=== PATIENT | female | born 1960 | race Caucasian/White ===

== ENCOUNTER → 2020-08-13 10:04 | Outpatient (REF) | payer OTHER, SELFPAY | LOC: HO.SL 10:04 | PROVIDERS: Visit Provider Internal Medicine Geriatric Medicine | DX: R40.0 Somnolence (principal); G47.33 Obstructive sleep apnea (adult) (pediatric) | CPT/HCPCS: 95806 ==

== ENCOUNTER → 2020-08-28 15:22 | Outpatient (BNVA) | payer OTHER, SELFPAY | PROVIDERS: PCP Internal Medicine Geriatric Medicine; Visit Provider Surgery Vascular Surgery | DX: I83.12 Varicose veins of left lower extremity with inflammation (principal) | CPT/HCPCS: 99212 ==

== ENCOUNTER 2020-09-16 13:18 | Outpatient (REF) | payer OTHER, SELFPAY ==
--- NOTE | ~2020-09-16 | MM_ITS ---
EXAMINATION: MM SCREENING DIGITAL BREAST TOMOSYNTHESIS, BILATERAL CLINICAL INFORMATION: Screening. Asymptomatic. The lifetime risk of breast cancer based on the Tyrer-Cuzick Model is 3%. COMPARISON: Mammography: 12/12/2018, 11/14/2017, 05/21/2016 TECHNIQUE: Digital breast tomosynthesis is performed in both the craniocaudal and mediolateral oblique views along with computer-aided detection (CAD). Synthesized 2D images are generated from the tomosynthesis. FINDINGS: There are scattered areas of fibroglandular density (ACR BI-RADS breast composition Category b). There are no significant masses, abnormal calcifications, or other abnormalities. There is some fine digital processing artifact overlying vasculature upper left axilla on left synthesized MLO view. The axilla and skin contours are unremarkable. MM/MM tomosynthesis screening BI IMPRESSION: No mammographic evidence of malignancy. ASSESSMENT: BI-RADS 2: Benign RECOMMENDATION: Routine annual mammography screening. This patient's information was entered into a reminder system with a target due date for their next mammogram.
== END 2020-09-16 13:19 | disposition home or self-care (01) ==
LOC: HO.MAMMO 13:18
PROVIDERS: PCP Internal Medicine Geriatric Medicine; Visit Provider Internal Medicine Geriatric Medicine
DX: Z12.31 Encounter for screening mammogram for malignant neoplasm of breast (principal)
CPT/HCPCS: 77063; 77067

== ENCOUNTER 2020-09-17 12:45 | Outpatient (REF) | payer OTHER, SELFPAY ==
--- NOTE | ~2020-09-17 | US_ITS ---
EXAMINATION: BILATERAL LOWER EXTREMITY VENOUS ULTRASOUND (Reflux Exam) CLINICAL INDICATION: This is a 59-year-old female with venous insufficiency. Varicose veins with inflammation. COMPARISON: None. TECHNIQUE: Color flow triplex imaging and compression Doppler was performed to evaluate both the deep and the superficial systems bilaterally. To evaluate the superficial system, the examination was performed in the upright position. Color-flow Doppler ultrasound and compression ultrasound were utilized. In addition, maneuvers were utilized to demonstrate reflux. FINDINGS: 1. DEEP VENOUS ULTRASOUND OF THE RIGHT LOWER EXTREMITY: Common Femoral Vein: Compressible, normal respiratory variation and augmented flow. Femoral vein: Compressible, normal color flow and augmentation. Popliteal Vein: Compressible, normal augmentation. Deep Reflux: There is no evidence of reflux in the deep system in either the common femoral vein or the popliteal vein. . There is no evidence of a Pollack's cyst. 2. SUPERFICIAL ULTRASOUND WITH DOPPLER OF RIGHT LOWER EXTREMITY GREAT SAPHENOUS VEIN: Saphenofemoral junction: 1.0 cm. There is no reflux at the junction. Mid thigh: 0.2 cm. There is a reflux time of 1084 ms. Above knee: 0.2 cm. There is no reflux at this level. Below knee: 0.3 cm. There is no reflux at this level. Mid calf: 0.3 cm. The reflux time is 3104 ms. Ankle: 0.3 cm. There is no reflux this level. GSV REFLUX: There is isolated reflux in the right thigh and right calf, respectively, as noted. There is no reflux in the junction. DUPLICATED GREAT SAPHENOUS VEIN: There is a duplicated medial great saphenous vein measuring 0.6 cm without reflux. SMALL SAPHENOUS VEIN: Not seen VEIN OF GIACOMINI: None Imaged. PERFORATORS: There is a 0.2 cm remediation project engineer at the mid calf without reflux. VARICOSITIES: There is a 0.4 cm varicose vein in the proximal calf with reflux time of 3276 ms. 3. DEEP VENOUS ULTRASOUND OF THE LEFT LOWER EXTREMITY: Common Femoral Vein: Compressible, normal respiratory variation and augmented flow. Femoral vein: Compressible, normal color flow and augmentation. Popliteal Vein: Compressible, normal augmentation. Deep Reflux: There is no evidence of reflux in the deep system in either the common femoral vein or the popliteal vein. There is no evidence of a Pollack's cyst. 4. SUPERFICIAL ULTRASOUND WITH DOPPLER OF LEFT LOWER EXTREMITY GREAT SAPHENOUS VEIN: Saphenofemoral junction: 1.0 cm. There is no reflux at this level. Mid thigh: Occluded. Above knee: Occluded. Below knee: Occluded. Mid calf: 0.1 cm. No reflux. Ankle: 0.3 cm. No reflux. GSV REFLUX: No evidence of reflux. This appears to be status post treatment. DUPLICATED GREAT SAPHENOUS VEIN: There is a 0.3 cm lateral duplicated great saphenous vein without reflux. SMALL SAPHENOUS VEIN: Not seen. VEIN OF GIACOMINI: None Imaged. PERFORATORS: There is a 0.2 cm and 0.1 cm, respectively, perforators in the mid thigh and proximal calf, respectively, without reflux. VARICOSITIES: There are 0.4 cm and 0.6 cm, respectively, varicose veins in the proximal calf and distal calf, respectively. There is no reflux. US/US venous duplex LE BI IMPRESSION: 1. There is a patent right great saphenous vein without evidence of reflux at the junction. 2. There is a patent medial duplicated great saphenous vein on the right without evidence of reflux. 3. The bilateral small saphenous veins are not seen. 4. There are varicose veins in the proximal right calf measuring 0.4 cm with greater than 3 seconds of reflux. 5. The left great saphenous vein appears to be occluded from previous treatment. 6. There are varicose veins and remediation project engineer's in the left leg without reflux as noted.
== END 2020-09-17 12:46 | disposition home or self-care (01) ==
LOC: HO.US 12:45
PROVIDERS: PCP Internal Medicine Geriatric Medicine; Visit Provider Surgery Vascular Surgery
DX: I83.893 Varicose veins of bilateral lower extremities with other complications (principal); I83.12 Varicose veins of left lower extremity with inflammation
CPT/HCPCS: 93970

== ENCOUNTER → 2020-12-18 09:19 | Outpatient (BNVA) | payer OTHER, SELFPAY | PROVIDERS: PCP Internal Medicine Geriatric Medicine; Visit Provider Surgery Vascular Surgery | DX: I83.11 Varicose veins of right lower extremity with inflammation (principal) | CPT/HCPCS: 99212 ==

== ENCOUNTER 2021-01-26 17:31 | Outpatient (REF) | payer OTHER, SELFPAY ==
--- NOTE | ~2021-01-26 | XR_ITS ---
EXAMINATION: XR SHOULDER, LEFT CLINICAL INFORMATION: Soft tissue disorder, pain. COMPARISON: Radiographs left shoulder 08/22/2018 TECHNIQUE: The left shoulder is imaged in 4 views. FINDINGS: There is no fracture, dislocation, or destructive process. The glenohumeral joint is normal. The acromioclavicular alignment is normal. There is a small spur from distal superior clavicle. No acromial spurring. There are no visible rotator cuff calcifications. Bulky calcification distal superior rotator cuff noted on prior exam 2018 is no longer visible. XR/XR shoulder LT min 2V IMPRESSION: 1. No visible rotator cuff calcifications. 2. Normal glenohumeral joint. 3. Mild spurring distal superior clavicle.
--- NOTE | ~2021-01-26 | XR_ITS ---
EXAMINATION: XR HAND, RIGHT XR HAND, LEFT CLINICAL INFORMATION: Pain COMPARISON: None TECHNIQUE: Each hand is imaged in 3 views. There are a total of 6 views. FINDINGS: Right: Bony mineralization within normal. The ulnar variance is neutral. There is no fracture, dislocation, destructive process. The carpus shows no joint narrowing or erosive change or chondrocalcinosis. The MCP and PIP joints are unremarkable. There is mild narrowing DIP joints. No erosive changes. Left: Bony mineralization within normal. The ulnar variance is neutral. There is no fracture, dislocation, destructive process. The carpus shows no joint narrowing or erosive change or chondrocalcinosis. The MCP and PIP joints are unremarkable. There is mild narrowing DIP joints. No erosive changes. XR/XR hand RT min 3V IMPRESSION: Mild narrowing bilateral DIP joints. No erosive changes.
--- NOTE | ~2021-01-26 | XR_ITS ---
EXAMINATION: XR HAND, RIGHT XR HAND, LEFT CLINICAL INFORMATION: Pain COMPARISON: None TECHNIQUE: Each hand is imaged in 3 views. There are a total of 6 views. FINDINGS: Right: Bony mineralization within normal. The ulnar variance is neutral. There is no fracture, dislocation, destructive process. The carpus shows no joint narrowing or erosive change or chondrocalcinosis. The MCP and PIP joints are unremarkable. There is mild narrowing DIP joints. No erosive changes. Left: Bony mineralization within normal. The ulnar variance is neutral. There is no fracture, dislocation, destructive process. The carpus shows no joint narrowing or erosive change or chondrocalcinosis. The MCP and PIP joints are unremarkable. There is mild narrowing DIP joints. No erosive changes. XR/XR hand LT min 3V IMPRESSION: Mild narrowing bilateral DIP joints. No erosive changes.
== END 2021-01-26 17:32 | disposition home or self-care (01) ==
LOC: HO.XRAY 17:31
PROVIDERS: PCP Internal Medicine Geriatric Medicine; Visit Provider Internal Medicine Geriatric Medicine
DX: M79.641 Pain in right hand (principal); M79.642 Pain in left hand; M79.89 Other specified soft tissue disorders
CPT/HCPCS: 73030; 73130

== ENCOUNTER 2021-05-11 13:32 | Outpatient (REF) | payer OTHER, SELFPAY ==
[2021-05-11 15:08] LABS: Hematocrit 38.1 % (37-47); Hemoglobin 12.2 g/dl (12.0-16.0); Mean Corpuscular Volume 93.6 fL (80-98); Platelet Count 258 X10*3/uL (160-400); Red Blood Count 4.07 X10*6/uL (4.20-5.50); Red Cell Distribution Width 13.2 % (11.0-16.0); White Blood Count 7.6 X10*3/uL (4.8-10.8)
[2021-05-11 16:00] LABS: Alanine Aminotransferase 18 U/L (0-31); Albumin Level 4.2 g/dL (3.5-5.0); Alkaline Phosphatase 88 U/L (39-117); Anion Gap 10 (12-20); Aspartate Amino Transferase 21 U/L (5-31); Bilirubin Total 0.3 mg/dL (0.0-1.0); Blood Urea Nitrogen 11 mg/dL (9-16); C Reactive Protein 0.74 mg/dL (< or = 0.50); Calcium 9.3 mg/dL (8.4-10.2); Carbon Dioxide 28 mmol/L (22-29); Chloride 110 mmol/L (96-108); Estimated Glomerular Filt Rate > 60; Glucose Random 99 mg/dL (60-115); Lipase 13 U/L (8-78); Potassium 4.2 mmol/L (3.3-5.1); Sodium 144 mmol/L (135-145); Total Protein 6.5 g/dL (6.5-8.0)
[2021-05-11 16:24] LABS: TSH reflex Free T4 1.63 uIU/mL (0.32-4.0)
[2021-05-16 07:46] LABS: Transglutaminase Ab IgG <1.0 U/mL; Transglutaminase IgA <1.0 U/mL
== END 2021-05-11 13:33 | disposition home or self-care (01) ==
LOC: HO.LAB 13:32
PROVIDERS: PCP Internal Medicine Geriatric Medicine; Referring Provider Internal Medicine Geriatric Medicine; Visit Provider Nurse Practitioner Family
DX: R10.30 Lower abdominal pain, unspecified (principal); K58.9 Irritable bowel syndrome, unspecified; R14.0 Abdominal distension (gaseous); K59.04 Chronic idiopathic constipation; K57.90 Diverticulosis of intestine, part unspecified, without perforation or abscess without bleeding; K58.1 Irritable bowel syndrome with constipation
CPT/HCPCS: 36415; 80053; 83516; 83690; 84443; 85027; 86140; 99202

== ENCOUNTER 2021-06-18 08:17 | Outpatient (REF) | payer OTHER, SELFPAY ==
--- NOTE | ~2021-06-18 | CT_ITS ---
EXAMINATION: CT ABDOMEN AND PELVIS WITH CONTRAST CLINICAL INFORMATION: Abdominal pain COMPARISON: Abdominal ultrasound December 2019 TECHNIQUE: Multidetector volumetric images were obtained from the superior aspect of the liver through the pubic symphysis following administration 85 mL of Omnipaque 350 intravenous contrast. Sagittal and coronal reformatted images were obtained on the technologist's workstation. Oral contrast: Yes This CT examination was performed using dose optimization techniques as appropriate, variously including the following: *Automated exposure control *Adjustment of mA and/or kV according to patient size (this includes techniques or standardized protocols for targeted exams where dose is matched to indication/reason for exam; i.e. extremities or head) *Use of iterative reconstruction technique DLP: 555 mGy-cm FINDINGS: LUNG BASES: The visualized lung bases are unremarkable. LIVER, GALLBLADDER, AND BILIARY TREE: The liver is normal in size, shape, and attenuation. No focal hepatic lesion or biliary ductal dilatation is present. The gallbladder is unremarkable with no evidence of radiopaque gallstones, gallbladder wall thickening, or obvious pericholecystic inflammatory changes. PANCREAS: Unremarkable. SPLEEN: Unremarkable. ADRENAL GLANDS: Unremarkable. KIDNEYS AND URETERS: The kidneys are normal in size, shape, and attenuation. No hydronephrosis, hydroureter, or calculi seen. No perinephric stranding. BLADDER: Unremarkable. GASTROINTESTINAL TRACT: There is diverticulosis of the colon. There is question of mild diverticulitis of the proximal sigmoid colon with wall thickening and some stranding of the surrounding fat. No evidence of obstruction, perforation or abscess is seen. There is evidence of constipation. The small and large bowel is otherwise unremarkable. The appendix is unremarkable. The stomach is unremarkable. ABDOMINAL WALL: There is a small umbilical hernia containing fat. LYMPH NODES: Normal. VASCULAR: Unremarkable. PELVIC VISCERA: Unremarkable. OSSEOUS STRUCTURES: Unremarkable. CT/CT abdomen pelvis w con IMPRESSION: Diverticulosis and question mild diverticulitis of the proximal sigmoid colon. Constipation.
[2021-06-18 09:53] LABS: Blood Urea Nitrogen 15 mg/dL (9-16); Estimated Glomerular Filt Rate > 60
[2021-06-18] MEDS: iohexoL 350 MG/ML 100 ML INFUS..BTL IV (11:56)
[2021-06-18] MEDS: Barium Sulfate Oral (Mocha) 450 ML ORAL.SUSP 900 ML PO (11:57)
== END 2021-06-18 08:18 | disposition home or self-care (01) ==
LOC: HO.CT 08:17
PROVIDERS: PCP Internal Medicine Geriatric Medicine; Visit Provider Nurse Practitioner Family
DX: Z01.812 Encounter for preprocedural laboratory examination (principal); R10.11 Right upper quadrant pain
CPT/HCPCS: 36415; 74177; 82565; 84520; Q9967

== ENCOUNTER → 2021-07-15 11:27 | Outpatient (BNVA) | payer OTHER, SELFPAY | PROVIDERS: Referring Provider Internal Medicine Geriatric Medicine; Visit Provider Nurse Practitioner Family | DX: K57.90 Diverticulosis of intestine, part unspecified, without perforation or abscess without bleeding (principal); K59.04 Chronic idiopathic constipation; K21.9 Gastro-esophageal reflux disease without esophagitis | CPT/HCPCS: 99212 ==

== ENCOUNTER 2021-10-12 15:52 | Outpatient (REF) | payer OTHER, SELFPAY ==
--- NOTE | ~2021-10-12 | MM_ITS ---
EXAMINATION: MM SCREENING DIGITAL BREAST TOMOSYNTHESIS, BILATERAL CLINICAL INFORMATION: Screening. Asymptomatic. The lifetime risk of breast cancer based on the Tyrer-Cuzick Model is 4%. COMPARISON: Mammography: 09/16/2020, 12/12/2018, 11/14/2017 TECHNIQUE: Digital breast tomosynthesis is performed in both the craniocaudal and mediolateral oblique views along with computer-aided detection (CAD). Synthesized 2D images are generated from the tomosynthesis. FINDINGS: There are scattered areas of fibroglandular density (ACR BI-RADS breast composition Category b). There are no significant masses, abnormal calcifications, or other abnormalities. Parenchymal pattern is similar to prior studies. There are no significant changes. MM/MM tomosynthesis screening BI IMPRESSION: No mammographic evidence of malignancy. ASSESSMENT: BI-RADS 1: Negative RECOMMENDATION: Routine annual mammography screening. This patient's information was entered into a reminder system with a target due date for their next mammogram.
== END 2021-10-12 15:53 | disposition home or self-care (01) ==
LOC: HO.MAMMO 15:52
PROVIDERS: PCP Internal Medicine Geriatric Medicine; Visit Provider Internal Medicine Geriatric Medicine
DX: Z12.31 Encounter for screening mammogram for malignant neoplasm of breast (principal)
CPT/HCPCS: 77063; 77067

== ENCOUNTER → 2021-11-10 13:00 | Outpatient (BNVA) | payer OTHER, SELFPAY | PROVIDERS: PCP Internal Medicine Geriatric Medicine; Referring Provider Internal Medicine Geriatric Medicine; Visit Provider Nurse Practitioner Family | DX: K21.9 Gastro-esophageal reflux disease without esophagitis (principal); K59.04 Chronic idiopathic constipation; K57.90 Diverticulosis of intestine, part unspecified, without perforation or abscess without bleeding; Z79.899 Other long term (current) drug therapy | CPT/HCPCS: 99212 ==

== ENCOUNTER 2022-03-18 09:52 | Outpatient (REF) | payer OTHER, SELFPAY ==
--- NOTE | ~2022-03-18 | MM_ITS ---
EXAMINATION: BONE DENSITOMETRY CLINICAL INDICATION: Menopause. COMPARISON: None (current study represents initial baseline exam). TECHNIQUE: Using a [employer] DXA System (software version: 13.1) manufactured by [employer], dual-energy x-ray absorptiometry was performed of the lumbar spine and left hip. The images are of good technical quality. Summary results are attached. FINDINGS: AP SPINE L1-L4: BMD 0.907 g/cm2, Z-score -1.5, T-score -2.3, osteopenia. LEFT FEMUR, NECK: BMD 0.942 g/cm2, Z-score 0.3, T-score -0.7, normal. LEFT FEMUR, TOTAL: BMD 0.984 g/cm2, Z-score 0.4, T-score -0.2, normal. IDENTIFIED RISK FACTORS: None listed. HISTORY OF FRACTURE: None listed. MEDICATIONS: Calcium supplements or multivitamin, vitamin D. MM/XR DEXA axial skeleton IMPRESSION: 1. DIAGNOSIS: Osteopenia based on the lowest T-score value of -2.3 in the lumbar spine applying World Health Organization criteria. 2. 10-YEAR FRACTURE RISK PREDICTION, FRAX: Major osteoporotic fracture (clinical spine, forearm, hip or shoulder) 3.7%. Hip fracture 0.2%. 3. Treatment Recommendations: NOF guidelines recommend consideration for treatment in postmenopausal women and men age 50 and older presenting with the following: -A hip or vertebral (clinical or morphometric) fracture. -T-score less than or equal to -2.5 at the femoral neck or spine after appropriate evaluation to exclude secondary causes. -Low bone mass at the hip or spine and a 10-year fracture probability by FRAX of greater than or equal to 3% for hip fracture or greater than or equal to 20% for major osteoporotic fracture based on the [place] adapted WHO algorithm. 4. Other Recommendations: All treatment decisions require clinical judgment and consideration of individual patient factors, including patient preferences, comorbidities, previous drug use, risk factors not captured in the FRAX model (e.g. frailty, falls, vitamin D deficiency, increased bone turnover, interval significant decline in bone density) and possible under or overestimation of fracture risk by FRAX. Additional medical evaluation for secondary cause of low bone mineral density may be appropriate. FUTURE SCAN RECOMMENDATION: People with diagnosed cases of osteoporosis or at high risk for fracture should have regular bone mineral density tests. For patients eligible for Medicare, routine testing is allowed once every 2 years. The testing frequency can be increased to one year for patients who have rapidly progressing disease, those who are receiving or discontinuing medical therapy to restore bone mass, or have additional risk factors.
== END 2022-03-18 09:53 | disposition home or self-care (01) ==
LOC: HO.MAMMO 09:52
PROVIDERS: PCP Internal Medicine Geriatric Medicine; Visit Provider Internal Medicine Geriatric Medicine
DX: Z13.820 Encounter for screening for osteoporosis (principal); E89.40 Asymptomatic postprocedural ovarian failure; M85.80 Other specified disorders of bone density and structure, unspecified site
CPT/HCPCS: 77080

== ENCOUNTER 2022-06-14 11:48 | Outpatient (REF) | payer OTHER, SELFPAY ==
--- NOTE | ~2022-06-14 | XR_ITS ---
EXAMINATION: XR LUMBOSACRAL SPINE CLINICAL INFORMATION: Lumbago with sciatica. COMPARISON: None TECHNIQUE: AP and lateral views of the lumbar spine and lateral view of the lumbosacral junction. FINDINGS: Vertebral body heights are normal. There is a mild lumbar dextroscoliosis, with rotatory component. The lumbar disc spaces are well-maintained. No acute fracture or spondylolisthesis is seen. The posterior elements are intact. There are multiple pelvic phleboliths. The paravertebral soft tissues are unremarkable. XR/XR lumbar spine 2-3V IMPRESSION: 1. No acute fracture or spondylolisthesis is seen. 2. The lumbar disc spaces are well-maintained. 3. There is a mild lumbar dextroscoliosis, with rotatory component.
== END 2022-06-14 11:49 | disposition home or self-care (01) ==
LOC: HO.XRAY 11:48
PROVIDERS: PCP Internal Medicine Geriatric Medicine; Visit Provider Internal Medicine Geriatric Medicine
DX: M54.42 Lumbago with sciatica, left side (principal)
CPT/HCPCS: 72100

== ENCOUNTER → 2022-10-06 11:14 | Outpatient (BNVA) | payer OTHER, SELFPAY | PROVIDERS: PCP Internal Medicine Geriatric Medicine; Visit Provider Anesthesiology | DX: M47.816 Spondylosis without myelopathy or radiculopathy, lumbar region (principal); M47.812 Spondylosis without myelopathy or radiculopathy, cervical region; G89.4 Chronic pain syndrome | CPT/HCPCS: 99202 ==

== ENCOUNTER 2022-10-15 15:04 | Outpatient (REF) | payer OTHER, SELFPAY ==
--- NOTE | ~2022-10-15 | MM_ITS ---
EXAMINATION: MM SCREENING DIGITAL BREAST TOMOSYNTHESIS, BILATERAL CLINICAL INFORMATION: Screening. Asymptomatic. The lifetime risk of breast cancer based on the Tyrer-Cuzick Model is 6%. COMPARISON: Mammography: 10/12/2021, 09/16/2020, 12/12/2018 TECHNIQUE: Digital breast tomosynthesis is performed in both the craniocaudal and mediolateral oblique views along with computer-aided detection (CAD). Synthesized 2D images are generated from the tomosynthesis. FINDINGS: There are scattered areas of fibroglandular density (ACR BI-RADS breast composition Category b). There are no significant masses, abnormal calcifications, or other abnormalities. Parenchymal pattern is similar to prior studies. There is no developing density or architectural abnormality. The axilla and skin contours are unremarkable. No significant changes. MM/MM tomosynthesis screening BI IMPRESSION: No mammographic evidence of malignancy. ASSESSMENT: BI-RADS 1: Negative RECOMMENDATION: Routine annual mammography screening. This patient's information was entered into a reminder system with a target due date for their next mammogram.
== END 2022-10-15 15:05 | disposition home or self-care (01) ==
LOC: HO.MAMMO 15:04
PROVIDERS: PCP Internal Medicine Geriatric Medicine; Visit Provider Internal Medicine Geriatric Medicine
DX: Z12.31 Encounter for screening mammogram for malignant neoplasm of breast (principal)
CPT/HCPCS: 77063; 77067

== ENCOUNTER → 2022-11-04 12:00 | Outpatient (BNVA) | payer OTHER, SELFPAY | PROVIDERS: PCP Internal Medicine Geriatric Medicine; Visit Provider Nurse Practitioner Family | DX: K59.04 Chronic idiopathic constipation (principal); K58.1 Irritable bowel syndrome with constipation; K57.90 Diverticulosis of intestine, part unspecified, without perforation or abscess without bleeding | CPT/HCPCS: 99212 ==

== ENCOUNTER → 2022-12-01 12:34 | Outpatient (BNVA) | payer OTHER, SELFPAY | PROVIDERS: PCP Internal Medicine Geriatric Medicine; Visit Provider Nurse Practitioner Family | DX: K58.1 Irritable bowel syndrome with constipation (principal); K59.04 Chronic idiopathic constipation; K21.9 Gastro-esophageal reflux disease without esophagitis; R22.1 Localized swelling, mass and lump, neck | CPT/HCPCS: 99212 ==

== ENCOUNTER 2022-12-21 09:59 | Outpatient (REF) | payer OTHER, SELFPAY | END 2022-12-21 10:00 | disposition home or self-care (01) | LOC: HO.LNP 09:59 | PROVIDERS: PCP Internal Medicine Geriatric Medicine; Referring Provider Nurse Practitioner Family; Visit Provider Surgery | DX: D17.22 Benign lipomatous neoplasm of skin and subcutaneous tissue of left arm (principal) | CPT/HCPCS: 11423; 88304; 99202 ==

== ENCOUNTER → 2022-12-28 13:42 | Outpatient (BNVA) | payer OTHER, SELFPAY | PROVIDERS: PCP Internal Medicine Geriatric Medicine; Visit Provider Surgery | DX: D17.9 Benign lipomatous neoplasm, unspecified (principal) | CPT/HCPCS: 99212 ==

== ENCOUNTER → 2022-12-30 13:05 | Outpatient (BNVA) | payer OTHER, SELFPAY | PROVIDERS: PCP Internal Medicine Geriatric Medicine; Visit Provider Surgery Vascular Surgery | DX: I83.12 Varicose veins of left lower extremity with inflammation (principal) | CPT/HCPCS: 99212 ==

== ENCOUNTER 2023-01-06 10:19 | Outpatient (REF) | payer OTHER, SELFPAY ==
--- NOTE | ~2023-01-06 | US_ITS ---
EXAMINATION: US LOWER EXTREMITY VENOUS (REFLUX EXAM), BILATERAL CLINICAL INDICATION: Chronic venous insufficiency history of prior saphenous vein ablations COMPARISON: Ultrasound from 09/17/2020 TECHNIQUE: Color flow triplex imaging and compression Doppler was performed to evaluate both the deep and the superficial systems bilaterally. To evaluate the superficial system, the examination was performed in the upright position. Color-flow Doppler ultrasound and compression ultrasound were utilized. In addition, maneuvers were utilized to demonstrate reflux. FINDINGS: 1. DEEP VENOUS ULTRASOUND OF THE RIGHT LOWER EXTREMITY: Common Femoral Vein: Compressible, normal respiratory variation and augmented flow. Femoral Vein: Compressible, normal color flow and augmentation. Popliteal Vein: Compressible, normal augmentation. Deep Reflux: There is no evidence of reflux in the deep system in either the common femoral vein or the popliteal vein. There is no evidence of a Pollack's cyst. 2. SUPERFICIAL ULTRASOUND WITH DOPPLER OF RIGHT LOWER EXTREMITY: GREAT SAPHENOUS VEIN: Saphenofemoral Junction: 0.8 cm; Reflux: 0 ms Proximal Thigh: 0.5 cm; Reflux: 0 ms Mid Thigh: 0.2 cm; Reflux: 0 ms Above Knee: 0.3 cm; Reflux: 0 ms At Knee: 0.2 cm; Reflux: 0 ms Below Knee: 0.3 cm; Reflux: 0 ms Mid Calf: 0.2 cm; Reflux: 2584 ms Ankle: 0.3 cm; Reflux: 2544 ms DUPLICATED MEDIAL GREAT SAPHENOUS VEIN: Diameter: 0.3 cm Reflux: None DUPLICATED LATERAL GREAT SAPHENOUS VEIN: Diameter: None imaged Reflux: NA SMALL SAPHENOUS VEIN: Proximal: 0.1 cm; Reflux: 0 ms Distal: 2 cm; Reflux: 0 ms VEIN OF GIACOMINI: Size: NA Reflux: NA PERFORATORS: Location: Mid calf Size: 0.3 cm Reflux: None VARICOSITIES: Location: Proximal calf off the great saphenous vein Size: 0.4 cm Reflux: 2612 3. DEEP VENOUS ULTRASOUND OF THE LEFT LOWER EXTREMITY: Common Femoral Vein: Compressible, normal respiratory variation and augmented flow. Femoral Vein: Compressible, normal color flow and augmentation. Popliteal Vein: Compressible, normal augmentation. Deep Reflux: There is no evidence of reflux in the deep system in either the common femoral vein or the popliteal vein. There is no evidence of a Pollack's cyst. 4. SUPERFICIAL ULTRASOUND WITH DOPPLER OF LEFT LOWER EXTREMITY: GREAT SAPHENOUS VEIN: Saphenofemoral Junction: 0.8 cm; Reflux: 0 ms Proximal Thigh: Not visualized Mid Thigh: Not visualized Above Knee: 0.3 cm; Reflux: 3024 ms At Knee: 0.1 cm; Reflux: 0 ms Below Knee: 0.2 cm; Reflux: 0 ms Mid Calf: 0.1 cm; Reflux: 0 ms Ankle: 0.2 cm; Reflux: 780 ms DUPLICATED MEDIAL GREAT SAPHENOUS VEIN: Diameter: None imaged Reflux: NA DUPLICATED LATERAL GREAT SAPHENOUS VEIN: Diameter: 0.3 cm Reflux: None SMALL SAPHENOUS VEIN: Not visualized VEIN OF GIACOMINI: Size: NA Reflux: NA PERFORATORS: Location: Mid thigh and proximal calf extending into the great saphenous vein remnant Size: 0.2 Reflux: None VARICOSITIES: Location: None Imaged Size: NA Reflux: NA US/US venous duplex LE BI IMPRESSION: Right: Segmental reflux in the right great saphenous vein within the calf as described above. Dilated varicose vein arising from the great saphenous vein in the calf with reflux as described above. No significant change compared to the prior exam Left: Occlusion of the left great saphenous vein within the thigh with reconstituted flow in the great saphenous vein in the distal thigh and calf as described above. Segmental areas of reflux seen in the residual great saphenous vein as described above
== END 2023-01-06 10:20 | disposition home or self-care (01) ==
LOC: HO.US 10:19
PROVIDERS: Visit Provider Surgery Vascular Surgery
DX: I83.12 Varicose veins of left lower extremity with inflammation (principal)
CPT/HCPCS: 93970

== ENCOUNTER → 2023-01-19 09:16 | Outpatient (BNVA) | payer OTHER, SELFPAY | PROVIDERS: Visit Provider Nurse Practitioner Family | DX: Z12.11 Encounter for screening for malignant neoplasm of colon (principal); K21.9 Gastro-esophageal reflux disease without esophagitis; K58.1 Irritable bowel syndrome with constipation; K59.04 Chronic idiopathic constipation | CPT/HCPCS: 99212 ==

== ENCOUNTER 2023-02-22 11:10 | Day surgery (SDC) | payer OTHER, SELFPAY ==
--- NOTE | 2023-02-21 12:04 | HO.ANESPROP2 ---
Documented by User: Kira Mott NP 02/21/23 12:04 HPI - Anesthesia Eval Consult details Narrative: 62yo F for Upper Endoscopy and Colonoscopy PMFSH Active Problems Active Problems: All Active Problems (Updated 12/21/22 @ 10:13 by BOSTON Harding) Lipoma (Acute) Chronic pain syndrome (Acute) Spondylosis of cervical region without myelopathy or radiculopathy (Acute) Spondylosis of lumbar region without myelopathy or radiculopathy (Acute) Varicose veins of right lower extremity with inflammation (Acute) Varicose veins of left lower extremity with inflammation (Acute) Past Medical History Medical History Cataract (~11/2021) Family History Family History Father Diabetes HTN (hypertension) Sister FH: kidney cancer HTN (hypertension) Mother HTN (hypertension) Sister HTN (hypertension) Sister HTN (hypertension) Sister HTN (hypertension) Sister HTN (hypertension) Brother HTN (hypertension) Surgical History Surgical History H/O prior ablation treatment H/O: hysterectomy History of bladder surgery History of esophagogastroduodenoscopy (EGD) Hx of colonoscopy Social History Social History Alcohol intake: never Patient Tobacco Use Status: Never used Tobacco Use of substances other than those prescribed or required for medical reasons: No Are you DNR?: No Advance Directives: No Advance Directives Information Provided: Yes Recently lost weight without trying: No Nutrition Risks: No Nutritional Risk Meds Allergies Allergy/AdvReac Type Severity Reaction Status Date / Time acetaminophen [Percocet] Allergy Unknown itching Verified 01/19/23 09:25 oxycodone [Percocet] Allergy Unknown itching Verified 01/19/23 09:25 tramadol Allergy Unknown itching Verified 01/19/23 09:25 Home Medications Medication Instructions Recorded Confirmed Last Taken Type amlodipine 5 mg-benazepril 10 mg 1 cap PO DAILY 08/28/20 Unknown History capsule bupropion HCl 150 mg 24 hr tablet, 150 mg PO QAM 08/28/20 Unknown History extended release gabapentin 100 mg capsule 100 mg PO DAILY 08/28/20 Unknown History incontinence pad, liner, disp #10 ea 08/28/20 Unknown History (Affirm Pads) nabumetone 750 mg tablet 750 mg PO BID 08/28/20 Unknown History valacyclovir 500 mg tablet 500 mg PO BID 08/28/20 Unknown History (Valtrex) oxybutynin chloride 15 mg 15 mg PO DAILY 11/10/21 Unknown History tablet,extended release 24 hr dicyclomine 10 mg capsule 10 mg PO Q6H PRN 10/06/22 Unknown History psyllium husk (aspartame) 3.4 g PO 12/30/22 Unknown History gram/5.8 gram oral powder (Metamucil Sugar-Free (aspartame)) Exam Exam Date and Time: February 21, 2023 1204 Assessment and Plan Assessment Anesthesia Assessment: Chart Reviewed Documented by User: Estela Goss MD 02/22/23 13:38 [facility] Past Medical History Medical History Cataract (~11/2021) Family History Family History Father Diabetes HTN (hypertension) Sister FH: kidney cancer HTN (hypertension) Mother HTN (hypertension) Sister HTN (hypertension) Sister HTN (hypertension) Sister HTN (hypertension) Sister HTN (hypertension) Brother HTN (hypertension) Family history of problems with anesthesia: No Surgical History Surgical History H/O prior ablation treatment H/O: hysterectomy History of bladder surgery History of esophagogastroduodenoscopy (EGD) Hx of colonoscopy History of Problems with Anesthesia: No Social History Social History Alcohol intake: never Patient Tobacco Use Status: Never used Tobacco Use of substances other than those prescribed or required for medical reasons: No Are you DNR?: No Advance Directives: No Advance Directives Information Provided: Yes Recently lost weight without trying: No Nutrition Risks: No Nutritional Risk Meds Allergies Allergy/AdvReac Type Severity Reaction Status Date / Time acetaminophen [Percocet] Allergy Unknown itching Verified 01/19/23 09:25 oxycodone [Percocet] Allergy Unknown itching Verified 01/19/23 09:25 tramadol Allergy Unknown itching Verified 01/19/23 09:25 Home Medications Medication Instructions Recorded Confirmed Last Taken Type amlodipine 5 mg-benazepril 10 mg 1 cap PO DAILY 08/28/20 Unknown History capsule bupropion HCl 150 mg 24 hr tablet, 150 mg PO QAM 08/28/20 Unknown History extended release gabapentin 100 mg capsule 100 mg PO DAILY 08/28/20 Unknown History incontinence pad, liner, disp #10 ea 08/28/20 Unknown History (Affirm Pads) nabumetone 750 mg tablet 750 mg PO BID 08/28/20 Unknown History valacyclovir 500 mg tablet 500 mg PO BID 08/28/20 Unknown History (Valtrex) oxybutynin chloride 15 mg 15 mg PO DAILY 11/10/21 Unknown History tablet,extended release 24 hr dicyclomine 10 mg capsule 10 mg PO Q6H PRN 10/06/22 Unknown History psyllium husk (aspartame) 3.4 g PO 12/30/22 Unknown History gram/5.8 gram oral powder (Metamucil Sugar-Free (aspartame)) Exam Airway Mallampati Class: II TM Dist: >3cm Neck ROM: Full Loose/Missing/Broken Teeth: No Heart: rr Lungs: cta Assessment and Plan Assessment Anesthesia Assessment: Anesthesia Plan Discussed Final Anesthetic Review Family History of Problems with Anesthesia: No History of Problems with Anesthesia: No NPO: Yes ASA Class: II Final Preanesthetic Review: No Changes in Pt Med Stat, Meds/Allgs Chart Reviewed, Consent Obtained/Reviewed and Anes Risks/Benef Reviewed Patient Risk: Low Procedure Risk: Low Anesthetic Plan Anesthetic Plan: MAC: Disposition: Standard PACU
--- NOTE | 2023-02-22 11:19 | MHC.SHP ---
Pre-Procedural Eval Section A Date of Service: 02/22/23 The patient is an INPATIENT: No The History & Physical has been completed within 30 days and I have reviewed it.: No Section B Chief Complaint: screening,constipation,IBS, GERD Relevant Family History (Specify if Yes): No Relevant Social History: None Present Medications: see Short Stay Collaborative assessment Medical History: Significant History (Chronic pain syndrome) History of Previous Operations: Relevant previous surgery/procedure and date(s) (H/O prior ablation treatment H/O: hysterectomy History of bladder surgery History of esophagogastroduodenoscopy (EGD) Hx of colonoscopy) Allergies: Allergies Allergy/AdvReac Type Severity Reaction Status Date / Time acetaminophen [Percocet] Allergy Unknown itching Verified 01/19/23 09:25 oxycodone [Percocet] Allergy Unknown itching Verified 01/19/23 09:25 tramadol Allergy Unknown itching Verified 01/19/23 09:25 Review of Systems Sugical H&P ROS: Negative: Constitution, Cardiovascular, Respiratory and Gastrointestinal Exam Surgical H&P Exam: Normal: Heart, Normal: Lungs, Normal: Extremities and Normal: Abdomen Plan Diagnosis/Plan: Unchanged I have reviewed the history and physical and performed a pertinent physical examination on my patient. No changes have occurred unless specified. Time Spent With Patient Time: Total time managing care of this patient today ____ minutes.
[2023-02-22 11:52] VITALS: BMI 37.4
[2023-02-22 11:58] VITALS: BP 134/88; PULSE 69; RESP 16; TEMP 36.2; O2SAT 98
[2023-02-22] MEDS: Lactated Ringers 1,000 ML 100 ML IVCONT (12:17)
--- NOTE | 2023-02-22 12:50 | P.OP_ITS ---
Operative Note Operative Note Date of Service: 02/22/23 Narrative: FLEXIBLE TRANSORAL UPPER GASTROINTESTINAL ENDOSCOPY WITH BIOPSIES AND COLONOSCOPY TILL CECUM WITH SNARE POLYPECTOMY Pre-op diagnosis: screening, constipation, IBS and GERD Post-op diagnosis: GERD, gastritis, colon polyp, diverticulosis, hemorrhoids? Endoscopist:? Niharika Munoz MD Anesthesia:?MAC UPPER ENDOSCOPY Consent: Indications for the procedure and potential complications of bleeding, perforation, reaction to medications and missed diagnosis were discussed with the patient and informed consent was obtained. Instrument: Olympus GIF H 190 mid size upper endoscope Monitoring: Vital signs and clinical assessment, continuous EKG monitoring, Pulse oximetry, Carbon Dioxide monitoring and blood pressure monitoring were done throughout the procedure. Procedure: The patient was placed in the left lateral decubitis position and pre-procedure medications were administered and a bite block was placed. The endoscope was inserted into the mouth and advanced under direct vision to the third part of duodenum. A careful inspection was made as the upper endoscope was withdrawn including a retroflexed examination of the proximal stomach; Findings and interventions are described below. Findings: Larynx: Normal Esophagus: GE junction at 36 cms. Minimal focal esophagitis at GE junction. No Guerrero's. Stomach: Mild gastric erythema. Biopsies were obtained. Grade 2 flap valve on retroflexed examination of the cardia. Duodenum: Normal bulb and descending duodenum. Biopsies obtained from 3rd part of duodenum to check for celiac sprue Intervention: Biopsies as noted above COLONOSCOPY PROCEDURE NOTE Consent: Indications for the procedure and potential complications of bleeding, perforation, reaction to medications and missed diagnosis were discussed with the patient and informed consent was obtained. Instrument: Olympus PCF H 190 L variable stiffness pediatric colonoscope Monitoring: Vital signs and clinical assessment, intermittent blood pressure monitoring, continuous EKG monitoring, Pulse oximetry and Carbon Dioxide monitoring were done throughout the procedure. Colon withdrawl time was 22 minutes. Procedure: The patient was placed in the left lateral decubitis position and pre-procedure medications were administered. After a digital rectal examination of the ano-rectum, the video colonoscope was inserted into the rectum and advanced through the colon to the cecum. The colonoscope was slowly withdrawn in a retrograde panoramic fashion and the colon mucosa was carefully examined including a retroflexed view of the rectum. Findings and interventions are described below. Procedure Difficulty: : Without difficulty Findings: Terminal Ileum: Not evaluated Cecum: Normal Ascending Colon: Normal Transverse Colon: Normal Descending Colon: Moderate diverticulosis Sigmoid Colon: Severe diverticulosis with luminal narrowing Rectum: A 10-12 mm sessile polyp - removed with a hot snare. Ano-rectum: Moderate internal hemorrhoids Colon preparation: Good after some irrigation Impression and Post Procedure Diagnosis: Endoscopy Findings: ESOPHAGUS: Minimal focal esophagitis at GE junction. No Guerrero's. STOMACH: Mild gastritis DUODENUM: Normal - biopsied to check for celiac sprue Colonoscopy Findings: One medium sized polyp removed Moderate to severe diverticulosis seen in the left colon Moderate hemorrhoids on retroflexed exam. Plan: Await pathology results Patient has an appointment on 03/02/23 in the [facility] with Osiris Ware FNP- [place] . Repeat Colonoscopy interval based on path results - in 3 years if polyp is adenomatous and 10 years if polyps are hyperplastic. Above findings were reviewed with the patient and GERD, colon polyps and diverticulosis handouts were given in the discharge area
[2023-02-22 14:06] VITALS: BP 130/81; PULSE 72; RESP 16; TEMP 36.2; O2SAT 96
[2023-02-22 14:21] VITALS: BP 149/80; PULSE 66; RESP 16; TEMP 36.3; O2SAT 99
== END 2023-02-22 15:22 | disposition home or self-care (01) ==
PROVIDERS: PCP Internal Medicine Geriatric Medicine; Visit Provider Internal Medicine Gastroenterology
PROC: (CPT 45385; principal; 2023-02-22 12:40)
DX: Z12.11 Encounter for screening for malignant neoplasm of colon (principal); D12.8 Benign neoplasm of rectum; K57.30 Diverticulosis of large intestine without perforation or abscess without bleeding; K64.8 Other hemorrhoids; K29.70 Gastritis, unspecified, without bleeding; K21.9 Gastro-esophageal reflux disease without esophagitis; K59.04 Chronic idiopathic constipation; K58.1 Irritable bowel syndrome with constipation; G89.4 Chronic pain syndrome; Z79.899 Other long term (current) drug therapy
CPT/HCPCS: 45385; 43239; 88305; 88342

== ENCOUNTER → 2023-02-22 11:10 | Outpatient (BNV) | payer OTHER, SELFPAY | PROVIDERS: PCP Internal Medicine Geriatric Medicine; Visit Provider Internal Medicine Gastroenterology | DX: Z12.11 Encounter for screening for malignant neoplasm of colon (principal); K63.5 Polyp of colon; K21.9 Gastro-esophageal reflux disease without esophagitis | CPT/HCPCS: 43239; 45385 ==

== ENCOUNTER 2023-04-05 11:55 | Outpatient (REF) | payer OTHER, SELFPAY ==
[2023-04-05 13:46] LABS: MANUAL DIFF FLAG NO
[2023-04-05 13:47] LABS: Basophils Percent Auto 0.7 % (0-2); Eosinophils Absolute Auto 0.2 X10*3/uL (0.0-0.4); Hematocrit 39.3 % (37.0-47.0); Hemoglobin 12.5 g/dl (12.0-16.0); Imm Gran Abs Auto 0.02 X10*3/uL (0.00-0.03); Imm Gran Pct Auto 0.3 % (0.0-0.4); Lymphocytes Absolute Auto 2.2 X10*3/uL (1.2-4.9); Lymphocytes Percent Auto 35.9 % (20-40); Mean Corpuscular HGB Conc 31.8 g/dl (31.0-35.0); Mean Corpuscular Volume 94.2 fL (80.0-98.0); Mean Platelet Volume 10.7 fL (9.4-12.3); Monocytes Absolute Auto 0.4 X10*3/uL (0.1-1.2); Neutrophils Absolute Auto 3.3 x10*3/uL (2.0-8.3); Neutrophils Percent Auto 54.1 % (45-73); Platelet Count 275 X10*3/uL (160-400); Red Blood Count 4.17 X10*6/uL (4.20-5.50); Red Cell Distribution Width 13.2 % (11.0-16.0)
== END 2023-04-05 11:56 | disposition home or self-care (01) ==
LOC: HO.HHCL 11:55
PROVIDERS: Visit Provider Nurse Practitioner Primary Care
DX: R10.32 Left lower quadrant pain (principal); K57.90 Diverticulosis of intestine, part unspecified, without perforation or abscess without bleeding
CPT/HCPCS: 36415; 85025

== ENCOUNTER 2023-06-07 13:46 | Outpatient (REF) | payer OTHER, SELFPAY ==
--- NOTE | ~2023-06-07 | XR_ITS ---
EXAMINATION: XR KNEE, RIGHT XR KNEE, LEFT CLINICAL INFORMATION: Pain COMPARISON: None available. TECHNIQUE: 3 views of the right knee 3 views the left knee FINDINGS: RIGHT: No acute visible fracture or dislocation. Multicompartment arthritic changes. Enthesopathy at the quadriceps tendon insertion site. Sclerotic focus tibial metadiaphysis statistically representing a bone island. A fabella is noted in the posterior compartment. Joint spaces and alignment are otherwise maintained. No large knee joint effusion. Soft tissues are unremarkable. LEFT: No acute visible fracture or dislocation. Multicompartment arthritic changes. Enthesopathy at the quadriceps tendon insertion site. Sclerotic focus tibial metadiaphysis statistically representing a bone island. A fabella is noted in the posterior compartment. Joint spaces and alignment are otherwise maintained. No large knee joint effusion. Soft tissues are unremarkable. XR/XR knee RT 3V IMPRESSION: 1. No acute visible fracture or dislocation. 2. Bilateral multicompartment arthritic changes. 3. Bilateral enthesopathy at the quadriceps tendon insertion site.
--- NOTE | ~2023-06-07 | XR_ITS ---
EXAMINATION: XR ANKLE, RIGHT XR ANKLE, LEFT CLINICAL INFORMATION: Pain COMPARISON: None available. TECHNIQUE: 3 views of each ankle FINDINGS: No acute visible fracture or dislocation. 2 mm ossific focus along the medial aspect of the medial malleolus which may reflect sequela of remote trauma. Ankle mortise views are symmetric. Bilateral plantar calcaneal heel spur. Bilateral Achilles tendon enthesopathy. Joint space alignment are otherwise maintained. Soft tissues are unremarkable. XR/XR ankle LT min 3V IMPRESSION: 1. No acute visible fracture or dislocation. 2. 2 mm ossific focus along the medial aspect of the medial malleolus which may reflect sequela of remote trauma. 3. Bilateral plantar calcaneal heel spur. 4. Bilateral Achilles tendon enthesopathy.
--- NOTE | ~2023-06-07 | XR_ITS ---
EXAMINATION: XR KNEE, RIGHT XR KNEE, LEFT CLINICAL INFORMATION: Pain COMPARISON: None available. TECHNIQUE: 3 views of the right knee 3 views the left knee FINDINGS: RIGHT: No acute visible fracture or dislocation. Multicompartment arthritic changes. Enthesopathy at the quadriceps tendon insertion site. Sclerotic focus tibial metadiaphysis statistically representing a bone island. A fabella is noted in the posterior compartment. Joint spaces and alignment are otherwise maintained. No large knee joint effusion. Soft tissues are unremarkable. LEFT: No acute visible fracture or dislocation. Multicompartment arthritic changes. Enthesopathy at the quadriceps tendon insertion site. Sclerotic focus tibial metadiaphysis statistically representing a bone island. A fabella is noted in the posterior compartment. Joint spaces and alignment are otherwise maintained. No large knee joint effusion. Soft tissues are unremarkable. XR/XR knee LT 3V IMPRESSION: 1. No acute visible fracture or dislocation. 2. Bilateral multicompartment arthritic changes. 3. Bilateral enthesopathy at the quadriceps tendon insertion site.
--- NOTE | ~2023-06-07 | XR_ITS ---
EXAMINATION: XR ANKLE, RIGHT XR ANKLE, LEFT CLINICAL INFORMATION: Pain COMPARISON: None available. TECHNIQUE: 3 views of each ankle FINDINGS: No acute visible fracture or dislocation. 2 mm ossific focus along the medial aspect of the medial malleolus which may reflect sequela of remote trauma. Ankle mortise views are symmetric. Bilateral plantar calcaneal heel spur. Bilateral Achilles tendon enthesopathy. Joint space alignment are otherwise maintained. Soft tissues are unremarkable. XR/XR ankle RT min 3V IMPRESSION: 1. No acute visible fracture or dislocation. 2. 2 mm ossific focus along the medial aspect of the medial malleolus which may reflect sequela of remote trauma. 3. Bilateral plantar calcaneal heel spur. 4. Bilateral Achilles tendon enthesopathy.
== END 2023-06-07 13:47 | disposition home or self-care (01) ==
LOC: HO.HHCX 13:46
PROVIDERS: Visit Provider Family Medicine
DX: G89.29 Other chronic pain (principal); M25.561 Pain in right knee; M25.562 Pain in left knee; M25.471 Effusion, right ankle; M25.472 Effusion, left ankle
CPT/HCPCS: 73562; 73610

== ENCOUNTER 2023-06-21 14:43 | Outpatient (REF) | payer OTHER, SELFPAY ==
[2023-06-21 16:17] LABS: Anion Gap 10 (12-20); Blood Urea Nitrogen 11 mg/dL (9-16); Calcium 8.8 mg/dL (8.4-10.2); Carbon Dioxide 27 mmol/L (22-29); Chloride 108 mmol/L (96-108); Estimated Glomerular Filt Rate > 60; Glucose Random 93 mg/dL (60-115); Potassium 3.8 mmol/L (3.3-5.1); Sodium 141 mmol/L (135-145)
== END 2023-06-21 14:44 | disposition home or self-care (01) ==
LOC: HO.HHCL 14:43
PROVIDERS: Visit Provider Internal Medicine Geriatric Medicine
DX: I10 Essential (primary) hypertension (principal)
CPT/HCPCS: 36415; 80048

== ENCOUNTER 2023-10-24 11:58 | Outpatient (REF) | payer OTHER, SELFPAY ==
[2023-10-24 13:08] LABS: MANUAL DIFF FLAG NO
[2023-10-24 13:39] LABS: Basophils Absolute Auto 0.1 X10*3/uL (0.0-0.2); Basophils Percent Auto 0.7 % (0-2); Eosinophils Absolute Auto 0.3 X10*3/uL (0.0-0.4); Hematocrit 39.5 % (37.0-47.0); Hemoglobin 12.7 g/dl (12.0-16.0); Imm Gran Abs Auto 0.03 X10*3/uL (0.00-0.03); Imm Gran Pct Auto 0.4 % (0.0-0.4); Lymphocytes Absolute Auto 2.2 X10*3/uL (1.2-4.9); Lymphocytes Percent Auto 32.5 % (20-40); Mean Corpuscular HGB Conc 32.2 g/dl (31.0-35.0); Mean Corpuscular Volume 93.4 fL (80.0-98.0); Mean Platelet Volume 10.3 fL (9.4-12.3); Monocytes Absolute Auto 0.4 X10*3/uL (0.1-1.2); Monocytes Percent Auto 6.2 % (2-11); Neutrophils Absolute Auto 3.8 x10*3/uL (2.0-8.3); Neutrophils Percent Auto 56.2 % (45-73); Platelet Count 257 X10*3/uL (160-400); Red Blood Count 4.23 X10*6/uL (4.20-5.50); Red Cell Distribution Width 13.2 % (11.0-16.0); White Blood Count 6.8 X10*3/uL (4.8-10.8)
[2023-10-24 13:52] LABS: Alanine Aminotransferase 13 U/L (0-31); Albumin Level 3.9 g/dL (3.5-5.0); Alkaline Phosphatase 87 U/L (39-117); Anion Gap 12 (12-20); Aspartate Amino Transferase 18 U/L (5-31); Bilirubin Total 0.4 mg/dL (0.0-1.0); Blood Urea Nitrogen 13 mg/dL (9-16); Calcium 9.1 mg/dL (8.4-10.2); Carbon Dioxide 26 mmol/L (22-29); Chloride 108 mmol/L (96-108); Cholesterol 206 mg/dL (<200); Estimated Glomerular Filt Rate > 60; Glucose Random 93 mg/dL (60-115); HDL Cholesterol 55 mg/dL (>40); LDL Cholesterol Calculated 134 mg/dL (<100); Potassium 4.1 mmol/L (3.3-5.1); Sodium 142 mmol/L (135-145); Total Protein 6.5 g/dL (6.5-8.0); Triglycerides 85 mg/dL (<150)
== END 2023-10-24 11:59 | disposition home or self-care (01) ==
LOC: HO.HHCL 11:58
PROVIDERS: Visit Provider Internal Medicine Geriatric Medicine
DX: I10 Essential (primary) hypertension (principal)
CPT/HCPCS: 36415; 80053; 80061; 85025

== ENCOUNTER 2023-11-02 14:39 | Outpatient (REF) | payer OTHER, SELFPAY ==
--- NOTE | ~2023-11-02 | XR_ITS ---
EXAMINATION: XR KNEE, RIGHT CLINICAL INFORMATION: Pain COMPARISON: Previous x-ray May 2023 TECHNIQUE: Four views of the right knee. FINDINGS: Bone alignment is normal. No fracture or dislocation. Mild degenerative changes of the femoral tibial and patellofemoral joints with joint space narrowing and small osteophytes. Small osteophytes quadriceps tendon insertion to the patella. Stable sclerotic density in the proximal tibia probably representing a bone island. Small joint effusion. XR/XR knee RT 4V IMPRESSION: Mild degenerative changes and small joint effusion.
== END 2023-11-02 14:40 | disposition home or self-care (01) ==
LOC: HO.HHCX 14:39
PROVIDERS: Visit Provider Internal Medicine Geriatric Medicine
DX: M25.561 Pain in right knee (principal); S46.812A Strain of other muscles, fascia and tendons at shoulder and upper arm level, left arm, initial encounter; X58.XXXA Exposure to other specified factors, initial encounter; Y93.9 Activity, unspecified; Y92.9 Unspecified place or not applicable; Y99.9 Unspecified external cause status
CPT/HCPCS: 73564

== ENCOUNTER 2023-12-06 17:40 | Outpatient (REF) | payer OTHER, SELFPAY ==
[2023-12-07 15:04] LABS: BV Int Neg Control Negative (Negative); BV Int Pos Control Positive (Positive)
== END 2023-12-06 17:41 | disposition home or self-care (01) ==
LOC: HO.CHCLNP 17:40
PROVIDERS: Visit Provider Advanced Practice Midwife
DX: N89.8 Other specified noninflammatory disorders of vagina (principal)
CPT/HCPCS: 87480; 87510; 87660

== ENCOUNTER 2024-01-06 14:22 | Outpatient (REF) | payer OTHER, SELFPAY | END 2024-01-06 14:23 | disposition home or self-care (01) | LOC: HO.MAMMO 14:22 | PROVIDERS: PCP Internal Medicine Geriatric Medicine; Visit Provider Internal Medicine Geriatric Medicine | DX: Z12.31 Encounter for screening mammogram for malignant neoplasm of breast (principal) | CPT/HCPCS: 77063; 77067 ==

== ENCOUNTER → 2024-01-06 14:30 | Outpatient (BNV) | payer OTHER, SELFPAY | PROVIDERS: PCP Internal Medicine Geriatric Medicine; Visit Provider Radiology Diagnostic Radiology | DX: Z12.31 Encounter for screening mammogram for malignant neoplasm of breast (principal) | CPT/HCPCS: 77063; 77067 ==

== ENCOUNTER 2024-02-15 14:20 | Outpatient (REF) | payer OTHER, SELFPAY ==
[2024-02-15 15:52] LABS: MANUAL DIFF FLAG NO
[2024-02-15 16:08] LABS: Basophils Percent Auto 0.5 % (0-2); Eosinophils Absolute Auto 0.3 X10*3/uL (0.0-0.4); Eosinophils Percent Auto 4.2 % (0-4); Hematocrit 38.3 % (37.0-47.0); Hemoglobin 12.1 g/dl (12.0-16.0); Imm Gran Abs Auto 0.02 X10*3/uL (0.00-0.03); Imm Gran Pct Auto 0.3 % (0.0-0.4); Lymphocytes Absolute Auto 2.3 X10*3/uL (1.2-4.9); Lymphocytes Percent Auto 36.4 % (20-40); Mean Corpuscular HGB Conc 31.6 g/dl (31.0-35.0); Mean Corpuscular Hemoglobin 30.3 pg (27.0-33.0); Mean Platelet Volume 10.5 fL (9.4-12.3); Monocytes Absolute Auto 0.4 X10*3/uL (0.1-1.2); Monocytes Percent Auto 5.6 % (2-11); Neutrophils Absolute Auto 3.3 x10*3/uL (2.0-8.3); Platelet Count 265 X10*3/uL (160-400); Red Blood Count 3.99 X10*6/uL (4.20-5.50); Red Cell Distribution Width 13.2 % (11.0-16.0); White Blood Count 6.2 X10*3/uL (4.8-10.8)
[2024-02-15 16:34] LABS: Alanine Aminotransferase 15 U/L (0-31); Alkaline Phosphatase 78 U/L (39-117); Anion Gap 12 (12-20); Aspartate Amino Transferase 18 U/L (5-31); Bilirubin Total 0.4 mg/dL (0.0-1.0); Blood Urea Nitrogen 15 mg/dL (9-16); Calcium 9.1 mg/dL (8.4-10.2); Carbon Dioxide 25 mmol/L (22-29); Chloride 109 mmol/L (96-108); Estimated Glomerular Filt Rate > 60; Glucose Random 91 mg/dL (60-115); Potassium 3.9 mmol/L (3.3-5.1); Sodium 142 mmol/L (135-145); Total Protein 6.5 g/dL (6.5-8.0)
== END 2024-02-15 14:21 | disposition home or self-care (01) ==
LOC: HO.HHCL 14:20
PROVIDERS: Visit Provider Internal Medicine Geriatric Medicine
DX: R10.30 Lower abdominal pain, unspecified (principal); Z87.19 Personal history of other diseases of the digestive system
CPT/HCPCS: 36415; 80053; 85025

== ENCOUNTER 2024-09-18 11:45 | Outpatient (AMB) | payer OTHER, SELFPAY ==
--- NOTE | 2024-09-18 11:48 | MHC.OFFVIS ---
Vital Signs 09/18/24 12:03 Height 5 ft 1 in Weight 191 lb 12.835 oz BMI 36.2 BP 138/86 Blood Pressure Location Rt brachial Position Sitting Pulse 70 Pulse Source Pulse Oximeter Pulse Oximetry (%) 99 Oxygen Delivery Method Room Air Intake Visit Reasons: pt missed appointment 06/12 Intake Note: ESTABLISHED PATIENT for CIC + Abd pain mgmt. Re-est (>1 YR FUV) Chief Complaint; LUQ pain, hx of repeated episodes of diverticulitis. Pt received tx of abx (cipro) x1 mos ago which helped. Pt then had another flare last week which she took her sisters old Rx of cipro which helped again. Pt also reports having complications including constipation, N+V with consumption, reflux (had been well controlled with pantoprazole, ran out). Methods Study Analyst Required: Yes Methods Study Analyst Services: Methods Study Analyst Offered & Declined Information Interpreted: clinical only Accompanied by: Sister Allergies acetaminophen [Percocet] Allergy (Unknown, Verified 09/18/24 11:49) itching oxycodone [Percocet] Allergy (Unknown, Verified 09/18/24 11:49) itching tramadol Allergy (Unknown, Verified 09/18/24 11:49) itching HPI HPI pt missed appointment 06/12: Details: LAST VISIT 01/19/2023 GERD (gastroesophageal reflux disease) Continue current dose of pantoprazole. Discussed with patient avoiding dietary triggers in late night snacking. Staying upright for minimum 3 hours after meals discussed patient. Patient will be sent for upper endoscopy to rule out is esophagitis, gastritis, gastric or peptic ulcers, H pylori IBS (irritable bowel syndrome) Occasional postprandial abdominal bloating and cramping. Discussed with patient will FODMAP diet. Constipation Continue Senokot and Colace Screen for colon cancer Last colorectal screening over 5 years ago at [facility]. Patient was told that she needs to repeat colorectal screening every 5 years is due to polyps. Patient denies any cardiac or respiratory symptoms. No history of sleep apnea. Patient will be going for testing in the next couple months. What to expect before during and after procedure discussed with patient. Clear liquid diet day before the procedure and discussed with her as well as bowel prep. I will see her after the procedure, sooner on as needed basis. Patient is agreeable to this understanding of instructions. She is opportunity to ask questions all questions answered. ? Thank you for allowing me to participate in her care Plan Medications New bisacodyl (Dulcolax (bisacodyl)) take 2 tabs at noon the day before your colonoscopy 10 mg (2 x 5 mg) PO ONCE 1 day PRN 2 tabs 0RF constipation Z12.11 - Encounter for screening for malignant neoplasm of colon polyethylene glycol 3350 (Miralax) As directed by gastro[facility]ology [facility] at [facility] 238 grams PO ONCE 238 grams 0RF Z12.11 - Encounter for screening for malignant neoplasm of colon Discontinued linaclotide (Linzess) Discontinued Reason: Patient no longer taking 145 mcg PO DAILY 90 caps 3RF K59.04 - Chronic idiopathic constipation UPPER ENDOSCOPY AND COLONOSCOPY: 02/22/2023 Findings: Larynx: Normal Esophagus: GE junction at 36 cms. Minimal focal esophagitis at GE junction. No Guerrero's. Stomach: Mild gastric erythema. Biopsies were obtained. Grade 2 flap valve on retroflexed examination of the cardia. Duodenum: Normal bulb and descending duodenum. Biopsies obtained from 3rd part of duodenum to check for celiac sprue Intervention: Biopsies as noted above COLONOSCOPY PROCEDURE NOTE Consent: Indications for the procedure and potential complications of bleeding, perforation, reaction to medications and missed diagnosis were discussed with the patient and informed consent was obtained. Instrument: Olympus PCF H 190 L variable stiffness pediatric colonoscope Monitoring: Vital signs and clinical assessment, intermittent blood pressure monitoring, continuous EKG monitoring, Pulse oximetry and Carbon Dioxide monitoring were done throughout the procedure. Colon withdrawl time was 22 minutes. Procedure: The patient was placed in the left lateral decubitis position and pre-procedure medications were administered. After a digital rectal examination of the ano-rectum, the video colonoscope was inserted into the rectum and advanced through the colon to the cecum. The colonoscope was slowly withdrawn in a retrograde panoramic fashion and the colon mucosa was carefully examined including a retroflexed view of the rectum. Findings and interventions are described below. Procedure Difficulty: : Without difficulty Findings: Terminal Ileum: Not evaluated Cecum: Normal Ascending Colon: Normal Transverse Colon: Normal Descending Colon: Moderate diverticulosis Sigmoid Colon: Severe diverticulosis with luminal narrowing Rectum: A 10-12 mm sessile polyp - removed with a hot snare. Ano-rectum: Moderate internal hemorrhoids Colon preparation: Good after some irrigation Impression and Post Procedure Diagnosis: Endoscopy Findings: ESOPHAGUS: Minimal focal esophagitis at GE junction. No Guerrero's. STOMACH: Mild gastritis DUODENUM: Normal - biopsied to check for celiac sprue Colonoscopy Findings: One medium sized polyp removed Moderate to severe diverticulosis seen in the left colon Moderate hemorrhoids on retroflexed exam. Plan: Await pathology results Patient has an appointment on 03/02/23 in the GI [facility] with Osiris Ware FNP-BC . Repeat Colonoscopy interval based on path results - in 3 years if polyp is adenomatous and 10 years if polyps are hyperplastic. Above findings were reviewed with the patient and GERD, colon polyps and diverticulosis handouts were given in the discharge area PATHOLOGY REPORT Addendum Diagnosis A. Small bowel, biopsy: Small bowel mucosa within normal limits; preserved villous architecture and no increased intraepithelial lymphocytes seen. B. Stomach, antrum, biopsy: Gastric antral mucosa within normal limits; negative for Helicobacter pylori, intestinal metaplasia and dysplasia. C. Rectum, polypectomy: Tubular adenoma; negative for high-grade dysplasia. TODAY'S VISIT Patient is here today for requested visit. Patient reports that she was unable to follow up as her mom was very sick and she had to take care of her. Patient reports that her mom few months ago and she is starting to take care of her own needs. Patient reports epigastric pains pain postprandially. Reports that pantoprazole was helping, however she still had acid reflux. Patient reports postprandial abdominal bloating as well as lots of pain in the left upper quadrant. Patient reports that she is unable to move her bowels. Tried Linzess in the past, however it was causing too much diarrhea. Patient had tried senna in the past and state that that was helpful. No longer has any available. Patient reports that she is not drinking enough water. Most likely not enough fiber intake. Patient denies any nausea or vomiting. Patient denies melena, hematochezia, unintentional weight loss or ribbon like stools. Reports occasional dyspepsia without dysphagia or odynophagia. Patient had colonoscopy in 2022 and 3 year follow-up recommended. Patient had 1 tubular adenoma without high-grade dysplasia or carcinoma. Patient reports that she was placed on Cipro by PCP for suspected diverticulitis. Never had CT scan done even those ordered by her PCP. [facility] Medical History (Updated 09/18/24 @ 20:37 by Osiris Ware, [facility]) Postprandial abdominal bloating Cataract (~11/2021) Surgical History History of esophagogastroduodenoscopy (EGD) Hx of colonoscopy H/O: hysterectomy History of bladder surgery H/O prior ablation treatment Family History Father Diabetes HTN (hypertension) Sister FH: kidney cancer HTN (hypertension) Mother HTN (hypertension) Sister HTN (hypertension) Sister HTN (hypertension) Sister HTN (hypertension) Sister HTN (hypertension) Brother HTN (hypertension) Social History Alcohol intake: never Patient Tobacco Use Status: Never used Tobacco Review of Systems Const Denies weight gain and Denies weight loss ENT Reports no additional complaints, Denies dysphagia and Denies odynophagia Card Reports no additional complaints Resp Reports no additional complaints GI Reports abdominal pain, Denies belching, Denies melena, Reports bloating, Denies change in bowel habits, Reports constipation, Reports GI cramping, Denies dysphagia, Denies excessive flatus, Denies dyspepsia, Reports heartburn, Denies diarrhea, Denies loose stools, Denies nausea, Denies odynophagia and Denies vomiting Reports no additional complaints Musc Reports no additional complaints Neuro Reports no additional complaints Psych Reports no additional complaints Endo Reports no additional complaints Physical Exam Vital Signs: Last Vital Signs Pulse 70 09/18/24 12:03 BP 138/86 09/18/24 12:03 Pulse Ox 99 09/18/24 12:03 Oxygen Delivery Method Room Air 09/18/24 12:03 BMI result Body Mass Index 36.2 Const General: healthy appearing, no acute distress and well developed Nutritional Appearance: well nourished Orientation/consciousness: patient oriented x3 Resp Effort & Inspection: normal respiratory effort, able to speak in complete sentences, no tracheal deviation and symmetric chest movement Auscultation: clear to auscultation bilaterally Cardio Rate: regular rate Heart sounds: S1 normal heart sound present and S2 normal heart sound present GI Inspection: Yes normal to inspection, No distended and Yes scaphoid Palpation (GI): Soft to palpation, not firm, nontender and No hepatosplenomegaly present Auscultation: normal bowel sounds General: Yes no CVA tenderness Back/Spine/Pelvis Back: no CVA tenderness Skin General skin exam: elasticity normal, turgor normal and dry skin Neuro General: patient oriented x3 Psych Appearance: grossly normal Mental Status: mental status grossly normal Assessment & Plan Assessment & Plan (1) GERD (gastroesophageal reflux disease): Code(s): K21.9 - Gastro-esophageal reflux disease without esophagitis Qualifiers: Esophagitis presence: esophagitis presence not specified Qualified Code(s): K21.9 - Gastro-esophageal reflux disease without esophagitis (2) IBS (irritable bowel syndrome): Code(s): K58.9 - Irritable bowel syndrome, unspecified Qualifiers: Irritable bowel syndrome type: without diarrhea Qualified Code(s): K58.9 - Irritable bowel syndrome, unspecified (3) Constipation: Code(s): K59.00 - Constipation, unspecified Qualifiers: Constipation type: slow transit constipation Qualified Code(s): K59.01 - Slow transit constipation (4) Postprandial abdominal bloating: Code(s): R14.0 - Abdominal distension (gaseous) Category: Medical (5) LLQ abdominal pain: Code(s): R10.32 - Left lower quadrant pain (6) Postprandial epigastric pain: Code(s): R10.13 - Epigastric pain Plan Patient will start taking Nexium in the morning half an hour before breakfast. Avoid dietary triggers and late night snacking. Staying upright for minimum 3 hours after meals discussed with patient. Patient will go for CT scan. Patient reports left upper and left lower quadrant pain. Patient was told by PCP that she has diverticulitis and was given Cipro. Patient was sent for CT scan and never got 1. Unsure what happened. Patient will continue to take Senokot and docusate sodium. Will increase fluid intake and activity to promote better bowel motility. Patient will follow-up in 2-3 months, sooner on as needed basis. Patient is agreeable to this plan and verbalizes understanding of instructions. She was given the opportunity to ask questions and all questions answered. Thank you for allowing me to participate in her care Orders: Orders Creatinine Today R10.11 - Right upper quadrant pain Blood Urea Nitrogen Today R10.11 - Right upper quadrant pain CT abdomen pelvis w IV con Today R10.9 - Unspecified abdominal pain Medications: New esomeprazole magnesium (Nexium) 40 mg PO DAILY 30 caps 5RF K21.9 - Gastro-esophageal reflux disease without esophagitis Changed From docusate sodium 100 mg PO DAILY 30 caps 3RF K59.00 - Constipation, unspecified To docusate sodium 200 mg (2 x 100 mg) PO DAILY 60 caps 3RF K59.00 - Constipation, unspecified Coding Level of Care Code Est Pt Level 4 (99045) Complex EM visit Add On G2211 Diagnoses Gastroesophageal reflux disease, unspecified whether esophagitis present K21.9 Esophagitis presence: esophagitis presence not specified Irritable bowel syndrome without diarrhea K58.9 Irritable bowel syndrome type: without diarrhea Slow transit constipation K59.01 Constipation type: slow transit constipation Postprandial abdominal bloating R14.0 LLQ abdominal pain R10.32 Postprandial epigastric pain R10.13 Time Spent (min) 40 Comment 25 minutes spent with patient and additional 15 minutes spent reviewing her records
[2024-09-18 12:03] VITALS: BP 138/86; PULSE 70; O2SAT 99; BMI 36.2
== END 2024-09-18 12:25 | disposition home or self-care (01) ==
PROVIDERS: PCP Internal Medicine Geriatric Medicine; Visit Provider Nurse Practitioner Family
DX: K21.9 Gastro-esophageal reflux disease without esophagitis (principal); K58.9 Irritable bowel syndrome, unspecified; K59.01 Slow transit constipation; R14.0 Abdominal distension (gaseous); R10.32 Left lower quadrant pain; R10.13 Epigastric pain
CPT/HCPCS: 99214; G2211

== ENCOUNTER → 2024-09-18 11:45 | Outpatient (BNVA) | payer OTHER, SELFPAY | PROVIDERS: PCP Internal Medicine Geriatric Medicine; Visit Provider Nurse Practitioner Family | DX: K21.9 Gastro-esophageal reflux disease without esophagitis (principal); K58.9 Irritable bowel syndrome, unspecified; K59.01 Slow transit constipation; R14.0 Abdominal distension (gaseous); R10.32 Left lower quadrant pain; R10.13 Epigastric pain | CPT/HCPCS: 99212 ==

== ENCOUNTER 2024-09-19 08:56 | Outpatient (AMB) | payer OTHER, SELFPAY ==
--- NOTE | 2024-09-19 09:14 | MHC.PC.OV ---
Vital Signs 09/19/24 09:16 Height 5 ft 1 in Weight 189 lb BMI 35.7 BP 152/90 H Blood Pressure Location Lt brachial Position Sitting Intake Visit Reasons: establish care Rod Buster Helper Required: Yes Rod Buster Helper Language: Protector Plate Attacher Name: Mary Jo Vargas MD Information Interpreted: non-clinical & clinical Accompanied by: Self / Same As Patient Allergies acetaminophen [Percocet] Allergy (Unknown, Verified 09/19/24 09:38) itching oxycodone [Percocet] Allergy (Unknown, Verified 09/19/24 09:38) itching tramadol Allergy (Unknown, Verified 09/19/24 09:38) itching amlodipine Adverse Reaction (Intermediate, Verified 09/19/24 09:45) leg edema Medication List - Last Reconciled 09/19/24 by Mary Jo Vargas MD atorvastatin mg PO DAILY benazepril mg PO DAILY bupropion HCl XL 150 mg PO QAM dicyclomine 10 mg PO Q6H PRN docusate sodium 200 mg (2 x 100 mg) PO DAILY esomeprazole magnesium (Nexium) 40 mg PO DAILY hydrochlorothiazide mg PO DAILY incontinence pad, liner, disp (Affirm Pads) As directed ondansetron HCl mg PO DAILY PRN oxybutynin chloride ER 15 mg PO DAILY psyllium husk (aspartame) 3.4 gram/5.8 gram (Metamucil Sugar-Free (aspartame)) grams PO sennosides-docusate sodium 8.6-50 mg (Stimulant Laxative Plus) PO valacyclovir (Valtrex) 500 mg PO BID Tobacco use date assessed: 09/19/24 Fall risk assessment: No Falls in past year Last assessed Fall Risk: 09/19/24 Dental Screening Dental Screen Date: 09/19/24 Did you have a dental visit in the last 12 months?: Yes Did you have a dental problem in the last 6 months where you did not have access to dental care?: No Was dental information given to patient?: Patient has dentist HPI HPI Comments History of Present Illness Details The patient is a 63-year-old female presenting with concerns primarily related to hypertension management and associated symptoms. The patient has a history of essential hypertension, currently managed with benazepril 20 mg and previously with amlodipine, which led to edema. The blood pressure was reported as elevated during the visit, and the patient expressed experiencing dizziness thought to be related to medication. Hydrochlorothiazide was noted to cause frequent dizziness, raising the possibility of an electrolyte imbalance, specifically hypokalemia. The patient inquired about modifying her medication regimen to mitigate side effects. She is also on atorvastatin 20 mg for hyperlipidemia and bupropion 150 mg for major depressive disorder, prescribed by a psychiatrist with whom follow-up has not occurred recently. Her PHQ-9 score reflects mild depressive symptoms. Additionally, the patient manages dyspepsia with dicyclomine and gastroesophageal reflux disease with esomeprazole, while constipation is treated with docusate as needed. She reported allergic reactions, specifically pruritus when using Percocet and Tramadol. Family history is significant for parents who had hypertension and her father with diabetes. The patient does not use tobacco or alcohol, and she had past surgical interventions including vein ablation and bladder surgery. She reported leg pain and sensitivity, potentially linked to venous issues. Regular wellness and preventative measures include assessing potential pneumonia vaccination at her age. [facility] Medical History (Updated 09/19/24 @ 16:18 by Mary Jo Vargas MD) Postprandial abdominal bloating Cataract (~11/2021) Surgical History History of esophagogastroduodenoscopy (EGD) Hx of colonoscopy H/O: hysterectomy History of bladder surgery H/O prior ablation treatment Family History (Updated 09/19/24 @ 09:46 by Mary Jo Vargas MD) Father Diabetes HTN (hypertension) Sister FH: kidney cancer HTN (hypertension) Mother HTN (hypertension) Sister HTN (hypertension) Sister HTN (hypertension) Sister HTN (hypertension) Sister HTN (hypertension) Brother HTN (hypertension) Social History Housing: Apartment Alcohol intake: never Patient Tobacco Use Status: Never used Tobacco e-Cigarette/Vaping Use: Never Used Second Hand Smoke Exposure: No service: No Current occupational status: unemployed Cognitive needs: No Hearing needs: No Vision needs: No Questionnaire PHQ-9 Over the last 2 weeks, how often have you been bothered by any of the following problems? 1. Little interest or pleasure in doing things: nearly every day 2. Feeling down, depressed, or hopeless: nearly every day 3. Trouble falling or staying asleep, or sleeping too much: nearly every day 4. Feeling tired or having little energy: nearly every day 5. Poor appetite or overeating: several days 6. Feeling bad about yourself - or that you are a failure or have let yourself or your family down: several days 7. Trouble concentrating on things, such as reading the newspaper or watching television: not at all 8. Moving or speaking so slowly that other people could have noticed. Or the opposite - being so fidgety or restless that you have been moving around a lot more than usual: several days 9. Thoughts that you would be better off or of hurting yourself in some way: not at all Total score: 15 Depression Screening Interpretation: Positive (no suicidal thoughts) Depression Screening Follow-up: Existing condition, In treatment and Follow-up Visit Requested Depression Screening Done: Yes [id number] - PHQ-9 Billing: Yes Source: Developed by Drs. Ruddy Gamboa, Tamara Sawyer, Johnson Jamison and colleagues, with an educational christiane from [employer]. Thrive Questionnaire Date Thrive assessed: 09/19/24 I am a: Patient What is your living situation today?: I have a steady place to live Within the past 12 months, did the food you bought not last and you didn't have the money to get more?: Often true Within the past 12 months, did you worry whether your food would run out before you got money to buy more?: Sometimes True Do you have trouble paying for medicines?: No Do you have trouble getting transportation to medical appointments?: No Do you have trouble paying your heating and electricity bill?: No Do you have trouble taking care of your child, family member or friend?: No Do you have trouble with day-to-day activities such as bathing, preparing meals, shopping, managing finances, etc.?: No Are you currently unemployed and looking for a job?: No Are you interested in more education?: Yes Please select the resources that you would like help with: None Currently or been in a relationship where the following occur: No concerns reported THRIVE Score: 2 AUDIT C Alcohol Use Questionnaire (AUDIT-C) 1. How often do you have a drink containing alcohol?: Never Total Score: 0 Score Reviewed/Action Taken: No CASIE-7 AMB Questionnaire CASIE-7 Date CASIE - 7 assessed: 09/19/24 Feeling nervous, anxious, or on edge: 3 = Nearly every day Not being able to stop or control worryin = Nearly every day Worrying too much about different things: 3 = Nearly every day Trouble relaxin = Nearly every day Being so restless that it is hard to sit still: 1 = Several days Becoming easily annoyed or irritable: 3 = Nearly every day Feeling afraid as if something awful might happen: 1 = Several days Total CASIE-7 score (0-4 normal; 5-9 mild; 10-14 moderate; 15-21 severe): 17 Source: Developed by Drs. Ruddy Gamboa, Tamara Sawyer, Johnson Jamison and colleagues, with an educational christiane from [employer]. CASIE-7 Assessment Billing CASIE-7 Assessment Tool: CASIE-7 Assessment 90948 Review of Systems Const All systems reviewed & are unremarkable except as noted in HPI and below Card Denies chest pain at rest, Denies chest pain with activity, Denies edema, Denies irregular heart rhythm, Denies claudication, Denies dyspnea, Denies dyspnea on exertion, Denies orthopnea, Denies paroxysmal nocturnal dyspnea and Denies slow heart rate Resp Denies cough, Denies dyspnea and Denies dyspnea on exertion GI Denies abdominal pain, Denies change in bowel habits, Denies excessive flatus, Denies nausea and Denies vomiting Physical exam (Primary Care) Vital Signs: Last Vital Signs BP 152/90 H 09/19/24 09:16 BMI result Body Mass Index 35.7 Tobacco/Smoking Status: Tobacco use Status Tobacco use date assessed 09/19/24 09/19/24 09:25 Patient Tobacco Use Status Never used Tobacco 09/19/24 09:25 e-Cigarette/Vaping Use Never Used 09/19/24 09:25 PHQ-9: PHQ-9 Score PHQ-9: Total score 15 09/19/24 12:38 Depression Screening Interpretation: Positive (no suicidal thoughts) Depression Screening Follow-up: Existing condition, In treatment and Follow-up Visit Requested Thrive Assessment: Date of Thrive Assessment Date Thrive assessed 09/19/24 09/19/24 09:25 Currently or been in a relationship where the following occur: No concerns reported Resp Effort & Inspection: normal respiratory effort Auscultation: clear to auscultation bilaterally Cardio Jugular venous distension: no JVD Rate: regular rate Rhythm: regular rhythm Heart sounds: S1 normal heart sound present and S2 normal heart sound present GI Inspection: Yes normal to inspection Palpation (GI): Soft to palpation and nontender Auscultation: normal bowel sounds Extrem General: Yes full ROM Office Procedures Flu Questionnaire Does the patient have a severe egg allergy?: No Immunizations Fluarix Triv (PF) 45 mcg (15 mcg x 3)/0.5 mL IM syringe Performing Provider: Mary Jo Vargas MD Performing Location: [facility] [place] Adult Primary [facility] Documented (not given) by: BOSTON Hackett on 09/19/24 10:00 Reason Not Given: Patient Refused pneumoc 20-asad conj-dip cr(PF) 0.5 mL IM syringe Performing Provider: Mary Jo Vargas MD Performing [facility] Administered by: BOSTON Hackett on 09/19/24 10:00 Dose Route Admin Location Dispensed Lot Number Expiration Date NDC Abap Developer 0.5 mL IM Right Deltoid 0.5 mL [id number] 11/06/25 [employer] VIS Given Date VIS Provided VIS Publication Date 09/19/24 Single Vaccine 21 Eligibility Eligibility Date Funding Source Not [facility] Eligible 09/19/24 Private Coding Level of Care Code Est Pt Level 4 (67835) Complex EM visit Add On G2211 Diagnoses Essential hypertension I10 Chronic GERD K21.9 Dyslipidemia E78.5 Dyspepsia R10.13 Mild recurrent major depression F33.0 Additional Codes CASIE-7 Assessment Billing - CASIE-7 Assessment Tool: CASIE-7 Assessment 66694 ([id number]) PHQ-9 - 23312 - PHQ-9 Billing: Yes ([id number]) Time Spent (min) 22 Assessment & Plan Assessment & Plan (1) Essential hypertension: Code(s): I10 - Essential (primary) hypertension Category: Medical (2) Chronic GERD: Code(s): K21.9 - Gastro-esophageal reflux disease without esophagitis Category: Medical (3) Dyslipidemia: Code(s): E78.5 - Hyperlipidemia, unspecified Category: Medical (4) Dyspepsia: Code(s): R10.13 - Epigastric pain Category: Medical (5) Mild recurrent major depression: Code(s): F33.0 - Major depressive disorder, recurrent, mild Category: Medical Plan - Re-evaluate current hypertension medication regimen; consider discontinuing hydrochlorothiazide and adjusting benazepril dose. - Perform laboratory tests to assess potassium levels. - Conduct electrocardiogram to rule out cardiac abnormalities. - Continue atorvastatin for hyperlipidemia management. - Maintain esomeprazole prescription for GERD. - Advise consideration of baby aspirin for cardiovascular protection. - Address pruritus complaints; monitor response to discontinuing allergenic medications. - Administer pneumonia vaccination as part of preventative care. - Schedule follow-up visit for medication evaluation and lab review. Patient was informed and verbally consented to the use of an ambient scribe for clinic note documentation during this visit. I discussed with the patient the potential side effects and need for adjustment of her hypertension regimen due to dizziness and potential hypokalemia. I explained the rationale for discontinuing hydrochlorothiazide and adjusting benazepril. We agreed to check potassium levels to verify electrolyte balance. The patient was informed about an electrocardiogram to identify any heart issues due to dizziness and potential chest pain. We reviewed the benefits of baby aspirin for heart health and discussed updating vaccinations, particularly for pneumonia, which is recommended for her age. The importance of regular follow-up with her psychiatrist for depression management was emphasized, alongside the evaluation of pruritus potentially linked to her allergy medications. The patient consented to these plans. Orders: Orders Complete Blood Count Auto Diff Today R14.0 - Abdominal distension (gaseous) Pneumococcal 20 Immunization Today Z23 - Encounter for immunization Influenza 2802-1495 Immunization Today Z23 - Encounter for immunization Lipid Panel Today E78.5 - Hyperlipidemia, unspecified Vitamin D 25-OH Total Today E55.9 - Vitamin D deficiency, unspecified Comprehensive [place]. Panel Fast Today R14.0 - Abdominal distension (gaseous) Medications: New benazepril 40 mg PO DAILY 90 tabs 1RF 90 days hydrocortisone 1% (Anti-Itch (hydrocortisone)) 1 appl topical BID PRN 28.4 grams 0RF skin irritation 2 weeks Changed From atorvastatin PO DAILY To atorvastatin 20 mg PO DAILY 90 tabs 1RF 90 days From bupropion HCl XL 150 mg PO QAM To bupropion HCl XL 150 mg PO QAM 90 tabs 1RF 90 days From dicyclomine 10 mg PO Q6H PRN To dicyclomine 10 mg PO TID PRN 90 caps 6RF abdominal pain 30 days Patient Instructions: - Continue current medications for hyperlipidemia and depression. - Schedule an appointment for lab tests to check potassium levels. - Visit the lab for an electrocardiogram to check heart function. - Consider adding a baby aspirin to daily routine for heart health. - Arrange follow-up to discuss lab results and any medication adjustments. - Monitor for any further allergic reactions or symptoms, and notify us if these occur. - Schedule pneumonia vaccination if desired. - Seek psychiatric follow-up for depression management when possible. - Follow healthy lifestyle choices, including no smoking or alcohol use.
[2024-09-19 09:16] VITALS: BP 152/90; BMI 35.7
--- OUTSIDE RECORDS SUMMARY | 2024-09-19 09:49 | XMS_ITS | Encounter Summary ---
Author Organization [facility] Address [address] [place] [address] [address] [place] [address] Care Team Providers Care Assignment Desk Editor Name Role Phone Name, Elijah FRAGA Primary Care Provider [phone] Reason for Visit * Reason Comments Med Refill Encounter Details Date Type Department Care Team (Late st Contact Info) Description 09/23/2022 Refill [facility] [address] [place], [place] [phone] Name, MD Elijah [address] [place] [address] [phone] Depressive disorder Social History Tobacco Use Types Packs/Day Years Used Date Smoking Tobacco: Never Smokeless Tobacco: Never Comments Unknown Sex and Gender Information Value Date Recorded Sex Assigned at Female 06/07/2022 10:31 AM EDT Legal Sex Female 10:31 AM EDT Gender Identity Female 06/07/2022 10:31 AM EDT Sexual Orientation Straight 06/07/2022 10 :31 AM EDT COVID-19 Exposure Response Date Recorded In the last 10 days, have yo u been in contact with someone who was confirmed or suspected to have Coronavirus/COVID-19? No / Unsure 09/24/2022 11:07 AM EST documented as of this encounter Plan of Treatment Not on file documented as of this encounter Visit Diagnoses Diagnosis Depressive disorder Depressive disorder, not elsewhere classified documented in this encounter Care Teams Assignment Desk Editor Relationship Specialty Start Date End Date Name, MD Elijah [address] [place] [address] [phone] PCP - General Family Medicine 08/08/18 documented as of this encounter
--- OUTSIDE RECORDS SUMMARY | 2024-09-19 09:49 | XMS_ITS | Encounter Summary ---
Author Organization [employer] Address [address] [facility] [address] [place] [address] Care Team Providers Care Construction Equipment Overhauler Name Role Phone Name, Elijah FRAGA Primary Care Provider [phone] Reason for Visit * Reason Onset Date Comments Appointment Request 03/31/2023 Encounter Details Date Type Department Care Team ([facility] st Contact Info) Description 03/31/2023 Telephone [facility] [address] [place], [place] [phone] Name, MD Elijah [address] [place] [address] Appointment Request Social History Tobacco Use Types Packs/Day Years Used Date Smoking Tobacco: Never Passive Smoke Exposure: Never Smokeless Tobacco: Never Alcohol Use Standard Drinks/Week Comments Never 0 (1 standard drink = 0.6 oz pur e alcohol) Depression Answer Date Recorded Patient Health Questionnaire-9 Score 0 12/22/2022 Depression Answer Date Recorded Patient Health Questionnaire-2 Score 0 12/22/2022 Comments Unknown Sex and Gender Information Value Date Recorded Sex Assigned at Female 06/07/2022 10:31 AM EDT Legal Sex Female 10:31 AM EDT Gender Identity Female 06/07/2022 10:31 AM EDT Sexual Orientation Straight 06/07/2022 10 :31 AM EDT documented as of this encounter Miscellaneous Notes * Telephone Encounter - Almas Barrera - 03/31/2023 4:35 PM EDT Tc from pt requesting to r/s appt for a Follow up on 04/01/2023 @ 9:30 am in regards to continuation of First appointment, second half . Please contact pt at [phone] Kazakh Speaker documented in this encounter Plan of Treatment Not on file documented as of this encounter Visit Diagnoses Not on filedocumented in this encounter Additional Health Concerns Assessment Noted Time PHQ-9 Depression Total Score: 0 12/23/19 23 2:25 PM EDT documented as of this encounter Care Teams Construction Equipment Overhauler Relationship Specialty Start Date End Date Name, MD Elijah [address] [place] [id number] PCP - General Family Medicine 08/08/18 documented as of this encounter
--- OUTSIDE RECORDS SUMMARY | 2024-09-19 09:49 | XMS_ITS | Clinical Summary ---
Author Organization [facility] Address [address] [place] [address] Care Team Providers Care Botany Laboratory Assistant Name Role Phone Provider, Not In System Primary Care Provider Un available Allergies Active Allergy Reactions Criticality Noted Date Comments Oxycodone-Acetaminophen Hives,Nausea And Vomiting Medium 11/23/2017 Tramadol Hives,Nausea And Vomiting Medium 11/23/2017 Medications Medication Sig Dispensed Refills Start Date End Date Status amLODIPine-benazepri l (LOTREL 5-10) 5-10 MG per capsule TK 1 C PO QD 5 11/07/2017 Active buPROPion (WELLBUTRIN XL) 150 MG 24 hr tablet Take 150 mg by mouth daily. 0 11/17/2017 Active fluconazole (DIFLUCAN) 150 MG tablet Take 150 mg by mouth. 0 09/20/2017 Active naproxen (NAPROSYN) 500 MG tablet 500 mg. 0 11/17/2017 Active SENEXON-S 8.6-50 MG 0 11/17/2017 Activ e valACYclovir (VALTREX) 500 MG tablet 500 mg. 0 11/17/2017 Active estradiol (ESTRACE VAGINAL) 0.1 MG/GM vaginal cream Place 1 g vaginally every Tuesday, Tuesday, and Tuesday. 16 g 11 11/23/2017 Active oxybutynin (DITROPAN-XL) 5 MG 24 hr tablet Take 1 tablet (5 mg total) by mouth daily. 90 tablet 3 11/23/2017 Active Family History Medical History Relation Name Comments Cancer Other RUNS IN FAMILY Colon cancer Other RUNS IN FAMILY Diabetes Other RUNS IN FAMILY Relation Name Status Comments Other RUNS IN FAMILY Alive Social History Tobacco Use Types Packs/Day Years Used Date Smoking Tobacco: Never Smokeless Tobacco: Never Alcohol Use Standard Drinks/Week Comments No 0 (1 standard drink = 0.6 oz pur e alcohol) Sex and Gender Information Value Date Recorded Sex Assigned at Not on file Gender Identity Not on file Sexual Orientation Not on file Last Filed Vital Signs Vital Sign Reading Time Taken Comments Blood Pressure 140/90 11/23/2017 10:42 AM EDT Pulse - - Temperature - - Respiratory Rate - - Oxygen Saturation - - Inhaled Oxygen Concentration - - Weight 83.6 kg (184 lb 6.4 oz) 11/23/2017 10:42 AM EDT Height 154.9 cm (5' 1 ) 11/23/2017 10:42 AM EDT Body Mass Index 34.84 11/23/2017 10:42 AM EDT Plan of Treatment Health Maintenance Due Date Last Done Comments Hepatitis C Screening 1960 COVID-19 Vaccine (#1) 05/29/1959 Depression Screening 1970 Preventative Health Evaluation 1976 DTap / Tdap / Td (1 - Tdap) 1977 Cervical Cancer Screening (P ap Smear) 11/28/1979 Colon Cancer Screening (Colonoscopy) 11/28/2003 Breast Cancer Screening (Mammogram) 2008 Shingrix-Zoster Vaccine (1 of 2) 2008 Fall Risk Assessment 11/28/2023 Osteoporosis Screening (DEXA Scan) 11/28/2023 Pneumococcal Vaccine (1 of 1 - PCV) 11/28/2023 Influenza Vaccine (#1) 2024 RSV Adult > 60+ Yrs or Pregn ant (1 - 1-dose 75+ series) 2033 Hepatitis B Vaccines Aged Out No long er eligible based on patient's age to complete this topic Pneumococcal Vaccine Aged Out No long er eligible based on patient's age to complete this topic RSV Ped < 20 months Aged Out No longe r eligible based on patient's age to complete this topic Care Teams Botany Laboratory Assistant Relationship Specialty Start Date End Date Provider, Not In System PCP - General 11/23/17
--- OUTSIDE RECORDS SUMMARY | 2024-09-19 09:49 | XMS_ITS | Encounter Summary ---
Author Organization [employer] Address [address] [place] [address] Care Team Providers Care Lens Generator Name Role Phone Name, Elijah FRAGA Primary Care Provider [phone] Reason for Visit * Reason Comments Pre-visit Planning SDOH Screening negat jose and Tobacco screening negative Encounter Details Date Type Department Care Team ([facility] Contact Info) Description 09/07/[address] [facility] [address] [place], [place] [id number] Name, MD Elijah [address] [place] [address] Pre-visit Planning (SDOH Screening negative and Tobacco screening negative) Social History Tobacco Use Types Packs/Day Years Used Date Smoking Tobacco: Never Passive Smoke Exposure: Never Smokeless Tobacco: Never Alcohol Use Standard Drinks/Week Comments Never 0 (1 standard drink = 0.6 oz pur e alcohol) Depression Answer Date Recorded Patient Health Questionnaire-9 Score 0 12/22/2022 Housing Stability Answer Date Recorded What is your housing situation today? I have aristides lopez 03/05/[address] you li ve. Do you have problems with any of the following? None of the above 03/05/2024 Food Insecurity Answer Date Recorded Within the past 12 months, y ou worried that your food would run out before you got money to buy more: Never True 03/05/2024 Within the past 12 months,th e food you bought just didn't last and you didn't have enough money to get more: Never True Transportation Answer Date Recorded In the past 12 months, has l ack of transportation kept you from medical appts, meetings, work or from getting things needed for daily living? No 03/05/2024 Utilities Answer Date Recorded In the past 12 months, has t he electric, gas, oil or water company threatened to shut off services in your home? No 03/05/2024 Depression Answer Date Recorded Patient Health Questionnaire-2 Score 0 12/22/2022 Internet Access Answer Date Recorded Internet Access Q1 Yes 09/07/2024 Internet Access Q2 Not on file 09/07/2024 Comments No Sex and Gender Information Value Date Recorded Sex Assigned at Female 06/07/2022 10:31 AM EDT Legal Sex Female 10:31 AM EDT Gender Identity Female 06/07/2022 10:31 AM EDT Sexual Orientation Straight 06/07/2022 10 :31 AM EDT documented as of this encounter Progress Notes * Kelli Alfaro - 09/07/2024 9:21 AM EST DOMINGO Mendoza placed successful outbound call to patient for pre-visit planning. Patient name and confirmed. Patient confirms appt date and time, and has transportation arrangements. Biggest concern for appointment at this time is be having a lot of chest pain more than 6 months ago and its morearound on the left breast but had a mammogram and everything comes back normal. Patient advised to bring to appointment a photo id and insurance card. Appropriate screenings completed in anticipationof appointment. documented in this encounter Plan of Treatment Not on file documented as of this encounter Visit Diagnoses Not on filedocumented in this encounter Additional Health Concerns Assessment Noted Time PHQ-9 Depression Total Score: 0 12/23/19 23 2:25 PM EDT documented as of this encounter Care Teams Lens Generator Relationship Specialty Start Date End Date Name, MD Elijah [address] [place] [address] PCP - General Family Medicine 08/08/18 documented as of this encounter
--- OUTSIDE RECORDS SUMMARY | 2024-09-19 09:49 | XMS_ITS | Encounter Summary ---
Author Organization [employer] Address [address] [place] [address] Care Team Providers Care Metal Mold Dresser Name Role Phone Name, Elijah FRAGA Primary Care Provider Reason for Visit * Reason Comments Med Refill Encounter Details Date Type Department Care Team (Late st Contact Info) Description 10/16/2023 Refill [facility] [address] [place] [address] Coty Santiago FNP Strain of left infraspinatus muscle, initial encounter Social History Tobacco Use Types Packs/Day Years Used Date Smoking Tobacco: Never Passive Smoke Exposure: Never Smokeless Tobacco: Never Alcohol Use Standard Drinks/Week Comments Never 0 (1 standard drink = 0.6 oz pur e alcohol) Depression Answer Date Recorded Patient Health Questionnaire-9 Score 0 12/22/2022 Housing Stability Answer Date Recorded What is your housing situation today? I have aristides lopez 05/23/[address] you li ve. Do you have problems with any of the following? I am not sure 05/23/2023 Food Insecurity Answer Date Recorded Within the past 12 months, y ou worried that your food would run out before you got money to buy more: Never True 05/23/2023 Within the past 12 months,th e food you bought just didn't last and you didn't have enough money to get more: Never True Transportation Answer Date Recorded In the past 12 months, has l ack of transportation kept you from medical appts, meetings, work or from getting things needed for daily living? No 05/23/2023 Utilities Answer Date Recorded In the past 12 months, has t he electric, gas, oil or water company threatened to shut off services in your home? No 05/23/2023 Depression Answer Date Recorded Patient Health Questionnaire-2 Score 0 12/22/2022 Comments Unknown Sex and Gender Information Value Date Recorded Sex Assigned at Female 06/07/2022 10:31 AM EDT Legal Sex Female 10:31 AM EDT Gender Identity Female 06/07/2022 10:31 AM EDT Sexual Orientation Straight 06/07/2022 10 :31 AM EDT documented as of this encounter Plan of Treatment Not on file documented as of this encounter Visit Diagnoses Diagnosis Strain of left infraspinatus muscle, initial encounter documented in this encounter Additional Health Concerns Assessment Noted Time PHQ-9 Depression Total Score: 0 12/23/19 23 2:25 PM EDT documented as of this encounter Care Teams Metal Mold Dresser Relationship Specialty Start Date End Date Name, MD Eiljah [address] [place] [address] PCP - General Family Medicine 08/08/18 documented as of this encounter
--- OUTSIDE RECORDS SUMMARY | 2024-09-19 09:49 | XMS_ITS | Clinical Summary ---
Author Organization [employer] Address [address] [place] [address] Care Team Providers Care Sales Product Specialist Name Role Phone Name, Elijah FRAGA Primary Care Provider [phone] Allergies Active Allergy Reactions Criticality Noted Date Comments Acetaminophen Itching 11/08/2016 Other reaction(s): low BP, Itching Ketorolac Tromethamine 09/24/2022 Other reaction(s): Tramadol hydrochloride 50mg capsule, vomitting Oxycodone Itching 11/08/2016 Other reaction(s): low BP, Itching Oxycodone-Acetaminophe n Hives,Nausea And Vomiting Medium 11/23/2017 Nausea, itch, dizziness Other reaction(s): lowers BP, vomiting Tramadol Itching,Hives,Naus ea And Vomiting High 11/08/2016 Nausea, itch, dizziness Other reaction(s): itching all over vomiting dizziness, Itching, dizziness Medications docusate sodium (Colace) 100 MG capsule Take 100 mg by mouth at bedtime. 2 Active estradiol (Estrace) 0.1 MG/GM vaginal cream USE 1 GRAM VAGINALLY 3 TIMES EVERY WEEK DIRECTED 2 Active gabapentin (Neurontin) 100 MG capsule TAKE 1 CAPSULE BY MOUTH THREE TIMES DAILY. MAY TAKE 2 CAPSULES AT BEDTIME 2 Active ketorolac (Acular) 0.5 % ophthalmic solution 2 Active oxybutynin XL (Ditropan-XL) 15 MG 24 hr tablet Take 15 mg by mouth in the morning. 2 Active pantoprazole (ProtoNix) 20 MG EC tablet Take 20 mg by mouth in the morning. 2 Active Elastic Bandages & Supports (Medical Compression Stockings) miscIndications:Pa in of left lower extremity,Venous insufficiency Use daily, 20-30 mmHg, waist high 2 each 1 3 Active triamcinolone (Kenalog) 0.1 % cream Apply topically at bedtime. Use as directed by physician. 80 g 3 Active Blood Pressure kit Use once a day 1 kit 3 Active lidocaine (Xylocaine) 5 % ointmentIndication s:Pain of left lower extremity Apply topically in the morning. 30 g 1 3 Active polyethylene glycol, PEG, 3350 (Glycolax) 17 GM/SCOOP powderIndications: Chronic constipation Use as directed on package insert, 17G 1-2 times daily as needed 510 g 2 3 Active buPROPion XL (Wellbutrin XL) 150 MG 24 hr tabletIndications: Depressive disorder Take 1 tablet (150 mg) by mouth in the morning. Do not crush, chew, or split. 90 tablet 3 3 Active valACYclovir (Valtrex) 500 MG tablet Take 1 tablet (500 mg) by mouth 2 times daily. 6 tablet 1 3 Active Diclofenac Sodium 1 % gelIndications:Mariola n of left lower extremity Apply 2 g topically if needed in the morning and at bedtime (pain). 100 g 3 3 Active hydrocortisone (Anusol-HC) 2.5 % rectal creamIndications:H emorrhoids, unspecified hemorrhoid type APPLY THIN LAYER TOPICALLY TO THE AFFECTED AREA 2 TO 4 TIMES EVERY DAY 28 g 2 4 Active atorvastatin (Lipitor) 20 MG tablet Take 1 tablet (20 mg) by mouth in the morning. 30 tablet 11 4 10/25/19 25 Active clotrimazole-betam ethasone (Lotrisone) creamIndications:R sharda APPLY TOPICALLY TO THE AFFECTED AREA TWICE DAILY 45 g 4 Active Stimulant Laxative 8.6-50 MG tablet TAKE 2 TABLETS BY MOUTH EVERY DAY. 180 tablet 1 4 Active Neomycin-Bacitraci n-Polymyxin (Triple Antibiotic) ointment Apply 1 Application. topically 3 times daily. Apply to affected area 3x/day 14 each 4 Active naproxen (Naprosyn) 500 MG tabletIndications: Acute pain of right knee TAKE 1 TABLET(500 MG) BY MOUTH TWICE DAILY 60 tablet 1 4 Active dicyclomine (Bentyl) 10 MG capsule Take 1 capsule (10 mg) by mouth 3 times daily. 90 capsule 11 4 02/15/20 25 Active senna-docusate sodium (Senokot-S) 8.6-50 MG tablet Take 1 tablet by mouth Once per day. 30 tablet 11 4 03/05/20 25 Active methocarbamol (Robaxin) 500 MG tablet Take 1 tablet (500 mg) by mouth every 8 (eight) hours for 20 days. 60 tablet 4 Active benazepril (Lotensin) 20 MG tablet TAKE 1 TABLET(20 MG) BY MOUTH IN THE MORNING 90 tablet 4 Active hydroCHLOROthiazid e 12.5 MG tablet TAKE 1 TABLET BY MOUTH IN THE MORNING 90 tablet 1 4 Active Active Problems Problem Noted Date Diagnosed Date High cholesterol 10/25/2023 VIVI (obstructive sleep apnea) 10/24/2023 Essential hypertension 10/24/2023 Lipoma 06/07/2023 06/07/2023 Spondylosis of cervical riky on without myelopathy or radiculopathy 06/07/2023 06/07/2023 Spondylosis of lumbar region without myelopathy or radiculopathy 06/07/2023 06/07/2023 Varicose veins of lower extremities with inflamm ation 06/07/2023 06/07/2023 Atypical chest pain 09/24/2022 Calcific tendinitis 09/24/2022 Gastroesophageal reflux disease 09/24/2022 Genital herpes simplex 07/21/2022 Depressive disorder 07/21/2022 Tubular adenoma of colon 07/21/2022 Overview (07/21/2022): one, 4mm on screening colonoscopy; f/u 5-10 years from 12/2013 Endometriosis 07/21/2022 Overview (07/21/2022): s/p hysterectomy in [place] in 2000 Irritable bowel syndrome 07/21/2022 Hemorrhoids 07/21/2022 Urinary incontinence 12/26/2017 Rectal prolapse 12/26/2017 Diverticulitis 09/20/2017 Assessment & Plan (09/24/2022 2:16 PM EST): Most likely early stages. She will try liquid and Brat diet as above for the next 48 hours. Use antibiotics only if symptoms do not improve in 2 days and go ED if symptoms do not improve after 24 hours on antibiotics. 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 Recommended liquid diet for 24 horus and advance to BRAT diet the following 24 hours if tolerated. If symptoms do not improve within 48 hours, she will start antibiotics. Can take Bentyl PRN, no more than 2 tablets per day. Vulvovaginitis 09/24/2022 06/21/2023 Acute cystitis 04/26/2018 06/21/2023 Encounters Date Type Department Care Team Description 09/07/2024 Patient Outreach [facility] [address] [place] [id number] Elijah Mendoza MD Pre-visit Planning (SDOH Screening negative and Tobacco screening negative) 07/19/2024 Telephone [facility] [address] [place] [address] Jose Winston MA Appointment Request 07/17/2024 Telephone [facility] [address] [place] [address] Elijah Mendoza MD Appointment Request 07/04/2024 Telephone [facility] [address] [place] [address] Lyndsey Burnett MA Chart Prep 06/28/2024 Patient Outreach [facility] [address] [place] [address] Name, MD Elijah Pre-visit Planning ([facility] unable to reach LVM) 06/27/2024 Refill [facility] [address] [place] [address] Ames, Maribel, LEAD BURNER HELPER from Last 3 Months Immunizations Name Administration Dates Next Due INFLUENZA INJECTABLE QUADRIV ALANT CCIIV4 MDCK Multi-dose vial 04/08/2021 Influenza injectable quadriv alent IIV4 with preservative 07/06/2019,04/26/2018,05/29/2016 Influenza injectable quadriv alent preservative free 05/21/2022,05/20/2020 Influenza, IIV3, injectable 05/24/2016,1 ,08/06/2014,2012,05/25/2012,10/19/2011,08/26/2009 Influenza, seasonal, injecta ble, preservative free 04/21/2017 Novel [id number], preservative-free 08/26/2009 Tdap 08/23/2013 Social History Tobacco Use Types Packs/Day Years Used Date Smoking Tobacco: Never Passive Smoke Exposure: Never Smokeless Tobacco: Never Tobacco Cessation:Counseling Given: Not Answered Alcohol Use Standard Drinks/Week Comments Never 0 [...] Orientation Straight 06/07/2022 10 :31 AM EDT Last Filed Vital Signs Vital Sign Reading Time Taken Comments Blood Pressure 145/91 03/05/2024 11:25 AM EDT Pulse 60 03/05/2024 11:25 AM EDT Temperature 36.7 ??C (98.1 ??F) 03/05/2024 11:25 AM E DT Respiratory Rate 26 03/05/2024 11:25 AM EDT Oxygen Saturation 98% 03/05/2024 11:25 AM EDT Inhaled Oxygen Concentration - - Weight 89.4 kg (197 lb) 03/05/2024 11:25 AM EDT Height 154.9 cm (5' 1 ) 03/05/2024 11:25 AM EDT Body Mass Index 37.22 03/05/2024 11:25 AM EDT Plan of Treatment Health Maintenance Due Date Last Done Comments CT Colonography 1958 FIT DNA/Cologuard 1958 FIT 1958 FOBT 1960 Sigmoidoscopy 1958 Alcohol/Substance Use Screening 1970 Hepatitis C Screening 1976 Pap Smear 11/28/1979 HPV/Cotest 1988 Pneumococcal Vaccine: 50+ Years (1 of 1 - PCV) 2008 Zoster Vaccines (1 of 2) 2008 DTaP/Tdap/Td Vaccines (2 - Td or Tdap) 08/23/2023 08/23/2013 Depression Screening 12/23/2023 12/22/2022, 12/23/19 23 COVID-19 Vaccine (3 - season) 2024 08/05/2021, 07/15/2021 Influenza Vaccine (#1) 2024 2, 04/08/2021, 05/20/2020, Additional history exists Tobacco Screening 03/05/2025 03/05/2024 SDOH Screening 09/07/2025 09/07/2024 Mammogram 01/05/2026 01/06/2024, 10/06, 10/15/2022, Additional history exists Colonoscopy 02/22/2026 02/22/2023, 02/05, 05/15/2019 Colorectal Cancer Screening 02/22/2026 Lipid Panel 10/23/2028 10/24/2023, 09/2022, 03/31/2022 RSV Patients and Patients Aged 60 years or older (1 - 1-dose 75+ series) 2033 Cervical Cancer Screening Discontinued HIB Vaccines Aged Out No longer eligi ble based on patient's age to complete this topic HPV Vaccines Aged Out No longer eligi ble based on patient's age to complete this topic Hepatitis A Vaccines Aged Out No long er eligible based on patient's age to complete this topic Hepatitis B Vaccines Aged Out No long er eligible based on patient's age to complete this topic IPV Vaccines Aged Out No longer eligi ble based on patient's age to complete this topic Meningococcal Vaccine Aged Out No joanna ariella eligible based on patient's age to complete this topic RSV under 20 months Aged Out No longe r eligible based on patient's age to complete this topic Rotavirus Vaccines Aged Out No longer eligible based on patient's age to complete this topic Procedures Procedure Name Priority Date/Time Associated Diagnosis Comments BI MAMMOGRAM SCREENING TOMOSYNTHESIS BILATERAL Routine 01/06/2024 2:43 PM EDT LIPID PANEL, STANDARD Routine 10/24/2023 12:00 PM EDT Essential hypertension HM COLONOSCOPY Routine 02/22/2023 from Last 3 Months or Most Recently Relevant to Health Maintenance Results * BI Mammogram Screening Tomosynthesis Bilateral (01/06/2024 2:43 PM EDT) Anatomical Region Laterality Modality Breast Bilateral Mammography 01/06/2024 2:43 PM EDT Narrative 01/24/2024 1:57 PM EDT ? [facility] ? [address] [place] [address] ? Mammography Report ? Signed ? Patient: Ari,Diana ?MR#: [id number] ? : 1960 ?Acct:[id number] ? Age/Sex: 63 / F ?ADM Date: 01/06/24 ? Loc: HO.MAMMO ? Attending : Elijah Mendoza MD ? Ordering Physician: Name,Elijah FRAGA ?Results: 1Negative ? Date of Service: 01/06/24 ?Follow Up: 1 Year From Orig ?? inal Mammogram ? Procedure(s): MM tomosynthesis screening BI ?? Accession Number(s): [id number] ? cc: Name,Elijah FRAGA ? EXAMINATION: ?? MM SCREENING DIGITAL BREAST TOMOSYNTHESIS, BILATERAL ? CLINICAL INFORMATION: ? Screening. Asymptomatic. ? COMPARISON: ?? Mammography: This study is compared with prior exams dating back to ?? 2019. ? TECHNIQUE: ?? Digital breast tomosynthesis is performed in both the craniocaudal and ?? mediolateral oblique views along with computer-aided detection (CAD). ?? Synthesized 2D images are generated from the tomosynthesis. ? FINDINGS: ?? The breasts are almost entirely fatty (ACR BI-RADS breast composition ?? Category a). ? There are no significant masses, abnormal calcifications, or other ?? abnormalities. ? MM/MM tomosynthesis screening BI ?? IMPRESSION: ?? No mammographic evidence of malignancy. ? ASSESSMENT: ? BI-RADS BI-RADS 1 - Negative ? RECOMMENDATION: ?? Routine annual mammography screening. ? 1 year F/U ? This examination should not preclude the clinical evaluation of a ?? suspicious palpable abnormality. ? This patient's information was entered into a reminder system with a ?? target due date for their next mammogram. ? Dictated By: ?Andreea Golden MD ? Signed By: ?<Electronically signed by Andreea Golden MD in OV> ? 01/24/24 1353 ? DD/ 1443 ? TD/TT: ? Gauge Checker: ? Procedure Note Ada, Image - 01/24/2024 [facility] [address] [place] [address] Mammography Report Signed Patient: Shabana Chapman#: [id number] : 9Acct:[id number] Age/Sex: 63 / FADM Date: 01/06/24 Loc: HO.MAMMO Attending Dr: Elijah Mendoza MD Ordering Physician: Elijah Mendozaesults: 1Negative Date of Service: 01/06/24Follow Up: 1 Year From Orig inal Mammogram Procedure(s): MM tomosynthesis screening BI Accession Number(s): [id number] cc: Elijah Mendoza MD EXAMINATION: MM SCREENING DIGITAL BREAST TOMOSYNTHESIS, BILATERAL CLINICAL INFORMATION: Screening. Asymptomatic. COMPARISON: Mammography: This study is compared with prior exams dating back to 2019. TECHNIQUE: Digital breast tomosynthesis is performed in both the craniocaudal and mediolateral oblique views along with computer-aided detection (CAD). Synthesized 2D images are generated from the tomosynthesis. FINDINGS: The breasts are almost entirely fatty (ACR BI-RADS breast composition Category a). There are no significant masses, abnormal calcifications, or other abnormalities. MM/MM tomosynthesis screening BI IMPRESSION: No mammographic evidence of malignancy. ASSESSMENT: BI-RADS BI-RADS 1 - Negative RECOMMENDATION: Routine annual mammography screening. 1 year F/U This examination should not preclude the clinical evaluation of a suspicious palpable abnormality. This patient's information was entered into a reminder system with a target due date for their next mammogram. Dictated By: Andreea Golden MD Signed By: <Electronically signed by Andreea Golden MD in OV> 01/24/24 1353 DD/ 1443 TD/TT: Gauge Checker: Elijah Mendoza MD IMG BI PROCEDURES Final Result * (ABNORMAL) Lipid Panel, Standard (10/24/2023 12:00 PM EDT) Triglycerides 85 <150 mg/dL [facility] Comment:Desirable Triglyceri de: less than 150 mg/dLBorderline High Triglyceride 150-199 mg/dLHigh Triglyceride: 200-499 mg/dLVery High Triglyceride: greater than or equal to 5OO mg/dL Cholesterol 206(H) <200 mg/dL [facility] Comment:Desirable Cholestero l: less than 200 mg/dLBorderline High Cholesterol: 200-239 mg/dLHigh Cholesterol: greater than 239 mg/dL LDL Cholesterol Calculated 134(H) <100 mg/dL [facility] Comment:Desirable LDL: less than 100 mg/dLNear Optimal/Above Optimal LDL: 110- 129 mg/dLBorderline High LDL: 130-159 mg/dLHigh LDL: 160-189 mg/dLVery High LDL: greater than or equal to 190 mg/dL HDL Cholesterol 55 >40 mg/dL [facility] Comment:Desirable HDL: great er than 40 mg/dL Note: This HDL assay may give artificially low results in patients with liver disease. Blood Venous blood specimen / Unknown 10/24/2023 12:00 PM EDT 10/24/2023 1:06 PM EDT us Elijah Mendoza MD LAB BLOOD ORDERABLES Final Resul t [facility] [address] [place] [address] [phone] * (ABNORMAL) Colonoscopy (02/22/2023) Colonoscopy Abnormal( A) Normal Comment:Tubular adenoma Elijah Mendoza MD HEALTH MAINTENANCE Final Result from Last 3 Months or Most Recently Relevant to Health Maintenance Insurance [facility] Care Teams Sales Product Specialist Relationship Specialty Start Date End Date Name, MD Elijah [address] [place] [id number] PCP - General Family Medicine 08/08/18
--- OUTSIDE RECORDS SUMMARY | 2024-09-19 09:49 | XMS_ITS | Encounter Summary ---
Author Organization [facility] Address [address] [facility] [facility] [address] [place] [address] Care Team Providers Care Punch Out Crew Member Name Role Phone Name, Elijah FRAGA Primary Care Provider [phone] Encounter Details Date Type Department Care Team ([facility] st Contact Info) Description 12/24/2022 Abstract [facility] [address] [place], [place] [phone] Name, MD Elijah [address] [place] [address] Social History Tobacco Use Types Packs/Day Years [...] suspected to have Coronavirus/COVID-19? No / Unsure 12/22/2022 2:10 PM EDT documented as of this encounter Plan of Treatment Not on file documented as of this encounter Procedures Procedure Name Priority Date/Time Associated Diagnosis Comments HM COLONOSCOPY Routine 05/15/2019 1:57 PM EDT documented in this encounter Results * Hm Colonoscopy (05/15/2019 1:57 PM EDT) Colonoscopy Normal Normal Narrative Mary Butterfield - 05/15/2019 1:57 PM EDT Recommended 5 year follow up us Historical Provider HEALTH MAINTENANCE Final Result documented in this encounter Visit Diagnoses Not on filedocumented in this encounter Additional Health Concerns Assessment Noted Time PHQ-9 Depression Total Score: 0 12/23/19 23 2:25 PM EDT documented as of this encounter Care Teams Punch Out Crew Member Relationship Specialty Start Date End Date Name, MD Elijah [address] [place] [address] PCP - General Family Medicine 08/08/18 documented as of this encounter
--- OUTSIDE RECORDS SUMMARY | 2024-09-19 09:49 | XMS_ITS | Encounter Summary ---
Author Organization [employer] [facility] Address [address] [place] [address] Care Team Providers Care Foreman Shipping Department Name Role Phone Name, Elijah FRAGA Primary Care Provider [phone] Reason for Visit * Reason Onset Date Comments Nurse Triage 12/05/2023 Encounter Details Date Type Department Care Team ([facility] st Contact Info) Description 12/05/2023 Telephone [facility] MEDICINE [address] [place], [place] [phone] Name, MD Elijah [address] [place] [address] Nurse Triage Social History Tobacco Use Types Packs/Day Years [...] t he electric, gas, oil or water [employer] threatened to shut off services in your [...] encounter Miscellaneous Notes * Telephone Encounter - Monika Mota RN - 12/05/2023 3:44 PM EDT Triage call Pt reports a vaginal lump which started month ago as a small pimple. Pt reports it is the size of a dime, red, and painful. Pt is offered WIC today at [facility] but, declines to go today due tofamily member doing poorly. Pt requests provider for NEWSP[employer]ENDOR to see Pt. Apt with JUJU Romero 12/06/23 @ 330pm at [facility] facility. Pt reports has been to [facility] before. Pt agrees with disposition. Advised to apply moist warm compresses to area. Pt reports has had hx of herpes but, isn't sure if this areais the same thing. Insurance is verified as active prior to booking. Protocol Used: Skin Lump or Localized Swelling (Adult) Protocol-Based Disposition: See in Office or Video Visit Today Video visit not offered Positive Triage Question: * Swelling is painful to touch and no fever * All higher-acuity triage questions were negative Care Advice Discussed: * Reasons To Call Back - Fever occurs - Spreading redness occurs - Swelling becomes painful - Swelling persists over 1 week - You become worse * Telephone Encounter - Justin Khan - 12/05/2023 3:23 PM EDT Symptom: Skin Lump on vaginal area Outcome: Schedule an urgent appointment (within 4 hours) or talk to a nurse or provider soon Reason: Growing rapidly The caller accepted this outcome documented in this encounter Plan of Treatment Not on file documented as of this encounter Visit Diagnoses Not on filedocumented in this encounter Additional Health Concerns Assessment Noted Time PHQ-9 Depression Total Score: 0 12/23/19 23 2:25 PM EDT documented as of this encounter Care Teams Foreman Shipping Department Relationship Specialty Start Date End Date Name, MD Elijah [address] [place] [address] PCP - General Family Medicine 08/08/18 documented as of this encounter
--- OUTSIDE RECORDS SUMMARY | 2024-09-19 09:49 | XMS_ITS | Encounter Summary ---
Author Organization [employer] Address [address] [place] [address] Care Team Providers Care Sales Program Manager Name Role Phone Name, Elijah FRAGA Primary Care Provider [phone] Reason for Visit * Reason Onset Date Comments Reschedule 01/19/2024 Encounter Details Date Type Department Care Team ([facility] st Contact Info) Description 01/19/2024 Telephone [facility] MEDICINE [address] [place], [place] [phone] Name, MD Elijah [address] [place] [address] Reschedule Social History Tobacco Use Types Packs/Day Years [...] Patient Health Questionnaire-2 Score 0 12/22/2022 Comments No Sex and Gender Information Value Date Recorded Sex Assigned at Female 06/07/2022 10:31 AM EDT Legal Sex Female 10:31 AM EDT Gender Identity Female 06/07/2022 10:31 AM EDT Sexual Orientation Straight 06/07/2022 10 :31 AM EDT documented as of this encounter Miscellaneous Notes * Telephone Encounter - Dipti Castro - 01/19/2024 2:27 PM EDT Tc from pt requesting r/s Procedure appt. documented in this encounter Plan of Treatment Not on file documented as of this encounter Visit Diagnoses Not on filedocumented in this encounter Additional Health Concerns Assessment Noted Time PHQ-9 Depression Total Score: 0 12/23/19 23 2:25 PM EDT documented as of this encounter Care Teams Sales Program Manager Relationship Specialty Start Date End Date Name, MD Elijah [address] [place] [address] PCP - General Family Medicine 08/08/18 documented as of this encounter
--- OUTSIDE RECORDS SUMMARY | 2024-09-19 09:49 | XMS_ITS | Clinical Summary ---
Author Organization [address] [facility] Address [address] [place] [address] Phone Care Team Providers Care Fig Caprifier Name Role Phone Name, Elijah FRAGA Primary Care Provider [phone] Encounters Date Type Department Care Team Description 07/20/2024 Lab Requisition [facility] - Main Lab [address] [place] [address] Shawnee Friedman MD Functional dyspepsia from Last 3 Months Surgical History Surgery Date Site/Laterality Comments HYSTERECTOMY PROCEDURE: HISTORICAL HYSTERECTOMY; COMMENT: and BSO COLONOSCOPY 01/13/09 PROCEDURE: IA COLONOSCOPY STOMA DX INCLUDING COLLJ SPEC SPX; COMMENT: Up to cecum, good preparation, rectal polyp removed:Tubular adenoma. Repeat 01/2014 ESOPHAGOGASTRODUODENOSCOPY 05/20/09 PROCEDURE: IA EGD TRANSORAL BIOPSY SINGLE/MULTIPLE; COMMENT: Normal esophagus, Nl stomach-biopsy:mild reactive gastropathy, Nl duodenum-biopsy: chronic non specific duodenitis Medical History Medical History Date Comments Fibromyalgia DX:Fibromyalgia Family History Medical History Relation Name Comments Other: denies Other 1 Lung cancer Sister 1 Other: ca kidney Sister 2 Breast cancer Neg Hx Colon cancer Neg Hx Ovarian cancer Neg Hx Relation Name Status Comments Father Alive CRI, GI bleed, HTN Mother Alive asthma, Glaucom a and thyroid problem Other 1 Other 2 Sister 1 Sister 2 Sister 3 Alive HTN Social History Tobacco Use Types Packs/Day Years Used Date Smoking Tobacco: Never Smokeless Tobacco: Never Alcohol Use Standard Drinks/Week Comments No 0 (1 standard drink = 0.6 oz pur e alcohol) Comments Unknown Sex and Gender Information Value Date Recorded Sex Assigned at Not on file Legal Sex Female 10:46 PM EST Gender Identity Not on file Sexual Orientation Not on file Obstetrics History Plan of Treatment Health Maintenance Due Date Last Done Comments Breast Cancer Screening 1960 Hepatitis A Vaccines (1 of 2 - Risk 2-dose series) 1977 Pneumococcal Vaccine: 50+ Years (1 of 2 - PCV) 1977 Pneumococcal Vaccine: Pediatrics (0 to 5 Years) and At-Risk Patients (6 to 64 Years) (1 of 2 - PCV) 1977 Cervical Cancer Screening: Pap Smear 11/28/1979 Zoster Vaccines (1 of 2) 2008 Hepatitis B Vaccines (1 of 3 - Risk 3-dose series) 2018 RSV Immunization Patients 60+ Years Old (1 - Risk 60-74 years 1-dose series) 2018 Colorectal Cancer Screening: Colonoscopy 07/11/2022 Medicare Annual Wellness Visit 07/11/2022 Osteoporosis Screening (Bone Density Screening) 07/11/2022 Social Influencers of Health Screening 07/11/2022 DTaP,Tdap,and Td Vaccines (2 - Td or Tdap) 08/23/2023 08/23/2013 Falls Risk Assessment 11/28/2023 Depression Screening 12/23/2023 12/22/2022 COVID-19 Vaccine ( season) 2024 08/05/2021, 07/15/2021 Influenza Vaccine (#1) 2024 , 04/08/2021, 05/20/2020, Additional history exists Hypertension/CHF/CAD Annual BMP Blood Test 07/23/2025 07/23/2024 Cholesterol Screening (Lipid Panel) 07/23/2029 07/23/2024, 10/24/2023 Hepatitis C Screening Completed 07/23/2024 HIB Vaccines Aged Out No longer eligi ble based on patient's age to complete this topic HPV Vaccines Aged Out No longer eligi ble based on patient's age to complete this topic IPV Vaccines Aged Out No longer eligi ble based on patient's age to complete this topic MMR Vaccines Aged Out No longer eligi ble based on patient's age to complete this topic Meningococcal ACWY Vaccine Aged Out N o longer eligible based on patient's age to complete this topic Meningococcal B Vacine Aged Out No lo nger eligible based on patient's age to complete this topic RSV Immunization Patients Under 20 months Aged Out No longer eligible based on patient's age to complete this topic Varicella Vaccines Aged Out No longer eligible based on patient's age to complete this topic Procedures Procedure Name Priority Date/Time Associated Diagnosis Comments CHLAMYDIA TRACHOMATIS AND NEISSERIA GONORRHOEAE PCR Routine 07/23/2024 12:06 PM EST Steatosis of liver CBC WITH AUTO DIFFERENTIAL Routine 07/23/2024 11:59 AM EST Steatosis of liver PEREZ FIBROSURE Routine 07/23/2024 11:59 AM EST Steatosis of liver LIPID PANEL WITH REFLEX TO DIRECT LDL Routine 07/23/2024 11:59 AM EST Steatosis of liver HEMOGLOBIN A1C Routine 07/23/2024 11:59 AM EST Steatosis of liver AMYLASE Routine 07/23/2024 11:59 AM EST Steatosis of liver LIPASE Routine 07/23/2024 11:59 AM EST Steatosis of liver COMPREHENSIVE METABOLIC PANEL Routine 07/23/2024 11:59 AM EST Steatosis of liver CBC AND DIFFERENTIAL Routine 07/23/2024 11:59 AM EST Steatosis of liver TREPONEMA PALLIDUM ANTIBODY WITH REFLEX TO RPR AND PARTICLE AGGLUTINATION Routine 07/23/2024 11:59 AM EST Steatosis of liver HERPES SIMPLEX VIRUS 1 AND 2, IGG Routine 07/23/2024 11:59 AM EST Steatosis of liver HIV 1, 2 ANTIBODY, P24 ANTIGEN WITH REFLEX TO DIFFERENTIATION Routine 07/23/2024 11:59 AM EST Steatosis of liver HEPATITIS B SURFACE ANTIBODY QUANTITATIVE Routine 07/23/2024 11:59 AM EST Steatosis of liver HEPATITIS B SURFACE ANTIGEN WITH CONFIRMATION Routine 07/23/2024 11:59 AM EST Steatosis of liver HEPATITIS C ANTIBODY Routine 07/23/2024 11:59 AM EST Steatosis of liver HELICOBACTER PYLORI BREATH TEST Routine 07/20/2024 12:00 AM EST Functional dyspepsia from Last 3 Months Results * Chlamydia trachomatis and Neisseria gonorrhoeae molecular study (07/23/2024 12:06 PM EST) Pathologist [facility] Neisseria gonorrhoeae PCR Negative Negative LAB MOLECULAR DIAGNOSTICS METHOD 07/23/2024 3:07 PM EST [facility] Chlamydia trachomatis PCR Negative Negative LAB MOLECULAR DIAGNOSTICS METHOD 07/23/2024 3:07 PM EST [facility] Swab Urine specimen from urethra / Unknown Non-blood Collection / Unknown 07/23/2024 12:06 PM EST 07/23/2024 12:32 PM EST us Shawnee Friedman MD LAB MICROBIOLOGY - GENERA L ORDERABLES Final Result Performing Organization Address City/[facility]/ZIP Co de Phone Number [facility] [address] [place] [address], [place] [phone] * Hepatitis C antibody (07/23/2024 11:59 AM EST) [facility] Hepatitis C Antibody Negative Negative LAB CHEMISTRY METHOD 07/23/2024 7:04 PM EST [facility] Blood Venous blood specimen / Unknown Venipuncture / Unknown 07/23/2024 11:59 AM EST 07/23/2024 12:33 PM EST us Shawnee Friedman MD LAB BLOOD ORDERABLES January l Result [facility] [address] [place] [address], [place] [phone] * HIV 1,2 antibody, p24 antigen with reflex to differentiation (07/23/2024 11:59 AM EST) HIV Combo AB/AG Negative Negative LAB CHEMISTRY METHOD 07/23/2024 7:04 PM EST [facility] Blood Venous blood specimen / Unknown Venipuncture / Unknown 07/23/2024 11:59 AM EST 07/23/2024 12:33 PM EST [facility] - 07/23/2024 7:04 PM EST This assay is a 4th generation assay allowing for earlier detection of HIV infection by detecting the presence of the HIV-1 p24 antigen as well as the traditional antibodies to HIV type 1 (including group O) and type 2. ??Use of a 4th generation assay is the current CDC recommendation for HIV screening. Shawnee Friedman MD LAB BLOOD ORDERABLES January l Result Performing Organization Address [facility] de Phone Number [facility] [address] [place] [address], [place] [phone] * Hepatitis B surface antigen with reflex to confirmation (07/23/2024 11:59 AM EST) Pathologist [facility] Hepatitis B Surface Ag Negative Negative LAB CHEMISTRY METHOD 07/23/2024 6:35 PM EST [facility] Blood Venous blood specimen / Unknown Venipuncture / Unknown 07/23/2024 11:59 AM EST 07/23/2024 12:33 PM EST [facility] - 07/23/2024 6:35 PM EST Over the counter supplements containing high doses of biotin may interfere with this assay. ??If interference is suspected, patients shoud be retested after refraining from biotin supplements for 72 hours. us Shawnee Friedman MD LAB BLOOD ORDERABLES January l Result Performing Organization Address [facility] Co de Phone Number [facility] [address] [place] [address], [place] [phone] * Treponema pallidum antibody with reflex to RPR and particle agglutination (07/23/2024 11:59 AM EST) T. Pallidum Antibodies Negative Negative LAB CHEMISTRY METHOD 07/23/2024 6:38 PM [facility] Blood Venous blood specimen / Unknown Venipuncture / Unknown 07/23/2024 11:59 AM EST 07/23/2024 12:33 PM EST us Shawnee Friedman MD LAB BLOOD ORDERABLES January l Result [facility] [address] [place] [address], [place] [phone] * (ABNORMAL) Lipid panel with reflex to direct LDL (07/23/2024 11:59 AM EST) Cholesterol 194 0 - 200 mg/dL LAB CHEMISTRY METHOD 07/23/2024 6:19 PM [facility] Triglycerides 58 0 - 150 mg/dL LAB CHEMISTRY METHOD 07/23/2024 6:19 PM [facility] HDL 67 >=40 mg/dL LAB CHEMISTRY METHOD 07/23/2024 6:19 PM [facility] LDL Calculated 115(H) 0 - 100 mg/dL LAB CHEMISTRY METHOD 07/23/2024 6:19 PM [facility] VLDL Cholesterol Carlo 11.6 mg/dL LAB CHEMISTRY METHOD 07/23/2024 6:19 PM [facility] Non HDL Chol. (LDL+VLDL) 127 <145 mg/dL LAB CHEMISTRY METHOD 07/23/2024 6:19 PM [facility] Chol/HDL Ratio 2.9 0.0 - 4.4 LAB CHEMISTRY METHOD 07/23/2024 6:19 PM [facility] Blood Venous blood specimen / Unknown Venipuncture / Unknown 07/23/2024 11:59 AM EST 07/23/2024 12:33 PM EST Shawnee Friedman MD LAB BLOOD ORDERABLES January l Result [facility] [address] [place] [address], [place] [phone] * PEREZ fibrotest liver diease (07/23/2024 11:59 AM EST) PEREZ FibroSure See Below 07/30/2024 9:20 AM EST [facility] Comment: PEREZ FibroSure(R) Plus SEE REPORT UNDER SEPARATE COVER. REPORT WILL BE SENT TO THE ORDERING LABORATORY VIA PRINTER OR FAX. ADDITIONAL COPIES OF THE ORIGINAL REPORT MAY ALSO BE OBTAINED BY CALLING [facility]IENT [facility] at [phone] Blood Venous blood specimen / Unknown Venipuncture / Unknown 07/23/2024 11:59 AM EST 07/23/2024 12:33 PM EST Shawnee Friedman MD LAB BLOOD ORDERABLES Edit ed Result - Final [facility] [address] [place] [address] * (ABNORMAL) Herpes simplex virus 1 and 2, IgG (07/23/2024 11:59 AM EST) HSV 1 IgG 37.00(H) <=0.90 index asad LAB CHEMISTRY METHOD 07/23/2024 1:50 PM EST [facility] HSV-1 IgG Interpretation Positive (A) Negative LAB CHEMISTRY METHOD 07/23/2024 1:50 PM EST [facility] HSV 2 IgG 11.50(H) <=0.90 index asad LAB CHEMISTRY METHOD 07/23/2024 1:50 PM EST [facility] HSV-2 IgG Interpretation Positive (A) Negative LAB CHEMISTRY METHOD 07/23/2024 1:50 PM EST [facility] Blood Venous blood specimen / Unknown Venipuncture / Unknown 07/23/2024 11:59 AM EST 07/23/2024 12:33 PM EST us Shawnee Friedman MD LAB BLOOD ORDERABLES January roger Result [facility] [address] [place] [address], * (ABNORMAL) CBC auto differential (07/23/2024 11:59 AM EST) WBC 5.7 4.8 - 10.8 K/mcL LAB HEMETOLOGY METHOD 07/23/2024 1:05 PM [facility] RBC 4.20 3.80 - 4.80 M/mcL LAB HEMETOLOGY METHOD 07/23/2024 1:05 PM [facility] Hemoglobin 12.6 11.5 - 16.0 g/dL LAB HEMETOLOGY METHOD 07/23/2024 1:05 PM [facility] Hematocrit 40.0 35.0 - 47.0 % LAB HEMETOLOGY METHOD 07/23/2024 1:05 PM [facility] MCV 96.2 79.0 - 98.0 FL LAB HEMETOLOGY METHOD 07/23/2024 1:05 PM [facility] MCH 30.3 27.0 - 32.0 pcg LAB HEMETOLOGY METHOD 07/23/2024 1:05 PM [facility] MCHC 31.5(L) 32.0 - 37.0 g/dL LAB HEMETOLOGY METHOD 07/23/2024 1:05 PM [facility] RDW 13.4 11.0 - 15.0 % LAB HEMETOLOGY METHOD 07/23/2024 1:05 PM [facility] Platelets 265 130 - 400 K/mcL LAB HEMETOLOGY METHOD 07/23/2024 1:05 PM [facility] MPV 10.5 7.0 - 11.0 FL LAB HEMETOLOGY METHOD 07/23/2024 1:05 PM [facility] NRBC 0.0 <1.0 % LAB HEMETOLOGY METHOD 07/23/2024 1:05 PM [facility] NRBC Absolute 0.00 <0.10 K/mcL LAB HEMETOLOGY METHOD 07/23/2024 1:05 PM [facility] Neutrophils Relative 53.4 % LAB HEMETOLOGY METHOD 07/23/2024 1:05 PM [facility] Lymphocytes Relative 35.7 % LAB HEMETOLOGY METHOD 07/23/2024 1:05 PM [facility] Monocytes Relative 6.3 % LAB HEMETOLOGY METHOD 07/23/2024 1:05 PM [facility] Eosinophils Relative 3.9 % LAB HEMETOLOGY METHOD 07/23/2024 1:05 PM [facility] Basophils Relative 0.5 % LAB HEMETOLOGY METHOD 07/23/2024 1:05 PM [facility] Immature Granulocytes Relative 0.2 % LAB HEMETOLOGY METHOD 07/23/2024 1:05 PM [facility] Neutrophils Absolute 3.04 1.50 - 7.00 K/mcL LAB HEMETOLOGY METHOD 07/23/2024 1:05 PM [facility] Lymphocytes Absolute 2.03 1.00 - 5.00 K/mcL LAB HEMETOLOGY METHOD 07/23/2024 1:05 PM [facility] Monocytes Absolute 0.36 0.20 - 1.00 K/mcL LAB HEMETOLOGY METHOD 07/23/2024 1:05 PM [facility] Eosinophils Absolute 0.22 0.00 - 0.50 K/mcL LAB HEMETOLOGY METHOD 07/23/2024 1:05 PM [facility] Basophils Absolute 0.03 0.00 - 0.20 K/[facility] LAB HEMETOLOGY METHOD 07/23/2024 1:05 PM EST [facility] Immature Granulocytes Absolute 0.01 0.00 - 0.03 K/[facility] HEMETOLOGY METHOD 07/23/2024 1:05 PM EST [facility] Blood Venous blood specimen / Unknown Venipuncture / Unknown 07/23/2024 11:59 AM EST 07/23/2024 12:33 PM EST Shawnee Friedman MD LAB BLOOD ORDERABLES January l Result Performing Organization Address City/[facility]/ZIP Co de Phone Number [facility] [address] [place] [address], * Hepatitis B surface antibody quantitative (07/23/2024 11:59 AM EST) Pathologist [facility] Hepatitis B Surface Ab Negative Negative LAB CHEMISTRY METHOD 07/23/2024 6:25 PM EST [facility] Hepatitis B Surface Ab Quantitative 4.5 mIU/mL LAB CHEMISTRY METHOD 07/23/2024 6:25 PM EST [facility] Blood Venous blood specimen / Unknown Venipuncture / Unknown 07/23/2024 11:59 AM EST 07/23/2024 12:33 PM EST Narrative [facility] - 07/23/2024 6:25 PM EST >=10 mIU/mL is considered to be consistent with immunity. Shawnee Friedman MD LAB BLOOD ORDERABLES January l Result [facility] [address] [place] [address], [place] [phone] * Lipase (07/23/2024 11:59 AM EST) Lipase 26 13 - 75 unit/L LAB CHEMISTRY METHOD 07/23/2024 6:17 PM EST [facility] Blood Venous blood specimen / Unknown Venipuncture / Unknown 07/23/2024 11:59 AM EST 07/23/2024 12:33 PM EST Shawnee Friedman MD LAB BLOOD ORDERABLES January l Result Performing Organization Address City/[facility]/ZIP Co de Phone Number [facility] [address] [place] [address], [place] [phone] * Hemoglobin A1c (07/23/2024 11:59 AM EST) Hemoglobin A1C 5.4 <6.5 % LAB CHEMISTRY METHOD 07/23/2024 2:45 PM EST [facility] Mean Bld Glu Estim. 108 mg/dL LAB CHEMISTRY METHOD 07/23/2024 2:45 PM EST [facility] Blood Venous blood specimen / Unknown Venipuncture / Unknown 07/23/2024 11:59 AM EST 07/23/2024 12:33 PM EST Shawnee Friedman MD LAB BLOOD ORDERABLES January l Result Performing Organization Address [facility]/ZIP Co de Phone Number [facility] [address] [place] [address], [place] [phone] * Amylase (07/23/2024 11:59 AM EST) Pathologist [facility] Amylase 42 25 - 115 unit/L LAB CHEMISTRY METHOD 07/23/2024 6:17 PM EST [facility] Blood Venous blood specimen / Unknown Venipuncture / Unknown 07/23/2024 11:59 AM EST 07/23/2024 12:33 PM EST Shawnee Friedman MD LAB BLOOD ORDERABLES January l Result [facility] [address] [place] [address], * Comprehensive metabolic panel (07/23/2024 11:59 AM EST) Sodium 142 133 - 145 mmol/L LAB CHEMISTRY METHOD 07/23/2024 6:19 PM EST [facility] Potassium 4.2 3.5 - 5.5 mmol/L LAB CHEMISTRY METHOD 07/23/2024 6:19 PM [facility] Chloride 110 96 - 110 mmol/L LAB CHEMISTRY METHOD 07/23/2024 6:19 PM [facility] CO2 26 21 - 32 mmol/L LAB CHEMISTRY METHOD 07/23/2024 6:19 PM [facility] Anion Gap 6 3 - 11 LAB CHEMISTRY METHOD 07/23/2024 6:19 PM [facility] Glucose 85 70 - 100 mg/dL LAB CHEMISTRY METHOD 07/23/2024 6:19 PM [facility] BUN 21 5 - 25 mg/dL LAB CHEMISTRY METHOD 07/23/2024 6:19 PM [facility] Creatinine 0.77 0.50 - 1.10 mg/dL LAB CHEMISTRY METHOD 07/23/2024 6:19 PM [facility] eGFR 86 >=60 mL/min/1. 73m2 LAB CHEMISTRY METHOD 07/23/2024 6:19 PM [facility] Comment:Calculation based on the??Chronic Kidney Disease Epidemiology Collaboration (CKD-EPI) equation refit??without adjustment for race. BUN/Creatinine Ratio 27.3 LAB CHEMISTRY METHOD 07/23/2024 6:19 PM [facility] Calcium 9.8 8.5 - 10.5 mg/dL LAB CHEMISTRY METHOD 07/23/2024 6:19 PM [facility] AST (SGOT) 17 10 - 42 unit/L LAB CHEMISTRY METHOD 07/23/2024 6:19 PM [facility] ALT (SGPT) 18 10 - 60 unit/L LAB CHEMISTRY METHOD 07/23/2024 6:19 PM EST [facility] Alkaline Phosphatase 80 42 - 121 unit/L LAB CHEMISTRY METHOD 07/23/2024 6:19 PM [facility] Total Protein 6.6 6.0 - 8.0 g/dL LAB CHEMISTRY METHOD 07/23/2024 6:19 PM [facility] Albumin 3.8 3.2 - 5.0 g/dL LAB CHEMISTRY METHOD 07/23/2024 6:19 PM [facility] Total Bilirubin 0.4 0.0 - 1.4 mg/dL LAB CHEMISTRY METHOD 07/23/2024 6:19 PM [facility] Blood Venous blood specimen / Unknown Venipuncture / Unknown 07/23/2024 11:59 AM EST 07/23/2024 12:33 PM EST Shawnee Friedman MD LAB BLOOD ORDERABLES January l Result [facility] [address] [place] [address], [place] [phone] * Helicobacter pylori breath test (07/20/2024 12:00 AM EST) H Pylori Breath Test Negative Negative LAB CHEMISTRY METHOD 07/21/2024 7:24 AM EST [facility] Breath Oral cavity structure / Unknown 07/20/2024 07/20/2024 6:14 PM EST us Shawnee Friedman MD LAB BODY FLUIDS AND STOOL S ORDERABLES Final Result [facility] [address] [place] [address], [place] [phone] from Last 3 Months Additional Health Concerns Infection Onset Date Last Indicated Herpes simplex 07/23/2024 07/23/2024 Insurance [facility] Member Subscriber Plan / Payer (Ef fective 2024-Present) Name:AriDiana Relation to Subscriber:Self Name:AriDiana Payer ID:[id number] Group ID:[id number] Type:Not on file Address: [address] [place] [address] [employer] MED[employer] Member Subscriber Plan / Payer ( fective 2024-Present) Name:Diana Chapman Relation to Subscriber:Self Name:AriDiana Payer ID:[id number] Group ID:[id number] Type:Not on file Address: [address] [place] [address] Care Teams Fig Caprifier Relationship Specialty Start Date End Date Name, MD Elijah 4 [facility] [place] PCP - General 08/23/08
--- OUTSIDE RECORDS SUMMARY | 2024-09-19 09:49 | XMS_ITS | Encounter Summary ---
Author Organization [facility] Address [address] [place] [address] Care Team Providers Care Solar Sales Advisor Name Role Phone Name, Elijah FRAGA Primary Care Provider [phone] Encounter Details Date Type Department Care Team (Late st Contact Info) Description 07/20/2024 Lab Requisition [facility] - Main Lab [address] [facility] [place] [address] Shawnee Friedman MD [address] [place] [address] Functional dyspepsia Social History Tobacco Use Types Packs/Day Years Used Date Smoking Tobacco: Never Smokeless Tobacco: Never Alcohol Use Standard Drinks/Week Comments No 0 (1 standard drink = 0.6 oz pur e alcohol) Comments Unknown Sex and Gender Information Value Date Recorded Sex Assigned at Not on file Legal Sex Female 10:46 PM EST Gender Identity Not on file Sexual Orientation Not on file documented as of this encounter Plan of Treatment Not on file documented as of this encounter Procedures Procedure Name Priority Date/Time Associated Diagnosis Comments HELICOBACTER PYLORI BREATH TEST Routine 07/20/2024 12:00 AM EST Functional dyspepsia documented in this encounter Results * Helicobacter pylori breath test (07/20/2024 12:00 AM EST) H Pylori Breath Test Negative Negative LAB CHEMISTRY METHOD 07/21/2024 7:24 AM EST [facility] LAB Breath Oral cavity structure / Unknown 07/20/2024 07/20/2024 6:14 PM EST us Shawnee Friedman MD LAB BODY FLUIDS AND STOOL S ORDERABLES Final Result [facility] [address] [place] [address], documented in this encounter Visit Diagnoses Diagnosis Functional dyspepsia Dyspepsia and other specified disorders of function of stomach documented in this encounter Additional Health Concerns Infection Onset Date Last Indicated Resolved Time Herpes simplex 07/23/2024 07/23/2024 documented as of this encounter Care Teams Solar Sales Advisor Relationship Specialty Start Date End Date Name, MD Elijah [address] [place], [place] PCP - General 08/23/08 documented as of this encounter
--- OUTSIDE RECORDS SUMMARY | 2024-09-19 09:49 | XMS_ITS | Encounter Summary ---
Author Organization [facility] Address [address] [place] [address] [address]t [place] [address] Care Team Providers Care Circuit Board Repair Technician Name Role Phone Name, Elijah FRAGA Primary Care Provider [phone] Reason for Visit * Reason Comments Med Refill Encounter Details Date Type Department Care Team (Late st Contact Info) Description 07/23/2022 Refill [facility] [address] [place] [address] Name, MD Elijah [address] [place] [address] Social History Tobacco Use Types Packs/Day Years Used Date Smoking Tobacco: Unknown Comments Unknown Sex and Gender Information Value Date Recorded Sex Assigned at Female 06/07/2022 10:31 AM EDT Legal Sex Female 10:31 AM EDT Gender Identity Female 06/07/2022 10:31 AM EDT Sexual Orientation Straight 06/07/2022 10 :31 AM EDT documented as of this encounter Plan of Treatment Not on file documented as of this encounter Visit Diagnoses Not on filedocumented in this encounter Care Teams Circuit Board Repair Technician Relationship Specialty Start Date End Date Name, MD Elijah [address] [place] [address] PCP - General Family Medicine 08/08/18 documented as of this encounter
== END 2024-09-19 10:03 | disposition home or self-care (01) ==
PROVIDERS: PCP Internal Medicine Geriatric Medicine; Visit Provider Internal Medicine
DX: I10 Essential (primary) hypertension (principal); F33.0 Major depressive disorder, recurrent, mild; K21.9 Gastro-esophageal reflux disease without esophagitis; E78.5 Hyperlipidemia, unspecified; R10.13 Epigastric pain; Z23 Encounter for immunization

== ENCOUNTER → 2024-09-19 08:56 | Outpatient (BNVA) | payer OTHER, SELFPAY | PROVIDERS: PCP Internal Medicine Geriatric Medicine; Visit Provider Internal Medicine | DX: Z23 Encounter for immunization (principal); I10 Essential (primary) hypertension; K21.9 Gastro-esophageal reflux disease without esophagitis; E78.5 Hyperlipidemia, unspecified; R10.13 Epigastric pain; F33.0 Major depressive disorder, recurrent, mild | CPT/HCPCS: 90471; 90677; 96127; 99212 ==

== ENCOUNTER 2024-11-05 13:54 | Outpatient (REF) | payer OTHER, SELFPAY ==
[2024-11-05 14:06] LABS: MANUAL DIFF FLAG NO
[2024-11-05 14:27] LABS: Basophils Percent Auto 0.7 % (0-2); Eosinophils Absolute Auto 0.2 X10*3/uL (0.0-0.4); Eosinophils Percent Auto 3.7 % (0-4); Hematocrit 38.5 % (37.0-47.0); Hemoglobin 12.1 g/dl (12.0-16.0); Imm Gran Abs Auto 0.02 X10*3/uL (0.00-0.03); Imm Gran Pct Auto 0.3 % (0.0-0.4); Lymphocytes Absolute Auto 2.1 X10*3/uL (1.2-4.9); Lymphocytes Percent Auto 34.8 % (20-40); Mean Corpuscular HGB Conc 31.4 g/dl (31.0-35.0); Mean Corpuscular Hemoglobin 29.8 pg (27.0-33.0); Mean Corpuscular Volume 94.8 fL (80.0-98.0); Mean Platelet Volume 10.2 fL (9.4-12.3); Monocytes Absolute Auto 0.3 X10*3/uL (0.1-1.2); Monocytes Percent Auto 5.7 % (2-11); Neutrophils Absolute Auto 3.3 x10*3/uL (2.0-8.3); Neutrophils Percent Auto 54.8 % (45-73); Platelet Count 238 X10*3/uL (160-400); Red Blood Count 4.06 X10*6/uL (4.20-5.50); Red Cell Distribution Width 13.2 % (11.0-16.0); White Blood Count 5.9 X10*3/uL (4.8-10.8)
[2024-11-05 14:52] LABS: Alanine Aminotransferase 15 U/L (0-31); Albumin Level 3.9 g/dL (3.5-5.0); Alkaline Phosphatase 68 U/L (39-117); Anion Gap 10 (12-20); Aspartate Amino Transferase 22 U/L (5-31); Bilirubin Total 0.4 mg/dL (0.0-1.0); Blood Urea Nitrogen 17 mg/dL (9-16); Calcium 9.1 mg/dL (8.4-10.2); Carbon Dioxide 29 mmol/L (22-29); Chloride 109 mmol/L (96-108); Cholesterol 200 mg/dL (<200); Estimated Glomerular Filt Rate > 60; Glucose Fasting 98 mg/dL (60-99); HDL Cholesterol 56 mg/dL (>40); LDL Cholesterol Calculated 131 mg/dL (<100); Potassium 4.4 mmol/L (3.3-5.1); Sodium 144 mmol/L (135-145); Total Protein 6.5 g/dL (6.5-8.0); Triglycerides 65 mg/dL (<150)
[2024-11-05 15:16] LABS: Vitamin D 25-OH Total 24.6 ng/mL (>30)
--- OUTSIDE RECORDS SUMMARY | 2024-11-05 15:43 | XMS_ITS | Encounter Summary ---
Author Organization [facility] Address [address]t [place] [address] Care Team Providers Care Swatch Paster Name Role Phone Name, Elijah FRAGA Primary Care Provider [phone] Reason for Visit * Reason Onset Date Comments Nurse Triage 12/05/2023 Encounter Details Date Type Department Care Team ([facility] st Contact Info) Description 12/05/2023 Telephone [facility] MED[facility]INE [address] [place], [place] [phone] Name, MD Elijah [address] [place] [address] Nurse Triage Social History Tobacco Use Types [...] t he electric, gas, oil or water [employer] threatened to shut off services in your [...] painful. Pt is offered WIC today at [facility] but, declines to go today due tofamily member doing poorly. Pt requests provider for BULLDOZER/LOADER/COMPACTOR/SCRAPER to see Pt. Apt with JUJU Romero 12/06/23 @ 330pm at [facility] facility. Pt reports has been to [facility] before. Pt agrees with disposition. Advised [...] documented as of this encounter Care Teams Swatch Paster Relationship Specialty Start Date End Date Name, MD Elijah [address] [place] [address] PCP - General Family Medicine 08/08/18 09/24/24 documented as of this encounter
--- OUTSIDE RECORDS SUMMARY | 2024-11-05 15:43 | XMS_ITS | Encounter Summary ---
Author Organization [facility] Address [address] [place] [address] 7t [place] [address] Care Team Providers Care Professional Development Manager Name Role Phone Name, Elijah FRAGA Primary Care Provider [phone] Reason for Visit * Reason Comments Med Refill Encounter Details Date Type Department Care Team (Late st Contact Info) Description 09/23/2022 Refill [facility] [address] [place], [place] [phone] Name, MD Elijah [address] [place] [address] [phone] Depressive disorder Social History Tobacco Use Types [...] classified documented in this encounter Care Teams Professional Development Manager Relationship Specialty Start Date End Date Name, MD Elijah [address] [place] [address] [phone] PCP - General Family Medicine 08/08/18 09/24/24 documented as of this encounter
--- OUTSIDE RECORDS SUMMARY | 2024-11-05 15:43 | XMS_ITS | Data Portability ---
Author Organization [facility] [place] [facility] Address [address] [place] [address] Care Team Providers Care Records Supervisor Name Role Phone NAME, DORYS Primary Care Provider HIM RYANNE OTHER Assessment Encounter Date Assessment Date Assessment LastModified by Organization Details LastModified Time 07/30/2024 07/30/2024 Impression: 63yo/f with hx of HTN, DM, anxiety, referred to [facility] for dizziness and elevated BP. Patient is 63yo/f and follows with PMD, she had been started on antihypertensive several months ago and after taking felt like she was having dizzy episodes. States having recurrent episodes of room spinning that then completely resolve, occasionally having some lightheaded symptoms. She had a change in her BP meds, had been taking sporadically. Taking them more consistently recently, and over the past several days having episodes of more lightheadedness. Referred to [facility] for evaluation. For medic in home patient is awake, alert, in no distress. Well appearing, comfortably. She continues to endorse some lightheadedness at this time. No associated headache, vision changes. No associated neurologic symptoms of numbness/weakness/ paresthesias. No associated chest pain, palpitations. No syncope or near syncope. No vertigo or ataxia symptoms at this time, is neuro intact and ambulating without difficulty. She otherwise denies full medical ROS at this time, eating and drinking normally, breathing comfortably, ambulating comfortably. Medic exam shows mild elevation in BP to 148/92, otherwise vitals re-assuring. Her physical exam is otherwise normal at this time. Plan: Patient underwent EKG and labs given her age and chronicity of symptoms. Those tests today are unremarkable. She was observed for a period of time at home and remains awake, alert, well appearing. Unclear etiology of her symptoms at this time, and unclear if this represents a medication side effect. Given her re-assuring in home evaluation I have a lower suspicion at this time for an occult emergency medical condition such as ACS, PE, aortic dissection, AAA, hypertensive emergency, CVA. Patient feels safe continuing to observe symptoms at home and following up with PMD for recheck, I will also flag CRC nurses to help close the loop on BP meds. Instructed to reach out immediately with any acute worsening or change in symptoms which she understands. Primary care, consider BP medication followup Disposition: We discussed the diagnostic uncertainty of home visits and the risk associated with this. In this case, the patient and I felt this to be an acceptable and reasonable amount of risk given the benefit of avoiding an ED visit. We discussed the need to seek care urgently/emergentl y in the setting of any new or worsening serious symptoms [email or web address] Not available 07/30/2024 14:01:43 Plan of Treatment Reminders Order Date Submit Date Provider Last Modified By Organization Details Last Modified Time Details Appointments None recorded. Lab BMP, serum or plasma 2023 [email or web address] [facility], [address] [place] [address], [phone], 14:03:08 Referral None recorded. Procedures None recorded. Surgeries None recorded. Imaging electroca rdiogram 2023 [email or web address] [facility], [address] [place] [address], [phone], 4 09:47:43 Medication Orders None recorded. Patient TargetsNo targets recorded. Patient InstructionsNo instructions recorded. Reason for Referral None Reported. Results Created Date Observation Date Name Description Value Unit Range Abnormal Flag Note LastModifiedBy Organization Detail LastModifiedTime 07/30/20 24 07/30/2024 elect [email or web address] am No observ ation record ed. [email or web address] [address], [phone], 07/30/2024 14:29:25 Result Notes None recorded. Procedures Surgical History None recorded. Imaging Results Imaging Date Name Status LastModified by Organization Details LastModified Time 07/30/2024 electrocardiogram completed [email or web address] [address], [phone], 07/30/2024 14:29:25 Procedure Notes None recorded. Medical Equipment None Reported. Allergies Allergen ID Allergen Name Allergen Category Reaction Reaction Severity Criticality Documentation Date Start Date Code Code System Note Provider Name and Address Organization Details Recorded Time 26001 tramadol medicatio n Not available Not available Not available 07/30/2024 71804 RxNorm Not Available [facility] - production 4 11:14:18 81222 acetamino phen / oxycodone medicatio n Not available Not available Not available 07/30/2024 17069 3 RxNorm Not Available [facility] - production 4 11:14:18 Medications Name Sig Start Date Stop Date Status Note LastModified by Organization Details LastModified Time methocarbamo l 500 mg tablet active Not Available Not Available Not Available oxybutynin chloride ER 15 mg tablet,exten ded release 24 hr TAKE 1 TABLET BY MOUTH DAILY active Not Available Not Available Not Available atorvastatin 20 mg tablet active Not Available Not Available Not Available ondansetron HCl 4 mg tablet TAKE 1 TO 2 TABLETS BY MOUTH DAILY NEEDED FOR NAUSEA OR VOMITING active Not Available Not Available Not Available valacyclovir 500 mg tablet active Not Available Not Available Not Available pantoprazole 20 mg tablet,delay ed release TAKE 1 TABLET BY MOUTH DAILY active Not Available Not Available Not Available hydrocortiso ne 2.5 % topical cream with perineal applicator APPLY THIN LAYER TOPICALLY TO THE AFFECTED AREA 2 TO 4 TIMES EVERY DAY active Not Available Not Available No t Available methocarbamo l 750 mg tablet active Not Available Not Available Not Available Triple Antibiotic 3.5 mg-400 unit-5,000 unit/gram topical ointment APPLY 1 APPLICATION TOPICALLY TO AFFECTED AREA 3 TIMES A DAY. active Not Available Not Available No t Available clotrimazole -betamethaso ne 1 %-0.05 % topical cream APPLY TOPICALLY TO THE AFFECTED AREA TWICE DAILY active Not Available Not Available No t Available docusate sodium 100 mg capsule TAKE ONE CAPSULE BY MOUTH DAILY. active Not Available Not Available No t Available benazepril 20 mg tablet active Not Available Not Available Not Available polyethylene glycol 3350 17 gram/dose oral powder MIX AND TAKE 17 GRAMS BY MOUTH ONCE TO TWICE DAILY DIRECTED NEEDED active Not Available Not Available No t Available estradiol 0.01% (0.1 mg/gram) vaginal cream APPLY 1G TO AFFECTED AREA TO URETHRA EVERY NIGHT AT BEDTIME ON Tuesday active Not Available Not Available No t Available dicyclomine 10 mg capsule active Not Available Not Available Not Available naproxen 500 mg tablet active Not Available Not Available No t Available bupropion HCl XL 150 mg 24 hr tablet, extended release active Not Available Not Available Not Available lactulose 10 gram/15 mL oral solution TAKE 15 ML BY MOUTH ONCE PER DAY FOR 10 DAYS active Not Available Not Available No t Available hydrochlorot hiazide 12.5 mg tablet TAKE 1 TABLET BY MOUTH IN THE MORNING active Not Available Not Available Not Available diclofenac 1 % topical gel APPLY 2 GRAMS TOPICALLY TO THE AFFECTED AREA IN THE MORNING AND AT BEDTIME NEEDED FOR PAIN active Not Available Not Available No t Available Stimulant Laxative Plus 8.6 mg-50 mg tablet TAKE 2 TABLETS BY MOUTH EVERY DAY active Not Available Not Available No t Available BinaxNOW COVID-19 Ag Self Test kit TEST DIRECTED TODAY active Not Available Not Available No t Available Vitals Date Recorded Body height Oxygen saturation Oxygen saturation in Arterial blood by Pulse oximetry Body temperature Body weight Respiratory rate Heart rate Systolic blood pressure Diastolic blood pressure Provider Name and Address Organization Details Last Updated DateTime 4 154.94 cm 100 % 100 % 98.5 [degF] 69370.4 8 g 16 /min 70 /min 148 mm[Hg] 92 mm[Hg] Not Available [facility] - production 4 13:23:53 Social History None recorded. Functional Status None recorded. Mental Status None recorded. Family History Nothing Reported. Medical History No medical history recorded. Gynecological HistoryNo gynecological history recorded. Obstetrics History GPAL:G 0 P 0 0 0 0 Past Encounters Encounter ID Performer Location Encounter Start Date Encounter Closed Date Diagnosis/Indication Diagnosis SNOMED-CT Code Diagnosis ICD10 Code Diagnosis Note [id number] Donnie Alvarez MD Main - [facility] [address] [place] [address] 07/30/2024 13:23:50 07/30/2024 23:46:13 Dizziness [id number] R42 Health Concerns Section Related Observation LastModified by Organization Detai ls LastModified Time None Recorded Concern Status LastModified by Organization Details LastModified Time None Recorded Advance Directives Directive None Recorded Payers Encounter Date Sequence Insurance Name Policy Number Policy Saeed Covered Member ID Saeed Member ID Guarantor Name 07/30/2024 1 [facility] - DOS ON OR AFTER 2022 - DUAL ELIGIBLE - [employer] AND ONE [employer] (MEDICARE REPLACEMENT/ADV ANTAGE - HMO) Diana Chapman [id number] Diana Chapman Notes Date Note Type Note Provider Name and Address Organization Details Recorded Time 07/30/2024 text/html CRC Nurse Triage Notes (Charles Astorga - RN): Denies: Worst Headache of life New onset of vision loss Sudden onset -unilateral weakness/gait disturbance Fall with head strike and altered LOC New onset of Slurred speech or difficulty finding words Sudden Mental status changes Head pain with fever chills and neck pain Seizure activity Chief Complaints: Hypertension, DizzinessPMH: HypertensionCommen ts: Bevel Mill Operator verified the patient's name//address and phone number. Pt reports blood pressure has been elevated for the last few days. Pt reports dizziness started last week, pt states stopped her BP medication because she thought it could be making her dizzy. Pt states restarted BP med on Tuesday for elevated blood pressure and states she is still dizzy. Pt reports BP today 144/97. Pt reports dizziness is room spinning, denies hx of vertigo. Education provided on the response time and the patient was advised to monitor reported s/s and seek emergency treatment if needed -HJustina Astorga RN Pumper Hand Organization Information for Ravindra Zhang Legal Name: [employer] Address: [address] [place] [address], Coordinate Measuring Machine Programmer: Michael Soto MD CLIA No.: [id number] [employer] POC Test Results from Ravindra Zhang EKG (13:38:02) EKG test performed. Attachments uploaded as part of this test result can be found under Documents section. iSTAT Chem8+ (13:48:18) Na: 140 mEq/L K: 3.6 mEq/L Cl: 102 mEq/L iCa: 1.21 mmol/L TCO2: 20 mmol/L Glu: 82 mg/dL BUN: 13 mg/dL Crea: 0.9 mg/dL Hct: 41 % Hb: 13.9 g/dL A Attachments uploaded as part of this test result can be found under Documents section. .................. .................. .................. .................. .................. .................. .................. ............... Pumper Hand Note From Ravindra Zhang: [facility] makes pt contact with a 63 yo F CC of dizziness, Consent obtained and uploaded. [facility] obtains vitals, PT explains 5 months ago she was on amlodipine for high blood pressure but was experiencing edema in the ankles so they switched her to benazepril and hydrochlorothiazid e, now pt is experiencing dizziness with some days explaining the room is spinning. PT does have family things going on which is worsening her anxiety which could be a contributing factor. PT also does not eat until later in the day which also could be contributing. PT has no headaches or blurred vision related to the medication side effects. PT does have blurry vision from a preexisting issue resulting from a eye surgery which is being taken care of and monitored by her eye doctor. [facility] contacts [facility], [facility] requests an istat for labs and ekg to rule out anything cardiac. I state is obtained via left ac 21 g butterfly needle and bandaged appropriately, i stat results uploaded and confirmed with [facility]> EKG obtained and showed NSR non diagnostic. [facility] advises pt that he will flag her PCP to adjust or change her bp medication since she is not tolerating the side effects very well. [facility] explains that if she develops chest pain, sob, headache, or feels as if she is going to faint that she should call 911 or be seen in person. PT understands. [facility] clears. .................. .................. .................. .................. .................. .................. .................. ............... [facility] Consulted: Donnie Alvarez .................. .................. .................. .................. .................. .................. .................. ............... Disposition: Fulfilled Donnie Alvarez MD [address] [facility],[address] [facility], [place], [address], [employer] 07/30/2024 14:37:29 OBGyn Episode No OBEpisode recorded.
--- OUTSIDE RECORDS SUMMARY | 2024-11-05 15:43 | XMS_ITS | Encounter Summary ---
Author Organization [facility] Address [address] [place] [address] Care Team Providers Care Micrographics Services Supervisor Name Role Phone Name, Elijah FRAGA Primary Care Provider [phone] Encounter Details Date Type Department Care Team (Late st Contact Info) Description 07/20/2024 Lab Requisition [facility] - Main Lab [address] [facility] [place] [address] Shawnee Friedman MD [address] [place] [address] Functional dyspepsia Social History Tobacco Use Types [...] LAB CHEMISTRY METHOD 07/21/2024 7:24 AM EST [facility] Breath Oral cavity structure / Unknown 07/20/2024 07/20/2024 6:14 PM EST us Shawnee Friedman MD LAB BODY FLUIDS AND STOOL S ORDERABLES Final Result [facility] [address] [place] [address], documented in this encounter Visit Diagnoses Diagnosis Functional dyspepsia Dyspepsia and other specified disorders of function of stomach documented in this encounter Additional Health Concerns Infection Onset Date Last Indicated Resolved Time Herpes simplex 07/23/2024 07/23/2024 documented as of this encounter Care Teams Micrographics Services Supervisor Relationship Specialty Start Date End Date Name, MD Elijah [address] [place], [place] PCP - General 08/23/08 documented as of this encounter
--- OUTSIDE RECORDS SUMMARY | 2024-11-05 15:43 | XMS_ITS | Encounter Summary ---
Author Organization [employer] Address [address] [facility] 7t [place] [address] Care Team Providers Care Energy Control Officer Name Role Phone Name, Elijah FRAGA Primary Care Provider [phone] Reason for Visit * Reason Onset Date Comments Appointment Request 03/31/2023 Encounter Details Date Type Department Care Team ([facility] st Contact Info) Description 03/31/2023 Telephone [facility] [address] [place], [place] [phone] Name, MD Elijah [address] [place] [address] Appointment Request Social History Tobacco Use Types [...] second half . Please contact pt at [phone] Bahamian Speaker documented in this encounter Plan of Treatment Not on file documented as of this encounter Visit Diagnoses Not on filedocumented in this encounter Additional Health Concerns Assessment Noted Time PHQ-9 Depression Total Score: 0 12/23/19 23 2:25 PM EDT documented as of this encounter Care Teams Energy Control Officer Relationship Specialty Start Date End Date Name, MD Elijah [address] [place] [address] PCP - General Family Medicine 08/08/18 09/24/24 documented as of this encounter
--- OUTSIDE RECORDS SUMMARY | 2024-11-05 15:43 | XMS_ITS | Clinical Summary ---
Author Organization [facility] Address [address] [place] [address] Care Team Providers Care Frame Wirer Name Role Phone Provider, Not In System [...] age to complete this topic Care Teams Frame Wirer Relationship Specialty Start Date End Date Provider, Not In System PCP - General 11/23/17
--- OUTSIDE RECORDS SUMMARY | 2024-11-05 15:43 | XMS_ITS | Encounter Summary ---
Author Organization [facility] Address [address] [place] [address] 7t [place] [address] Care Team Providers Care Laborer Starch Factory Name Role Phone Name, Elijah FRAGA Primary Care Provider [phone] Reason for Visit * Reason Comments Med Refill Encounter Details Date Type Department Care Team (Late st Contact Info) Description 07/23/2022 Refill [facility] MED[facility]INE [address] [place] [address] Name, MD Elijah [address] [place] [address] Social History Tobacco Use Types Packs/Day Years [...] on filedocumented in this encounter Care Teams Laborer Starch Factory Relationship Specialty Start Date End Date Name, MD Elijah [address] [place] [id number] PCP - General Family Medicine 08/08/18 09/24/24 documented as of this encounter
--- OUTSIDE RECORDS SUMMARY | 2024-11-05 15:43 | XMS_ITS | Encounter Summary ---
Author Organization [employer] Address [address] [facility] [address] [place] [address] Care Team Providers Care Track Announcer Name Role Phone Name, Elijah FRAGA Primary Care Provider [phone] Reason for Visit * Reason Comments Med Refill Encounter Details Date Type Department Care Team (Late st Contact Info) Description 10/16/2023 Refill [facility] [address] [place] [address] Coty Santiago FNP Strain of left infraspinatus [...] documented as of this encounter Care Teams Track Announcer Relationship Specialty Start Date End Date Name, MD Elijah [address] [place] [address] PCP - General Family Medicine 08/08/18 09/24/24 documented as of this encounter
--- OUTSIDE RECORDS SUMMARY | 2024-11-05 15:43 | XMS_ITS | Encounter Summary ---
Author Organization [employer] [facility] Address [address] [facility] 7t [place] [address] Care Team Providers Care Charity Fundraiser Name Role Phone Name, Elijah FRAGA Primary Care Provider [phone] Encounter Details Date Type Department Care Team ([facility] st Contact Info) Description 12/24/2022 Abstract [facility] MEDICINE [address] [place], [place] [phone] Name, MD Elijah [address] [place] [address] Social History Tobacco Use Types Packs/Day Years [...] documented as of this encounter Care Teams Charity Fundraiser Relationship Specialty Start Date End Date Name, MD Elijah [address] [place] [address] PCP - General Family Medicine 08/08/18 09/24/24 documented as of this encounter
--- OUTSIDE RECORDS SUMMARY | 2024-11-05 15:43 | XMS_ITS | Clinical Summary ---
Author Organization [employer] Address [address] [facility] 7t [place] [address] Care Team Providers Care Circle Saw Operator Name Role Phone Unavailable Primary Care Provider Unavailabl e Allergies Active Allergy Reactions Criticality Noted Date [...] in the morning. 30 tablet 11 4 Active clotrimazole-betam ethasone (Lotrisone) creamIndications:R sharda APPLY [...] Endometriosis 07/21/2022 Overview (07/21/2022): s/p hysterectomy in [place] in 2000 Irritable bowel syndrome 07/21/2022 Hemorrhoids [...] Encounters Date Type Department Care Team Description 09/20/[address] [facility] MEDICINE [address] [place] [phone] Elijah Mendoza MD Call Back Request 09/07/[address] [facility]INE [address] [place] [phone] NameElijah MD Pre-visit Planning (SDOH Screening negative and Tobacco screening negative) from Last 3 Months Immunizations Name Administration Dates Next Due INFLUENZA INJECTABLE QUADRIV ALANT CCIIV4 MDCK Multi-dose vial 04/08/2021 Influenza injectable quadriv alent IIV4 with preservative 07/06/2019,04/26/2018,05/29/2016 Influenza injectable quadriv alent preservative free 05/21/2022,05/20/2020 Influenza, IIV3, injectable 05/24/2016,1 ,08/06/2014,2012,05/25/2012,10/19/2011,08/26/2009 Influenza, seasonal, injecta ble, preservative free 04/21/2017 Novel [id number], preservative-free 08/26/2009 Tdap 08/23/2013 Social History Tobacco [...] 2024 , 04/08/2021, 05/20/2020, Additional history exists Tobacco Screening 03/05/2025 03/05/2024 SDOH Screening 09/07/2025 09/07/2024 Mammogram 01/05/2026 01/06/2024, 10/06, 10/15/2022, Additional history exists Colonoscopy 02/22/2026 02/22/2023, 02/05, 05/15/2019 Colorectal Cancer Screening 02/22/2026 Lipid Panel 10/23/2028 10/24/2023, 02/0 09/2022, 03/31/2022 RSV Patients and Patients Aged [...] EDT Narrative 01/24/2024 1:57 PM EDT ? [facility] ? [address] ?[place] [address] ? Mammography Report ? Signed ? Patient: Ari,Diana ?MR#: [id number] ? : 1960 ?Acct:[id number] ? Age/Sex: 63 / F ?ADM Date: 05/31/24 ? Loc: HO.MAMMO ? Attending Dr: Elijah Mendoza MD ? Ordering Physician: Kelly,Elijah FRAGA ?Results: 1Negative ? Date of Service: 01/06/24 ?Follow Up: 1 Year From Orig ?? inal Mammogram ? Procedure(s): MM tomosynthesis screening BI ?? Accession Number(s): [id number] ? cc: Kelly,Elijah FRAGA ? EXAMINATION: ?? MM SCREENING DIGITAL BREAST TOMOSYNTHESIS, BILATERAL ? CLINICAL INFORMATION: ? Screening. Asymptomatic. ? COMPARISON: ?? Mammography: This study is compared with prior exams dating back to ?? 2018. ? TECHNIQUE: ?? Digital breast tomosynthesis is [...] 1353 ? DD/ 1443 ? TD/TT: ? Oenologist: ? Procedure Note Donotuseinterpreter, Image - 01/24/2024 [facility] [address] [place], [place] [address] Mammography Report Signed Patient: Shabana Chapman#: [id number] : 9Acct:[id number] Age/Sex: 63 / FADM Date: 01/06/24 Loc: HO.MAMMO Attending Dr: Elijah Mendoza MD Ordering Physician: Elijah Mendoza [facility] 1Negative Date of Service: 01/06/24Follow Up: 1 Year From Orig inal Mammogram Procedure(s): MM tomosynthesis screening BI Accession Number(s): [id number] cc: Elijah Mendoza MD EXAMINATION: MM SCREENING [...] in OV> 01/24/24 1353 DD/ 1443 TD/TT: Oenologist: Elijah Mendoza MD IM BI PROCEDURES Final Result * (ABNORMAL) Lipid Panel, Standard (10/24/2023 12:00 PM EDT) Triglycerides 85 <150 mg/dL [facility] Comment:Desirable Triglyceri de: less than 150 mg/dLBorderline High Triglyceride 150-199 mg/dLHigh Triglyceride: 200-499 mg/dLVery High Triglyceride: greater than or equal to 5OO mg/dL Cholesterol 206(H) <200 mg/dL [facility] Comment:Desirable Cholestero l: less than 200 mg/dLBorderline High Cholesterol: 200-239 mg/dLHigh Cholesterol: greater than 239 mg/dL LDL Cholesterol Calculated 134(H) <100 mg/dL [facility] Comment:Desirable LDL: less than 100 mg/dLNear Optimal/Above Optimal LDL: 110- 129 mg/dLBorderline High LDL: 130-159 mg/dLHigh LDL: 160-189 mg/dLVery High LDL: greater than or equal to 190 mg/dL HDL Cholesterol 55 >40 mg/dL [facility] Comment:Desirable HDL: great er than 40 mg/dL Note: This HDL assay may give artificially low results in patients with liver disease. Blood Venous blood specimen / Unknown 10/24/2023 12:00 PM EDT 10/24/2023 1:06 PM EDT us Elijah Mendoza MD LAB BLOOD ORDERABLES Final Resul t [facility] [address] [place] [address] [phone] * (ABNORMAL) Hm Colonoscopy (02/22/2023) Colonoscopy Abnormal( A) Normal Comment:Tubular adenoma us Elijah Mendoza MD HEALTH MAINTENANCE Final Result from Last 3 Months or Most Recently Relevant to Health Maintenance Insurance - [employer]
--- OUTSIDE RECORDS SUMMARY | 2024-11-05 15:43 | XMS_ITS | Clinical Summary ---
Author Organization [address] Address [address] [place] [address] Phone Care Team Providers Care Developing Machine Operator Name Role Phone Name, Elijah FRAGA Primary Care Provider [phone] Surgical History Surgery Date Site/Laterality Comments HYSTERECTOMY PROCEDURE: HISTORICAL HYSTERECTOMY; COMMENT: and BSO COLONOSCOPY 01/13/09 PROCEDURE: NV COLONOSCOPY STOMA DX INCLUDING COLLJ SPEC SPX; COMMENT: Up to cecum, good preparation, rectal polyp removed:Tubular adenoma. Repeat 01/2014 ESOPHAGOGASTRODUODENOSCOPY 05/20/09 PROCEDURE: NV EGD TRANSORAL BIOPSY SINGLE/MULTIPLE; COMMENT: Normal esophagus, [...] of 2 - Risk 2-dose series) 1977 Cervical Cancer Screening: Pap Smear 11/28/1979 [...] 11/28/2023 Depression Screening 12/23/2023 12/22/2022 COVID-19 Vaccine (3 - season) 2024 08/05/2021, 07/15/2021 Influenza Vaccine (#1) 2024 , 04/08/2021, 05/20/2020, Additional history exists Hypertension/CHF/CAD Annual BMP Blood Test 09/27/2025 09/27/2024, 07/23/2024 Cholesterol Screening (Lipid Panel) 09/27/2029 09/27/2024, 07/23/2024, 10/24/2023 Hepatitis C Screening Completed 07/23/2024 Pneumococcal Vaccine: 50+ Years Completed 09/19/2024 Pneumococcal Vaccine: Pediatrics (0 to 5 Years) and At-Risk Patients (6 to 64 Years) Completed 09/19/2024 HIB Vaccines Aged Out No longer eligi [...] Procedure Name Priority Date/Time Associated Diagnosis Comments CBC WITH AUTO DIFFERENTIAL Routine 09/27/2024 10:28 AM EST Gastric tympany CBC AND DIFFERENTIAL Routine 09/27/2024 10:28 AM EST Gastric tympany LIPID PANEL WITH REFLEX TO DIRECT LDL Routine 09/27/2024 10:28 AM EST Gastric tympany VITAMIN D 25 HYDROXY Routine 09/27/2024 10:28 AM EST Gastric tympany COMPREHENSIVE METABOLIC PANEL Routine 09/27/2024 10:28 AM EST Gastric tympany HEPATITIS C ANTIBODY Routine 07/23/2024 11:59 AM EST Steatosis of liver from Last 3 Months or Most Recently Relevant to Health Maintenance Results * (ABNORMAL) Lipid panel with reflex to direct LDL (09/27/2024 10:28 AM EST) Cholesterol 188 0 - 200 mg/dL LAB CHEMISTRY METHOD 09/27/2024 12:24 PM [facility] Triglycerides 43 0 - 150 mg/dL LAB CHEMISTRY METHOD 09/27/2024 12:24 PM [facility] HDL 61 >=40 mg/dL LAB CHEMISTRY METHOD 09/27/2024 12:24 PM [facility] LDL Calculated 118(H) 0 - 100 mg/dL LAB CHEMISTRY METHOD 09/27/2024 12:24 PM [facility] VLDL Cholesterol Carlo 8.6 mg/dL LAB CHEMISTRY METHOD 09/27/2024 12:24 PM [facility] Non HDL Chol. (LDL+VLDL) 127 <145 mg/dL LAB CHEMISTRY METHOD 09/27/2024 12:24 PM [facility] Chol/HDL Ratio 3.1 0.0 - 4.4 LAB CHEMISTRY METHOD 09/27/2024 12:24 PM [facility] Blood Venous blood specimen / Unknown Venipuncture / Unknown 09/27/2024 10:28 AM EST 09/27/2024 11:24 AM EST us Mary Jo Vargas MD LAB BLOOD ORDERABLES Final Resul t [facility] [address] [place] [address], [place] [phone] * (ABNORMAL) CBC auto differential (09/27/2024 10:28 AM EST) WBC 5.6 4.8 - 10.8 K/mcL LAB HEMETOLOGY METHOD 09/27/2024 2:14 PM [facility] RBC 4.00 3.80 - 4.80 M/mcL LAB HEMETOLOGY METHOD 09/27/2024 2:14 PM [facility] Hemoglobin 12.0 11.5 - 16.0 g/dL LAB HEMETOLOGY METHOD 09/27/2024 2:14 PM [facility] Hematocrit 39.9 35.0 - 47.0 % LAB HEMETOLOGY METHOD 09/27/2024 2:14 PM [facility] MCV 99.8(H) 79.0 - 98.0 FL LAB HEMETOLOGY METHOD 09/27/2024 2:14 PM [facility] MCH 30.0 27.0 - 32.0 pcg LAB HEMETOLOGY METHOD 09/27/2024 2:14 PM [facility] MCHC 30.1(L) 32.0 - 37.0 g/dL LAB HEMETOLOGY METHOD 09/27/2024 2:14 PM [facility] RDW 13.0 11.0 - 15.0 % LAB HEMETOLOGY METHOD 09/27/2024 2:14 PM [facility] Platelets 227 130 - 400 K/mcL LAB HEMETOLOGY METHOD 09/27/2024 2:14 PM [facility] MPV 10.8 7.0 - 11.0 FL LAB HEMETOLOGY METHOD 09/27/2024 2:14 PM [facility] NRBC 0.0 <1.0 % LAB HEMETOLOGY METHOD 09/27/2024 2:14 PM [facility] NRBC Absolute 0.00 <0.10 K/mcL LAB HEMETOLOGY METHOD 09/27/2024 2:14 PM [facility] Neutrophils Relative 51.2 % LAB HEMETOLOGY METHOD 09/27/2024 2:14 PM [facility] Comment:This is an appended report. These results have been appended to a previously preliminary verified report. Lymphocytes Relative 37.4 % LAB HEMETOLOGY METHOD 09/27/2024 2:14 PM [facility] Comment:This is an appended report. These results have been appended to a previously preliminary verified report. Monocytes Relative 5.7 % LAB HEMETOLOGY METHOD 09/27/2024 2:14 PM [facility] Comment:This is an appended report. These results have been appended to a previously preliminary verified report. Eosinophils Relative 4.6 % LAB HEMETOLOGY METHOD 09/27/2024 2:14 PM [facility] Comment:This is an appended report. These results have been appended to a previously preliminary verified report. Basophils Relative 0.7 % LAB HEMETOLOGY METHOD 09/27/2024 2:14 PM [facility] Comment:This is an appended report. These results have been appended to a previously preliminary verified report. Immature Granulocytes Relative 0.4 % LAB HEMETOLOGY METHOD 09/27/2024 2:14 PM [facility] Comment:This is an appended report. These results have been appended to a previously preliminary verified report. Neutrophils Absolute 2.88 1.50 - 7.00 K/mcL LAB HEMETOLOGY METHOD 09/27/2024 2:14 PM [facility] Comment:This is an appended report. These results have been appended to a previously preliminary verified report. Lymphocytes Absolute 2.10 1.00 - 5.00 K/mcL LAB HEMETOLOGY METHOD 09/27/2024 2:[address] [facility] Comment:This is an appended report. These results have been appended to a previously preliminary verified report. Monocytes Absolute 0.32 0.20 - 1.00 K/mcL LAB HEMETOLOGY METHOD 09/27/2024 2:[address] [facility] Comment:This is an appended report. These results have been appended to a previously preliminary verified report. Eosinophils Absolute 0.26 0.00 - 0.50 K/mcL LAB HEMETOLOGY METHOD 09/27/2024 2:[address] [facility] Comment:This is an appended report. These results have been appended to a previously preliminary verified report. Basophils Absolute 0.04 0.00 - 0.20 K/[facility] HEMETOLOGY METHOD 09/27/2024 2:[address] [facility] Comment:This is an appended report. These results have been appended to a previously preliminary verified report. Immature Granulocytes Absolute 0.02 0.00 - 0.03 [facility] HEMETOLOGY METHOD 09/27/2024 2:[address] [facility] Comment:This is an appended report. These results have been appended to a previously preliminary verified report. Blood Venous blood specimen / Unknown Venipuncture / Unknown 09/27/2024 10:28 AM EST 09/27/2024 11:25 AM EST us Mary Jo Vargas MD LAB BLOOD ORDERABLES Final Resul t [facility]) [facility] [address] [place] [address], * (ABNORMAL) Vitamin D 25 hydroxy (09/27/2024 10:28 AM EST) Vit D, 25-Hydroxy 8.2(L) 30.0 - 80.0 ng/mL LAB CHEMISTRY METHOD 09/27/2024 12:24 PM [facility] Blood Venous blood specimen / Unknown Venipuncture / Unknown 09/27/2024 10:28 AM EST 09/27/2024 11:24 AM EST us Mary Jo Vargas MD LAB BLOOD ORDERABLES Final Resul t [facility] [address] [place] [address], [place] [phone] * (ABNORMAL) Comprehensive metabolic panel (09/27/2024 10:28 AM EST) Sodium 141 133 - 145 mmol/L LAB CHEMISTRY METHOD 09/27/2024 12:24 PM [facility] Potassium 4.2 3.5 - 5.5 mmol/L LAB CHEMISTRY METHOD 09/27/2024 12:24 PM [facility] Chloride 108 96 - 110 mmol/L LAB CHEMISTRY METHOD 09/27/2024 12:24 PM [facility] CO2 31 21 - 32 mmol/L LAB CHEMISTRY METHOD 09/27/2024 12:24 PM [facility] Anion Gap 2(L) 3 - 11 LAB CHEMISTRY METHOD 09/27/2024 12:24 PM [facility] Glucose 95 70 - 100 mg/dL LAB CHEMISTRY METHOD 09/27/2024 12:24 PM [facility] BUN 16 5 - 25 mg/dL LAB CHEMISTRY METHOD 09/27/2024 12:24 PM [facility] Creatinine 0.72 0.50 - 1.10 mg/dL LAB CHEMISTRY METHOD 09/27/2024 12:24 PM [facility] eGFR 93 >=60 mL/min/1. 73m2 LAB CHEMISTRY METHOD 09/27/2024 12:24 PM [facility] Comment:Calculation based on the??Chronic Kidney Disease Epidemiology Collaboration (CKD-EPI) equation refit??without adjustment for race. BUN/Creatinine Ratio 22.2 LAB CHEMISTRY METHOD 09/27/2024 12:24 PM [facility] Calcium 9.1 8.5 - 10.5 mg/dL LAB CHEMISTRY METHOD 09/27/2024 12:24 PM [facility] AST (SGOT) 17 10 - 42 unit/L LAB CHEMISTRY METHOD 09/27/2024 12:24 PM [facility] ALT (SGPT) 19 10 - 60 unit/L LAB CHEMISTRY METHOD 09/27/2024 12:24 PM [facility] Alkaline Phosphatase 74 42 - 121 unit/L LAB CHEMISTRY METHOD 09/27/2024 12:24 PM [facility] Total Protein 6.4 6.0 - 8.0 g/dL LAB CHEMISTRY METHOD 09/27/2024 12:24 PM [facility] Albumin 3.6 3.2 - 5.0 g/dL LAB CHEMISTRY METHOD 09/27/2024 12:24 PM [facility] Total Bilirubin 0.2 0.0 - 1.4 mg/dL LAB CHEMISTRY METHOD 09/27/2024 12:24 PM [facility] Blood Venous blood specimen / Unknown Venipuncture / Unknown 09/27/2024 10:28 AM EST 09/27/2024 11:24 AM EST us Mary Jo Vargas MD LAB BLOOD ORDERABLES Final Resul t [facility] [address] [place] [address], * Hepatitis C antibody (07/23/2024 11:59 AM EST) Hepatitis C Antibody Negative Negative LAB CHEMISTRY METHOD 07/23/2024 7:04 PM EST [facility] Blood Venous blood specimen / Unknown Venipuncture / Unknown 07/23/2024 11:59 AM EST 07/23/2024 12:33 PM EST us Shawnee Friedman MD LAB BLOOD ORDERABLES January duran Result [facility] [address] [place] [address], from Last 3 Months or Most Recently Relevant to Health Maintenance Additional Health Concerns Infection Onset Date Last Indicated Herpes simplex 07/23/2024 07/23/2024 Insurance [employer] MEDICARE Member Subscriber Plan / Payer (Ef fective 2024-Present) Name:Diana Chapman Relation to Subscriber:Self Name:Diana Chapman Payer ID:[id number] Group ID:[id number] Type:Not on file Address: [place] [address] [place] [phone] Care Teams Developing Machine Operator Relationship Specialty Start Date End Date Name, MD Elijah [address] [place], [place] PCP - General 08/23/08
--- OUTSIDE RECORDS SUMMARY | 2024-11-05 15:43 | XMS_ITS | Encounter Summary ---
Author Organization [employer] Address [address] 7t [place] [address] Care Team Providers Care Grey Goods Tester Name Role Phone Name, Elijah FRAGA Primary Care Provider [phone] Reason for Visit * Reason Onset Date Comments Reschedule 01/19/2024 Encounter Details Date Type Department Care Team ([facility] st Contact Info) Description 01/19/2024 Telephone [facility] MEDICINE [address] [place], [place] [phone] Name, MD Elijah [address] [place] [address] Reschedule Social History Tobacco Use Types Packs/Day [...] documented as of this encounter Care Teams Grey Goods Tester Relationship Specialty Start Date End Date Name, MD Elijah [address] [place] [address] PCP - General Family Medicine 08/08/18 09/24/24 documented as of this encounter
== END 2024-11-05 13:55 | disposition home or self-care (01) ==
LOC: HO.LAB 13:54
PROVIDERS: PCP Internal Medicine; Visit Provider Nurse Practitioner Family
DX: R14.0 Abdominal distension (gaseous) (principal); E78.5 Hyperlipidemia, unspecified; E55.9 Vitamin D deficiency, unspecified
CPT/HCPCS: 36415; 80053; 80061; 82306; 85025

== ENCOUNTER 2024-12-13 08:28 | Outpatient (REF) | payer OTHER, SELFPAY ==
--- NOTE | ~2024-12-13 | CT_ITS ---
EXAMINATION: CT ABDOMEN AND PELVIS WITH CONTRAST CLINICAL INFORMATION: Abdominal pain. COMPARISON: June 18, 2021. TECHNIQUE: Multidetector volumetric images were obtained from the superior aspect of the liver through the pubic symphysis following administration 85 mL of Omnipaque 350 intravenous contrast. Sagittal and coronal reformatted images were obtained on the technologist's workstation. Oral contrast: No This CT examination was performed using dose optimization techniques as appropriate, variously including the following: *Automated exposure control *Adjustment of mA and/or kV according to patient size (this includes techniques or standardized protocols for targeted exams where dose is matched to indication/reason for exam; i.e. extremities or head) *Use of iterative reconstruction technique DLP: 614 mGy centimeter. FINDINGS: LUNG BASES: Pulmonary patchy groundglass, left lower lung lobe. LIVER, GALLBLADDER, AND BILIARY TREE: Liver measures 16 cm. 3 mm hypodensity, right hepatic lobe too small to be fully characterized. Portal veins, hepatic veins and intrahepatic portion of the IVC are patent. No intrahepatic biliary ductal dilatation. No pericholecystic fluid collection or gallbladder wall thickening. Gallbladder is contracted. No extrahepatic biliary ductal dilatation. PANCREAS: No focal lesion. No peripancreatic fluid collection. No main pancreatic ductal dilatation. SPLEEN: 9 cm. No focal lesion. ADRENAL GLANDS: No nodular lesion. KIDNEYS AND URETERS: No hydronephrosis. No gross nephrolithiasis. No gross renal mass. Subcentimeter cyst, left kidney. BLADDER: Fluid-filled. GASTROINTESTINAL TRACT: Numerous diverticula, left hemicolon. Abundant stool. No intestinal obstruction pattern. Appendix is normal. No pneumatosis intestinalis. No wall thickening. No ascites. No pneumoperitoneum. ABDOMINAL WALL: Small fat-containing umbilical hernia. LYMPH NODES: Not enlarged. VASCULAR: No aneurysm or dissection, abdominal aorta. PELVIC VISCERA: Absent uterus. OSSEOUS STRUCTURES: Mild multilevel thoracolumbar spondylosis. No acute fracture or gross listhesis. No lytic or blastic lesions. No acute fracture or dislocation in either hip. Bony pelvis is intact. 6 cm fat density within the muscular plane of the right lower hemithorax. Probably between the oblique muscles. Patient's large body habitus/obesity. CT/CT abdomen pelvis w IV con IMPRESSION: Concerning acute airspace disease/pneumonia, left lower lung lobe. Diverticular disease, left hemicolon. Small fat-containing umbilical hernia. Probable 6 cm lipoma, anterior lateral lower chest abdominal muscular plane. Mild hepatomegaly. Fleischner guidelines were followed. Electronically signed by: Bruno Rothman MD 12/13/2024 11:45 AM EDT
--- OUTSIDE RECORDS SUMMARY | 2024-12-13 08:42 | XMS_ITS | Clinical Summary ---
Author Organization [employer] Address [address] [facility] 7t [place] [address] Care Team Providers Care Machine Pie Maker Name Role Phone Unavailable Primary Care Provider [...] Endometriosis 07/21/2022 Overview (07/21/2022): s/p hysterectomy in [place] in 2000 Irritable bowel syndrome 07/21/2022 Hemorrhoids [...] Encounters Date Type Department Care Team Description 12/10/2024 Refill [facility] MEDICINE [address] [place], [place] [phone] Elijah Mendoza MD Rash 2024 Telephone [facility] MED[facility]INE [address] [place], [place] [phone] El Araujo MD Appointment Request 11/13/2024 Refill [facility] MED[facility] [address] [place], [place] [phone] BonnievilleMaribel FNP 09/20/2024 Telephone [facility] MED[facility]INE [address] [place], [place] [phone] Elijah Mendoza MD Call Back Request from Last 3 Months Immunizations Name Administration Dates Next Due INFLUENZA INJECTABLE QUADRIV ALANT CCIIV4 MDCK Multi-dose vial 04/08/2021 Influenza injectable quadriv alent IIV4 with preservative 07/06/2019,04/26/2018,05/29/2016 Influenza injectable quadriv alent preservative free 05/21/2022,05/20/2020 Influenza, IIV3, injectable 05/24/2016,1 ,08/06/2014,2012,05/25/2012,10/19/2011,08/26/2009 Influenza, seasonal, injecta ble, preservative free 04/21/2017 Novel [id number], preservative-free 08/26/2009 Tdap 08/23/2013 Social History Tobacco [...] 03/05/2024 11:25 AM EDT Plan of Treatment Upcoming Encounters Date Type Department Care Team ([facility] st Contact Info) Description 02/18/2025 10:45 AM EDT Office Visit [facility] [address] [place] [address] IsaacsYe Law MD [address] [place] [address] Health Maintenance Due Date Last Done Comments CT Colonography 1960 FIT DNA/Cologuard 1960 FIT 1960 FOBT 1960 Sigmoidoscopy 1960 Alcohol/Substance Use Screening 1970 Hepatitis C Screening 1976 Zoster Vaccines (1 of 2) 2008 DTaP/Tdap/Td [...] older (1 - 1-dose 75+ series) 2033 Pneumococcal Vaccine: 50+ Years Completed 09/19/2024 HIB Vaccines Aged Out No [...] EDT Narrative 01/24/2024 1:57 PM EDT ? [facility] ? [address] ?[place] [address] ? Mammography Report ? Signed ? Patient: Ari,Diana ?MR#: [id number] ? : 1960 ?Acct:[id number] ? Age/Sex: 63 / F ?ADM Date: 01/06/24 ? Loc: HO.MAMMO ? Attending Dr: Elijah Mendoza MD ? Ordering Physician: Elijah Mendoza MD ?Results: 1Negative ? Date of Service: 01/06/24 ?Follow Up: 1 Year From Orig ?? inal Mammogram ? Procedure(s): MM tomosynthesis screening BI ?? Accession Number(s): [id number] ? cc: Kelly,Elijah FRAGA ? EXAMINATION: ?? [...] 1353 ? DD/ 1443 ? TD/TT: ? Coke Oven Patcher: ? Procedure Note Donotuseinterpreter, Image - 01/24/2024 [facility] [address] [place] [address] Mammography Report Signed Patient: Shabana Chapman#: [id number] : 9Acct:[id number] Age/Sex: 63 / FADM Date: 01/06/24 Loc: HO.MAMMO Attending Dr: Elijah Mendoza MD Ordering Physician: Elijah Mendoza MDResults: 1Negative Date of Service: 01/06/24Follow Up: 1 Year From Orig inal Mammogram Procedure(s): MM tomosynthesis screening BI Accession Number(s): [id number] cc: Elijah Mendoza MD EXAMINATION: MM SCREENING [...] in OV> 01/24/24 1353 DD/ 1443 TD/TT: Coke Oven Patcher: us Elijah Mendoza MD IMG BI PROCEDURES Final Result * (ABNORMAL) Lipid Panel, Standard (10/24/2023 12:00 PM EDT) Triglycerides 85 <150 mg/dL [facility] Comment:Desirable Triglyceri de: less than 150 mg/dLBorderline High Triglyceride 150-199 mg/dLHigh Triglyceride: 200-499 mg/dLVery High Triglyceride: greater than or equal to 5OO mg/dL Cholesterol 206(H) <200 mg/dL [facility] Comment:Desirable Cholestero l: less than 200 mg/dLBorderline High Cholesterol: 200-239 mg/dLHigh Cholesterol: greater than 239 mg/dL LDL Cholesterol Calculated 134(H) <100 mg/dL [facility] Comment:Desirable LDL: less than 100 mg/dLNear Optimal/Above Optimal LDL: 110- 129 mg/dLBorderline High LDL: 130-159 mg/dLHigh LDL: 160-189 mg/dLVery High LDL: greater than or equal to 190 mg/dL HDL Cholesterol 55 >40 mg/dL [facility] Comment:Desirable HDL: great er than 40 mg/dL Note: This HDL assay may give artificially low results in patients with liver disease. Blood Venous blood specimen / Unknown 10/24/2023 12:00 PM EDT 10/24/2023 1:06 PM EDT us Elijah Mendoza MD LAB BLOOD ORDERABLES Final Resul t [facility] [address] [place] [address] [phone] * (ABNORMAL) Hm Colonoscopy (02/22/2023) Colonoscopy Abnormal( A) Normal Comment:Tubular adenoma us Elijah Mendoza MD HEALTH MAINTENANCE Final Result from Last 3 Months or Most Recently Relevant to Health Maintenance Insurance [facility] [employer] TERM [employer] (O D-SNP) [place] M[place] [id number]
--- OUTSIDE RECORDS SUMMARY | 2024-12-13 08:42 | XMS_ITS | Data Portability ---
Author Organization [employer] [facility], [place] - [facility] Address [address] [place] [address] Care Team Providers Care Inserting Machine Operator Name Role Phone NAME, DORYS Primary Care Provider HIM RYANNE OTHER Assessment Encounter Date Assessment Date Assessment LastModified by Organization Details LastModified Time 07/30/2024 07/30/2024 Impression: 63yo/f with hx of HTN, DM, anxiety, referred to [facility] for dizziness and elevated BP. Patient is [...] having episodes of more lightheadedness. Referred to [facility] for evaluation. For medic in home patient [...] of any new or worsening serious symptoms [email or web address] Not available 07/30/2024 14:01:43 Plan of Treatment Reminders Order Date Submit Date Provider Last Modified By Organization Details Last Modified Time Details Appointments None recorded. Lab BMP, serum or plasma [address], [phone] 5 21:01:44 BMP, serum or plasma 2023 024 [email or web address] [facility], [address] [place] [address], [phone] 4 14:03:08 Referral None recorded. Procedures None recorded. Surgeries None recorded. Imaging electroca rdiogram 2023 024 [email or web address] [facility], [address] [place] [address], [phone] 4 09:47:43 Medication Orders Valtrex 1 gram tablet 2024 025 [id number], [address], [place], [id number], 19:13:21 Patient TargetsNo targets recorded. Patient InstructionsNo instructions recorded. Reason for Referral None Reported. Results Created Date Observation Date Name Description Value Unit Range Abnormal Flag Note LastModifiedBy Organization Detail LastModifiedTime 07/30/20 24 07/30/2024 johnnie perez am No observ ation record ed. [email or web address] [address], [phone] 07/30/2024 14:29:25 Result Notes None recorded. Procedures Surgical History None recorded. Imaging Results Imaging Date Name Status LastModified by Organization Details LastModified Time 07/30/2024 electrocardiogram completed [email or web address] [address], [phone] 07/30/2024 14:29:25 Procedure Notes None recorded. Medical Equipment None Reported. Allergies Allergen ID Allergen Name Allergen Category Reaction Reaction Severity Criticality Documentation Date Start Date Code Code System Note Provider Name and Address Organization Details Recorded Time 05364 tramadol medicatio n Not available Not available Not available 07/30/2024 19946 RxNorm Not Available [facility] - production 4 11:14:18 26681 acetamino phen / oxycodone medicatio n Not available Not available Not available 07/30/2024 35249 3 RxNorm Not Available [facility] - production 4 11:14:18 Medications Name Sig Start Date Stop Date Status Note LastModified by Organization Details LastModified Time methocarbamo l 500 mg tablet active Not Available Not Available Not Available oxybutynin chloride ER 15 mg tablet,exten ded release 24 hr TAKE 1 TABLET BY MOUTH ONCE DAILY active Not Available Not Available No t Available atorvastatin 20 mg tablet TAKE 1 TABLET BY MOUTH DAILY active Not Available Not Available Not Available valacyclovir 1 gram tablet TAKE 1 TABLET BY MOUTH EVERY 8 HOURS FOR 7 DAYS active Not Available Not Available No t Available ondansetron HCl 4 mg tablet TAKE 1 TO 2 TABLETS BY MOUTH DAILY NEEDED FOR NAUSEA OR VOMITING active Not Available Not Available Not Available valacyclovir 500 mg tablet TAKE 1 TABLET BY MOUTH TWICE DAILY FOR 5 DAYS FOR HSV active Not Available Not Available No t Available pantoprazole 20 mg tablet,delay ed release [...] Not Available Not Available No t Available hydrocortiso ne 1 % topical cream APPLY TOPICALLY TWICE DAILY NEEDED FOR SKIN IRRITATION active Not Available Not Available N ot Available esomeprazole magnesium 40 mg capsule,pradeep yed release TAKE 1 CAPSULE BY MOUTH DAILY active Not Available Not Available Not Available neomycin-cesia ymyxin-dexam eth 3.5 mg/mL-10,000 unit/mL-0.1% eye drops SHAKE LIQUID AND INSTILL 1 DROP IN BOTH EYES FOUR TIMES DAILY FOR 2 WEEKS THEN STOP active Not Available Not Available No t Available clotrimazole -betamethaso ne 1 %-0.05 % topical cream APPLY TOPICALLY TO THE AFFECTED AREA TWICE DAILY active Not Available Not Available No t Available docusate sodium 100 mg capsule TAKE 2 CAPSULES BY MOUTH DAILY active Not Available Not Available Not Available benazepril 20 mg tablet active Not [...] Available Not Available No t Available benazepril 40 mg tablet TAKE 1 TABLET BY MOUTH DAILY active Not Available Not Available Not Available dicyclomine 10 mg capsule TAKE 1 CAPSULE BY MOUTH THREE TIMES DAILY NEEDED FOR ABDOMINAL PAIN active Not Available Not Available No t Available naproxen 500 mg tablet active Not Available Not Available No t Available bupropion HCl XL 150 mg 24 hr tablet, extended release TAKE 1 TABLET BY MOUTH EVERY MORNING active Not Available Not Available No t Available lactulose 10 gram/15 mL oral solution [...] mg tablet TAKE 2 TABLETS BY MOUTH DAILY. active Not Available Not Available No t Available [facility] COVID-19 Ag Self Test kit TEST DIRECTED TODAY active Not Available Not Available No t Available Zepbound 2.5 mg/0.5 mL subcutaneous pen injector ADMINISTER 2.5 MG UNDER THE SKIN EVERY WEEK FOR WEIGHT LOSS active Not Available Not Available Not Available Vitals Date Recorded Body height Oxygen saturation Oxygen saturation in Arterial blood by Pulse oximetry Body temperature Body weight Respiratory rate Heart rate Systolic blood pressure Diastolic blood pressure Provider Name and Address Organization Details Last Updated DateTime 4 154.94 cm 100 % 100 % 98.5 [degF] 17314.4 8 g 16 /min 70 /min 148 mm[Hg] 92 mm[Hg] Not Available [facility] production 4 13:23:53 Date Recorded Heart rate Oxygen saturation Oxygen saturation in Arterial blood by Pulse oximetry Respiratory rate Body temperature Systolic blood pressure Diastolic blood pressure Provider Name and Address Organization Details Last Updated DateTime 5 80 /min 97 % 97 % 18 /min 98.5 [degF] 130 mm[Hg] 80 mm[Hg] Not Available [facility] 5 18:47:01 Social History None recorded. Functional Status None recorded. Mental Status None recorded. Family History Nothing Reported. Medical History No medical history recorded. Gynecological HistoryNo gynecological history recorded. Obstetrics History GPAL:G 0 P 0 0 0 0 Past Encounters Encounter ID Performer Location Encounter Start Date Encounter Closed Date Diagnosis/Indication Diagnosis SNOMED-CT Code Diagnosis ICD10 Code Diagnosis Note [id number] Donnie Alvarez MD [facility] [address] [place] [phone] 07/30/2024 13:23:50 07/30/2024 23:46:13 Dizziness [id number] R42 [id number] JENNIFER SANDOVAL MD [facility] [address] [place] [phone] 11/24/2024 18:46:57 11/26/2024 14:11:01 Herpes zoster 3267797 B02.9 Evaluation in the field was performed by my mis specialist colleague, as noted above, I provided real-time direction and supervisio n for this visit. The evaluation revealed 63-year-ol d female with a history of hypertensi on, fibromyalg ia, and arthritis presents with redness and burning pain over the left calf, which began earlier today. The patient reports applying Vicks to the area in the morning due to a leg cramp, followed by the applicatio n of an ice pack when the Vicks did not help. She denies using any heat or hot compresses . She is uncertain whether the burning sensation began after applying the ice over Vicks or if it was unrelated. She denies fever, chills, nausea, vomiting. She has a known history of genital herpes and uses Valtrex episodical ly, but denies a history of shingles and is unsure if she ever received the shingles vaccine. VS: Stable, afebrileEx am : AAO, NAD, speaking in full sentences. Lungs: Clear to auscultati on bilaterall y .Skin: Painful, erythemato us area with irregular borders on the back of the left lower leg, no blister noted in the area.BMP : Na: 145 , K: 3.8 , iCa: 1.17 , Cl: 111 , TCO2: 21.1 , Glu: 103 , Lac: 0.81Cr: 0.61 , BUN: 28.1 , Hct: 36 %, Hb: 12.3 g/dL, CrCl 131 mL/min Allergies reviewed Impression :Suspected shingles of the left calf, though differenti al includes contact dermatitis , irritant/c hemical burn (from topical menthol and ice). Plan:-Pt started on Valacyclov ir 1 gram PO TID x 7 days- she took her first 1 gram from her own supply that she has for her HSV infection- Pt advised to use cool compresses to soothe irritation . Acetaminop hen to help with the pain . -Avoid further applicatio n of Vicks or ice to affected area.Keep the area clean and dry.-Pt advised to monitor for vesicle or blister developmen t-Pt advised to discussed Shingrix vaccine with PCP for future prevention once acute episode resolves-F /U with PCP early next week if pain worsens, rash spreads, vesicles develop, or systemic symptoms arise-Red flags discussed with the patient including fever, spreading redness, or signs of secondary infection Primary care, consider__ _ Dispositio n: We discussed the diagnostic uncertaint y of home visits and the risk associated with this. In this case, the patient and I felt this to be an acceptable and reasonable amount of risk given the benefit of avoiding an ED visit. We discussed the need to seek care urgently/e mergently in the setting of any new or worsening serious symptoms, particular ly fever, spreading redness, or signs of secondary infection Health Concerns Section Related Observation LastModified by Organization Detai ls LastModified Time None Recorded Concern Status LastModified by Organization Details LastModified Time None Recorded Advance Directives Directive None Recorded Payers Insurance Date Sequence Insurance Name Policy Number Policy Saeed Covered Member ID Saeed Member ID Guarantor Name 11/24/2024 1 [facility] - DOS ON OR AFTER 2022 - DUAL ELIGIBLE - [facility] OPTIONS AND ONE [employer] (MEDICARE REPLACEMENT/ADV ANTAGE - HMO) Diana Chapman [id number] Daina Chapman Notes Date Note Type Note Provider [...] pain Seizure activity Chief Complaints: Hypertension, DizzinessPMH: HypertensionComments: Customer Program Specialist verified the patient's name//address and phone number. [...] emergency treatment if needed -HJustina Astorga RN Sales Floor Team Leader Organization Information for Ravindra Zhang Legal Name: [employer]? Address: [address] [place] [id number], Child Care Supervisor: Michael Soto MD CLIA No.: [id number] Sales Floor Team Leader POC Test Results from Ravindra Zhang EKG [...] result can be found under Documents section. ..................... ..................... ..................... ..................... ..................... ..................... ............... Sales Floor Team Leader Note From Ravindra Zhang: [facility] makes pt contact with a 63 yo F CC of dizziness, Consent obtained and uploaded. [facility] obtains vitals, PT explains 5 months ago she was on amlodipine for high blood pressure but was experiencing edema in the ankles so they switched her to benazepril and hydrochlorothiazide, now pt is experiencing dizziness with some [...] of and monitored by her eye doctor. [facility] contacts [facility], [facility] requests an istat for labs and ekg to rule out anything cardiac. I state is obtained via left ac 21 g butterfly needle and bandaged appropriately, i stat results uploaded and confirmed with [facility]> EKG obtained and showed NSR non diagnostic. [facility] advises pt that he will flag her PCP to adjust or change her bp medication since she is not tolerating the side effects very well. [facility] explains that if she develops chest pain, sob, headache, or feels as if she is going to faint that she should call 911 or be seen in person. PT understands. [facility] clears. ..................... ..................... ..................... ..................... ..................... ..................... ............... [facility] Consulted: Donnie Alvarez ..................... ..................... ..................... ..................... ..................... ..................... ............... Disposition: Fulfilled Donnie Alvarez MD [address] [place] [address],[address], [place], [phone] [place] 07/30/2024 14:37:29 11/24/2024 text/html CRC Nurse Triage Notes (Charles Astorga): Reason For Request: Pt reporting inflamed/rash/burn? site on her left calf>itchiness, pain, redness, which started todayDenies: Fields ? Flash, circumferential fields Fields reported with black tissue to the area Open skin area after a fall with uncontrolled bleeding Abscess/infection with streaking noted, presence of fever or without Chief Complaints: Extremity Pain, Wound CarePMH: Hypertension, FibromyalgiaPMH Reviewed at 11/24/2024 - 17:45Allergies Reviewed at 11/24/2024 - 17:45Comments: Additional PMH: ArthritisWriter verified the patient's name//address and phone number. Pt Divehi speaking primarily, pt reports she is having a burn on L calf with redness and pain that started earlier today. Pt reports she used topical Vicks on her leg this morning after experiencing a cramp in L leg this morning. Pt states she then used an ice pack over the area when the Vicks was not helping. Pt denies using anything hot on the area. Patient is unable to further clarify the order of events that occurred, such as if the burn/ burning started after placing ice over Vicks or if these were separately occurring events and pt is now experiencing a burning sensation and not a true burn . Education provided on the response time and the patient was advised to monitor reported s/s and seek emergency treatment if needed -Pauline Astorga RN Sales Floor Team Leader Organization Information for Adam Valentin Legal Name: [facility] Address: [address] [place] [address], [place] [address], Child Care Supervisor: David Dixon MD CLIA No.: [id number] Sales Floor Team Leader POC Test Results from [facility] (19:03:49) pH: 7.399 pH units pCO2: 35.4 mmHg pO2: 77.7 mmHg Na: 145 mmol/L K: 3.8 mmol/L iCa: 1.17 mmol/L Cl: 111 mmol/L TCO2: 21.1 mEq/L Hct: 36 % Hb: 12.3 g/dL Glu: 103 mg/dL Lac: 0.81 mmol/L Cr: 0.61 mg/dL BUN: 28.1 mg/dL A mmol/L HCO3: 21.9 mmol/L ..................... ..................... ..................... ..................... ..................... ..................... ............... Sales Floor Team Leader Note From Adam Valentin: Arrived to find female patient ambulating in her apartment patient reports that she has a new red rash to the back of her left calf. Denies any contacts for possible reaction. Patient reports that the rash is very painful. No relief with Vicks or ice. No pustules noted at the moment. Patient stated that this appeared this morning. Concerning for shingles. No shingles vaccine. [facility] contacted in agreement for shingles. EPOC used for BMP which was unremarkable. [facility] to prescribe Po antiviral for infection. Advised patient of possible symptoms that can develop and informed patient that she is very contagious. Patient understood and in agreement. [facility] Lab Orders: BMP, serum or plasma: Performed ..................... ..................... ..................... ..................... ..................... ..................... ............... [facility] Consulted: Jennifer Sandoval ..................... ..................... ..................... ..................... ..................... ..................... ............... Disposition: Polina SANDOVAL MD [address] [facility],[address], [place], [address], [place] 11/24/2024 19:31:41 OBGyn Episode No OBEpisode recorded.
--- OUTSIDE RECORDS SUMMARY | 2024-12-13 08:42 | XMS_ITS | Clinical Summary ---
Author Organization [address] Address [address] [place] [address] Phone Care Team Providers Care Inspector Chief Name Role Phone Name, Elijah FRAGA Primary Care Provider [phone] Surgical History Surgery Date Site/Laterality Comments HYSTERECTOMY PROCEDURE: HISTORICAL HYSTERECTOMY; COMMENT: and BSO COLONOSCOPY 01/13/09 PROCEDURE: OH COLONOSCOPY STOMA DX INCLUDING COLLJ SPEC SPX; COMMENT: Up to cecum, good preparation, rectal polyp removed:Tubular adenoma. Repeat 01/2014 ESOPHAGOGASTRODUODENOSCOPY 05/20/09 PROCEDURE: OH EGD TRANSORAL BIOPSY SINGLE/MULTIPLE; COMMENT: Normal esophagus, [...] of 2 - Risk 2-dose series) 1977 Zoster Vaccines (1 of 2) 2008 Hepatitis B Vaccines (1 of 3 - Risk 3-dose series) 2018 RSV Immunization Adult Patients (1 - Risk 60-74 years 1-dose series) 2018 Colorectal Cancer Screening: Colonoscopy 07/11/2022 Medicare Annual Wellness Visit 07/11/2022 Osteoporosis Screening (Bone Density Screening) 07/11/2022 Social Influencers of Health Screening 07/11/2022 DTaP,Tdap,and Td Vaccines (2 - Td or Tdap) 08/23/2023 08/23/2013 Falls Risk Assessment 11/28/2023 Depression Screening 12/23/2023 12/22/2022 COVID-19 Vaccine ( season) 2024 08/05/2021, 07/15/2021 Influenza Vaccine (Season Ended) 2025 05/21/2022, 04/08/2021, 05/20/2020, Additional history exists Hypertension/CHF/CAD Annual BMP Blood Test 09/27/2025 09/27/2024, 07/23/2024 Cholesterol Screening (Lipid Panel) 09/27/2029 09/27/2024, 07/23/2024, 10/24/2023 Hepatitis C Screening Completed 07/23/2024 Pneumococcal Vaccine: 50+ Years Completed 09/19/2024 HIB [...] age to complete this topic Meningococcal B Vaccine Aged Out No l onger eligible based on patient's age to complete [...] mg/dL LAB CHEMISTRY METHOD 09/27/2024 12:[address] [facility] Triglycerides 43 0 - 150 mg/dL LAB CHEMISTRY METHOD 09/27/2024 12:[address] [facility] HDL 61 >=40 mg/dL LAB CHEMISTRY METHOD 09/27/2024 12:[address] [facility] LDL Calculated 118(H) 0 - 100 mg/dL LAB CHEMISTRY METHOD 09/27/2024 12:[address] [facility] VLDL Cholesterol Carlo 8.6 mg/dL LAB CHEMISTRY METHOD 09/27/2024 12:[address] [facility] Non HDL Chol. (LDL+VLDL) 127 <145 mg/dL LAB CHEMISTRY METHOD 09/27/2024 12:[address] [facility] Chol/HDL Ratio 3.1 0.0 - 4.4 LAB CHEMISTRY METHOD 09/27/2024 12:[address] [facility] Blood Venous blood specimen / Unknown Venipuncture / Unknown 09/27/2024 10:28 AM EST 09/27/2024 11:24 AM EST us Mary Jo Vargas MD LAB BLOOD ORDERABLES Final Resul t [facility] [address] [place] [address], * (ABNORMAL) CBC auto differential (09/27/2024 10:28 AM EST) [facility] Signature WBC 5.6 4.8 - 10.8 K/mcL LAB HEMETOLOGY METHOD 09/27/2024 2:14 PM EST [facility] RBC 4.00 3.80 - 4.80 M/mcL LAB HEMETOLOGY METHOD 09/27/2024 2:14 PM EST [facility] Hemoglobin 12.0 11.5 - 16.0 g/dL LAB HEMETOLOGY METHOD 09/27/2024 2:[address] [facility] Hematocrit 39.9 35.0 - 47.0 % LAB HEMETOLOGY METHOD 09/27/2024 2:[address] [facility] MCV 99.8(H) 79.0 - 98.0 FL LAB HEMETOLOGY METHOD 09/27/2024 2:[address] [facility] MCH 30.0 27.0 - 32.0 pcg LAB HEMETOLOGY METHOD 09/27/2024 2:[address] [facility] MCHC 30.1(L) 32.0 - 37.0 g/dL LAB HEMETOLOGY METHOD 09/27/2024 2:14 PM EST [facility] RDW 13.0 11.0 - 15.0 % LAB HEMETOLOGY METHOD 09/27/2024 2:[address] [facility] Platelets 227 130 - 400 K/mcL LAB HEMETOLOGY METHOD 09/27/2024 2:[address] [facility] MPV 10.8 7.0 - 11.0 FL LAB HEMETOLOGY METHOD 09/27/2024 2:[address] [facility] NRBC 0.0 <1.0 % LAB HEMETOLOGY METHOD 09/27/2024 2:[address] [facility] NRBC Absolute 0.00 <0.10 K/mcL LAB HEMETOLOGY METHOD 09/27/2024 2:[address] [facility] Neutrophils Relative 51.2 % LAB HEMETOLOGY METHOD 09/27/2024 2:[address] [facility] Comment:This is an appended report. These results have been appended to a previously preliminary verified report. Lymphocytes Relative 37.4 % LAB HEMETOLOGY METHOD 09/27/2024 2:[address] [facility] Comment:This is an appended report. These results have been appended to a previously preliminary verified report. Monocytes Relative 5.7 % LAB HEMETOLOGY METHOD 09/27/2024 2:[address] [facility] Comment:This is an appended report. These results have been appended to a previously preliminary verified report. Eosinophils Relative 4.6 % LAB HEMETOLOGY METHOD 09/27/2024 2:[address] [facility] Comment:This is an appended report. These results have been appended to a previously preliminary verified report. Basophils Relative 0.7 % LAB HEMETOLOGY METHOD 09/27/2024 2:[address] [facility] Comment:This is an appended report. These results have been appended to a previously preliminary verified report. Immature Granulocytes Relative 0.4 % LAB HEMETOLOGY METHOD 09/27/2024 2:[address] [facility] Comment:This is an appended report. These results have been appended to a previously preliminary verified report. Neutrophils Absolute 2.88 1.50 - 7.00 K/mcL LAB HEMETOLOGY METHOD 09/27/2024 2:[address] [facility] Comment:This is an appended report. These results have been appended to a previously preliminary verified report. Lymphocytes Absolute 2.10 1.00 - 5.00 K/mcL LAB HEMETOLOGY METHOD 09/27/2024 2:14 PM EST [facility] Comment:This is an appended report. These results have been appended to a previously preliminary verified report. Monocytes Absolute 0.32 0.20 - 1.00 K/mcL LAB HEMETOLOGY METHOD 09/27/2024 2:14 PM EST [facility] Comment:This is an appended report. These results have been appended to a previously preliminary verified report. Eosinophils Absolute 0.26 0.00 - 0.50 K/mcL LAB HEMETOLOGY METHOD 09/27/2024 2:14 PM EST [facility] Comment:This is an appended report. These results have been appended to a previously preliminary verified report. Basophils Absolute 0.04 0.00 - 0.20 K/[facility] 09/27/2024 2:14 PM EST [facility] Comment:This is an appended report. These results have been appended to a previously preliminary verified report. Immature Granulocytes Absolute 0.02 0.00 - 0.03 K/[facility] LAB HEMETOLOGY METHOD 09/27/2024 2:14 PM EST [facility] Comment:This is an appended report. These results have been appended to a previously preliminary verified report. Blood Venous blood specimen / Unknown Venipuncture / Unknown 09/27/2024 10:28 AM EST 09/27/2024 11:25 AM EST us Mary Jo Vargas MD LAB BLOOD ORDERABLES Final Resul t [facility] [address] [place] [address], * (ABNORMAL) Vitamin D 25 hydroxy (09/27/2024 10:28 AM EST) Vit D, 25-Hydroxy 8.2(L) 30.0 - 80.0 ng/mL LAB CHEMISTRY METHOD 09/27/2024 12:24 PM EST [facility] Blood Venous blood specimen / Unknown Venipuncture / Unknown 09/27/2024 10:28 AM EST 09/27/2024 11:24 AM EST us Mary Jo Vargas MD LAB BLOOD ORDERABLES Final Resul t [facility] [address] [place] [address], * (ABNORMAL) Comprehensive metabolic panel (09/27/2024 10:28 AM EST) Sodium 141 133 - 145 mmol/L LAB CHEMISTRY METHOD 09/27/2024 12:[address] [facility] Potassium 4.2 3.5 - 5.5 mmol/L LAB CHEMISTRY METHOD 09/27/2024 12:[address] [facility] Chloride 108 96 - 110 mmol/L LAB CHEMISTRY METHOD 09/27/2024 12:[address] [facility] CO2 31 21 - 32 mmol/L LAB CHEMISTRY METHOD 09/27/2024 12:[address] [facility] Anion Gap 2(L) 3 - 11 LAB CHEMISTRY METHOD 09/27/2024 12:[address] [facility] Glucose 95 70 - 100 mg/dL LAB CHEMISTRY METHOD 09/27/2024 12:[address] [facility] BUN 16 5 - 25 mg/dL LAB CHEMISTRY METHOD 09/27/2024 12:[address] [facility] Creatinine 0.72 0.50 - 1.10 mg/dL LAB CHEMISTRY METHOD 09/27/2024 12:[address] [facility] eGFR 93 >=60 mL/min/1. 73m2 LAB CHEMISTRY METHOD 09/27/2024 12:[address] [facility] Comment:Calculation based on the??Chronic Kidney Disease Epidemiology Collaboration (CKD-EPI) equation refit??without adjustment for race. BUN/Creatinine Ratio 22.2 LAB CHEMISTRY METHOD 09/27/2024 12:[address] [facility] Calcium 9.1 8.5 - 10.5 mg/dL LAB CHEMISTRY METHOD 09/27/2024 12:[address] [facility] AST (SGOT) 17 10 - 42 unit/L LAB CHEMISTRY METHOD 09/27/2024 12:[address] [facility] ALT (SGPT) 19 10 - 60 unit/L LAB CHEMISTRY METHOD 09/27/2024 12:[address] [facility] Alkaline Phosphatase 74 42 - 121 unit/L LAB CHEMISTRY METHOD 09/27/2024 12:[address] [facility] Total Protein 6.4 6.0 - 8.0 g/dL LAB CHEMISTRY METHOD 09/27/2024 12:[address] [facility] Albumin 3.6 3.2 - 5.0 g/dL LAB CHEMISTRY METHOD 09/27/2024 12:[address] [facility] Total Bilirubin 0.2 0.0 - 1.4 mg/dL LAB CHEMISTRY METHOD 09/27/2024 12:[address] [facility] Blood Venous blood specimen / Unknown Venipuncture / Unknown 09/27/2024 10:28 AM EST 09/27/2024 11:24 AM EST us Mary Jo Vargas MD LAB BLOOD ORDERABLES Final Resul t [facility] [address] [place] [address], * Hepatitis C antibody (07/23/2024 11:59 AM EST) Hepatitis C Antibody Negative Negative LAB CHEMISTRY METHOD 07/23/2024 7:04 PM EST [facility] Blood Venous blood specimen / Unknown Venipuncture / Unknown 07/23/2024 11:59 AM EST 07/23/2024 12:33 PM EST us Shawnee Friedman MD LAB BLOOD ORDERABLES January duran Result [facility] [address] [place] [address], from Last 3 Months or Most Recently Relevant to Health Maintenance Additional Health Concerns Infection Onset Date Last Indicated Herpes simplex 07/23/2024 07/23/2024 Insurance [facility] [employer] Member Subscriber Plan / Payer (Ef fective 2024-Present) Name:Diana Chapman Relation to Subscriber:Self Name:Diana Chapman Payer ID:[id number] Group ID:[id number] Type:Not on file Address: [place] [address] [address] Care Teams Inspector Chief Relationship Specialty Start Date End Date Name, MD Elijah [address] [place], [place] PCP - General 08/23/08
--- OUTSIDE RECORDS SUMMARY | 2024-12-13 08:42 | XMS_ITS | Encounter Summary ---
Author Organization [employer] Address [address] 7[address] [place] [address] Care Team Providers Care Computer Clerk Name Role Phone Name, Elijah FRAGA Primary Care Provider [phone] Reason for Visit * Reason Onset Date Comments Nurse Triage 12/05/2023 Encounter Details Date Type Department Care Team ([facility] st Contact Info) Description 12/05/[address] [facility] MEDICINE [address] [place] [address] Name, MD Elijah [address] [place] [address] Nurse Triage Social History Tobacco Use Types [...] t he electric, gas, oil or water [employer] threatened to shut off services in your [...] painful. Pt is offered WIC today at [facility] but, declines to go today due tofamily member doing poorly. Pt requests provider for VOCAL TEACHER to see Pt. Apt with JUJU Romero 12/06/23 @ 330pm at [facility] facility. Pt reports has been to [facility] before. Pt agrees with disposition. Advised [...] documented in this encounter Plan of Treatment Upcoming Encounters Date Type Department Care Team (Late st Contact Info) Description 02/18/2025 10:45 AM EDT Office Visit [facility] CHC MED & PEDS [address] [place] [address] Ye Loera MD [address] [place] [address] documented as of this encounter Visit Diagnoses Not on filedocumented in this encounter Additional Health Concerns Assessment Noted Time PHQ-9 Depression Total Score: 0 12/23/19 23 2:25 PM EDT documented as of this encounter Care Teams Computer Clerk Relationship Specialty Start Date End Date Name, MD Elijah [address] [place] [address] PCP - General Family Medicine 08/08/18 09/24/24 documented as of this encounter
--- OUTSIDE RECORDS SUMMARY | 2024-12-13 08:42 | XMS_ITS | Encounter Summary ---
Author Organization [employer] Address [address] 7t [place] [address] Care Team Providers Care Air Purifier Servicer Name Role Phone Name, Elijah FRAGA Primary Care Provider [phone] Reason for Visit * Reason Onset Date Comments Appointment Request 03/31/2023 Encounter Details Date Type Department Care Team ([facility] st Contact Info) Description 03/31/2023 Telephone [facility] MEDICINE [address] [place], [place] [phone] Name, MD Elijah [address] [place] [address] Appointment Request Social History Tobacco Use Types [...] second half . Please contact pt at [phone] Marshallese Speaker documented in this encounter Plan of Treatment Upcoming Encounters Date Type Department Care Team ([facility] st Contact Info) Description 02/18/2025 10:45 AM EDT Office Visit [facility] MED & PEDS [address] [place] [address] Ye Loera MD [address] [place], [place] [phone] documented as of this encounter Visit Diagnoses Not on filedocumented in this encounter Additional Health Concerns Assessment Noted Time PHQ-9 Depression Total Score: 0 12/23/19 23 2:25 PM EDT documented as of this encounter Care Teams Air Purifier Servicer Relationship Specialty Start Date End Date Name, MD Elijah [address] [place] [address] PCP - General Family Medicine 08/08/18 09/24/24 documented as of this encounter
--- OUTSIDE RECORDS SUMMARY | 2024-12-13 08:42 | XMS_ITS | Encounter Summary ---
Author Organization [facility] Address [address] [place] [address] Care Team Providers Care Zone Manager Name Role Phone Name, Elijah FRAGA Primary Care Provider [phone] Encounter Details Date Type Department Care Team (Late st Contact Info) Description 07/20/2024 Lab Requisition [facility] Lab [address] [facility] [address] Shawnee Friedman MD [address] [place] [address] Functional dyspepsia Social History Tobacco Use Types [...] LAB CHEMISTRY METHOD 07/21/2024 7:24 AM EST [facility] Breath Oral cavity structure / Unknown 07/20/2024 07/20/2024 6:14 PM EST us Shawnee Friedman MD LAB BODY FLUIDS AND STOOL S ORDERABLES Final Result [facility] [address] [place] [address], documented in this encounter Visit Diagnoses Diagnosis Functional dyspepsia Dyspepsia and other specified disorders of function of stomach documented in this encounter Additional Health Concerns Infection Onset Date Last Indicated Resolved Time Herpes simplex 07/23/2024 07/23/2024 documented as of this encounter Care Teams Zone Manager Relationship Specialty Start Date End Date Name, MD Elijah [address] [place], [place] PCP - General 08/23/08 documented as of this encounter
--- OUTSIDE RECORDS SUMMARY | 2024-12-13 08:42 | XMS_ITS | Encounter Summary ---
Author Organization [employer] Address [address] [facility] [address] [place] [address] Care Team Providers Care Assembler Dc Field Ring Name Role Phone Name, Elijah FRAGA Primary Care Provider [phone] Reason for Visit * Reason Comments Med Refill Encounter Details Date Type Department Care Team (Late Contact Info) Description 09/23/2022 Refill [facility] MEDICINE [address] [place], [place] [phone] Name, MD Elijah [address] [place] [address] Depressive disorder Social History Tobacco Use Types [...] as of this encounter Plan of Treatment Upcoming Encounters Date Type Department Care Team (Late Contact Info) Description 02/18/2025 10:45 AM EDT Office Visit [facility] CH[facility] MED & PEDS [address] [place], [place] [phone] Ye Loera MD [address] [place], [place] [phone] documented as of this encounter Visit Diagnoses Diagnosis Depressive disorder Depressive disorder, not elsewhere classified documented in this encounter Care Teams Assembler Dc Field Ring Relationship Specialty Start Date End Date Name, MD Elijah [address] [place] [address] PCP - General Family Medicine 08/08/18 09/24/24 documented as of this encounter
--- OUTSIDE RECORDS SUMMARY | 2024-12-13 08:42 | XMS_ITS | Encounter Summary ---
Author Organization [employer] Address [address] [place] [address] Care Team Providers Care Bucket Pusher Name Role Phone Name, Elijah FRAGA Primary Care Provider [phone] Encounter Details Date Type Department Care Team ([facility] Contact Info) Description 12/24/2022 Abstract [facility] MEDICINE [address] [place], [place] [phone] Name, MD Elijah [address] [place] [address] Social History Tobacco Use Types Packs/Day Years [...] Upcoming Encounters Date Type Department Care Team ([facility] Contact Info) Description 02/18/2025 10:45 AM EDT Office Visit [facility] CH[facility] MED & PEDS [address] [place] [address] Ye Loera MD [address] [place] [address] documented as of this encounter Procedures Procedure Name Priority Date/Time Associated Diagnosis Comments COLONOSCOPY Routine 05/15/2019 1:57 PM EDT documented in this encounter Results * Colonoscopy (05/15/2019 1:57 PM EDT) Colonoscopy Normal Normal Narrative Mary Butterfield - 05/15/2019 1:57 PM EDT Recommended 5 year follow up us Historical Provider HEALTH MAINTENANCE Final Result documented in this encounter Visit Diagnoses Not on filedocumented in this encounter Additional Health Concerns Assessment Noted Time PHQ-9 Depression Total Score: 0 12/23/19 23 2:25 PM EDT documented as of this encounter Care Teams Bucket Pusher Relationship Specialty Start Date End Date Name, MD Elijah [address] [place] [address] PCP - General Family Medicine 08/08/18 09/24/24 documented as of this encounter
--- OUTSIDE RECORDS SUMMARY | 2024-12-13 08:42 | XMS_ITS | Encounter Summary ---
Author Organization [employer] Address [address] [place] [address] Care Team Providers Care Woolen Mill Utility Worker Name Role Phone Name, Elijah FRAGA Primary Care Provider [phone] Reason for Visit * Reason Onset Date Comments Reschedule 01/19/2024 Encounter Details Date Type Department Care Team ([facility] st Contact Info) Description 01/19/2024 Telephone [facility] MEDICINE [address] [place], [place] [phone] Name, MD Elijah [address] [place] [address] Reschedule Social History Tobacco Use Types Packs/Day [...] Description 02/18/2025 10:45 AM EDT Office Visit [facility] CHC MED & PEDS [address] [place] [address] Ye Loera MD [address] [place] [address] documented as of this encounter Visit Diagnoses Not on filedocumented in this encounter Additional Health Concerns Assessment Noted Time PHQ-9 Depression Total Score: 0 12/23/19 23 2:25 PM EDT documented as of this encounter Care Teams Woolen Mill Utility Worker Relationship Specialty Start Date End Date Name, MD Elijah [address] [place] [address] PCP - General Family Medicine 08/08/18 09/24/24 documented as of this encounter
--- OUTSIDE RECORDS SUMMARY | 2024-12-13 08:42 | XMS_ITS | Encounter Summary ---
Author Organization [employer] Address [address] [facility] [address] [place] [address] Care Team Providers Care Supervisor Malted Milk Name Role Phone Name, Elijah FRAGA Primary Care Provider [phone] Reason for Visit * Reason Comments Med Refill Encounter Details Date Type Department Care Team (Late st Contact Info) Description 10/16/2023 Refill [facility] [address] [place] [address] Coty Santiago FNP Strain of left infraspinatus [...] Description 02/18/2025 10:45 AM EDT Office Visit [facility] MED & PEDS [address] [place] [address] Ye Loera MD [address] [place] [address] documented as of this encounter Visit Diagnoses Diagnosis Strain of left infraspinatus muscle, initial encounter documented in this encounter Additional Health Concerns Assessment Noted Time PHQ-9 Depression Total Score: 0 12/23/19 23 2:25 PM EDT documented as of this encounter Care Teams Supervisor Malted Milk Relationship Specialty Start Date End Date Name, MD Elijah [address] [place] [address] PCP - General Family Medicine 08/08/18 09/24/24 documented as of this encounter
--- OUTSIDE RECORDS SUMMARY | 2024-12-13 08:42 | XMS_ITS | Clinical Summary ---
Author Organization [employer] [facility] Address [address] [place] [address] Care Team Providers Care Inside Sales Director Name Role Phone Provider, Not In System [...] Tdap / Td (1 - Tdap) 1979 Colon Cancer Screening (Colonoscopy) 11/28/2003 Breast Cancer [...] age to complete this topic Care Teams Inside Sales Director Relationship Specialty Start Date End Date Provider, Not In System PCP - General 11/23/17
--- OUTSIDE RECORDS SUMMARY | 2024-12-13 08:42 | XMS_ITS | Encounter Summary ---
Author Organization [employer] Address [address] [place] [address] Care Team Providers Care Data Integrity Analyst Name Role Phone Name, Elijah FRAGA Primary Care Provider [phone] Reason for Visit * Reason Comments Med Refill Encounter Details Date Type Department Care Team (Late Contact Info) Description 07/23/2022 Refill [facility] MEDICINE [address] [place] [address] Name, MD Elijah [address] [place] [address] Social History Tobacco Use Types Packs/Day Years [...] Description 02/18/2025 10:45 AM EDT Office Visit [facility] CHC MED & PEDS [address] [place], [place] [phone] Ye Loera MD [address] [place], [place] [phone] documented as of this encounter Visit Diagnoses Not on filedocumented in this encounter Care Teams Data Integrity Analyst Relationship Specialty Start Date End Date Name, MD Elijah [address] [place] [address] PCP - General Family Medicine 08/08/18 09/24/24 documented as of this encounter
--- OUTSIDE RECORDS SUMMARY | 2024-12-13 08:43 | XMS_ITS | Encounter Summary ---
Author Organization [employer] Address [address] [place] [address] Care Team Providers Care Animal Cytologist Name Role Phone Unavailable Primary Care Provider Unavailabl e Reason for Visit * Reason Comments Med Refill Encounter Details Date Type Department Care Team ([facility] st Contact Info) Description 12/10/2024 Refill [facility] MEDICINE [address] [place], [place] [phone] Name, MD Elijah [address] [place] [address] Rash Social History Tobacco Use Types Packs/Day Years [...] 10:45 AM EDT Office Visit [facility] PEDS [address] [place] [address] Ye Loera MD [address] [place] [address] documented as of this encounter Visit Diagnoses Diagnosis Rash Rash and other nonspecific skin eruption documented in this encounter Additional Health Concerns Assessment Noted Time PHQ-9 Depression Total Score: 0 12/23/19 23 2:25 PM EDT documented as of this encounter
--- OUTSIDE RECORDS SUMMARY | 2024-12-13 08:43 | XMS_ITS | Encounter Summary ---
Author Organization [employer] Address [address] [place] [address] Care Team Providers Care Putty Maker Name Role Phone Unavailable Primary Care Provider Unavailabl e Reason for Visit * Reason Comments Med Refill Encounter Details Date Type Department Care Team ([facility] st Contact Info) Description 11/13/2024 Refill [facility] [address] [place], [place] [phone] [facility] [address] [place], [place] [phone] Social History Tobacco Use Types Packs/Day Years [...] 10:45 AM EDT Office Visit [facility] MED & PEDS [address] [place], [place] [phone] Ye Loera MD [address] [place], [place] [phone] documented as of this encounter Visit Diagnoses Not on filedocumented in this encounter Additional Health Concerns Assessment Noted Time PHQ-9 Depression Total Score: 0 12/23/19 23 2:25 PM EDT documented as of this encounter
[2024-12-13] MEDS: iohexoL 350 MG/ML 100 ML INFUS..BTL IV (11:30)
[2024-12-13] MEDS: Barium Sulfate Oral (Vanilla) 450 ML ORAL.SUSP 900 ML PO (11:31)
[2024-12-14 08:21] LABS: Creatinine POC 0.7 mg/dL (0.5-1.4); GFR POC > 60
== END 2024-12-13 08:29 | disposition home or self-care (01) ==
LOC: HO.CT 08:28
PROVIDERS: PCP Internal Medicine; Visit Provider Nurse Practitioner Family
DX: R10.9 Unspecified abdominal pain (principal)
CPT/HCPCS: 74177; 82565; Q9967

== ENCOUNTER → 2024-12-13 08:32 | Outpatient (BNV) | payer OTHER, SELFPAY | PROVIDERS: PCP Internal Medicine; Visit Provider Radiology Diagnostic Radiology | DX: K57.30 Diverticulosis of large intestine without perforation or abscess without bleeding (principal); K42.9 Umbilical hernia without obstruction or gangrene | CPT/HCPCS: 74177 ==

== ENCOUNTER 2024-12-17 12:25 | Outpatient (AMB) | payer OTHER, SELFPAY ==
--- NOTE | 2024-12-17 12:27 | MHC.OFFVIS ---
Vital Signs 12/17/24 12:28 Height 5 ft 1 in Weight 190 lb BMI 35.9 BP 146/82 H Blood Pressure Location Rt brachial Position Sitting Pulse 62 Pulse Source Pulse Oximeter Pulse Oximetry (%) 99 Oxygen Delivery Method Room Air Intake Visit Reasons: 3 mo f/u Intake Note: ESTABLISHED PATIENT for GERD + CIC mgmt. CT done. Chief Complaint; Pt denies any GI sx or concerns. However, pt does report concern regarding new onset of dizziness, and L leg pain, swelling, and bruising which started approx 3 weeks ago. Seemingly idiopathic in nature per pt. Pt also reports recent shingles episode which was treated with valacyclovir. Regional Business Development Manager Required: Yes Regional Business Development Manager Services: Regional Business Development Manager Offered & Declined Accompanied by: Family/Other Allergies acetaminophen [Percocet] Allergy (Unknown, Verified 12/17/24 12:28) itching oxycodone [Percocet] Allergy (Unknown, Verified 12/17/24 12:28) itching tramadol Allergy (Unknown, Verified 12/17/24 12:28) itching amlodipine Adverse Reaction (Intermediate, Verified 12/17/24 12:28) leg edema HPI HPI 3 mo f/u: Details: LAST VISIT GERD (gastroesophageal reflux disease) IBS (irritable bowel syndrome) Constipation Postprandial abdominal bloating LLQ abdominal pain Postprandial epigastric pain Plan Patient will start taking Nexium in the morning half an hour before breakfast. Avoid dietary triggers and late night snacking. Staying upright for minimum 3 hours after meals discussed with patient. Patient will go for CT scan. Patient reports left upper and left lower quadrant pain. Patient was told by PCP that she has diverticulitis and was given Cipro. Patient was sent for CT scan and never got 1. Unsure what happened. Patient will continue to take Senokot and docusate sodium. Will increase fluid intake and activity to promote better bowel motility. Patient will follow-up in 2-3 months, sooner on as needed basis. Patient is agreeable to this plan and verbalizes understanding of instructions. She was given the opportunity to ask questions and all questions answered. ? Thank you for allowing me to participate in her care Orders Orders Creatinine Today R10.11 Blood Urea Nitrogen Today R10.11 CT abdomen pelvis w IV con Today R10.9 Medications New esomeprazole magnesium (Nexium) 40 mg PO DAILY 30 caps 5RF K21.9 Changed Changed From docusate sodium 100 mg PO DAILY 30 caps 3RF K59.00 Changed To docusate sodium 200 mg (2 x 100 mg) PO DAILY 60 caps 3RF K59.00 TODAY'S VISIT Patient is here today for follow-up and to discuss CT scan results. CT scan of abdomen and pelvis was done lost weight and patient was diagnosed with left lower lobe pneumonia. I have put patient on Augmentin for 10 days, PCP aware. Patient does not have any fever. Mild cough, however patient feels like it is not related to pneumonia. Coffee sounds dry more tickling like cough. Patient denies any shortness of breath. Patient does however reports of dizziness. She is currently taking benazepril 40 mg daily. Patient admits that she is not drinking enough water. Patient denies any chest pain shortness of breath presyncope or syncope. Will have a follow-up appointment with PCP in January. BP today and last visit elevated. Patient denies any headaches. Patient is taking PPI and reports that acid reflux is suppressed. Patient denies dyspepsia, dysphagia or odynophagia. Patient denies melena, hematochezia. Reports that she is taking senna and Colace combo and is moving her bowels better, however she feels like she does not empty her bowels completely. Occasional abdominal bloating. [facility] Medical History Postprandial abdominal bloating Cataract (~11/2021) Surgical History History of esophagogastroduodenoscopy (EGD) Hx of colonoscopy H/O: hysterectomy History of bladder surgery H/O prior ablation treatment Family History Father Diabetes HTN (hypertension) Sister FH: kidney cancer HTN (hypertension) Mother HTN (hypertension) Sister HTN (hypertension) Sister HTN (hypertension) Sister HTN (hypertension) Sister HTN (hypertension) Brother HTN (hypertension) Social History Housing: Apartment Alcohol intake: never Patient Tobacco Use Status: Never used Tobacco e-Cigarette/Vaping Use: Never Used Second Hand Smoke Exposure: No service: No Current occupational status: unemployed Cognitive needs: No Hearing needs: No Vision needs: No Review of Systems Const Denies weight gain and Denies weight loss ENT Reports no additional complaints, Denies dysphagia and Denies odynophagia Card Reports no additional complaints Resp Reports no additional complaints GI Reports abdominal pain, Denies belching, Denies melena, Denies bloating, Denies change in bowel habits, Reports constipation, Denies dysphagia, Denies excessive flatus, Denies dyspepsia, Denies heartburn, Denies diarrhea, Denies loose stools, Denies nausea, Denies odynophagia and Denies vomiting Reports no additional complaints Musc Reports no additional complaints Neuro Reports no additional complaints Psych Reports no additional complaints Endo Reports no additional complaints Physical Exam Vital Signs: BMI result Body Mass Index 35.9 Const General: healthy appearing, no acute distress and well developed Nutritional Appearance: well nourished and obese Orientation/consciousness: patient oriented x3 Resp Effort & Inspection: normal respiratory effort, able to speak in complete sentences, no tracheal deviation and symmetric chest movement Auscultation: clear to auscultation bilaterally Cardio Rate: regular rate Heart sounds: S1 normal heart sound present and S2 normal heart sound present GI Inspection: Yes normal to inspection, No distended and Yes obesity Palpation (GI): Soft to palpation, not firm, nontender and No hepatosplenomegaly present Auscultation: normal bowel sounds General: Yes no CVA tenderness Back/Spine/Pelvis Back: no CVA tenderness Skin General skin exam: elasticity normal, turgor normal and dry skin Neuro General: patient oriented x3 Psych Appearance: grossly normal Mental Status: mental status grossly normal Results Reviewed Results Reviewed: CT SCAN OF ABDOMEN AND PELVIS 12/13/2024 FINDINGS: LUNG BASES: Pulmonary patchy groundglass, left lower lung lobe. LIVER, GALLBLADDER, AND BILIARY TREE: Liver measures 16 cm. 3 mm hypodensity, right hepatic lobe too small to be fully characterized. Portal veins, hepatic veins and intrahepatic portion of the IVC are patent. No intrahepatic biliary ductal dilatation. No pericholecystic fluid collection or gallbladder wall thickening. Gallbladder is contracted. No extrahepatic biliary ductal dilatation. PANCREAS: No focal lesion. No peripancreatic fluid collection. No main pancreatic ductal dilatation. SPLEEN: 9 cm. No focal lesion. ADRENAL GLANDS: No nodular lesion. KIDNEYS AND URETERS: No hydronephrosis. No gross nephrolithiasis. No gross renal mass. Subcentimeter cyst, left kidney. BLADDER: Fluid-filled. GASTROINTESTINAL TRACT: Numerous diverticula, left hemicolon. Abundant stool. No intestinal obstruction pattern. Appendix is normal. No pneumatosis intestinalis. No wall thickening. No ascites. No pneumoperitoneum. ABDOMINAL WALL: Small fat-containing umbilical hernia. LYMPH NODES: Not enlarged. VASCULAR: No aneurysm or dissection, abdominal aorta. PELVIC VISCERA: Absent uterus. OSSEOUS STRUCTURES: Mild multilevel thoracolumbar spondylosis. No acute fracture or gross listhesis. No lytic or blastic lesions. No acute fracture or dislocation in either hip. Bony pelvis is intact. 6 cm fat density within the muscular plane of the right lower hemithorax. Probably between the oblique muscles. Patient's large body habitus/obesity. CT/CT abdomen pelvis w IV con IMPRESSION: Concerning acute airspace disease/pneumonia, left lower lung lobe. Diverticular disease, left hemicolon. Small fat-containing umbilical hernia. Probable 6 cm lipoma, anterior lateral lower chest abdominal muscular plane. Mild hepatomegaly. Assessment & Plan Assessment & Plan (1) Postprandial abdominal bloating: Code(s): R14.0 - Abdominal distension (gaseous) Category: Medical (2) Hepatomegaly: Code(s): R16.0 - Hepatomegaly, not elsewhere classified Category: Medical (3) GERD (gastroesophageal reflux disease): Code(s): K21.9 - Gastro-esophageal reflux disease without esophagitis Qualifiers: Esophagitis presence: without esophagitis Qualified Code(s): K21.9 - Gastro-esophageal reflux disease without esophagitis (4) IBS (irritable bowel syndrome): Code(s): K58.9 - Irritable bowel syndrome, unspecified Qualifiers: Irritable bowel syndrome type: with constipation Qualified Code(s): K58.1 - Irritable bowel syndrome with constipation (5) Constipation: Code(s): K59.00 - Constipation, unspecified Qualifiers: Constipation type: slow transit constipation Qualified Code(s): K59.01 - Slow transit constipation (6) LLQ abdominal pain: Code(s): R10.32 - Left lower quadrant pain (7) Postprandial epigastric pain: Code(s): R10.13 - Epigastric pain Plan Hepatomegaly seen on CT scan. Patient had normal liver enzymes. High cholesterol. Will send patient for ultrasound of the liver with elastography. Patient denies any abdominal pain or discomfort. She will continue taking esomeprazole. Avoid dietary triggers and late night snacking. Staying upright for minimal 3 hours after meals discussed with patient. Patient will stop taking senna and Colace. She will start taking Linzess daily. Will start her on 145 mcg daily. She will call us in 1-2 weeks if she will continue to be constipated. Patient was encouraged to increase fluid intake and activity to promote better bowel motility. She will follow-up in the office in 3 months, sooner on as needed basis. She is agreeable to this plan and verbalizes understanding of instructions. She was given the opportunity to ask questions and all questions answered. Thank you for allowing me to participate in her care Orders: Orders US abdomen serrano w elastography Today E78.5 - Hyperlipidemia, unspecified, R16.0 - Hepatomegaly, not elsewhere classified Medications: New linaclotide (Linzess) 145 mcg PO DAILY 30 caps 4RF K59.04 - Chronic idiopathic constipation Refilled esomeprazole magnesium (Nexium) 40 mg PO DAILY 90 caps 2RF K21.9 - Gastro-esophageal reflux disease without esophagitis Discontinued docusate sodium Discontinued Reason: Doctor's Order 200 mg (2 x 100 mg) PO DAILY 60 caps 3RF K59.00 - Constipation, unspecified Coding Level of Care Code Est Pt Level 4 (78770) Complex EM visit Add On G2211 Diagnoses Postprandial abdominal bloating R14.0 Hepatomegaly R16.0 Gastroesophageal reflux disease without esophagitis K21.9 Esophagitis presence: without esophagitis Irritable bowel syndrome with constipation K58.1 Irritable bowel syndrome type: with constipation Slow transit constipation K59.01 Constipation type: slow transit constipation LLQ abdominal pain R10.32 Postprandial epigastric pain R10.13 Time Spent (min) 35 Comment 25 minutes spent with patient and additional 10 minutes spent reviewing her records
[2024-12-17 12:28] VITALS: BP 146/82; PULSE 62; O2SAT 99; BMI 35.9
--- OUTSIDE RECORDS SUMMARY | 2024-12-17 12:52 | XMS_ITS | Encounter Summary ---
Author Organization [employer] Address [address] [place] [address] Care Team Providers Care Senior C Software Developer Name Role Phone Name, Elijah FRAGA Primary Care Provider [phone] Encounter Details Date Type Department Care Team ([facility] Contact Info) Description 12/24/2022 Abstract [facility] MEDICINE [address] [place], [place] [phone] Name, MD Elijah [address] [place] [address] Social History Tobacco Use Types Packs/Day Years [...] Upcoming Encounters Date Type Department Care Team ([facility] Contact Info) Description 02/18/2025 10:45 AM EDT Office Visit [facility] MED & PEDS [address] [place] [address] Ye Loera MD [address] [place] [address] documented as of this encounter Procedures Procedure [...] documented as of this encounter Care Teams Senior C Software Developer Relationship Specialty Start Date End Date Name, MD Elijah [address] [place] [address] PCP - General Family Medicine 08/08/18 09/24/24 documented as of this encounter
--- OUTSIDE RECORDS SUMMARY | 2024-12-17 12:52 | XMS_ITS | Encounter Summary ---
Author Organization [employer] Address [address] [place] [address] Care Team Providers Care Lieutenant Shift Supervisor Name Role Phone Name, Elijah FRAGA Primary Care Provider [phone] Reason for Visit * Reason Comments Med Refill Encounter Details Date Type Department Care Team (Late st Contact Info) Description 10/16/[address] [facility] [address] [place] [address] Coty Santiago FNP Strain of left infraspinatus [...] Description 02/18/2025 10:45 AM EDT Office Visit [facility] MED & PEDS [address] [place] [address] Ye Loera MD [address] [place] [address] documented as of this encounter Visit Diagnoses Diagnosis Strain of left infraspinatus muscle, initial encounter documented in this encounter Additional Health Concerns Assessment Noted Time PHQ-9 Depression Total Score: 0 12/23/19 23 2:25 PM EDT documented as of this encounter Care Teams Lieutenant Shift Supervisor Relationship Specialty Start Date End Date Name, MD Elijah [address] [place] [address] PCP - General Family Medicine 08/08/18 09/24/24 documented as of this encounter
--- OUTSIDE RECORDS SUMMARY | 2024-12-17 12:52 | XMS_ITS | Encounter Summary ---
Author Organization [facility] Address [address] [place] [address] Care Team Providers Care Medical Billing And Coding Instructor Name Role Phone Name, Elijah FRAGA Primary Care Provider [phone] Encounter Details Date Type Department Care Team (Late st Contact Info) Description 07/20/2024 Lab Requisition [facility] - Main Lab [address] [facility] [place] [address] Shawnee Friedman MD [address] [place] [address] Functional dyspepsia Social History Tobacco Use Types [...] LAB CHEMISTRY METHOD 07/21/2024 7:24 AM EST [facility] Breath Oral cavity structure / Unknown 07/20/2024 07/20/2024 6:14 PM EST us Shawnee Friedman MD LAB BODY FLUIDS AND STOOL S ORDERABLES Final Result [facility] [address] [place] [address], documented in this encounter Visit Diagnoses Diagnosis Functional dyspepsia Dyspepsia and other specified disorders of function of stomach documented in this encounter Additional Health Concerns Infection Onset Date Last Indicated Resolved Time Herpes simplex 07/23/2024 07/23/2024 documented as of this encounter Care Teams Medical Billing And Coding Instructor Relationship Specialty Start Date End Date Name, MD Elijah [address] [place], [place] PCP - General 08/23/08 documented as of this encounter
--- OUTSIDE RECORDS SUMMARY | 2024-12-17 12:52 | XMS_ITS | Clinical Summary ---
Author Organization [employer] [facility] Address [address] [place] [address] Care Team Providers Care Senior Property Accountant Name Role Phone Provider, Not In System [...] age to complete this topic Care Teams Senior Property Accountant Relationship Specialty Start Date End Date Provider, Not In System PCP - General 11/23/17
--- OUTSIDE RECORDS SUMMARY | 2024-12-17 12:52 | XMS_ITS | Clinical Summary ---
Author Organization [address] Address [address] [place] [address] Phone Care Team Providers Care Science Interpreter Name Role Phone Name, Elijah FRAGA Primary Care Provider [phone] Surgical History Surgery Date Site/Laterality Comments HYSTERECTOMY PROCEDURE: HISTORICAL HYSTERECTOMY; COMMENT: and BSO COLONOSCOPY 01/13/09 PROCEDURE: MD COLONOSCOPY STOMA DX INCLUDING COLLJ SPEC SPX; COMMENT: Up to cecum, good preparation, rectal polyp removed:Tubular adenoma. Repeat 01/2014 ESOPHAGOGASTRODUODENOSCOPY 05/20/09 PROCEDURE: MD EGD TRANSORAL BIOPSY SINGLE/MULTIPLE; COMMENT: Normal esophagus, [...] mg/dL LAB CHEMISTRY METHOD 09/27/2024 12:[address] [facility] Triglycerides 43 0 - 150 mg/dL LAB CHEMISTRY METHOD 09/27/2024 12:[address] [facility] HDL 61 >=40 mg/dL LAB CHEMISTRY METHOD 09/27/2024 12:[address] [facility] LDL Calculated 118(H) 0 - 100 mg/dL LAB CHEMISTRY METHOD 09/27/2024 12:[address] [facility] VLDL Cholesterol Carlo 8.6 mg/dL LAB CHEMISTRY METHOD 09/27/2024 12:[address] [facility] Non HDL Chol. (LDL+VLDL) 127 <145 mg/dL LAB CHEMISTRY METHOD 09/27/2024 12:[address] [facility] Chol/HDL Ratio 3.1 0.0 - 4.4 LAB CHEMISTRY METHOD 09/27/2024 12:[address] [facility] Blood Venous blood specimen / Unknown Venipuncture / Unknown 09/27/2024 10:28 AM EST 09/27/2024 11:24 AM EST us Mary Jo Vargas MD LAB BLOOD ORDERABLES Final Resul t [facility] [address] [place] [address], * (ABNORMAL) CBC auto differential (09/27/2024 10:28 AM EST) [facility] Signature WBC 5.6 4.8 - 10.8 K/mcL LAB HEMETOLOGY METHOD 09/27/2024 2:14 PM EST [facility] RBC 4.00 3.80 - 4.80 M/mcL LAB HEMETOLOGY METHOD 09/27/2024 2:14 PM EST [facility] Hemoglobin 12.0 11.5 - 16.0 g/dL LAB HEMETOLOGY METHOD 09/27/2024 2:[address] [facility] Hematocrit 39.9 35.0 - 47.0 % LAB HEMETOLOGY METHOD 09/27/2024 2:[address] [facility] MCV 99.8(H) 79.0 - 98.0 FL LAB HEMETOLOGY METHOD 09/27/2024 2:[address] [facility] MCH 30.0 27.0 - 32.0 pcg LAB HEMETOLOGY METHOD 09/27/2024 2:[address] [facility] MCHC 30.1(L) 32.0 - 37.0 g/dL LAB HEMETOLOGY METHOD 09/27/2024 2:14 PM EST [facility] RDW 13.0 11.0 - 15.0 % LAB HEMETOLOGY METHOD 09/27/2024 2:[address] [facility] Platelets 227 130 - 400 K/mcL LAB HEMETOLOGY METHOD 09/27/2024 2:[address] [facility] MPV 10.8 7.0 - 11.0 FL LAB HEMETOLOGY METHOD 09/27/2024 2:[address] [facility] NRBC 0.0 <1.0 % LAB HEMETOLOGY METHOD 09/27/2024 2:[address] [facility] NRBC Absolute 0.00 <0.10 K/mcL LAB HEMETOLOGY METHOD 09/27/2024 2:[address] [facility] Neutrophils Relative 51.2 % LAB HEMETOLOGY METHOD 09/27/2024 2:[address] [facility] Comment:This is an appended report. These results have been appended to a previously preliminary verified report. Lymphocytes Relative 37.4 % LAB HEMETOLOGY METHOD 09/27/2024 2:[address] [facility] Comment:This is an appended report. These results have been appended to a previously preliminary verified report. Monocytes Relative 5.7 % LAB HEMETOLOGY METHOD 09/27/2024 2:[address] [facility] Comment:This is an appended report. These results have been appended to a previously preliminary verified report. Eosinophils Relative 4.6 % LAB HEMETOLOGY METHOD 09/27/2024 2:[address] [facility] Comment:This is an appended report. These results have been appended to a previously preliminary verified report. Basophils Relative 0.7 % LAB HEMETOLOGY METHOD 09/27/2024 2:[address] [facility] Comment:This is an appended report. These results have been appended to a previously preliminary verified report. Immature Granulocytes Relative 0.4 % LAB HEMETOLOGY METHOD 09/27/2024 2:[address] [facility] Comment:This is an appended report. These results have been appended to a previously preliminary verified report. Neutrophils Absolute 2.88 1.50 - 7.00 K/mcL LAB HEMETOLOGY METHOD 09/27/2024 2:[address] [facility] Comment:This is an appended report. These results have been appended to a previously preliminary verified report. Lymphocytes Absolute 2.10 1.00 - 5.00 K/mcL LAB HEMETOLOGY METHOD 09/27/2024 2:14 PM EST [facility] Comment:This is an appended report. These results have been appended to a previously preliminary verified report. Monocytes Absolute 0.32 0.20 - 1.00 K/mcL LAB HEMETOLOGY METHOD 09/27/2024 2:14 PM EST [facility] Comment:This is an appended report. These results have been appended to a previously preliminary verified report. Eosinophils Absolute 0.26 0.00 - 0.50 K/mcL LAB HEMETOLOGY METHOD 09/27/2024 2:14 PM EST [facility] Comment:This is an appended report. These results have been appended to a previously preliminary verified report. Basophils Absolute 0.04 0.00 - 0.20 K/[facility] 09/27/2024 2:14 PM EST [facility] Comment:This is an appended report. These results have been appended to a previously preliminary verified report. Immature Granulocytes Absolute 0.02 0.00 - 0.03 K/[facility] LAB HEMETOLOGY METHOD 09/27/2024 2:14 PM EST [facility] Comment:This is an appended report. These results have been appended to a previously preliminary verified report. Blood Venous blood specimen / Unknown Venipuncture / Unknown 09/27/2024 10:28 AM EST 09/27/2024 11:25 AM EST us Mary Jo Vargas MD LAB BLOOD ORDERABLES Final Resul t [facility] [address] [place] [address], * (ABNORMAL) Vitamin D 25 hydroxy (09/27/2024 10:28 AM EST) Vit D, 25-Hydroxy 8.2(L) 30.0 - 80.0 ng/mL LAB CHEMISTRY METHOD 09/27/2024 12:24 PM EST [facility] Blood Venous blood specimen / Unknown Venipuncture / Unknown 09/27/2024 10:28 AM EST 09/27/2024 11:24 AM EST us Mary Jo Vargas MD LAB BLOOD ORDERABLES Final Resul t [facility] [address] [place] [address], * (ABNORMAL) Comprehensive metabolic panel (09/27/2024 10:28 AM EST) Sodium 141 133 - 145 mmol/L LAB CHEMISTRY METHOD 09/27/2024 12:[address] [facility] Potassium 4.2 3.5 - 5.5 mmol/L LAB CHEMISTRY METHOD 09/27/2024 12:[address] [facility] Chloride 108 96 - 110 mmol/L LAB CHEMISTRY METHOD 09/27/2024 12:[address] [facility] CO2 31 21 - 32 mmol/L LAB CHEMISTRY METHOD 09/27/2024 12:[address] [facility] Anion Gap 2(L) 3 - 11 LAB CHEMISTRY METHOD 09/27/2024 12:[address] [facility] Glucose 95 70 - 100 mg/dL LAB CHEMISTRY METHOD 09/27/2024 12:[address] [facility] BUN 16 5 - 25 mg/dL LAB CHEMISTRY METHOD 09/27/2024 12:[address] [facility] Creatinine 0.72 0.50 - 1.10 mg/dL LAB CHEMISTRY METHOD 09/27/2024 12:[address] [facility] eGFR 93 >=60 mL/min/1. 73m2 LAB CHEMISTRY METHOD 09/27/2024 12:[address] [facility] Comment:Calculation based on the??Chronic Kidney Disease Epidemiology Collaboration (CKD-EPI) equation refit??without adjustment for race. BUN/Creatinine Ratio 22.2 LAB CHEMISTRY METHOD 09/27/2024 12:[address] [facility] Calcium 9.1 8.5 - 10.5 mg/dL LAB CHEMISTRY METHOD 09/27/2024 12:[address] [facility] AST (SGOT) 17 10 - 42 unit/L LAB CHEMISTRY METHOD 09/27/2024 12:[address] [facility] ALT (SGPT) 19 10 - 60 unit/L LAB CHEMISTRY METHOD 09/27/2024 12:[address] [facility] Alkaline Phosphatase 74 42 - 121 unit/L LAB CHEMISTRY METHOD 09/27/2024 12:[address] [facility] Total Protein 6.4 6.0 - 8.0 g/dL LAB CHEMISTRY METHOD 09/27/2024 12:[address] [facility] Albumin 3.6 3.2 - 5.0 g/dL LAB CHEMISTRY METHOD 09/27/2024 12:[address] [facility] Total Bilirubin 0.2 0.0 - 1.4 mg/dL LAB CHEMISTRY METHOD 09/27/2024 12:[address] [facility] Blood Venous blood specimen / Unknown Venipuncture / Unknown 09/27/2024 10:28 AM EST 09/27/2024 11:24 AM EST us Mary Jo Vargas MD LAB BLOOD ORDERABLES Final Resul t [facility] [address] [place] [address], * Hepatitis C antibody (07/23/2024 11:59 AM EST) Hepatitis C Antibody Negative Negative LAB CHEMISTRY METHOD 07/23/2024 7:04 PM EST [facility] Blood Venous blood specimen / Unknown Venipuncture / Unknown 07/23/2024 11:59 AM EST 07/23/2024 12:33 PM EST us Shawnee Friedman MD LAB BLOOD ORDERABLES January duran Result [facility] [address] [place] [address], from Last 3 Months or Most Recently Relevant to Health Maintenance Additional Health Concerns Infection Onset Date Last Indicated Herpes simplex 07/23/2024 07/23/2024 Insurance [facility] MEDICARE Member Subscriber Plan / Payer (Ef fective 2024-Present) Name:Diana Chapman Relation to Subscriber:Self Name:Diana Chapman Payer ID:[id number] Group ID:[id number] Type:Not on file Address: [place] [address] [place] [address] Care Teams Science Interpreter Relationship Specialty Start Date End Date Name, MD Elijah [address] [place], [place] PCP - General 08/23/08
--- OUTSIDE RECORDS SUMMARY | 2024-12-17 12:52 | XMS_ITS | Encounter Summary ---
Author Organization [employer] Address [address] [place] [address] Care Team Providers Care Card Room Manager Name Role Phone Name, Elijah FRAGA Primary Care Provider [phone] Reason for Visit * Reason Onset Date Comments Nurse Triage 12/05/2023 Encounter Details Date Type Department Care Team ([facility] st Contact Info) Description 12/05/2023 Telephone [facility] [address] [place] [address] Name, MD Elijah [address] [place] [address] Nurse Triage Social History Tobacco Use Types [...] t he electric, gas, oil or water Hobby threatened to shut off services in your [...] painful. Pt is offered WIC today at [facility] but, declines to go today due tofamily member doing poorly. Pt requests provider for COOLER SERVICER to see Pt. Apt with JUJU Romero 12/06/23 @ 330pm at [facility] facility. Pt reports has been to [facility] before. Pt agrees with disposition. Advised to [...] Description 02/18/2025 10:45 AM EDT Office Visit [facility] [address] [place] [address] Ye Loera MD [address] [place] [address] documented as of this encounter Visit Diagnoses Not on filedocumented in this encounter Additional Health Concerns Assessment Noted Time PHQ-9 Depression Total Score: 0 12/23/19 23 2:25 PM EDT documented as of this encounter Care Teams Card Room Manager Relationship Specialty Start Date End Date Name, MD Elijah [address] [place] [address] PCP - General Family Medicine 08/08/18 09/24/24 documented as of this encounter
--- OUTSIDE RECORDS SUMMARY | 2024-12-17 12:53 | XMS_ITS | Data Portability ---
Author Organization [employer] [facility] [place] - [facility] Address [address] [place] [address] Care Team Providers Care Die Casting Machine Operator Name Role Phone NAME, DORYS Primary Care Provider HIM RYANNE OTHER Assessment Encounter Date Assessment Date Assessment LastModified by Organization Details LastModified Time 07/30/2024 07/30/2024 Impression: 63yo/f with hx of HTN, DM, anxiety, referred to [facility] for dizziness and elevated BP. Patient is [...] of more lightheadedness. Referred to [facility] for evaluation. For medic in home patient [...] of any new or worsening serious symptoms [email or web address] Not available 07/30/2024 14:01:43 Plan of Treatment Reminders Order Date Submit Date Provider Last Modified By Organization Details Last Modified Time Details Appointments None recorded. Lab BMP, serum or plasma [address], [phone] 5 21:01:44 BMP, serum or plasma 2023 024 [email or web address] [facility], [address] [place] [address], [phone] 4 14:03:08 Referral None recorded. Procedures None recorded. Surgeries None recorded. Imaging electroca rdiogram 2023 024 [email or web address] [facility], [address] [place] [address], [phone] 4 09:47:43 Medication Orders Valtrex 1 gram tablet 2024 025 [id number], [address] [place], [place], [id number], 19:13:21 Patient TargetsNo targets recorded. Patient InstructionsNo instructions recorded. Reason for Referral None Reported. Results Created Date Observation Date Name Description Value Unit Range Abnormal Flag Note LastModifiedBy Organization Detail LastModifiedTime 07/30/20 24 07/30/2024 johnnie perez am No observ ation record ed. [email or web address] [address], [phone] 07/30/2024 14:29:25 Result Notes None recorded. Procedures Surgical History None recorded. Imaging Results Imaging Date Name Status LastModified by Organization Details LastModified Time 07/30/2024 electrocardiogram completed [email or web address] [address], [phone] 07/30/2024 14:29:25 Procedure Notes None recorded. Medical Equipment None Reported. Allergies Allergen ID Allergen Name Allergen Category Reaction Reaction Severity Criticality Documentation Date Start Date Code Code System Note Provider Name and Address Organization Details Recorded Time 59030 tramadol medicatio n Not available Not available Not available 07/30/2024 35790 RxNorm Not Available [facility] - production 4 11:14:18 28442 acetamino phen / oxycodone medicatio n Not available Not available Not available 07/30/2024 77521 3 RxNorm Not Available [facility] - production [...] cm 100 % 100 % 98.5 [degF] 92105.4 8 g 16 /min 70 /min 148 [...] SNOMED-CT Code Diagnosis ICD10 Code Diagnosis Note 71078 Donnie Alvarez MD Main - [facility] [address] [place] [phone] 07/30/2024 13:23:50 07/30/2024 23:46:13 Dizziness 768094869 R42 [id number] JENNIFER SANDOVAL MD Main - [facility] [address] [place] [phone] 11/24/2024 18:46:57 11/26/2024 14:11:01 Herpes zoster 5839934 B02.9 Evaluation in the field was performed by my musical performer colleague, as noted above, I provided real-time [...] Saeed Member ID Guarantor Name 11/24/2024 1 [facility] - DOS ON OR AFTER 2022 - DUAL ELIGIBLE - HALFWAY OPTIONS AND ONE CARE (MEDICARE REPLACEMENT/ADV ANTAGE - HMO) Diana Chapman [id number] Diana Chapman Notes Date Note Type Note [...] Seizure activity Chief Complaints: Hypertension, DizzinessPMH: HypertensionComments: Content Publisher verified the patient's name//address and phone number. [...] emergency treatment if needed -HJustina Astorga RN Cardiopulmonary Technician And Eeg Tech Organization Information for Ravindra Zhang Legal Name: [employer]? Address: [address] [place] [address], C.O.D. Clerk: Michael Soto MD CLIA No.: [id number] Cardiopulmonary Technician And Eeg Tech POC Test Results from Ravindra Zhang EKG [...] ..................... ..................... ..................... ..................... ..................... ..................... ............... Cardiopulmonary Technician And Eeg Tech Note From Ravindra Zhang: [facility] makes pt contact with a 63 yo F CC of dizziness, Consent obtained and uploaded. [facility] obtains vitals, PT explains 5 months ago [...] of and monitored by her eye doctor. [facility] contacts [facility], [facility] requests an istat for labs and ekg to rule out anything cardiac. I state is obtained via left ac 21 g butterfly needle and bandaged appropriately, i stat results uploaded and confirmed with [facility]> EKG obtained and showed NSR non diagnostic. [facility] advises pt that he will flag her PCP to adjust or change her bp medication since she is not tolerating the side effects very well. [facility] explains that if she develops chest pain, sob, headache, or feels as if she is going to faint that she should call 911 or be seen in person. PT understands. [facility] clears. ..................... ..................... ..................... ..................... ..................... ..................... ............... [facility] Consulted: Donnie Alvarez ..................... ..................... ..................... ..................... ..................... ..................... ............... Disposition: Fulfilled Donnie Alvarez MD [address] [place] [address],[address], [place], [address] 07/30/2024 14:37:29 11/24/2024 text/html CRC Nurse Triage [...] the patient's name//address and phone number. Pt Bhutanese speaking primarily, pt reports she is having [...] emergency treatment if needed -Pauline Astorga RN Cardiopulmonary Technician And Eeg Tech Organization Information for Adam Valentin Legal Name: [facility] Address: [address] [place] [address], [place] [address], C.O.D. Clerk: David Dixon MD CLIA No.: [id number] Cardiopulmonary Technician And Eeg Tech POC Test Results from Adam Valentin [facility] (19:03:49) pH: 7.399 pH units pCO2: 35.4 mmHg pO2: 77.7 mmHg Na: 145 mmol/L K: 3.8 mmol/L iCa: 1.17 mmol/L Cl: 111 mmol/L TCO2: 21.1 mEq/L Hct: 36 % Hb: 12.3 g/dL Glu: 103 mg/dL Lac: 0.81 mmol/L Cr: 0.61 mg/dL BUN: 28.1 mg/dL A mmol/L HCO3: 21.9 mmol/L ..................... ..................... ..................... ..................... ..................... ..................... ............... Cardiopulmonary Technician And Eeg Tech Note From Adam Valentin: Arrived to find [...] morning. Concerning for shingles. No shingles vaccine. [facility] contacted in agreement for shingles. EPOC used for BMP which was unremarkable. [facility] to prescribe Po antiviral for infection. Advised patient of possible symptoms that can develop and informed patient that she is very contagious. Patient understood and in agreement. [facility] Lab Orders: BMP, serum or plasma: Performed ..................... ..................... ..................... ..................... ..................... ..................... ............... [facility] Consulted: Jennifer Sandoval ..................... ..................... ..................... ..................... ..................... ..................... ............... Disposition: Polina SANDOVAL MD [address] [facility],[address], [place], [address], [facility] 11/24/2024 19:31:41 OBGyn Episode No OBEpisode recorded.
--- OUTSIDE RECORDS SUMMARY | 2024-12-17 12:53 | XMS_ITS | Clinical Summary ---
Author Organization [employer] Address [address] [place] [address] Care Team Providers Care Asbestos Worker Name Role Phone Unavailable Primary Care Provider [...] Endometriosis 07/21/2022 Overview (07/21/2022): [place] in [place] in 2000 Irritable bowel syndrome 07/21/2022 Hemorrhoids [...] Type Department Care Team Description 12/10/2024 Refill [facility] [address] [place], [place] [phone] Elijah Mendoza MD Rash 2024 Telephone [facility] [address] [place], [place] [phone] El Araujo MD Appointment Request 11/13/2024 Refill [facility] [address] [place], [place] [phone] BalmMaribel FNP 09/20/2024 Telephone [facility] [address] [place], [place] [phone] Elijah Mendoza MD Call Back Request from Last 3 Months Immunizations Name Administration Dates Next Due INFLUENZA INJECTABLE QUADRIV ALANT CCIIV4 MDCK Multi-dose vial 04/08/2021 Influenza injectable quadriv alent IIV4 with preservative 07/06/2019,04/26/2018,05/29/2016 Influenza injectable quadriv alent preservative free 05/21/2022,05/20/2020 Influenza, IIV3, injectable 05/24/2016,1 ,08/06/2014,2012,05/25/2012,10/19/2011,08/26/2009 Influenza, seasonal, injecta ble, preservative free 04/21/2017 Novel [id number], preservative-free 08/26/2009 Tdap 08/23/2013 Social History Tobacco [...] Upcoming Encounters Date Type Department Care Team ([facility] st Contact Info) Description 02/18/2025 10:45 AM EDT Office Visit [facility] [address] [place] [address] IsaacsYe Law MD [address] [place] [address] Health Maintenance Due Date Last Done Comments [...] EDT Narrative 01/24/2024 1:57 PM EDT ? [facility] ? [address] ?[place] [address] ? Mammography Report ? Signed ? Patient: Ari,Diana ?MR#: [id number] ? : 1960 ?Acct:[id number] ? Age/Sex: 63 / F ?ADM Date: 01/06/24 ? Loc: HO.MAMMO ? Attending Dr: Elijah Mendoza MD ? Ordering Physician: Elijah Mendoza MD ?Results: 1Negative ? Date of Service: 01/06/24 ?Follow Up: 1 Year From Orig ?? inal Mammogram ? Procedure(s): MM tomosynthesis screening BI ?? Accession Number(s): [id number] ? cc: Kelly,Elijah FRAGA ? EXAMINATION: ?? [...] 1353 ? DD/ 1443 ? TD/TT: ? Historic Preservationist: ? Procedure Note Donotuseinterpreter, Image - 01/24/2024 Don [facility] [address] [place] [address] Mammography Report Signed Patient: Shabana Chapman#: [id number] : 9Acct:[id number] Age/Sex: 63 / FADM Date: 01/06/24 Loc: HO.MAMMO Attending Dr: Elijah Mendoza MD Ordering Physician: Elijah Mendoza MDResults: 1Negative Date of Service: 01/06/24Follow Up: 1 Year From Orig inal Mammogram Procedure(s): MM tomosynthesis screening BI Accession Number(s): [id number] cc: Elijah Mendoza MD EXAMINATION: MM SCREENING [...] in OV> 01/24/24 1353 DD/ 1443 TD/TT: Historic Preservationist: us Elijah Mendoza MD IMG BI PROCEDURES Final Result * (ABNORMAL) Lipid Panel, Standard (10/24/2023 12:00 PM EDT) Triglycerides 85 <150 mg/dL [facility] Comment:Desirable Triglyceri de: less than 150 mg/dLBorderline High Triglyceride 150-199 mg/dLHigh Triglyceride: 200-499 mg/dLVery High Triglyceride: greater than or equal to 5OO mg/dL Cholesterol 206(H) <200 mg/dL [facility] Comment:Desirable Cholestero l: less than 200 mg/dLBorderline High Cholesterol: 200-239 mg/dLHigh Cholesterol: greater than 239 mg/dL LDL Cholesterol Calculated 134(H) <100 mg/dL [facility] Comment:Desirable LDL: less than 100 mg/dLNear Optimal/Above Optimal LDL: 110- 129 mg/dLBorderline High LDL: 130-159 mg/dLHigh LDL: 160-189 mg/dLVery High LDL: greater than or equal to 190 mg/dL HDL Cholesterol 55 >40 mg/dL [facility] Comment:Desirable HDL: great er than 40 mg/dL Note: This HDL assay may give artificially low results in patients with liver disease. Blood Venous blood specimen / Unknown 10/24/2023 12:00 PM EDT 10/24/2023 1:06 PM EDT us Elijah Mendoza MD LAB BLOOD ORDERABLES Final Resul t [facility] [address] [place] [address] [phone] * (ABNORMAL) Hm Colonoscopy (02/22/2023) Colonoscopy Abnormal( A) Normal Comment:Tubular adenoma us Elijah Mendoza MD HEALTH MAINTENANCE Final Result from Last 3 Months or Most Recently Relevant to Health Maintenance Insurance [facility] LONG TERM OPTIONS (O D-SNP) [place] [id number]
--- OUTSIDE RECORDS SUMMARY | 2024-12-17 12:53 | XMS_ITS | Encounter Summary ---
Author Organization [employer] Address [address] [facility] [address] 7[address] [place] [address] Care Team Providers Care Bag Liner Name Role Phone Unavailable Primary Care Provider Unavailabl e Reason for Visit * Reason Comments Med Refill Encounter Details Date Type Department Care Team ([facility] st Contact Info) Description 12/10/[address] [facility] MEDICINE [address] [place], [place] [phone] Name, MD Elijah 230 [place] [address] Rash Social History Tobacco Use Types Packs/Day [...] 02/18/2025 10:45 AM EDT Office Visit [facility] [address] [place] [address] Ye Loera MD 505 [place] [address] documented as of this encounter Visit Diagnoses Diagnosis Rash Rash and other nonspecific skin eruption documented in this encounter Additional Health Concerns Assessment Noted Time PHQ-9 Depression Total Score: 0 12/23/19 23 2:25 PM EDT documented as of this encounter
--- OUTSIDE RECORDS SUMMARY | 2024-12-17 12:53 | XMS_ITS | Encounter Summary ---
Author Organization [employer] Address [address] [facility] 7t [place] [address] Care Team Providers Care Clinical Counselor Name Role Phone Name, Elijah FRAGA Primary Care Provider [phone] Reason for Visit * Reason Comments Med Refill Encounter Details Date Type Department Care Team (Late Contact Info) Description 09/23/2022 Refill [facility] MEDICINE 230 [place], [place] [phone] Name, MD Elijah 230 [place] [address] Depressive disorder Social History Tobacco Use Types [...] Description 02/18/2025 10:45 AM EDT Office Visit [facility] 505 [place], [place] [phone] Ye Loera MD 505 [place], [place] [phone] documented as of this encounter Visit Diagnoses Diagnosis Depressive disorder Depressive disorder, not elsewhere classified documented in this encounter Care Teams Clinical Counselor Relationship Specialty Start Date End Date Name, MD Elijah [address] [place] [address] PCP - General Family Medicine 08/08/18 09/24/24 documented as of this encounter
--- OUTSIDE RECORDS SUMMARY | 2024-12-17 12:53 | XMS_ITS | Encounter Summary ---
Author Organization [employer] Address [address] [place] [address] Care Team Providers Care Call Person Name Role Phone Name, Elijah FRAGA Primary Care Provider [phone] Reason for Visit * Reason Comments Med Refill Encounter Details Date Type Department Care Team (Late Contact Info) Description 07/23/2022 Refill [facility] MEDICINE 230 [place] [address] Name, MD Elijah 230 [place] [address] Social History Tobacco Use Types Packs/Day Years [...] Description 02/18/2025 10:45 AM EDT Office Visit [facility] MED [facility] PEDS 505 [place] [address] Ye Loera MD 505 [place], [place] [phone] documented as of this encounter Visit Diagnoses Not on filedocumented in this encounter Care Teams Call Person Relationship Specialty Start Date End Date Name, MD Elijah 230 [place] [address] PCP - General Family Medicine 08/08/18 09/24/24 documented as of this encounter
--- OUTSIDE RECORDS SUMMARY | 2024-12-17 12:53 | XMS_ITS | Encounter Summary ---
Author Organization [employer] Address [address] [facility] [address] 7t [place] [address] Care Team Providers Care Sewage Disposal Engineer Name Role Phone Unavailable Primary Care Provider Unavailabl e Reason for Visit * Reason Comments Med Refill Encounter Details Date Type Department Care Team ([facility] st Contact Info) Description 11/13/2024 Refill [facility] MEDICINE 230 [place], [place] [phone] [facility] 230 [place], [place] [phone] Social History Tobacco Use Types Packs/Day Years [...] Description 02/18/2025 10:45 AM EDT Office Visit [facility]ED[facility] 505 [place], [place] [phone] Ye Loera MD 505 [place], [place] [phone] documented as of this encounter Visit Diagnoses Not on filedocumented in this encounter Additional Health Concerns Assessment Noted Time PHQ-9 Depression Total Score: 0 12/23/19 23 2:25 PM EDT documented as of this encounter
--- OUTSIDE RECORDS SUMMARY | 2024-12-17 12:53 | XMS_ITS | Encounter Summary ---
Author Organization [employer] Address [address] [facility] 7t [place] [address] Care Team Providers Care Owner Consulting Engineer Name Role Phone Name, Elijah FRAGA Primary Care Provider [phone] Reason for Visit * Reason Onset Date Comments Appointment Request 03/31/2023 Encounter Details Date Type Department Care Team ([facility] st Contact Info) Description 03/31/2023 Telephone [facility] MEDICINE 230 [place], [place] [phone] Name, MD Elijah 230 [place] [address] Appointment Request Social History Tobacco Use Types [...] second half . Please contact pt at [phone] Luxembourger Speaker documented in this encounter Plan of Treatment Upcoming Encounters Date Type Department Care Team ([facility] st Contact Info) Description 02/18/2025 10:45 AM EDT Office Visit [facility] 505 [place] [address] Ye Loera MD 505 [place], [place] [phone] documented as of this encounter Visit Diagnoses Not on filedocumented in this encounter Additional Health Concerns Assessment Noted Time PHQ-9 Depression Total Score: 0 12/23/19 23 2:25 PM EDT documented as of this encounter Care Teams Owner Consulting Engineer Relationship Specialty Start Date End Date Name, MD Elijah 230 [place] [address] PCP - General Family Medicine 08/08/18 09/24/24 documented as of this encounter
--- OUTSIDE RECORDS SUMMARY | 2024-12-17 12:53 | XMS_ITS | Encounter Summary ---
Author Organization [employer] Address [address] [facility] [address] [facility] [address] [address] 7t [place] [address] Care Team Providers Care Maintenance Planner Name Role Phone Name, Elijah FRAGA Primary Care Provider [phone] Reason for Visit * Reason Onset Date Comments Reschedule 01/19/2024 Encounter Details Date Type Department Care Team ([facility] st Contact Info) Description 01/19/2024 Telephone [facility] MEDICINE 230 [place], [place] [phone] Name, MD Elijah 230 [place] [address] Reschedule Social History Tobacco Use Types Packs/Day [...] Description 02/18/2025 10:45 AM EDT Office Visit [facility] MED & PEDS 505 [place] [address] Ye Loera MD 505 [place] [address] documented as of this encounter Visit Diagnoses Not on filedocumented in this encounter Additional Health Concerns Assessment Noted Time PHQ-9 Depression Total Score: 0 12/23/19 23 2:25 PM EDT documented as of this encounter Care Teams Maintenance Planner Relationship Specialty Start Date End Date Name, MD Elijah 230 [place] [address] PCP - General Family Medicine 08/08/18 09/24/24 documented as of this encounter
== END 2024-12-17 13:10 | disposition home or self-care (01) ==
LOC: HO.HGI 12:26
PROVIDERS: PCP Internal Medicine; Visit Provider Nurse Practitioner Family
DX: R14.0 Abdominal distension (gaseous) (principal); R16.0 Hepatomegaly, not elsewhere classified; K21.9 Gastro-esophageal reflux disease without esophagitis; K58.1 Irritable bowel syndrome with constipation; K59.01 Slow transit constipation; R10.32 Left lower quadrant pain; R10.13 Epigastric pain
CPT/HCPCS: 99214; G2211

== ENCOUNTER → 2024-12-17 12:25 | Outpatient (BNVA) | payer OTHER, SELFPAY | PROVIDERS: PCP Internal Medicine; Visit Provider Nurse Practitioner Family | DX: K21.9 Gastro-esophageal reflux disease without esophagitis (principal); K59.04 Chronic idiopathic constipation; K58.1 Irritable bowel syndrome with constipation; K59.01 Slow transit constipation; R14.0 Abdominal distension (gaseous); R16.0 Hepatomegaly, not elsewhere classified; R10.32 Left lower quadrant pain; R10.13 Epigastric pain; E78.5 Hyperlipidemia, unspecified | CPT/HCPCS: 99212 ==

== ENCOUNTER 2024-12-25 13:54 | Outpatient (AMB) | payer OTHER, SELFPAY ==
--- NOTE | 2024-12-25 14:06 | MHC.OFFVIS ---
Intake Visit Reasons: follow up for R leg pain and swelling Intake Note: Patient states both legs are painful. Both swell as well. She states she has a bump on her left calf, left leg is worse. Accompanied by: Daughter Allergies acetaminophen [Percocet] Allergy (Unknown, Verified 12/25/24 14:10) itching oxycodone [Percocet] Allergy (Unknown, Verified 12/25/24 14:10) itching tramadol Allergy (Unknown, Verified 12/25/24 14:10) itching amlodipine Adverse Reaction (Intermediate, Verified 12/25/24 14:10) leg edema HPI HPI follow up for R leg pain and swelling: Details: The patient is a 64-year-old female presenting with left leg pain and a lump within the left knee joint. The patient's symptoms predominantly affect the left leg despite bilateral discomfort. She underwent an ultrasound two years ago which showed normal venous flow with no significant reflux. She continues to have significant discomfort of her lower extremities.. Recently, she experienced skin irritation diagnosed as shingles, but specialist evaluation dismissed shingles and suggested a possible burst blood clot. She now presents for vascular follow-up. [facility] Medical History Hepatomegaly Postprandial abdominal bloating Cataract (~11/2021) Surgical History History of esophagogastroduodenoscopy (EGD) Hx of colonoscopy H/O: hysterectomy History of bladder surgery H/O prior ablation treatment Family History Father Diabetes HTN (hypertension) Sister FH: kidney cancer HTN (hypertension) Mother HTN (hypertension) Sister HTN (hypertension) Sister HTN (hypertension) Sister HTN (hypertension) Sister HTN (hypertension) Brother HTN (hypertension) Social History Housing: Apartment Alcohol intake: never Patient Tobacco Use Status: Never used Tobacco e-Cigarette/Vaping Use: Never Used Second Hand Smoke Exposure: No service: No Current occupational status: unemployed Cognitive needs: No Hearing needs: No Vision needs: No Review of Systems Const Reports as per HPI ENT Reports no additional complaints Card Denies chest pain, Denies chest pain at rest and Denies chest pain with activity Resp Denies chest congestion and Denies cough GI Reports no additional complaints Musc Details: pain over varicosities, aching of lower extremities, swelling, cramping, heaviness and tiredness, itching Denies abnormal gait Skin/Breast Reports pruritus and Denies wounds Neuro Reports no additional complaints and Denies abnormal gait Psych Denies no additional complaints Physical Exam Const General: cooperative, healthy appearing and comfortable Orientation/consciousness: oriented to person, oriented to place and oriented to time Neck Carotids: no bruits Chest Chest palpation & inspection: normal inspection of the chest and normal palpation of entire chest wall Resp Effort & Inspection: normal respiratory effort and able to speak in complete sentences Cardio Rate: regular rate Heart sounds: S1 normal heart sound present and S2 normal heart sound present Peripheral pulses: Peripheral pulses 2+ throughout GI Inspection: Yes normal to inspection Skin Other: +2 edema, CEAP Classification C4 - skin color changes Ep - Etiology Primary As - superficial veins P - reflux Discolored area in the left posterior calf. General skin exam: dry skin Neuro General: oriented to person, oriented to place and oriented to time Extrem Right lower extremity: full ROM, normal capillary refill and edema Left lower extremity: full ROM, normal capillary refill and edema Psych Mental Status: mental status grossly normal Assessment & Plan Assessment & Plan (1) Varicose veins of right lower extremity with inflammation: Code(s): I83.11 - Varicose veins of right lower extremity with inflammation Category: Medical Plan: I discussed with the patient her left knee joint lump and previous skin irritation, which had different evaluations leading to the proposed further testing and specialist opinions. We reviewed the need for updated venous ultrasounds as it has been a significant. Since her last testing. We did discuss routine conservative measures including compression elevation and exercise. She will follow up with us after testing. Thank you for allowing us to assist in her care. Plan Patient was informed and verbally consented to the use of an ambient scribe for clinic note documentation during this visit. Orders: Orders US venous duplex LE BI 1 Week I83.11 - Varicose veins of right lower extremity with inflammation Patient Instructions: - Schedule and attend repeat venous ultrasound as per hospital scheduling. - Follow up with dermatology as recommended. - Notify immediately if there is an increase in pain or any new symptoms. - Await further guidelines post-tests. Coding Level of Care Code Est Pt Level 4 (90689) Complex EM visit Add On G2211 Diagnoses Varicose veins of right lower extremity with inflammation I83.11
--- OUTSIDE RECORDS SUMMARY | 2024-12-25 15:13 | XMS_ITS | Clinical Summary ---
Author Organization [employer] [facility] Address [address] [place] [address] Care Team Providers Care Managing Consultant Name Role Phone Provider, Not In System [...] age to complete this topic Care Teams Managing Consultant Relationship Specialty Start Date End Date Provider, Not In System PCP - General 11/23/17
--- OUTSIDE RECORDS SUMMARY | 2024-12-25 15:13 | XMS_ITS | Clinical Summary ---
Author Organization [address] Address [address] [place] [address] Phone Care Team Providers Care Grade Setter Name Role Phone Name, Elijah FRAGA Primary Care Provider [phone] Surgical History Surgery Date Site/Laterality Comments HYSTERECTOMY PROCEDURE: HISTORICAL HYSTERECTOMY; COMMENT: and BSO COLONOSCOPY 01/13/09 PROCEDURE: UT COLONOSCOPY STOMA DX INCLUDING COLLJ SPEC SPX; COMMENT: Up to cecum, good preparation, rectal polyp removed:Tubular adenoma. Repeat 01/2014 ESOPHAGOGASTRODUODENOSCOPY 05/20/09 PROCEDURE: UT EGD TRANSORAL BIOPSY SINGLE/MULTIPLE; COMMENT: Normal esophagus, [...] MD LAB BLOOD ORDERABLES Final Resul t [facility] [address] [place] [address], * (ABNORMAL) CBC auto differential (09/27/2024 10:28 AM EST) [facility] Signature WBC 5.6 4.8 - 10.8 K/mcL LAB HEMETOLOGY METHOD 09/27/2024 2:14 PM EST [facility] RBC 4.00 3.80 - 4.80 M/mcL LAB HEMETOLOGY METHOD 09/27/2024 2:14 PM EST [facility] Hemoglobin 12.0 11.5 - 16.0 [...] LAB HEMETOLOGY METHOD 09/27/2024 2:14 PM EST [facility] RDW 13.0 11.0 - 15.0 [...] LAB HEMETOLOGY METHOD 09/27/2024 2:14 PM EST [facility] Comment:This is an appended report. These results have been appended to a previously preliminary verified report. Monocytes Absolute 0.32 0.20 - 1.00 K/mcL LAB HEMETOLOGY METHOD 09/27/2024 2:14 PM EST [facility] Comment:This is an appended report. These results have been appended to a previously preliminary verified report. Eosinophils Absolute 0.26 0.00 - 0.50 K/mcL LAB HEMETOLOGY METHOD 09/27/2024 2:14 PM EST [facility] Comment:This is an appended report. These results have been appended to a previously preliminary verified report. Basophils Absolute 0.04 0.00 - 0.20 K/[facility] 09/27/2024 2:14 PM EST [facility] Comment:This is an appended report. These results have been appended to a previously preliminary verified report. Immature Granulocytes Absolute 0.02 0.00 - 0.03 K/[facility] LAB HEMETOLOGY METHOD 09/27/2024 2:14 PM EST [facility] Comment:This is an appended report. These results have been appended to a previously preliminary verified report. Blood Venous blood specimen / Unknown Venipuncture / Unknown 09/27/2024 10:28 AM EST 09/27/2024 11:25 AM EST us Mary Jo Vargas MD LAB BLOOD ORDERABLES Final Resul t [facility] [address] [place] [address], * (ABNORMAL) Vitamin D 25 hydroxy (09/27/2024 10:28 AM EST) Vit D, 25-Hydroxy 8.2(L) 30.0 - 80.0 ng/mL LAB CHEMISTRY METHOD 09/27/2024 12:24 PM EST [facility] Blood Venous blood specimen / Unknown Venipuncture / Unknown 09/27/2024 10:28 AM EST 09/27/2024 11:24 AM EST us Mary Jo Vargas MD LAB BLOOD ORDERABLES Final Resul t [facility] [address] [place] [address], * (ABNORMAL) Comprehensive metabolic panel (09/27/2024 10:28 [...] MD LAB BLOOD ORDERABLES Final Resul t [facility] [address] [place] [address], * Hepatitis C antibody (07/23/2024 11:59 AM EST) Hepatitis C Antibody Negative Negative LAB CHEMISTRY METHOD 07/23/2024 7:04 PM EST [facility] Blood Venous blood specimen / Unknown Venipuncture / Unknown 07/23/2024 11:59 AM EST 07/23/2024 12:33 PM EST us Shawnee Friedman MD LAB BLOOD ORDERABLES January duran Result [facility] [address] [place] [address], from Last 3 Months or Most Recently Relevant to Health Maintenance Additional Health Concerns Infection Onset Date Last Indicated Herpes simplex 07/23/2024 07/23/2024 Insurance [facility] Member Subscriber Plan / Payer (Ef fective 2024-Present) Name:Diana Chapman Relation to Subscriber:Self Name:Diana Chapman Payer ID:[id number] Group ID:[id number] Type:Not on file Address: [place] [address] [address] [address] Care Teams Grade Setter Relationship Specialty Start Date End Date Name, MD Elijah [address] [place], [place] PCP - General 08/23/08
--- OUTSIDE RECORDS SUMMARY | 2024-12-25 15:13 | XMS_ITS | Encounter Summary ---
Author Organization [employer] Address [address] [facility] [facility] [address] 7[address] [place] [address] Care Team Providers Care Watch Supervisor Name Role Phone Name, Elijah FRAGA Primary Care Provider Encounter Details Date Type Department Care Team ([facility] Contact Info) Description 12/24/2022 Abstract [facility] MED[facility] [address] [place], [place] [phone] Name, MD Elijah [address] [place] [address] Social History Tobacco Use Types Packs/Day Years [...] Upcoming Encounters Date Type Department Care Team ([facility] Contact Info) Description 02/18/2025 10:45 AM EDT Office [facility] [address] [place] [address] Ye Loera MD 505 [place] [address] documented as of this encounter Procedures Procedure [...] documented as of this encounter Care Teams Watch Supervisor Relationship Specialty Start Date End Date Name, MD Elijah [address] [place] [address] PCP - General Family Medicine 08/08/18 09/24/24 documented as of this encounter
--- OUTSIDE RECORDS SUMMARY | 2024-12-25 15:13 | XMS_ITS | Encounter Summary ---
Author Organization [employer] Address [address] 7[address] [place] [address] Care Team Providers Care Railroad Car Repair Supervisor Name Role Phone Name, Elijah FRAGA Primary Care Provider [phone] Reason for Visit * Reason Onset Date Comments Nurse Triage 12/05/2023 Encounter Details Date Type Department Care Team ([facility] st Contact Info) Description 12/05/2023 Telephone [facility] MEDICINE [address] [place], [place] [phone] Name, MD Elijah 230 [place] [address] Nurse Triage Social History Tobacco Use Types [...] past 12 months, has t he electric, [employer], oil or water Outsell threatened to shut off services in your [...] painful. Pt is offered WIC today at [facility] but, declines to go today due tofamily member doing poorly. Pt requests provider for HEALTHCARE FACILITY ADMINISTRATOR to see Pt. Apt with JUJU Romero 12/06/23 @ 330pm at [facility] facility. Pt reports has been to [facility] before. Pt agrees with disposition. Advised to [...] Description 02/18/2025 10:45 AM EDT Office Visit [facility] MED & PEDS [address] [place] [address] Ye Loera MD 505 [place] [address] documented as of this encounter Visit Diagnoses Not on filedocumented in this encounter Additional Health Concerns Assessment Noted Time PHQ-9 Depression Total Score: 0 12/23/19 23 2:25 PM EDT documented as of this encounter Care Teams Railroad Car Repair Supervisor Relationship Specialty Start Date End Date Name, MD Elijah [address] [place] [address] PCP - General Family Medicine 08/08/18 09/24/24 documented as of this encounter
--- OUTSIDE RECORDS SUMMARY | 2024-12-25 15:13 | XMS_ITS | Encounter Summary ---
Author Organization [employer] Address [address] [facility] [address] [place] [address] Care Team Providers Care Artist Color Separation Name Role Phone Name, Elijah FRAGA Primary Care Provider [phone] Reason for Visit * Reason Comments Med Refill Encounter Details Date Type Department Care Team (Late st Contact Info) Description 10/16/2023 Refill [facility] [address] [place] [address] Coty Santiago FNP Strain of left infraspinatus [...] Description 02/18/2025 10:45 AM EDT Office Visit [facility] MED & PEDS [address] [place] [address] Ye Loera MD 505 [place] [address] documented as of this encounter Visit Diagnoses Diagnosis Strain of left infraspinatus muscle, initial encounter documented in this encounter Additional Health Concerns Assessment Noted Time PHQ-9 Depression Total Score: 0 12/23/19 23 2:25 PM EDT documented as of this encounter Care Teams Artist Color Separation Relationship Specialty Start Date End Date Name, MD Elijah [address] [place] [address] PCP - General Family Medicine 08/08/18 09/24/24 documented as of this encounter
--- OUTSIDE RECORDS SUMMARY | 2024-12-25 15:13 | XMS_ITS | Encounter Summary ---
Author Organization [employer] Address [address] [facility] 7t [place] [address] Care Team Providers Care Leguillon Debeader Name Role Phone Name, Elijah FRAGA Primary Care Provider [phone] Reason for Visit * Reason Onset Date Comments Reschedule 01/19/2024 Encounter Details Date Type Department Care Team ([facility] st Contact Info) Description 01/19/2024 Telephone [facility] MEDICINE 230 [place], [place] [phone] Name, MD Elijah 230 [place] [address] Reschedule Social History Tobacco Use Types Packs/Day [...] Description 02/18/2025 10:45 AM EDT Office Visit [facility]EDS 505 [place] [address] IsaacsYe Law MD [address] [place] [address] documented as of this encounter Visit Diagnoses Not on filedocumented in this encounter Additional Health Concerns Assessment Noted Time PHQ-9 Depression Total Score: 0 12/23/19 23 2:25 PM EDT documented as of this encounter Care Teams Leguillon Debeader Relationship Specialty Start Date End Date Name, MD Elijah [address] [place] [address] PCP - General Family Medicine 08/08/18 09/24/24 documented as of this encounter
--- OUTSIDE RECORDS SUMMARY | 2024-12-25 15:13 | XMS_ITS | Encounter Summary ---
Author Organization [facility] Address [address] [place] [address] Care Team Providers Care Extruding Department Supervisor Name Role Phone Name, Elijah FRAGA Primary Care Provider [phone] Encounter Details Date Type Department Care Team (Late st Contact Info) Description 07/20/2024 Lab Requisition [facility] Lab [address] [facility] [place] [address] Shawnee Friedman MD [address] [place] [address] Functional dyspepsia Social History Tobacco Use Types [...] LAB CHEMISTRY METHOD 07/21/2024 7:24 AM EST [facility] Breath Oral cavity structure / Unknown 07/20/2024 07/20/2024 6:14 PM EST us Shawnee Friedman MD LAB BODY FLUIDS AND STOOL S ORDERABLES Final Result [facility] [address] [place] [address], documented in this encounter Visit Diagnoses Diagnosis Functional dyspepsia Dyspepsia and other specified disorders of function of stomach documented in this encounter Additional Health Concerns Infection Onset Date Last Indicated Resolved Time Herpes simplex 07/23/2024 07/23/2024 documented as of this encounter Care Teams Extruding Department Supervisor Relationship Specialty Start Date End Date Name, MD Elijah [address] [place], [place] PCP - General 08/23/08 documented as of this encounter
--- OUTSIDE RECORDS SUMMARY | 2024-12-25 15:14 | XMS_ITS | Encounter Summary ---
Author Organization [employer] Address [address] [facility] 7t [place] [address] Care Team Providers Care Provider Relations Specialist Name Role Phone Name, Elijah FRAGA Primary Care Provider [phone] Reason for Visit * Reason Comments Med Refill Encounter Details Date Type Department Care Team ([facility] st Contact Info) Description 09/23/2022 Refill [facility] MEDICINE [address] [place], [place] [phone] Name, MD Elijah [address] [place] [address] Depressive disorder Social History Tobacco Use Types [...] AM EST documented as of this encounter Functional Status * Over the past 2 weeks, how often have you been bothered by any of the following problems? Question Answer Date of Assessment Author Patient Health Questionnaire-2 Score 2 09/08 11:38 AM EST Erin Purcell * If you checked off any problems on this questionnaire so far, Question Answer Date of Assessment Author How difficult have these problems made it for you to do your work, take care of things at home, or get along with other people? Somewhat difficult 09/24/2022 11:38 AM EST Colon, Erin * Over the past 2 weeks, how often have you been bothered by any of the following problems? Question Answer Date of Assessment Author Little interest or pleasure in doing things Several days 09/24/2022 11:38 AM EST Colon, Erin Feeling down, depressed, or hopeless Several days 09/24/2022 11:38 AM EST Colon, Erin Trouble falling or staying asleep, or sleeping too much Several days 09/24/2022 11:38 AM EST Colon, Erin Feeling tired or having bijal le energy Several days 09/24/2022 11:38 AM EST Colon, Erin Poor appetite or overeating Not at all 09/24/2022 11 :38 AM EST Colon, Erin Feeling bad about yourself - or that you are a failure or have let yourself or your family down Several days 09/24/2022 11:38 AM EST Col on, Erin Trouble concentrating on thi ngs, such as reading the newspaper or watching television Several days 09/24/2022 11:38 AM EST Colon, Erin Moving or speaking so slowly that other people could have noticed? Or the opposite - being so fidgety or restless that you have been moving around a lot more than usual. Not at all 09/24/2022 11:38 AM EST Colon, Erin Thoughts that you would be better off or hurting yourself in some way Not at all 09/24/2022 11:38 AM EST Colon, Erin Patient Health Questionnaire -9 Score 6 09/24/2022 11:38 AM EST Colon, Erin documented as of this encounter Plan of Treatment Upcoming Encounters Date Type Department Care Team (Late st Contact Info) Description 02/18/2025 10:45 AM EDT Office Visit [facility] MED & PEDS [address] [place], [place] [phone] Ye Loera MD 505 [place] [address] documented as of this encounter Visit Diagnoses Diagnosis Depressive disorder Depressive disorder, not elsewhere classified documented in this encounter Care Teams Provider Relations Specialist Relationship Specialty Start Date End Date Name, MD Elijah [address] [place] [address] PCP - General Family Medicine 08/08/18 09/24/24 documented as of this encounter
--- OUTSIDE RECORDS SUMMARY | 2024-12-25 15:14 | XMS_ITS | Encounter Summary ---
Author Organization [employer] Address [address] [facility] [address] 7t [place] [address] Care Team Providers Care Squirt Machine Operator Name Role Phone Unavailable Primary Care Provider Unavailabl e Reason for Visit * Reason Comments Med Refill Encounter Details Date Type Department Care Team ([facility] st Contact Info) Description 11/13/2024 Refill [facility] MEDICINE 230 [place], [place] [phone] [facility] 230 [place] [address] Social History Tobacco Use Types Packs/Day Years [...] AM EDT Office Visit [facility] MED & PEDS [address] [place] [address] Ye Loera MD 505 [place] [address] documented as of this encounter Visit Diagnoses Not on filedocumented in this encounter Additional Health Concerns Assessment Noted Time PHQ-9 Depression Total Score: 0 12/23/19 23 2:25 PM EDT documented as of this encounter
--- OUTSIDE RECORDS SUMMARY | 2024-12-25 15:14 | XMS_ITS | Clinical Summary ---
Author Organization [employer] Address 75 [facility] 7t [place] [address] Care Team Providers Care Scoreboard Operator Name Role Phone Unavailable Primary Care [...] Endometriosis 07/21/2022 Overview (07/21/2022): s/p hysterectomy in [place] in 2000 Irritable bowel syndrome 07/21/2022 Hemorrhoids [...] Encounters Date Type Department Care Team Description 12/18/2024 Refill [facility] MEDICINE [address] [employer], [place] [phone] Name, MD Elijah 12/10/2024 Refill [facility] MEDICINE [address] [place] [address] Name, MD Elijah Rash 2024 Telephone [facility] MEDICINE [address] [employer], [place] [phone] El Araujo MD Appointment Request 11/13/2024 Refill [facility] MEDICINE [address] [employer], [place] [phone] AmesMaribel, KNIFE GRINDER from Last 3 Months Immunizations Immunization Administration Dates Next Due INFLUENZA INJECTABLE QUADRIV ALANT CCIIV4 MDCK Multi-dose vial 04/08/2021 Influenza injectable quadriv alent IIV4 with preservative 07/06/2019,04/26/2018,05/29/2016 Influenza injectable quadriv alent preservative free 05/21/2022,05/20/2020 Influenza, IIV3, injectable 05/24/2016,1 ,08/06/2014,2012,05/25/2012,10/19/2011,08/26/2009 Influenza, seasonal, injecta ble, preservative free 04/21/2017 Novel [id number], preservative-free 08/26/2009 Tdap 08/23/2013 Social History Tobacco [...] Upcoming Encounters Date Type Department Care Team ([facility] st Contact Info) Description 02/18/2025 10:45 AM EDT Office Visit [facility] MED & PEDS 505 [place] [address] Ye Loera MD 505 [place] [address] Health Maintenance Due Date Last Done Comments [...] EDT Narrative 01/24/2024 1:57 PM EDT ? [facility] ? [address] ?[place] [address] ? Mammography Report ? Signed ? Patient: Ari,Diana ?MR#: [id number] ? : 1960 ?Acct:[id number] ? Age/Sex: 63 / F ?ADM Date: 01/06/24 ? Loc: HO.MAMMO ? Attending Dr: Elijah Mendoza MD ? Ordering Physician: Elijah Mendoza MD ?Results: 1Negative ? Date of Service: 01/06/24 ?Follow Up: 1 Year From Orig ?? inal Mammogram ? Procedure(s): MM tomosynthesis screening BI ?? Accession Number(s): [id number] ? cc: Kelly,Elijah FRAGA ? EXAMINATION: ?? [...] 1353 ? DD/ 1443 ? TD/TT: ? Deicer Repairer: ? Procedure Note Donbetsyter, Image - 01/24/2024 [facility] [address] [place] [address] Mammography Report Signed Patient: Shabana Chapman#: [id number] : 9Acct:[id number] Age/Sex: 63 / FADM Date: 01/06/24 Loc: HO.MAMMO Attending Dr: Elijah Mendoza MD Ordering Physician: Elijah Mendozaesults: 1Negative Date of Service: 01/06/24Follow Up: 1 Year From Orig inal Mammogram Procedure(s): MM tomosynthesis screening BI Accession Number(s): [id number] cc: Elijah Mendoza MD EXAMINATION: MM SCREENING [...] in OV> 01/24/24 1353 DD/ 1443 TD/TT: Deicer Repairer: us Elijah Mendoza MD IMG BI PROCEDURES Final Result * (ABNORMAL) Lipid Panel, Standard (10/24/2023 12:00 PM EDT) Triglycerides 85 <150 mg/dL [facility] Comment:Desirable Triglyceri de: less than 150 mg/dLBorderline High Triglyceride 150-199 mg/dLHigh Triglyceride: 200-499 mg/dLVery High Triglyceride: greater than or equal to 5OO mg/dL Cholesterol 206(H) <200 mg/dL [facility] Comment:Desirable Cholestero l: less than 200 mg/dLBorderline High Cholesterol: 200-239 mg/dLHigh Cholesterol: greater than 239 mg/dL LDL Cholesterol Calculated 134(H) <100 mg/dL [facility] Comment:Desirable LDL: less than 100 mg/dLNear Optimal/Above Optimal LDL: 110- 129 mg/dLBorderline High LDL: 130-159 mg/dLHigh LDL: 160-189 mg/dLVery High LDL: greater than or equal to 190 mg/dL HDL Cholesterol 55 >40 mg/dL [facility] Comment:Desirable HDL: great er than 40 mg/dL Note: This HDL assay may give artificially low results in patients with liver disease. Blood Venous blood specimen / Unknown 10/24/2023 12:00 PM EDT 10/24/2023 1:06 PM EDT us Elijah Mendoza MD LAB BLOOD ORDERABLES Final Resul t [facility] [address] [place] [phone] * (ABNORMAL) Hm Colonoscopy (02/22/2023) Colonoscopy Abnormal( A) Normal Comment:Tubular adenoma us Elijah Mendoza MD HEALTH MAINTENANCE Final Result from Last 3 Months or Most Recently Relevant to Health Maintenance Insurance [facility] [employer]F-WAY OPTIONS (O D-SNP) GEOVANNY MCCARTHY [id number]
--- OUTSIDE RECORDS SUMMARY | 2024-12-25 15:14 | XMS_ITS | Encounter Summary ---
Author Organization [employer] Address [address] [facility] [address] 7[address] [place] [address] Care Team Providers Care Stretch Machine Operator Name Role Phone Unavailable Primary Care Provider Unavailabl e Reason for Visit * Reason Comments Med Refill Encounter Details Date Type Department Care Team ([facility] st Contact Info) Description 12/18/2024 Refill [facility] MEDICINE [address] [place], [place] [phone] Name, MD Elijah 230 [place] [address] Social History Tobacco Use Types Packs/Day Years [...] Description 02/18/2025 10:45 AM EDT Office Visit [facility] MED & PEDS 505 [place], [place] [phone] Ye Loera MD 505 [place] [address] documented as of this encounter Visit Diagnoses Not on filedocumented in this encounter Additional Health Concerns Assessment Noted Time PHQ-9 Depression Total Score: 0 12/23/19 23 2:25 PM EDT documented as of this encounter
--- OUTSIDE RECORDS SUMMARY | 2024-12-25 15:14 | XMS_ITS | Encounter Summary ---
Author Organization [employer] Address [address] [facility] [address] 7t [place] [address] Care Team Providers Care Secondary Connector Armature Name Role Phone Unavailable Primary Care Provider Unavailabl e Reason for Visit * Reason Comments Med Refill Encounter Details Date Type Department Care Team ([facility] st Contact Info) Description 12/10/2024 Refill [facility] MEDICINE 230 [place], [place] [phone] Name, MD Elijah 230 [place] [address] Rash Social History Tobacco Use Types Packs/Day [...] Description 02/18/2025 10:45 AM EDT Office Visit [facility] MED & PEDS 505 [place] [address] Ye Loera MD 505 [place] [address] documented as of this encounter Visit Diagnoses Diagnosis Rash Rash and other nonspecific skin eruption documented in this encounter Additional Health Concerns Assessment Noted Time PHQ-9 Depression Total Score: 0 12/23/19 23 2:25 PM EDT documented as of this encounter
--- OUTSIDE RECORDS SUMMARY | 2024-12-25 15:14 | XMS_ITS | Encounter Summary ---
Author Organization [employer] Address 75 [facility] 7t [place] [address] Care Team Providers Care Chief Cook Name Role Phone Name, Elijah FRAGA Primary Care Provider [phone] Reason for Visit * Reason Onset Date Comments Appointment Request 03/31/2023 Encounter Details Date Type Department Care Team ([facility] st Contact Info) Description 03/31/2023 Telephone [facility] MEDICINE 230 [place], [place] [phone] Name, MD Elijah [address] [place] [address] Appointment Request Social History Tobacco Use Types [...] second half . Please contact pt at [phone] Divehi Speaker documented in this encounter Plan of Treatment Upcoming Encounters Date Type Department Care Team ([facility] st Contact Info) Description 02/18/2025 10:45 AM EDT Office Visit [facility] MED & PEDS [address] [place] [address] Ye Loera MD 505 [place], [place] [phone] documented as of this encounter Visit Diagnoses Not on filedocumented in this encounter Additional Health Concerns Assessment Noted Time PHQ-9 Depression Total Score: 0 12/23/19 23 2:25 PM EDT documented as of this encounter Care Teams Chief Cook Relationship Specialty Start Date End Date Name, MD Elijah [address] [place] [address] PCP - General Family Medicine 08/08/18 09/24/24 documented as of this encounter
--- OUTSIDE RECORDS SUMMARY | 2024-12-25 15:14 | XMS_ITS | Data Portability ---
Author Organization [employer] [facility] Address [address] [place] [address] Care Team Providers Care Batch And Furnace Manager Name Role Phone NAME, DORYS Primary Care Provider [phone] HIM RYANNE OTHER Assessment Encounter Date Assessment Date Assessment LastModified by Organization Details LastModified Time 07/30/2024 07/30/2024 Impression: 63yo/f with hx of HTN, DM, anxiety, referred to [facility] for dizziness and elevated BP. Patient is [...] of more lightheadedness. Referred to [facility] for evaluation. For medic in home patient [...] of any new or worsening serious symptoms [email or web address] Not available 07/30/2024 14:01:43 Plan of Treatment Reminders Order Date Submit Date Provider Last Modified By Organization Details Last Modified Time Details Appointments None recorded. Lab BMP, serum or plasma [address], [phone] 5 21:01:44 BMP, serum or plasma 2023 024 [email or web address] [facility], [address] [place] [address], [phone] 4 14:03:08 Referral None recorded. Procedures None recorded. Surgeries None recorded. Imaging electroca rdiogram 2023 024 [email or web address] [facility], [address] [place] [address], [phone] 4 09:47:43 Medication Orders Valtrex 1 gram tablet 2024 025 [id number], [address] [place], [place], [phone], 19:13:21 Patient TargetsNo targets recorded. Patient InstructionsNo instructions recorded. Reason for Referral None Reported. Results Created Date Observation Date Name Description Value Unit Range Abnormal Flag Note LastModifiedBy Organization Detail LastModifiedTime 07/30/20 24 07/30/2024 johnnie perez am No observ ation record ed. [email or web address] [address], [phone] 07/30/2024 14:29:25 Result Notes None recorded. Procedures Surgical History None recorded. Imaging Results Imaging Date Name Status LastModified by Organization Details LastModified Time 07/30/2024 electrocardiogram completed [email or web address] [address], [phone] 07/30/2024 14:29:25 Procedure Notes None recorded. Medical Equipment None Reported. Allergies Allergen ID Allergen Name Allergen Category Reaction Reaction Severity Criticality Documentation Date Start Date Code Code System Note Provider Name and Address Organization Details Recorded Time 19688 tramadol medicatio n Not available Not available Not available 07/30/2024 67568 RxNorm Not Available [facility] - production 4 11:14:18 98802 acetamino phen / oxycodone medicatio n Not available Not available Not available 07/30/2024 43517 3 RxNorm Not Available [facility] - production [...] cm 100 % 100 % 98.5 [degF] 94823.4 8 g 16 /min 70 /min 148 [...] SNOMED-CT Code Diagnosis ICD10 Code Diagnosis Note [id number] Donnie Alvarez MD Main - [facility] [address] [place] [phone] 07/30/2024 13:23:50 07/30/2024 23:46:13 Dizziness [id number] [id number] JENNIFER SANDOVAL MD Main - [facility] [address] [place] [phone] 11/24/2024 18:46:57 11/26/2024 14:11:01 Herpes zoster 1223845 B02.9 Evaluation in the field was performed by my tipping machine operator colleague, as noted above, I provided real-time [...] Saeed Member ID Guarantor Name 11/24/2024 1 [facility] - DOS ON OR AFTER 2022 - DUAL ELIGIBLE - CORRECTION OPTIONS AND ONE CARE (MEDICARE REPLACEMENT/ADV ANTAGE - HMO) Diana Chapman [id number] Diana Chapman Notes Date Note Type Note [...] Seizure activity Chief Complaints: Hypertension, DizzinessPMH: HypertensionComments: Pattern Puncher verified the patient's name//address and phone number. [...] emergency treatment if needed -HJustina Astorga RN Real Estate Agent Organization Information for Ravindra Zhang Legal Name: [employer]? Address: [address] [place] [address], Abalone Fisherman: Michael Soto MD CLIA No.: [id number] Real Estate Agent POC Test Results from Ravindra Zhang EKG [...] ..................... ..................... ..................... ..................... ..................... ..................... ............... Real Estate Agent Note From Ravindra Zhang: [facility] makes pt contact with a 63 yo F CC of dizziness, Consent obtained and uploaded. [facility] obtains vitals, PT explains 5 months ago [...] of and monitored by her eye doctor. [facility] contacts [facility], [facility] requests an istat for labs and ekg to rule out anything cardiac. I state is obtained via left ac 21 g butterfly needle and bandaged appropriately, i stat results uploaded and confirmed with [facility]> EKG obtained and showed NSR non diagnostic. [facility] advises pt that he will flag her PCP to adjust or change her bp medication since she is not tolerating the side effects very well. [facility] explains that if she develops chest pain, sob, headache, or feels as if she is going to faint that she should call 911 or be seen in person. PT understands. [facility] clears. ..................... ..................... ..................... ..................... ..................... ..................... ............... [facility] Consulted: Donnie Alvarez ..................... ..................... ..................... ..................... ..................... ..................... ............... Disposition: Fulfilled Donnie Alvarez MD [address] [place] [address],[address], [place], [phone] [employer] 07/30/2024 14:37:29 11/24/2024 text/html CRC Nurse Triage [...] the patient's name//address and phone number. Pt Bolivian speaking primarily, pt reports she is having [...] emergency treatment if needed -Pauline Astorga RN Real Estate Agent Organization Information for Adam Valentin Legal Name: [facility] Address: [address] [place] [address], [place] White [address], Abalone Fisherman: David Dixon MD CLIA No.: [id number] Real Estate Agent POC Test Results from Adam Valentin [facility] (19:03:49) pH: 7.399 pH units pCO2: 35.4 mmHg pO2: 77.7 mmHg Na: 145 mmol/L K: 3.8 mmol/L iCa: 1.17 mmol/L Cl: 111 mmol/L TCO2: 21.1 mEq/L Hct: 36 % Hb: 12.3 g/dL Glu: 103 mg/dL Lac: 0.81 mmol/L Cr: 0.61 mg/dL BUN: 28.1 mg/dL A mmol/L HCO3: 21.9 mmol/L ..................... ..................... ..................... ..................... ..................... ..................... ............... Real Estate Agent Note From Adam Valentin: Arrived to find [...] morning. Concerning for shingles. No shingles vaccine. [facility] contacted in agreement for shingles. EPOC used for BMP which was unremarkable. [facility] to prescribe Po antiviral for infection. Advised patient of possible symptoms that can develop and informed patient that she is very contagious. Patient understood and in agreement. [facility] Lab Orders: BMP, serum or plasma: Performed ..................... ..................... ..................... ..................... ..................... ..................... ............... [facility] Consulted: Jennifer Sandoval ..................... ..................... ..................... ..................... ..................... ..................... ............... Disposition: Polina SANDOVAL MD [address] [facility],[address], [place], [address], [employer] 11/24/2024 19:31:41 OBGyn Episode No OBEpisode recorded.
--- OUTSIDE RECORDS SUMMARY | 2024-12-25 15:14 | XMS_ITS | Encounter Summary ---
Author Organization [employer] Address [address] [place] [address] Care Team Providers Care Tire Rebuilder Name Role Phone Name, Elijah FRAGA Primary Care Provider [phone] Reason for Visit * Reason Comments Med Refill Encounter Details Date Type Department Care Team (Late Contact Info) Description 07/23/2022 Refill [facility] MEDICINE [address] [place] [address] Name, MD Elijah [address] [place] [address] Social History Tobacco Use Types Packs/Day Years [...] Description 02/18/2025 10:45 AM EDT Office Visit [facility] CHC MED & PEDS [address] [place] [address] Ye Loera MD 505 [place], [place] [phone] documented as of this encounter Visit Diagnoses Not on filedocumented in this encounter Care Teams Tire Rebuilder Relationship Specialty Start Date End Date Name, MD Elijah [address] [place] [address] PCP - General Family Medicine 08/08/18 09/24/24 documented as of this encounter
== END 2024-12-25 14:47 | disposition home or self-care (01) ==
LOC: HO.HVS 13:55
PROVIDERS: PCP Internal Medicine; Visit Provider Surgery Vascular Surgery
DX: I83.11 Varicose veins of right lower extremity with inflammation (principal)
CPT/HCPCS: 99214; G2211

== ENCOUNTER → 2024-12-25 13:54 | Outpatient (BNVA) | payer OTHER, SELFPAY | PROVIDERS: PCP Internal Medicine; Visit Provider Surgery Vascular Surgery | DX: I83.11 Varicose veins of right lower extremity with inflammation (principal); R22.42 Localized swelling, mass and lump, left lower limb | CPT/HCPCS: 99212 ==

== ENCOUNTER 2025-01-24 13:18 | Outpatient (REF) | payer OTHER, SELFPAY ==
--- NOTE | ~2025-01-24 | US_ITS ---
EXAMINATION: US LOWER EXTREMITY VENOUS (REFLUX EXAM), BILATERAL CLINICAL INFORMATION: Varices COMPARISON: None. TECHNIQUE: Color flow triplex imaging and compression Doppler was performed to evaluate both the deep and the superficial systems bilaterally. To evaluate the superficial system, the examination was performed in the upright position. Color-flow Doppler ultrasound and compression ultrasound were utilized. In addition, maneuvers were utilized to demonstrate reflux. FINDINGS: 1. DEEP VENOUS ULTRASOUND OF THE RIGHT LOWER EXTREMITY: Common Femoral Vein: Compressible, normal respiratory variation and augmented flow. Femoral Vein: Compressible, normal color flow and augmentation. Popliteal Vein: Compressible, normal augmentation. Deep Reflux: There is no evidence of reflux in the deep system in either the common femoral vein, superficial femoral or the popliteal vein. There is no evidence of a Pollack's cyst. 2. SUPERFICIAL ULTRASOUND WITH DOPPLER OF RIGHT LOWER EXTREMITY: GREAT SAPHENOUS VEIN: Saphenofemoral Junction: 0.5 cm; Reflux: 0 ms Proximal Thigh: 0.4 cm; Reflux: 0 ms Mid Thigh: 0.2 cm; Reflux: 0 ms Distal Thigh: 0.3 cm; Reflux: 0 ms At Knee: 0.3 cm; Reflux: 0 ms Proximal Calf: 0.3 cm; Reflux: 0 ms Mid Calf: 0.3 cm; Reflux: 0 ms Distal Calf: 0.2 cm; Reflux: 0 ms DUPLICATED MEDIAL GREAT SAPHENOUS VEIN: Diameter: 0.3 cm. Reflux: NA DUPLICATED LATERAL GREAT SAPHENOUS VEIN: Diameter: 0.3 cm. Reflux: NA SMALL SAPHENOUS VEIN: Saphenopopliteal Junction: 0.2 cm; Reflux: 0 ms Proximal: 0.3 cm; Reflux: 0 ms Distal: 0.3 cm; Reflux: 0 ms VEIN OF GIACOMINI: Size: 0.3 cm. Reflux: NA PERFORATORS: Location: Mid calf. Size: 0.2 cm. Reflux: NA VARICOSITIES: Location: At the knee and midcalf. Size: 0.3-0.4 cm. Reflux: 2208 ms at the knee. 3. DEEP VENOUS ULTRASOUND OF THE LEFT LOWER EXTREMITY: Common Femoral Vein: Compressible, normal respiratory variation and augmented flow. Femoral Vein: Compressible, normal color flow and augmentation. Popliteal Vein: Compressible, normal augmentation. Deep Reflux: There is no evidence of reflux in the deep system in either the common femoral vein, superficial femoral or the popliteal vein. There is no evidence of a Pollack's cyst. 4. SUPERFICIAL ULTRASOUND WITH DOPPLER OF LEFT LOWER EXTREMITY: GREAT SAPHENOUS VEIN: Saphenofemoral Junction: 1.0 cm; Reflux: 0 ms Proximal Thigh: 0.3 cm; Reflux: 0 ms Mid Thigh: Not identified. Distal Thigh: 0.2 cm; Reflux: 0 ms At Knee: 0.1 cm; Reflux: 0 ms Proximal Calf: 0.3 cm; Reflux: 0 ms Mid Calf: 0.2 cm; Reflux: 1080 ms Distal Calf: 0.4 cm; Reflux: 752 ms DUPLICATED MEDIAL GREAT SAPHENOUS VEIN: Diameter: None imaged Reflux: NA DUPLICATED LATERAL GREAT SAPHENOUS VEIN: Diameter: 0.4 cm. Reflux: NA SMALL SAPHENOUS VEIN: Saphenopopliteal Junction: Not identified. Proximal: 0.1 cm; Reflux: 0 ms Distal: 0.3 cm; Reflux: 1240 ms VEIN OF GIACOMINI: Size: 0.3 cm. Reflux: NA PERFORATORS: Location: Mid to distal thigh and midcalf. Size: 0.1-0.4 cm. Reflux: 1632 ms and midcalf. VARICOSITIES: Location: At knee. Size: 0.3 cm. Reflux: 2640 ms. US/US venous insuf bilat IMPRESSION: Right: No venous insufficiency. Varices at the knee level with reflux. Left: Venous insufficiency, great saphenous vein from the mid calf to the ankle. Venous insufficiency, small saphenous vein at the distal calf. Varices at the knee with reflux. Perforators in the mid calf with reflux. Electronically signed by: Bruno Rothman MD 01/24/2025 02:54 PM EDT
--- OUTSIDE RECORDS SUMMARY | 2025-01-24 14:27 | XMS_ITS | Encounter Summary ---
Author Organization [employer] Address [address] [facility] [address] [place] [address] Care Team Providers Care Green Inspector Name Role Phone Name, Elijah FRAGA Primary Care Provider [phone] Encounter Details Date Type Department Care Team ([facility] Contact Info) Description 12/24/2022 Abstract [facility] MEDICINE 230 [place], [place] [phone] Name, MD Elijah 230 [place] [address] Social History Tobacco Use Types Packs/Day Years [...] Upcoming Encounters Date Type Department Care Team ([facility] Contact Info) Description 02/18/2025 10:45 AM EDT Office Visit [facility] CHC MED & PEDS [address] [place] [address] Ye Loera MD 505 [place] [address] documented as of this encounter Procedures Procedure [...] documented as of this encounter Care Teams Green Inspector Relationship Specialty Start Date End Date Name, MD Elijah [address] [place] [address] PCP - General Family Medicine 08/08/18 09/24/24 documented as of this encounter
== END 2025-01-24 13:19 | disposition home or self-care (01) ==
LOC: HO.US 13:18
PROVIDERS: Visit Provider Surgery Vascular Surgery
DX: I83.11 Varicose veins of right lower extremity with inflammation (principal)
CPT/HCPCS: 93970

== ENCOUNTER → 2025-01-24 13:20 | Outpatient (BNV) | payer OTHER, SELFPAY | PROVIDERS: Visit Provider Radiology Diagnostic Radiology | DX: I83.893 Varicose veins of bilateral lower extremities with other complications (principal) | CPT/HCPCS: 93970 ==

== ENCOUNTER 2025-01-31 09:04 | Outpatient (REF) | payer OTHER, SELFPAY ==
--- NOTE | ~2025-01-31 | US_ITS ---
EXAMINATION: US ABDOMEN LIMITED WITH LIVER ELASTOGRAPHY HISTORY: E78.5 - Hyperlipidemia; HEPATOMEGALY TECHNIQUE: Real-time grayscale ultrasound imaging of the right upper quadrant was performed and images were reviewed. COMPARISON: Comparison is made with the prior examination dated 12/19/2019. FINDINGS: Liver: The right lobe of the liver measures 14.5 cm in size. The left lobe of the liver measures 10.2 cm in size. The liver demonstrates mildly increased echotexture, consistent with steatosis. There is a 9 mm echogenic focus in the right lobe which likely represents a hemangioma. No intrahepatic biliary ductal dilatation is identified. There is normal hepatopedal flow in the portal vein. Ultrasound elastography of the liver was performed with 10 separate measurements of the liver parenchyma with the patient in the supine position. Measurements were obtained approximately 2 cm below Jw's capsule and perpendicular to the capsule. The median shear wave velocity is 1.14 m/s. The interquartile range/median (IQR/median) is 0.08. Gallbladder and biliary tree: The gallbladder is unremarkable, without evidence of calculi, wall thickening, or pericholecystic fluid. There is no sonographic Timmons sign. The common bile duct is normal in caliber measuring 4 mm. Right Kidney: The right kidney measures 10.1 cm in length. The right kidney is unremarkable, without evidence of masses, hydronephrosis, or calculi. Pancreas: The pancreatic head, neck, and body are unremarkable. The pancreatic tail is obscured by bowel gas. Abdominal aorta and inferior vena cava: The visualized portions of the abdominal aorta and inferior vena cava are normal in caliber. There is no free fluid in the right upper quadrant. US/US abdomen serrano w elastography IMPRESSION: Mild hepatic steatosis. Probable 9 mm hemangioma in the right lobe. The median shear wave velocity in the liver is 1.14 m/s, corresponding to a median liver stiffness of 3.90 kPa. The IQR/median value is 0.08. This is indicative of a quality data set. Findings are indicative of a normal elastography value with a low likelihood of severe fibrosis or cirrhosis. REFERENCE: Society of Radiologists in Ultrasound Liver Stiffness Thresholds (2019): LIVER STIFFNESS THRESHOLDS: *Shear wave velocity less than 1.3 m/s (Liver Stiffness equal or less than 5 kPa): High probability of being normal. *Shear wave velocity less than 1.7 m/s (Liver Stiffness less than 9 kPa): In the absence of other known clinical signs, rules out compensated advanced chronic liver disease. *Shear wave velocity between 1.7-2.1 m/s (Liver Stiffness 9-13 kPa): Suggestive of compensated advanced chronic liver disease but need further test for confirmation. *Shear wave velocity between 2.1-2.4 m/s (Liver Stiffness 13-17 kPa): Rules in compensated advanced chronic liver disease. *Shear wave velocity greater than 2.4 m/s (Liver Stiffness over 17 kPa): Suggestive of clinically significant portal hypertension. QUALITY OF DATA SET: *IQR/Median value equal or less than 0.15 implies a quality data set. *IQR/Median value over 0.15 implies a poor quality data set. SIGNIFICANT CHANGE FROM PRIOR EXAM: Significant change if liver stiffness measurement is 10% or greater from prior exam. OTHER CONSIDERATIONS: The stage of liver fibrosis may be overestimated in the setting of acute hepatitis, liver inflammation, elevated liver function tests, hepatic vascular congestion, obstructive cholestasis, non-fasting state, and infiltrative diseases such as amyloidosis and lymphoma. In some patients with NAFLD, the liver stiffness thresholds for compensated advanced chronic liver disease may be lower. In causes other than viral hepatitis and NAFLD, liver stiffness thresholds are not well established. Electronically signed by: Ruddy Medrano MD 01/31/2025 10:08 AM EDT
--- OUTSIDE RECORDS SUMMARY | 2025-01-31 09:49 | XMS_ITS | Encounter Summary ---
Author Organization [employer] Address [address] [place] [address] Care Team Providers Care Ceramic Plater Name Role Phone Name, Elijah FRAGA Primary Care Provider [phone] Encounter Details Date Type Department Care Team ([facility] Contact Info) Description 12/24/2022 Abstract [facility] MEDICINE [address] [place], [place] [id number] Name, MD Elijah [address] [place] [address] Social History Tobacco Use Types Packs/Day Years [...] Upcoming Encounters Date Type Department Care Team ([facility] Contact Info) Description 02/18/2025 10:45 AM EDT Office Visit [facility] CHC MED & PEDS [address] [place] [address] Ye Loera MD [address] [place] [address] documented as of this encounter Procedures Procedure [...] documented as of this encounter Care Teams Ceramic Plater Relationship Specialty Start Date End Date Name, MD Elijah [address] [place] [address] PCP - General Family Medicine 08/08/18 09/24/24 documented as of this encounter
== END 2025-01-31 09:05 | disposition home or self-care (01) ==
LOC: HO.US 09:04
PROVIDERS: PCP Internal Medicine; Visit Provider Nurse Practitioner Family
DX: R16.0 Hepatomegaly, not elsewhere classified (principal); E78.5 Hyperlipidemia, unspecified
CPT/HCPCS: 76705; 76981

== ENCOUNTER → 2025-01-31 09:07 | Outpatient (BNV) | payer OTHER, SELFPAY | PROVIDERS: PCP Internal Medicine; Visit Provider Radiology Diagnostic Radiology | DX: K76.0 Fatty (change of) liver, not elsewhere classified (principal) | CPT/HCPCS: 76705 ==

== ENCOUNTER 2025-02-04 12:59 | Outpatient (REF) | payer OTHER, SELFPAY ==
--- OUTSIDE RECORDS SUMMARY | 2025-02-04 13:22 | XMS_ITS | Clinical Summary ---
Author Organization [employer] [facility] Address [address] [place] [address] Care Team Providers Care Lead Software Test Engineer Name Role Phone Provider, Not In System [...] of 1 - PCV) 11/28/2023 Influenza Vaccine (Season Ended) 2025 RSV Adult > 60+ Yrs or Pregn ant (1 - 1-dose 75+ series) 2033 Hepatitis B Vaccines Aged Out No long er eligible based on patient's age to complete this topic RSV Ped < 20 months Aged Out No longe r eligible based on patient's age to complete this topic Care Teams Lead Software Test Engineer Relationship Specialty Start Date End Date Provider, Not In System PCP - General 11/23/17
--- OUTSIDE RECORDS SUMMARY | 2025-02-04 13:22 | XMS_ITS | Encounter Summary ---
Author Organization [facility] Address [address] [place] [address] Care Team Providers Care Last Trimmer Name Role Phone Name, Elijah FRAGA Primary Care Provider [phone] Encounter Details Date Type Department Care Team (Late st Contact Info) Description 07/20/2024 Lab Requisition [facility] - Main Lab [address] [facility] [address] [place] [address] Shawnee Friedman MD [address] [place] [address] Functional dyspepsia Social History Tobacco Use Types [...] LAB CHEMISTRY METHOD 07/21/2024 7:24 AM EST [facility] Breath Oral cavity structure / Unknown 07/20/2024 07/20/2024 6:14 PM EST us Shawnee Friedman MD LAB BODY FLUIDS AND STOOL S ORDERABLES Final Result [facility] [address] [place] [address], documented in this encounter Visit Diagnoses Diagnosis Functional dyspepsia Dyspepsia and other specified disorders of function of stomach documented in this encounter Additional Health Concerns Infection Onset Date Last Indicated Resolved Time Herpes simplex 07/23/2024 07/23/2024 documented as of this encounter Care Teams Last Trimmer Relationship Specialty Start Date End Date Name, MD Elijah [address] [place], [place] PCP - General 08/23/08 documented as of this encounter
--- OUTSIDE RECORDS SUMMARY | 2025-02-04 13:22 | XMS_ITS | Encounter Summary ---
Author Organization [employer] Address [address] [place] [address] Care Team Providers Care Medical Geneticist Name Role Phone Name, Elijah FRAGA Primary Care Provider [phone] Encounter Details Date Type Department Care Team ([facility] Contact Info) Description 12/24/2022 Abstract [facility] MEDICINE [address] [place], [place] [phone] Name, MD Elijah [address] [place] [address] Social History Tobacco Use Types Packs/Day Years [...] Upcoming Encounters Date Type Department Care Team ([facility] Contact Info) Description 02/18/2025 10:45 AM EDT Office Visit [facility] CHC MED & PEDS [address] [place] [address] Ye Loera MD [address] [place] [address] documented as of this encounter Procedures Procedure [...] as of this encounter Care Teams Medical Geneticist Relationship Specialty Start Date End Date Name, MD Elijah [address] [place] [address] PCP - General Family Medicine 08/08/18 09/24/24 documented as of this encounter
--- OUTSIDE RECORDS SUMMARY | 2025-02-04 13:23 | XMS_ITS | Data Portability ---
Author Organization [facility] [employer] [facility] [place] [facility] Address [address] [place] [address] Care Team Providers Care Cable Placer Name Role Phone NAME, DORYS Primary Care Provider [phone] HIM RYANNE OTHER Assessment Encounter Date Assessment Date Assessment LastModified by Organization Details LastModified Time 07/30/2024 07/30/2024 Impression: 63yo/f with hx of HTN, DM, anxiety, referred to [facility] for dizziness and elevated BP. Patient is [...] of more lightheadedness. Referred to [facility] for evaluation. For medic in home patient [...] of any new or worsening serious symptoms [email or web address] Not available 07/30/2024 14:01:43 Plan of Treatment Reminders Order Date Submit Date Provider Last Modified By Organization Details Last Modified Time Details Appointments None recorded. Lab BMP, serum or plasma [address], [address] 5 21:01:44 BMP, serum or plasma [address], [address] 4 14:03:08 Referral None recorded. Procedures None recorded. Surgeries None recorded. Imaging electroca rdiogram [address], [address] 4 09:47:43 Medication Orders Valtrex 1 gram tablet 2024 025 [id number], [address] [place], [place], [id number], 19:13:21 Patient TargetsNo targets recorded. Patient InstructionsNo instructions recorded. Reason for Referral None Reported. Results Created Date Observation Date Name Description Value Unit Range Abnormal Flag Note LastModifiedBy Organization Detail LastModifiedTime 07/30/20 24 07/30/2024 johnnie perez am No observ ation record ed. [email or web address] Main - [facility] [address] [place] [address], [phone] 07/30/2024 14:29:25 Result Notes None recorded. Medical Equipment None Reported. Allergies Allergen ID Allergen Name Allergen Category Reaction Reaction Severity Criticality Documentation Date Start Date Code Code System Note Provider Name and Address Organization Details Recorded Time 27846 tramadol medicatio n Not available Not available Not available 07/30/2024 87449 RxNorm Not Available [facility] - production 4 11:14:18 16350 acetamino phen / oxycodone medicatio n Not available Not available Not available 07/30/2024 75042 3 RxNorm Not Available [facility] - production [...] Not Available Not Available Vitals Date Recorded Heart rate Oxygen saturation Oxygen saturation in Arterial blood by Pulse oximetry Respiratory rate Body temperature Systolic blood pressure Diastolic blood pressure Provider Name and Address Organization Details Last Updated DateTime 5 80 /min 97 % 97 % 18 /min 98.5 [degF] 130 mm[Hg] 80 mm[Hg] Not Available [facility] production 5 18:47:01 Date Recorded Body height Oxygen saturation Oxygen saturation in Arterial blood by Pulse oximetry Body temperature Body weight Respiratory rate Heart rate Systolic blood pressure Diastolic blood pressure Provider Name and Address Organization Details Last Updated DateTime 4 154.94 cm 100 % 100 % 98.5 [degF] 97121.4 8 g 16 /min 70 /min 148 mm[Hg] 92 mm[Hg] Not Available [facility] - production 4 13:23:53 Social History None recorded. Functional Status None recorded. Mental Status None recorded. Family History Nothing Reported. Medical History No medical history recorded. Gynecological HistoryNo gynecological history recorded. Obstetrics History GPAL:G 0 P 0 0 0 0 Past Encounters Encounter ID Performer Location Encounter Start Date Encounter Closed Date Diagnosis/Indication Diagnosis SNOMED-CT Code Diagnosis ICD10 Code Diagnosis Note [id number] Donnie Alvarez MD Main - [address] [address] 07/30/2024 13:23:50 07/30/2024 23:46:13 Dizziness [id number] [id number] JENNIFER SANDOVAL MD [facility] - [address] [address] 11/24/2024 18:46:57 11/26/2024 14:11:01 Herpes zoster 8789415 B02.9 Evaluation in the field was performed by my carpet finishing supervisor colleague, as noted above, I provided real-time [...] Saeed Member ID Guarantor Name 11/24/[address] [facility] - DOS ON OR AFTER 2022 - DUAL ELIGIBLE - CORRECTION OPTIONS AND ONE CARE (MEDICARE REPLACEMENT/ADV ANTAGE - HMO) Diana Ari [id number] Diana Fleming Ari Notes Date Note Type Note Provider Name [...] Seizure activity Chief Complaints: Hypertension, DizzinessPMH: HypertensionComments: Rn Tele verified the patient's name//address and phone number. [...] emergency treatment if needed -Pauline Astorga RN Religion Teacher Organization Information for Ravindra Zhang Legal Name: [employer]. Address: [address] [place] [address], Cylinder Filler: Michael Soto MD CLIA No.: [id number] Religion Teacher POC Test Results from Ravindra Zhang EKG [...] ..................... ..................... ..................... ..................... ..................... ..................... ............... Religion Teacher Note From Ravindra Zhang: [facility] makes pt contact with a 63 yo F CC of dizziness, Consent obtained and uploaded. [facility] obtains vitals, PT explains 5 months [...] of and monitored by her eye doctor. [facility] contacts [facility] [facility] [place] an istat for labs and ekg to rule out anything cardiac. I state is obtained via left ac 21 g butterfly needle and bandaged appropriately, i stat results uploaded and confirmed with [facility] EKG obtained and showed NSR non diagnostic. [facility] advises pt that he will flag her PCP to adjust or change her bp medication since she is not tolerating the side effects very well. [facility] explains that if she develops chest pain, sob, headache, or feels as if she is going to faint that she should call 911 or be seen in person. PT understands. [facility] clears. ..................... ..................... ..................... ..................... ..................... ..................... ............... [facility] Consulted: Donnie Alvarez ..................... ..................... ..................... ..................... ..................... ..................... ............... Disposition: Fulfilled Donnie Alvarez MD [address] [place] [address],[address], [place], [address] 07/30/2024 14:37:29 11/24/2024 text/html CRC Nurse Triage Notes (Charles Astorga): Reason For Request: Pt reporting inflamed/rash/burn? site on her left calf>itchiness, pain, redness, which started todayDenies: Fields Flash, circumferential fields Fields reported with black tissue to the area Open skin area after a fall with uncontrolled bleeding Abscess/infection with streaking noted, presence of fever or without Chief Complaints: Extremity Pain, Wound CarePMH: Hypertension, FibromyalgiaPMH Reviewed at 11/24/2024 - 17:45Allergies Reviewed at 11/24/2024 - :45Comments: Additional PMH: ArthritisWriter verified the patient's name//address and phone number. Pt Yi speaking primarily, pt reports she is having [...] emergency treatment if needed -Pauline Astorga RN Religion Teacher Organization Information for Adam Valentin Legal Name: [facility] Address: [address] [place] [address], [place] [address], Cylinder Filler: David Dixon MD CLIA No.: [id number] Religion Teacher POC Test Results from Adam Valentin [facility] (19:03:49) pH: 7.399 pH units pCO2: 35.4 mmHg pO2: 77.7 mmHg Na: 145 mmol/L K: 3.8 mmol/L iCa: 1.17 mmol/L Cl: 111 mmol/L TCO2: 21.1 mEq/L Hct: 36 % Hb: 12.3 g/dL Glu: 103 mg/dL Lac: 0.81 mmol/L Cr: 0.61 mg/dL BUN: 28.1 mg/dL A mmol/L HCO3: 21.9 mmol/L ..................... ..................... ..................... ..................... ..................... ..................... ............... Religion Teacher Note From Adam Valentin: Arrived to find [...] morning. Concerning for shingles. No shingles vaccine. [facility] [place] in agreement for shingles. EPOC used for BMP which was unremarkable. [facility] to prescribe Po antiviral for infection. Advised patient of possible symptoms that can develop and informed patient that she is very contagious. Patient understood and in agreement. [facility] Lab Orders: BMP, serum or plasma: Performed ..................... ..................... ..................... ..................... ..................... ..................... ............... [facility] Consulted: Jennifer Sandoval ..................... ..................... ..................... ..................... ..................... ..................... ............... Disposition: Fulfilled JENNIFER SANDVOAL MD [address] [facility],[address], [place], [address], [facility] 11/24/2024 19:31:41 OBGyn Episode No OBEpisode recorded.
== END 2025-02-04 13:00 | disposition home or self-care (01) ==
LOC: HO.MAMMO 12:59
PROVIDERS: PCP Internal Medicine; Visit Provider Internal Medicine
DX: Z12.31 Encounter for screening mammogram for malignant neoplasm of breast (principal)
CPT/HCPCS: 77063; 77067

== ENCOUNTER → 2025-02-04 13:00 | Outpatient (BNV) | payer OTHER, SELFPAY | PROVIDERS: PCP Internal Medicine; Visit Provider Internal Medicine | DX: Z12.31 Encounter for screening mammogram for malignant neoplasm of breast (principal) | CPT/HCPCS: 77063; 77067 ==

== ENCOUNTER 2025-02-14 11:12 | Outpatient (AMB) | payer OTHER, SELFPAY ==
--- NOTE | 2025-02-14 11:20 | MHC.OFFVIS ---
Vital Signs 02/14/25 11:23 Height 5 ft 1 in Weight 190 lb BMI 35.9 Intake Visit Reasons: follow up s/p 01/24/25 Intake Note: follow up 01/24/25 for bilateral LE pain and Right calf bump. States she has hx of Left LE ablation w/ about 5 yrs ago. Accompanied by: Self / Same As Patient Allergies acetaminophen (Percocet) Allergy (Unknown, Verified 02/14/25 11:) itching oxycodone (Percocet) Allergy (Unknown, Verified 02/14/25 11:) itching tramadol Allergy (Unknown, Verified 02/14/25 11:) itching amlodipine Adverse Reaction (Intermediate, Verified 02/14/25 11:) leg edema HPI HPI follow up s/p 01/24/25: Details: Pleasant 64-year-old female presents for follow-up regarding venous insufficiency testing. She complains about pain. Upon further discussion with her it was discovered that it is more in the right posterior calf. She reports that she had a fall in an elevator nearly 2 years prior. She again fell on that right knee. She did go to physical therapy for nearly 5 months and did note some improvement with that. She now presents with concerns of the right posterior calf. [facility] Medical History Hepatomegaly Postprandial abdominal bloating Cataract (~11/2021) Surgical History History of esophagogastroduodenoscopy (EGD) Hx of colonoscopy H/O: hysterectomy History of bladder surgery H/O prior ablation treatment Family History Father Diabetes HTN (hypertension) Sister FH: kidney cancer HTN (hypertension) Mother HTN (hypertension) Sister HTN (hypertension) Sister HTN (hypertension) Sister HTN (hypertension) Sister HTN (hypertension) Brother HTN (hypertension) Social History Housing: Apartment Alcohol intake: never Patient Tobacco Use Status: Never used Tobacco e-Cigarette/Vaping Use: Never Used Second Hand Smoke Exposure: No service: No Current occupational status: unemployed Cognitive needs: No Hearing needs: No Vision needs: No Review of Systems Const All systems reviewed & are unremarkable except as noted in HPI and below Reports no additional complaints ENT Reports Normal hearing present Card Denies chest pain, Denies chest pain at rest, Denies chest pain with activity and Denies pedal edema Resp Denies cough GI Denies abdominal pain Musc Denies abnormal gait, Denies muscle cramps and Denies radiating pain into limb Skin/Breast Denies skin ulcer and Denies wounds Neuro Reports Normal hearing present and Denies abnormal gait Psych Reports no additional complaints Physical Exam Vital Signs: BMI result Body Mass Index 35.9 Const General: cooperative, healthy appearing and comfortable Orientation/consciousness: oriented to person, oriented to place and oriented to time HEENT Head: Yes normal to inspection Neck Neck: Yes normal visual inspection Carotids: no bruits Chest Chest palpation & inspection: normal inspection of the chest Resp Effort & Inspection: normal respiratory effort and able to speak in complete sentences Auscultation: clear to auscultation bilaterally, no crackles, no rales, no rhonchi and no wheezes Cardio Rate: regular rate Rhythm: regular rhythm Heart sounds: S1 normal heart sound present and S2 normal heart sound present Bruits: no carotid bruits Peripheral pulses: Peripheral pulses 2+ throughout GI Inspection: Yes normal to inspection Skin Wounds: no wounds Hair: normal Neuro General: oriented to person, oriented to place and oriented to time Cranial nerves: Yes CN's II-XII intact bilaterally and Yes Normal hearing present Cognition (Neuro): normal cognition Motor exam (neuro): 5/5 motor strength present throughout Extrem Other: venous exam: No significant superficial varicosities or spider telangiectasias, minimal edema General: No clubbing, No cyanosis and No edema Psych Appearance: grossly normal Mental Status: mental status grossly normal Speech and movement: Normal speech and movement present Results Reviewed Results Reviewed: Brief summary of venous insufficiency testing is as follows: right great saphenous vein: negative right small saphenous vein: negative right accessory vein: none present left great saphenous vein: negative left small saphenous vein: negative left accessory vein: none present Please note there is no evidence of any venous aneurysms or significant tortuosity Assessment & Plan Assessment & Plan (1) Right leg pain: Code(s): M79.604 - Pain in right leg Category: Medical Plan: In short patient has pain in the right lower extremity. This does not appear to be vascular in nature as she does have palpable arterial pulses in venous insufficiency testing has been essentially negative. At the current time would recommend continued conservative measures including compression elevation and exercise. Should pain persist I do believe she would benefit from an orthopedic evaluation. She will follow up with us on an as-needed basis. Thank you for allowing us to assist in her care. Coding Level of Care Code Est Pt Level 4 (17865) Complex EM visit Add On G2211 Diagnoses Right leg pain M79.604
[2025-02-14 11:23] VITALS: BMI 35.9
--- OUTSIDE RECORDS SUMMARY | 2025-02-14 11:57 | XMS_ITS | Encounter Summary ---
Author Organization [facility] Address [address] [place] [address] Care Team Providers Care Rock Contractor Name Role Phone Name, Elijah FRAGA Primary Care Provider [phone] Encounter Details Date Type Department Care Team (Late st Contact Info) Description 07/20/2024 Lab Requisition [facility] - Main Lab [address] [facility] [place] [address] Shawnee Friedman MD [address] [place] [address] Functional dyspepsia Social History Tobacco Use Types [...] LAB CHEMISTRY METHOD 07/21/2024 7:24 AM EST [facility] Breath Oral cavity structure / Unknown 07/20/2024 07/20/2024 6:14 PM EST us Shawnee Friedman MD LAB BODY FLUIDS AND STOOL S ORDERABLES Final Result [facility] [address] [place] [address], documented in this encounter Visit Diagnoses Diagnosis Functional dyspepsia Dyspepsia and other specified disorders of function of stomach documented in this encounter Additional Health Concerns Infection Onset Date Last Indicated Resolved Time Herpes simplex 07/23/2024 07/23/2024 documented as of this encounter Care Teams Rock Contractor Relationship Specialty Start Date End Date Name, MD Elijah [address] [place], [place] PCP - General 08/23/08 documented as of this encounter
--- OUTSIDE RECORDS SUMMARY | 2025-02-14 11:57 | XMS_ITS | Data Portability ---
Author Organization [facility] [employer] [facility], [place] in-[facility] Medical [facility] Address [address] [place] [address] Care Team Providers Care Manager Garden Name Role Phone NAME, DORYS Primary Care Provider HIM RYANNE OTHER Assessment Encounter Date Assessment Date Assessment LastModified by Organization Details LastModified Time 07/30/2024 07/30/2024 Impression: 63yo/f with hx of HTN, DM, anxiety, referred to [facility] for dizziness and elevated BP. Patient is [...] having episodes of more lightheadedness. Referred to [facility] for evaluation. For medic in home patient [...] of any new or worsening serious symptoms [email or web address] Not available 07/30/2024 14:01:43 Plan of Treatment Reminders Order Date Submit Date Provider Last Modified By Organization Details Last Modified Time Details Appointments None recorded. Lab BMP, serum or plasma 2024 025 [facility] [address], [address] 5 21:01:44 BMP, serum or plasma 2023 [email or web address], [address] 4 14:03:08 Referral None recorded. Procedures None recorded. Surgeries None recorded. Imaging electroca rdiogram [email or web address], [address] 4 09:47:43 Medication Orders Valtrex 1 gram tablet 2024 025 [id number], [address], [place], [phone], 19:13:21 Patient TargetsNo targets recorded. Patient InstructionsNo instructions recorded. Reason for Referral None Reported. Results Created Date Observation Date Name Description Value Unit Range Abnormal Flag Note LastModifiedBy Organization Detail LastModifiedTime 07/30/20 24 07/30/2024 johnnie perez am No observ ation record ed. [email or web address] Main - [facility] [address] [place] [address], [phone] 07/30/2024 14:29:25 Result Notes None recorded. Medical Equipment None Reported. Allergies Allergen ID Allergen Name Allergen Category Reaction Reaction Severity Criticality Documentation Date Start Date Code Code System Note Provider Name and Address Organization Details Recorded Time 79064 tramadol medicatio n Not available Not available Not available 07/30/2024 63014 RxNorm Not Available [facility] - production 4 11:14:18 99579 acetamino phen / oxycodone medicatio n Not available Not available Not available 07/30/2024 76607 3 RxNorm Not Available [facility] - production [...] Pulse oximetry Respiratory rate Body temperature Systolic And Diastolic Provider Name and Address Organization Details Last Updated DateTime 5 80 /min 97 % 97 % 18 /min 98.5 [degF] 130/80 mm[Hg] Not Available [facility] - production 5 18:47:01 Date Recorded Body height Oxygen saturation Oxygen saturation in Arterial blood by Pulse oximetry Body temperature Body weight Respiratory rate Heart rate Systolic And Diastolic Provider Name and Address Organization Details Last Updated DateTime 4 154.94 cm 100 % 100 % 98.5 [degF] 06823.4 8 g 16 /min 70 /min 148/92 mm[Hg] Not Available [facility] - production 4 13:23:53 Social History None recorded. Functional Status None recorded. Mental Status None recorded. Family History Nothing Reported. Medical History No medical history recorded. Gynecological HistoryNo gynecological history recorded. Obstetrics History GPAL:G 0 P 0 0 0 0 Past Encounters Encounter ID Performer Location Encounter Start Date Encounter Closed Date Diagnosis/Indication Diagnosis SNOMED-CT Code Diagnosis ICD10 Code Diagnosis Note [id number] Donnie Alvarez MD Main - [facility] [address] [place] [phone] 07/30/2024 13:23:50 07/30/2024 23:46:13 Dizziness [id number] [id number] JENNIFER SANDOVAL MD Main - [address] [phone] 11/24/2024 18:46:57 11/26/2024 14:11:01 Herpes zoster 4317887 B02.9 Evaluation in the field was performed by my edge burnisher uppers colleague, as noted above, I provided real-time [...] Saeed Member ID Guarantor Name 11/24/2024 1 [facility] - DOS ON OR AFTER 2022 - DUAL ELIGIBLE - INTERMEDIATE OPTIONS AND ONE CARE (MEDICARE REPLACEMENT/ADV ANTAGE - HMO) Diana Chapman [id number] Diana Chapman Notes Date Note Type Note [...] Seizure activity Chief Complaints: Hypertension, DizzinessPMH: HypertensionComments: Tool Maintenance Technician verified the patient's name//address and phone number. [...] emergency treatment if needed -Pauline Astorga RN [employer] Organization Information for Ravindra Zhang Legal Name: [employer]. Address: [address] [place] [address], Veneer Marker: Michael Soto MD CLIA No.: [id number] [employer] POC Test Results from Ravindra Zhang EKG [...] ..................... ..................... ..................... ..................... ..................... ..................... ............... [employer] Note From Ravindra Zhang: [facility] makes pt contact with a 63 yo F CC of dizziness, Consent obtained and uploaded. [facility] obtains vitals, PT explains 5 months [...] of and monitored by her eye doctor. [facility] contacts [facility], [facility] requests an istat for labs and ekg to rule out anything cardiac. I state is obtained via left ac 21 g butterfly needle and bandaged appropriately, i stat results uploaded and confirmed with [facility]> EKG obtained and showed NSR non diagnostic. [facility] advises pt that he will flag her PCP to adjust or change her bp medication since she is not tolerating the side effects very well. [facility] explains that if she develops chest pain, sob, headache, or feels as if she is going to faint that she should call 911 or be seen in person. PT understands. [facility] clears. ..................... ..................... ..................... ..................... ..................... ..................... ............... [facility] Consulted: Donnie Alvarez ..................... ..................... ..................... ..................... ..................... ..................... ............... Disposition: Fulfilled Donnie Alvarez MD [address] [place] [address],[address], [place], [address], [employer] 07/30/2024 14:37:29 11/24/2024 text/html CRC Nurse Triage [...] the patient's name//address and phone number. Pt Tristanian speaking primarily, pt reports she is having [...] emergency treatment if needed -Pauline Astorga RN [employer] Organization Information for Adam Valentin Legal Name: [facility] Transportation Address: [address] [place] [address], [place] [address], Veneer Marker: David Dixon MD CLIA No.: [id number] [employer] POC Test Results from Adam Valentin epoc (19:03:49) pH: 7.399 pH units pCO2: 35.4 mmHg pO2: 77.7 mmHg Na: 145 mmol/L K: 3.8 mmol/L iCa: 1.17 mmol/L Cl: 111 mmol/L TCO2: 21.1 mEq/L Hct: 36 % Hb: 12.3 g/dL Glu: 103 mg/dL Lac: 0.81 mmol/L Cr: 0.61 mg/dL BUN: 28.1 mg/dL A mmol/L HCO3: 21.9 mmol/L ..................... ..................... ..................... ..................... ..................... ..................... ............... [employer] Note From Adam Valentin: Arrived to find [...] morning. Concerning for shingles. No shingles vaccine. [facility] contacted in agreement for shingles. EPOC used for BMP which was unremarkable. [facility] to prescribe Po antiviral for infection. Advised patient of possible symptoms that can develop and informed patient that she is very contagious. Patient understood and in agreement. [facility] Lab Orders: BMP, serum or plasma: Performed ..................... ..................... ..................... ..................... ..................... ..................... ............... [facility] Consulted: Jennifer Sandoval ..................... ..................... ..................... ..................... ..................... ..................... ............... Disposition: Fulfilled JENNIFER SANDOVAL MD [address] [place] [address],[address], [place], [address], [employer] 11/24/2024 19:31:41 OBGyn Episode No OBEpisode recorded.
--- OUTSIDE RECORDS SUMMARY | 2025-02-14 11:57 | XMS_ITS | Encounter Summary ---
Author Organization [employer] Address [address] [place] [address] Care Team Providers Care Revenue Stamp Cutter Name Role Phone Name, Elijah FRAGA Primary Care Provider [phone] Encounter Details Date Type Department Care Team ([facility] Contact Info) Description 12/24/2022 Abstract [facility] MEDICINE [address] [place], [place] [phone] Name, MD Elijah [address] [place] [address] Social History Tobacco Use Types Packs/Day Years [...] Upcoming Encounters Date Type Department Care Team ([facility] Contact Info) Description 02/18/2025 10:45 AM EDT Office Visit [facility] CHC MED & PEDS [address] [place] [address] Ye Loera MD [address] [place] [address] documented as of this encounter Procedures Procedure [...] documented as of this encounter Care Teams Revenue Stamp Cutter Relationship Specialty Start Date End Date Name, MD Elijah [address] [place] [address] PCP - General Family Medicine 08/08/18 09/24/24 documented as of this encounter
--- OUTSIDE RECORDS SUMMARY | 2025-02-14 11:57 | XMS_ITS | Clinical Summary ---
Author Organization [employer] [facility] Address [address] [place] [address] Care Team Providers Care Assistant Banquet Manager Name Role Phone Provider, Not In System [...] 1 - PCV) 11/28/2023 Influenza Vaccine (#1) 2025 RSV Adult > 60+ Yrs or Pregn ant (1 - 1-dose 75+ series) 2033 Hepatitis B Vaccines Aged Out No long er eligible based on patient's age to complete this topic RSV Ped < 20 months Aged Out No longe r eligible based on patient's age to complete this topic Care Teams Assistant Banquet Manager Relationship Specialty Start Date End Date Provider, Not In System PCP - General 11/23/17
== END 2025-02-14 11:32 | disposition home or self-care (01) ==
LOC: HO.HVS 11:12
PROVIDERS: Visit Provider Surgery Vascular Surgery
DX: M79.604 Pain in right leg (principal)
CPT/HCPCS: 99214; G2211

== ENCOUNTER → 2025-02-14 11:12 | Outpatient (BNVA) | payer OTHER, SELFPAY | PROVIDERS: Visit Provider Surgery Vascular Surgery | DX: M79.604 Pain in right leg (principal) | CPT/HCPCS: 99212 ==

== ENCOUNTER 2025-02-18 11:47 | Outpatient (REF) | payer OTHER, SELFPAY ==
--- OUTSIDE RECORDS SUMMARY | 2025-02-18 12:54 | XMS_ITS | Data Portability ---
Author Organization [facility] [employer] [facility], [place] in-[facility] Medical [facility] Address [address] [place] [address] Care Team Providers Care Toe Pounder Name Role Phone NAME, DORYS Primary Care Provider [phone] HIM RYANNE OTHER Assessment Encounter Date Assessment Date Assessment LastModified by Organization Details LastModified Time 07/30/2024 07/30/2024 Impression: 63yo/f with hx of HTN, DM, anxiety, referred to [facility] for dizziness and elevated BP. [...] of more lightheadedness. Referred to [facility] for evaluation. For medic in [...] of any new or worsening serious symptoms [email or web address] Not available 07/30/2024 14:01:43 Plan of Treatment Reminders Order Date Submit Date Provider Last Modified By Organization Details Last Modified Time Details Appointments None recorded. Lab BMP, serum or plasma [address], [phone] 5 21:01:44 BMP, serum or plasma 2023 [email or web address], [phone] 4 14:03:08 Referral None recorded. Procedures None recorded. Surgeries None recorded. Imaging electroca rdiogram 2023 [email or web address], [phone] 4 09:47:43 Medication Orders Valtrex 1 gram tablet 2024 025 [id number], [address] [place], [place], [id number], 19:13:21 Patient TargetsNo targets recorded. Patient InstructionsNo instructions recorded. Reason for Referral None Reported. Results Created Date Observation Date Name Description Value Unit Range Abnormal Flag Note LastModifiedBy Organization Detail LastModifiedTime 07/30/20 24 07/30/2024 johnnie perez am No observ ation record ed. [email or web address] Main - [facility] [address] [place] [address], [phone] 07/30/2024 14:29:25 Result Notes None recorded. Medical Equipment None Reported. Allergies Allergen ID Allergen Name Allergen Category Reaction Reaction Severity Criticality Documentation Date Start Date Code Code System Note Provider Name and Address Organization Details Recorded Time 17741 tramadol medicatio n Not available Not available Not available 07/30/2024 74043 RxNorm Not Available [facility] - production 4 11:14:18 15485 acetamino phen / oxycodone medicatio n Not available Not available Not available 07/30/2024 18841 3 RxNorm Not Available [facility] - production [...] cm 100 % 100 % 98.5 [degF] 01669.4 8 g 16 /min 70 /min 148/92 mm[Hg] Not Available Image [facility] - production 4 13:23:53 Social History None recorded. Functional Status None recorded. Mental Status None recorded. Family History Nothing Reported. Medical History No medical history recorded. Gynecological HistoryNo gynecological history recorded. Obstetrics History GPAL:G 0 P 0 0 0 0 Past Encounters Encounter ID Performer Location Encounter Start Date Encounter Closed Date Diagnosis/Indication Diagnosis SNOMED-CT Code Diagnosis ICD10 Code Diagnosis Note [id number] Donnie Alvarez MD Main - [facility] [address] [place] [phone] 07/30/2024 13:23:50 07/30/2024 23:46:13 Dizziness [id number] R42 [id number] JENNIFER SANDOVAL MD Main - [address] [address] 11/24/2024 18:46:57 11/26/2024 14:11:01 Herpes zoster 6575233 B02.9 Evaluation in the field was performed by my sub arc operator colleague, as noted above, I provided [...] Saeed Member ID Guarantor Name 11/24/2024 1 [facility] - DOS ON OR AFTER 2022 - DUAL ELIGIBLE - [employer] OPTIONS AND ONE CARE (MEDICARE REPLACEMENT/ADV ANTAGE - HMO) Diana Chapman [id number] Diana Chapman Notes Date Note Type Note [...] Seizure activity Chief Complaints: Hypertension, DizzinessPMH: HypertensionComments: Security Lead verified the patient's name//address and phone number. [...] emergency treatment if needed -Pauline Astorga RN Broadcaster Organization Information for Ravindra Zhang Legal Name: [employer]. Address: [address] [place] [address], Machine Precision Engraver: Michael Soto MD CLIA No.: [id number] Broadcaster POC Test Results from Ravindra Zhang EKG [...] ..................... ..................... ..................... ..................... ..................... ..................... ............... Broadcaster Note From Ravindra Zhang: [facility] makes pt contact with a 63 yo F CC of dizziness, Consent obtained and uploaded. [facility] obtains vitals, PT explains 5 months [...] of and monitored by her eye doctor. [facility] contacts [facility], [facility] requests an istat for labs and ekg to rule out anything cardiac. I state is obtained via left ac 21 g butterfly needle and bandaged appropriately, i stat results uploaded and confirmed with [facility]> EKG obtained and showed NSR non diagnostic. [facility] advises pt that he will flag her PCP to adjust or change her bp medication since she is not tolerating the side effects very well. [facility] explains that if she develops chest pain, sob, headache, or feels as if she is going to faint that she should call 911 or be seen in person. PT understands. [facility] clears. ..................... ..................... ..................... ..................... ..................... ..................... ............... [facility] Consulted: Donnie Alvarez ..................... ..................... ..................... ..................... ..................... ..................... ............... Disposition: Fulfilled Donnie Alvarez MD [address] [place] [address],[address], [place], [address], [facility] 07/30/2024 14:37:29 11/24/2024 text/html CRC Nurse Triage Notes (Charles Astorga): Reason For Request: Pt reporting inflamed/rash/burn? site on her left calf>itchiness, pain, redness, which started todayDenies: Fields Flash, circumferential fields Fielsd reported with black tissue to the area Open skin area after a fall with uncontrolled bleeding Abscess/infection with streaking noted, presence of fever or without Chief Complaints: Extremity Pain, Wound CarePMH: Hypertension, FibromyalgiaPMH Reviewed at 11/24/2024 - 17:45Allergies Reviewed at 11/24/2024 - :45Comments: Additional PMH: ArthritisWriter verified the patient's name//address and phone number. Pt Kenyan speaking primarily, pt reports she is having [...] emergency treatment if needed -Pauline Astorga RN Broadcaster Organization Information for Adam Valentin Legal Name: [employer] Address: [address] [place] [address], [place] [address], Machine Precision Engraver: David Dixon MD CLIA No.: [id number] Broadcaster POC Test Results from Adam Valentin epoc (19:03:49) pH: 7.399 pH units pCO2: 35.4 mmHg pO2: 77.7 mmHg Na: 145 mmol/L K: 3.8 mmol/L iCa: 1.17 mmol/L Cl: 111 mmol/L TCO2: 21.1 mEq/L Hct: 36 % Hb: 12.3 g/dL Glu: 103 mg/dL Lac: 0.81 mmol/L Cr: 0.61 mg/dL BUN: 28.1 mg/dL A mmol/L HCO3: 21.9 mmol/L ..................... ..................... ..................... ..................... ..................... ..................... ............... Broadcaster Note From Adam Valentin: Arrived to find [...] morning. Concerning for shingles. No shingles vaccine. [facility] contacted in agreement for shingles. EPOC used for BMP which was unremarkable. [facility] to prescribe Po antiviral for infection. Advised patient of possible symptoms that can develop and informed patient that she is very contagious. Patient understood and in agreement. [facility] Lab Orders: BMP, serum or plasma: Performed ..................... ..................... ..................... ..................... ..................... ..................... ............... [facility] Consulted: Jennifer Sandoval ..................... ..................... ..................... ..................... ..................... ..................... ............... Disposition: Fulfilled JENNIFER SANDOVAL MD [address] [place] [address],[address], [place], [address], [facility] 11/24/2024 19:31:41 OBGyn Episode No OBEpisode recorded.
--- OUTSIDE RECORDS SUMMARY | 2025-02-18 12:54 | XMS_ITS | Encounter Summary ---
Author Organization [facility] Address [address] [place] [address] Care Team Providers Care Engineering Aide Name Role Phone Name, Elijah FRAGA Primary Care Provider [phone] Encounter Details Date Type Department Care Team (Late st Contact Info) Description 07/20/2024 Lab Requisition [facility] - Main Lab [address] [facility] [place] [address] Shawnee Friedman MD [address] [place] [address] Functional dyspepsia Social History Tobacco Use Types [...] LAB CHEMISTRY METHOD 07/21/2024 7:24 AM EST [facility] Breath Oral cavity structure / Unknown 07/20/2024 07/20/2024 6:14 PM EST us Shawnee Friedman MD LAB BODY FLUIDS AND STOOL S ORDERABLES Final Result [facility] [address] [place] [address], documented in this encounter Visit Diagnoses Diagnosis Functional dyspepsia Dyspepsia and other specified disorders of function of stomach documented in this encounter Additional Health Concerns Infection Onset Date Last Indicated Resolved Time Herpes simplex 07/23/2024 07/23/2024 documented as of this encounter Care Teams Engineering Aide Relationship Specialty Start Date End Date Name, MD Elijah [address] [place], [place] PCP - General 08/23/08 documented as of this encounter
--- OUTSIDE RECORDS SUMMARY | 2025-02-18 12:54 | XMS_ITS | Clinical Summary ---
Author Organization [facility] [employer] [facility] Address [address] [place] [address] Care Team Providers Care Tele Grout Sewer Line Repairer Name Role Phone Provider, Not In System [...] age to complete this topic Care Teams Tele Grout Sewer Line Repairer Relationship Specialty Start Date End Date Provider, Not In System PCP - General 11/23/17
--- OUTSIDE RECORDS SUMMARY | 2025-02-18 12:54 | XMS_ITS | Encounter Summary ---
Author Organization [employer] Address [address] [facility] 7[address] [place] [address] Care Team Providers Care Head Of Store Operations Name Role Phone Name, Elijah FRAGA Primary Care Provider [phone] Ye Loera MD Primary Care Prov ider Encounter Details Date Type Department Care Team ([facility] Contact Info) Description 12/24/[address] [facility] MEDICINE [address] [place], [place] [phone] Name, MD Elijah [address] [place] [address] Social History Tobacco Use Types Packs/Day Years [...] Upcoming Encounters Date Type Department Care Team ([facility] Contact Info) Description 03/21/2025 11:15 AM EDT Telemedicine [facility] MED & PEDS [address] [place] [address] Ye Loera MD [address] [place] [address] documented as of this encounter Procedures Procedure [...] documented as of this encounter Care Teams Head Of Store Operations Relationship Specialty Start Date End Date Name, MD Elijah [address] [place] [address] PCP - General Family Medicine 08/08/18 09/24/24 Ye Loera MD [address] [place] [address] PCP - General Internal Medicine 02/18/25 documented as of this encounter
[2025-02-18 15:45] LABS: Hematocrit 39.5 % (37.0-47.0); Hemoglobin 12.4 g/dl (12.0-16.0); Imm Gran Abs Auto 0.02 X10*3/uL (0.00-0.03); Imm Gran Pct Auto 0.3 % (0.0-0.4); Lymphocytes Absolute Auto 1.8 X10*3/uL (1.2-4.9); MANUAL DIFF FLAG NO; Mean Corpuscular HGB Conc 31.4 g/dl (31.0-35.0); Mean Corpuscular Hemoglobin 29.9 pg (27.0-33.0); Mean Corpuscular Volume 95.2 fL (80.0-98.0); NRBC Abs Auto 0.000 X10*3/uL (0.0-0.012); NRBC Pct Auto 0.0 /100WBC (0.0-0.2); Platelet Count 244 X10*3/uL (160-400); Red Blood Count 4.15 X10*6/uL (4.20-5.50); White Blood Count 5.8 X10*3/uL (4.8-10.8)
[2025-02-18 15:46] LABS: Hemoglobin A1C 112.1659 umol/L; Total Hemoglobin (HGBA1C) 3332.6638 umol/L
[2025-02-18 15:58] LABS: Alanine Aminotransferase 17 U/L (0-31); Albumin Level 4.3 g/dL (3.5-5.0); Alkaline Phosphatase 67 U/L (39-117); Anion Gap 10 (12-20); Aspartate Amino Transferase 26 U/L (5-31); Blood Urea Nitrogen 18 mg/dL (9-16); Calcium 9.3 mg/dL (8.4-10.2); Carbon Dioxide 28 mmol/L (22-29); Chloride 110 mmol/L (96-108); Cholesterol 215 mg/dL (<200); Estimated Glomerular Filt Rate > 60; HDL Cholesterol 58 mg/dL (>40); Potassium 4.2 mmol/L (3.3-5.1); Sodium 144 mmol/L (135-145); Total Protein 6.7 g/dL (6.5-8.0); Triglycerides 97 mg/dL (<150)
== END 2025-02-18 11:48 | disposition home or self-care (01) ==
LOC: HO.CHCLDS 11:47
PROVIDERS: Visit Provider Internal Medicine
DX: I10 Essential (primary) hypertension (principal)
CPT/HCPCS: 36415; 80053; 80061; 82306; 83036; 84443; 85025

== ENCOUNTER 2025-03-20 12:48 | Outpatient (AMB) | payer OTHER, SELFPAY ==
--- NOTE | 2025-03-20 12:52 | MHC.OFFVIS ---
Vital Signs 03/20/25 12:55 Height 5 ft 1 in Weight 185 lb 3.013 oz BMI 35.0 BP 144/86 H Blood Pressure Location Rt brachial Position Sitting Pulse 72 Pulse Source Pulse Oximeter Pulse Oximetry (%) 95 Oxygen Delivery Method Room Air Intake Visit Reasons: 3 mos FUV. GERD + CIC. Intake Note: ESTABLISHED PATIENT for CIC + Abd pain mgmt. Imaging done. CC: Pt denies any GI changes or new sx since last visit. Campus Interviews Intern Required: No Accompanied by: Self / Same As Patient Allergies acetaminophen (Percocet) Allergy (Unknown, Verified 03/20/25 12:52) itching oxycodone (Percocet) Allergy (Unknown, Verified 03/20/25 12:52) itching tramadol Allergy (Unknown, Verified 03/20/25 12:52) itching amlodipine Adverse Reaction (Intermediate, Verified 03/20/25 12:52) leg edema HPI HPI 3 mos FUV. GERD + CIC.: Details: LAST VISIT: Postprandial abdominal bloating Hepatomegaly GERD (gastroesophageal reflux disease) IBS (irritable bowel syndrome) Constipation LLQ abdominal pain Postprandial epigastric pain Plan Hepatomegaly seen on CT scan. Patient had normal liver enzymes. High cholesterol. Will send patient for ultrasound of the liver with elastography. Patient denies any abdominal pain or discomfort. She will continue taking esomeprazole. Avoid dietary triggers and late night snacking. Staying upright for minimal 3 hours after meals discussed with patient. Patient will stop taking senna and Colace. She will start taking Linzess daily. Will start her on 145 mcg daily. She will call us in 1-2 weeks if she will continue to be constipated. Patient was encouraged to increase fluid intake and activity to promote better bowel motility. She will follow-up in the office in 3 months, sooner on as needed basis. She is agreeable to this plan and verbalizes understanding of instructions. She was given the opportunity to ask questions and all questions answered. ? Thank you for allowing me to participate in her care Orders US abdomen serrano w elastography Today E78.5, R16.0 New linaclotide (Linzess) 145 mcg PO DAILY 30 caps 4RF K59.04 Refilled esomeprazole magnesium (Nexium) 40 mg PO DAILY 90 caps 2RF K21.9 Discontinued docusate sodium Discontinued Reason: Doctor's Order 200 mg (2 x 100 mg) PO DAILY 60 caps 3RF K59.00 TODAY'S VISIT Patient is here today for follow-up and to discuss ultrasound results. Normal elastography. Patient reports that she started taking Linzess 145 mcg daily and she reports that half an hour later she has to run to the bathroom. Patient states that she can not go anywhere where she takes the medication. Patient denies melena, hematochezia, unintentional weight loss or ribbon like stools. Patient denies dyspepsia, dysphagia or odynophagia. Patient reports that Nexium is working and she is not experiencing any acid reflux. Patient denies abdominal pain. Occasional postprandial abdominal bloating depending on what she eats. [facility] Medical History Hepatomegaly Postprandial abdominal bloating Cataract (~11/2021) Surgical History History of esophagogastroduodenoscopy (EGD) Hx of colonoscopy H/O: hysterectomy History of bladder surgery H/O prior ablation treatment Family History Father Diabetes HTN (hypertension) Sister FH: kidney cancer HTN (hypertension) Mother HTN (hypertension) Sister HTN (hypertension) Sister HTN (hypertension) Sister HTN (hypertension) Sister HTN (hypertension) Brother HTN (hypertension) Social History Housing: Apartment Alcohol intake: never Patient Tobacco Use Status: Never used Tobacco e-Cigarette/Vaping Use: Never Used Second Hand Smoke Exposure: No service: No Current occupational status: unemployed Cognitive needs: No Hearing needs: No Vision needs: No Review of Systems Const Denies weight gain and Denies weight loss ENT Reports no additional complaints, Denies dysphagia and Denies odynophagia Card Reports no additional complaints Resp Reports no additional complaints GI Reports abdominal pain, Denies belching, Denies melena, Denies bloating, Denies change in bowel habits, Denies dysphagia, Denies excessive flatus, Denies dyspepsia, Denies heartburn, Denies diarrhea, Denies loose stools, Denies nausea, Denies odynophagia and Denies vomiting Reports no additional complaints Musc Reports no additional complaints Neuro Reports no additional complaints Psych Reports no additional complaints Endo Reports no additional complaints Physical Exam Vital Signs: BMI result Body Mass Index 35.0 Const General: healthy appearing, no acute distress and well developed Nutritional Appearance: well nourished and obese Orientation/consciousness: patient oriented x3 Resp Effort & Inspection: normal respiratory effort, able to speak in complete sentences, no tracheal deviation and symmetric chest movement Auscultation: clear to auscultation bilaterally Cardio Rate: regular rate Heart sounds: S1 normal heart sound present and S2 normal heart sound present GI Inspection: Yes normal to inspection, No distended and Yes obesity Palpation (GI): Soft to palpation, not firm, nontender and No hepatosplenomegaly present Auscultation: normal bowel sounds General: Yes no CVA tenderness Back/Spine/Pelvis Back: no CVA tenderness Skin General skin exam: elasticity normal, turgor normal and dry skin Neuro General: patient oriented x3 Psych Appearance: grossly normal Mental Status: mental status grossly normal Results Reviewed Results Reviewed: ABDOMINAL ULTRASOUND WITH LIVER ELASTOGRAPHY FINDINGS: Liver: The right lobe of the liver measures 14.5 cm in size. The left lobe of the liver measures 10.2 cm in size. The liver demonstrates mildly increased echotexture, consistent with steatosis. There is a 9 mm echogenic focus in the right lobe which likely represents a hemangioma. No intrahepatic biliary ductal dilatation is identified. There is normal hepatopedal flow in the portal vein. Ultrasound elastography of the liver was performed with 10 separate measurements of the liver parenchyma with the patient in the supine position. Measurements were obtained approximately 2 cm below Jw's capsule and perpendicular to the capsule. The median shear wave velocity is 1.14 m/s. The interquartile range/median (IQR/median) is 0.08. Gallbladder and biliary tree: The gallbladder is unremarkable, without evidence of calculi, wall thickening, or pericholecystic fluid. There is no sonographic Timmons sign. The common bile duct is normal in caliber measuring 4 mm. Right Kidney: The right kidney measures 10.1 cm in length. The right kidney is unremarkable, without evidence of masses, hydronephrosis, or calculi. Pancreas: The pancreatic head, neck, and body are unremarkable. The pancreatic tail is obscured by bowel gas. Abdominal aorta and inferior vena cava: The visualized portions of the abdominal aorta and inferior vena cava are normal in caliber. There is no free fluid in the right upper quadrant. US/US abdomen serrano w elastography IMPRESSION: Mild hepatic steatosis. Probable 9 mm hemangioma in the right lobe. The median shear wave velocity in the liver is 1.14 m/s, corresponding to a median liver stiffness of 3.90 kPa. The IQR/median value is 0.08. This is indicative of a quality data set. Findings are indicative of a normal elastography value with a low likelihood of severe fibrosis or cirrhosis. Assessment & Plan Assessment & Plan (1) Chronic GERD: Code(s): K21.9 - Gastro-esophageal reflux disease without esophagitis Category: Medical (2) Dyspepsia: Code(s): R10.13 - Epigastric pain Category: Medical (3) Hepatomegaly: Code(s): R16.0 - Hepatomegaly, not elsewhere classified Category: Medical (4) Postprandial abdominal bloating: Code(s): R14.0 - Abdominal distension (gaseous) Category: Medical (5) Non-alcoholic fatty liver disease: Code(s): K76.0 - Fatty (change of) liver, not elsewhere classified (6) Constipation: Code(s): K59.00 - Constipation, unspecified Qualifiers: Constipation type: slow transit constipation Qualified Code(s): K59.01 - Slow transit constipation Plan Continue Nexium. Avoid dietary triggers and late night snacking. Staying upright for minimum 3 hours after meals discussed with patient. Change Linzess to 72 mcg daily. Increase fluid intake and activity to promote better bowel motility. Patient was encouraged to take svrl-vfv-tzsmeeu fiber supplements with pre and probiotics. Follow-up in 3 months, sooner on as needed basis. Patient is agreeable to this plan and verbalizes understanding of instructions. She was given the opportunity to ask questions and all questions answered. Thank you for allowing me to participate in her care Orders: Orders XR chest 2V Today Z87.01 - Personal history of pneumonia (recurrent) Medications: New linaclotide (Linzess) 72 mcg PO DAILY 30 caps 4RF Discontinued linaclotide (Linzess) Discontinued Reason: Doctor's Order 145 mcg PO DAILY 30 caps 4RF K59.04 - Chronic idiopathic constipation Coding Level of Care Code Est Pt Level 4 (27124) Complex EM visit Add On G2211 Diagnoses Chronic GERD K21.9 Dyspepsia R10.13 Hepatomegaly R16.0 Postprandial abdominal bloating R14.0 Non-alcoholic fatty liver disease K76.0 Slow transit constipation K59.01 Constipation type: slow transit constipation Time Spent (min) 35 Comment 25 minutes spent with patient and additional 10 minutes spent reviewing her records
[2025-03-20 12:55] VITALS: BP 144/86; PULSE 72; O2SAT 95; BMI 35.0
--- OUTSIDE RECORDS SUMMARY | 2025-03-20 13:18 | XMS_ITS | Encounter Summary ---
Author Organization [facility] Address [address] [place] [address] Care Team Providers Care Database Technician Name Role Phone Name, Elijah FRAGA Primary Care Provider [phone] Encounter Details Date Type Department Care Team (Late st Contact Info) Description 07/20/[address] [facility] - Main Lab [address] [facility] [place] [address] Shawnee Friedman MD [address] [place] [address] Functional dyspepsia Social History Tobacco Use Types [...] LAB CHEMISTRY METHOD 07/21/2024 7:24 AM EST [facility] Breath Oral cavity structure / Unknown 07/20/2024 07/20/2024 6:14 PM EST us Shawnee Friedman MD LAB BODY FLUIDS AND STOOL S ORDERABLES Final Result [facility] [address] [place] [address], documented in this encounter Visit Diagnoses Diagnosis Functional dyspepsia Dyspepsia and other specified disorders of function of stomach documented in this encounter Additional Health Concerns Infection Onset Date Last Indicated Resolved Time Herpes simplex 07/23/2024 07/23/2024 documented as of this encounter Care Teams Database Technician Relationship Specialty Start Date End Date Name, MD Elijah [address] [place], [place] PCP - General 08/23/08 documented as of this encounter
--- OUTSIDE RECORDS SUMMARY | 2025-03-20 13:18 | XMS_ITS | Encounter Summary ---
Author Organization [employer] Address [address] [facility] [address] [place] [address] Care Team Providers Care Water Carter Name Role Phone Name, Elijah FRAGA Primary Care Provider [phone] Ye Loera MD Primary Care Prov ider Encounter Details Date Type Department Care Team ([facility] Contact Info) Description 12/24/2022 Abstract [facility] MEDICINE [address] [place], [place] [id number] Name, MD Elijah [address] [place] [address] Social History Tobacco Use Types Packs/Day Years [...] [facility] Contact Info) Description 03/21/2025 11:15 AM EDT Telemedicine [facility] MED & PEDS [address] [place] [address] Ye Loera MD [address] [place] [address] documented as of this encounter Procedures Procedure [...] documented as of this encounter Care Teams Water Carter Relationship Specialty Start Date End Date Name, MD Elijah [address] [place] [address] PCP - General Family Medicine 08/08/18 09/24/24 Ye Loera MD [address] [place] [address] PCP - General Internal Medicine 02/18/25 documented as of this encounter
--- OUTSIDE RECORDS SUMMARY | 2025-03-20 13:18 | XMS_ITS | Clinical Summary ---
Author Organization [facility] Address [address] [place] [address] Care Team Providers Care Nursing Teacher Name Role Phone Provider, Not In System [...] age to complete this topic Care Teams Nursing Teacher Relationship Specialty Start Date End Date Provider, Not In System PCP - General 11/23/17
== END 2025-03-20 13:20 | disposition home or self-care (01) ==
LOC: HO.HGI 12:49
PROVIDERS: PCP Internal Medicine; Visit Provider Nurse Practitioner Family
DX: K21.9 Gastro-esophageal reflux disease without esophagitis (principal); R10.13 Epigastric pain; R16.0 Hepatomegaly, not elsewhere classified; R14.0 Abdominal distension (gaseous); K76.0 Fatty (change of) liver, not elsewhere classified; K59.01 Slow transit constipation
CPT/HCPCS: 99214; G2211

== ENCOUNTER → 2025-03-20 12:48 | Outpatient (BNVA) | payer OTHER, SELFPAY | PROVIDERS: PCP Internal Medicine; Visit Provider Nurse Practitioner Family | DX: K21.9 Gastro-esophageal reflux disease without esophagitis (principal); R10.13 Epigastric pain; R16.0 Hepatomegaly, not elsewhere classified; R14.0 Abdominal distension (gaseous); K76.0 Fatty (change of) liver, not elsewhere classified; K59.01 Slow transit constipation | CPT/HCPCS: 99212 ==

== ENCOUNTER 2025-03-25 12:03 | Outpatient (REF) | payer OTHER, SELFPAY ==
--- NOTE | ~2025-03-25 | XR_ITS ---
EXAMINATION: XR CHEST 2 VIEWS HISTORY: Z87.01 - Personal history of pneumonia (recurrent) COMPARISON: Comparison is made with the prior examination dated 05/30/2018. FINDINGS: PA and lateral views of the chest are submitted. The lungs are expanded and clear. There is no pleural effusion, pneumothorax, or pulmonary vascular congestion. The heart is normal in size. The bones are intact. XR/XR chest 2V IMPRESSION: No acute cardiopulmonary abnormality. Electronically signed by: Ruddy Medrano MD 03/25/2025 12:21 PM EDT
--- OUTSIDE RECORDS SUMMARY | 2025-03-25 13:17 | XMS_ITS | Encounter Summary ---
Author Organization [employer] Address [address] [facility] 7t [place] [address] Care Team Providers Care Concrete Buildings Assembler Name Role Phone Name, Elijah FRAGA Primary Care Provider [phone] Ye Loera MD Primary Care Prov ider Encounter Details Date Type Department Care Team ([facility] Contact Info) Description 12/24/2022 Abstract [facility] MEDICINE [address] [place], [place] [phone] Name, MD Elijah [address] [place] [address] Social History Tobacco Use Types Packs/Day Years [...] Upcoming Encounters Date Type Department Care Team ([facility] Contact Info) Description 03/29/2025 9:30 AM EDT Telemedicine [facility] CHC MED & PEDS [address] [place] [address] Ye Loera MD [address] [place] [address] documented as of this encounter Procedures Procedure [...] documented as of this encounter Care Teams Concrete Buildings Assembler Relationship Specialty Start Date End Date Name, MD Elijah [address] [place] [address] PCP - General Family Medicine 08/08/18 09/24/24 Ye Loera MD [address] [place] [address] PCP - General Internal Medicine 02/18/25 documented as of this encounter
--- OUTSIDE RECORDS SUMMARY | 2025-03-25 13:17 | XMS_ITS | Encounter Summary ---
Author Organization [facility] Address [address] [place] [address] Care Team Providers Care Acid Tender Name Role Phone Name, Elijah FRAGA Primary Care Provider [phone] Encounter Details Date Type Department Care Team (Late st Contact Info) Description 07/20/2024 Lab Requisition [facility] - Main Lab [address] [facility] [place] [address] Shawnee Friedman MD [address] [place] [address] Functional dyspepsia Social History Tobacco Use Types [...] LAB CHEMISTRY METHOD 07/21/2024 7:24 AM EST [facility] Breath Oral cavity structure / Unknown 07/20/2024 07/20/2024 6:14 PM EST us Shawnee Friedman MD LAB BODY FLUIDS AND STOOL S ORDERABLES Final Result [facility] [address] [place] [address], documented in this encounter Visit Diagnoses Diagnosis Functional dyspepsia Dyspepsia and other specified disorders of function of stomach documented in this encounter Additional Health Concerns Infection Onset Date Last Indicated Resolved Time Herpes simplex 07/23/2024 07/23/2024 documented as of this encounter Care Teams Acid Tender Relationship Specialty Start Date End Date Name, MD Elijah [address] [place], [place] PCP - General 08/23/08 documented as of this encounter
--- OUTSIDE RECORDS SUMMARY | 2025-03-25 13:17 | XMS_ITS | Clinical Summary ---
Author Organization [employer] [facility] Address [address] [place] [address] Care Team Providers Care Railway Equipment Operator Name Role Phone Provider, Not In System [...] age to complete this topic Care Teams Railway Equipment Operator Relationship Specialty Start Date End Date Provider, Not In System PCP - General 11/23/17
== END 2025-03-25 12:04 | disposition home or self-care (01) ==
LOC: HO.XRAY 12:03
PROVIDERS: PCP Internal Medicine; Visit Provider Nurse Practitioner Family
DX: Z87.01 Personal history of pneumonia (recurrent) (principal)
CPT/HCPCS: 71046

== ENCOUNTER → 2025-03-25 12:07 | Outpatient (BNV) | payer OTHER, SELFPAY | PROVIDERS: PCP Internal Medicine; Visit Provider Radiology Diagnostic Radiology | DX: Z87.01 Personal history of pneumonia (recurrent) (principal) | CPT/HCPCS: 71046 ==

== ENCOUNTER → 2025-04-10 13:00 | Outpatient (BNV) | payer OTHER, SELFPAY | PROVIDERS: PCP Internal Medicine; Visit Provider Radiology Body Imaging | DX: E28.39 Other primary ovarian failure (principal) | CPT/HCPCS: 77080 ==

== ENCOUNTER 2025-04-10 13:14 | Outpatient (REF) | payer OTHER, SELFPAY ==
--- NOTE | ~2025-04-10 | MM_ITS ---
STUDY: DUAL ENERGY X-RAY ABSORPTIOMETRY / DXA REASON FOR EXAM: Female, 64 years old screening osteoporosis TECHNIQUE: Bone Mineral Density (BMD) measurements of the lumbar spine and left hip were obtained using [employer] COMPARISON: March 18, 2022 FINDINGS: L1-L4 BMD: 0.892 g/cm2 L1-L4 T score: -2.4. This corresponds to osteopenia. This represents a -1.7 % decrease in bone density compared with prior exam from March 18, 2022. Left femoral neck BMD: 0.935 g/cm2 Left femoral neck T score: -0.7. This corresponds to Normal bone density. Left total hip BMD: 0.999 g/cm2 Left total hip T score: -0.1. This corresponds to Normal bone density. This represents a 1.5 % increased in bone density compared with prior exam from March 18, 2022. * - Indicates a statistically significant change. FRAX score: 10 year risk of major osteoporotic fracture 4.0%, 10 year risk of hip fracture 0.2% MM/XR DEXA axial skeleton IMPRESSION: Osteopenia Reference Information: The T-score is the number of standard deviations above or below the standard which is normal for young adults at their peak bone mineral density. The World Health Organization (WHO) interprets the T-scores as follows: At or above -1 SD Normal bone density Between -1 and -2.5 SD Osteopenia At or below -2.5 SD Osteoporosis Electronically signed by: Lizeth Lopez MD 04/11/2025 11:17 AM EDT
--- OUTSIDE RECORDS SUMMARY | 2025-04-10 15:15 | XMS_ITS | Encounter Summary ---
Author Organization [employer] Address [address] [facility] [address] 7[address] [place] [address] Care Team Providers Care Ham Clerk Name Role Phone Ye Loera MD Primary Care Prov ider Encounter Details Date Type Department Care Team (Late st Contact Info) Description 04/10/2025 3:15 PM EDT Office Visit [facility] MEDICINE [address] [place], [place] [phone] Mel Guido MD [address] [place], [place] [phone] Arrived Social History Tobacco Use Types Packs/Day Years Used Date Smoking Tobacco: Never Passive Smoke Exposure: Never Smokeless Tobacco: Never Alcohol Use Standard Drinks/Week Comments Never 0 (1 standard drink = 0.6 oz pur e alcohol) Depression Answer Date Recorded Patient Health Questionnaire-9 Score 5 03/29/2025 Patient Health Questionnaire-9 Score 5 03/29/2025 Last PHQ-9: Questionnaire Data Not on file 0 03/29/2025 Housing Stability Answer Date Recorded What is [...] Answer Date Recorded Patient Health Questionnaire-2 Score 2 03/29/2025 Internet Access Answer Date Recorded Internet Access Q1 Yes 09/07/2024 Internet Access Q2 Not on file 09/07/2024 Comments No Sex and Gender Information Value Date Recorded Sex Assigned at Female 06/07/2022 10:31 AM EDT Legal Sex Female 10:31 AM EDT Gender Identity Female 06/07/2022 10:31 AM EDT Sexual Orientation Straight 06/07/2022 10 :31 AM EDT documented as of this encounter Last Filed Vital Signs Vital Sign Reading Time Taken Comments Blood Pressure 132/90 04/10/2025 2:46 PM EDT Pulse 68 04/10/2025 2:46 PM EDT Temperature 36.3 C (97.3 F) 04/10/2025 2:46 PM EDT Respiratory Rate 18 04/10/2025 2:46 PM EDT Oxygen Saturation 98% 04/10/2025 2:46 PM EDT Inhaled Oxygen Concentration - - Weight 83.5 kg (184 lb) 04/10/2025 2:46 PM EDT Height 154.9 cm (5' 1 ) 04/10/2025 2:46 PM EDT Body Mass Index 34.77 04/10/2025 2:46 PM EDT documented in this encounter Plan of Treatment Upcoming Encounters Date Type Department Care Team (Late st Contact Info) Description 04/26/2025 9:30 AM EDT Telemedicine [facility] CHC MED & PEDS [address] [place] [address] Ye Loera MD [address] [place] [address] documented as of this encounter Visit Diagnoses Not on filedocumented in this encounter Additional Health Concerns Assessment Noted Time PHQ-9 Depression Total Score: 5 03/29/20 25 9:11 AM EDT documented as of this encounter Care Teams Ham Clerk Relationship Specialty Start Date End Date Ye Loera MD [address] [place] [id number] PCP - General Internal Medicine 02/18/25 documented as of this encounter
--- OUTSIDE RECORDS SUMMARY | 2025-04-10 15:33 | XMS_ITS | Clinical Summary ---
Author Organization [employer] [facility] Address [address] [place] [address] Care Team Providers Care Compensation And Benefits Administrator Name Role Phone Provider, Not In System [...] age to complete this topic Care Teams Compensation And Benefits Administrator Relationship Specialty Start Date End Date Provider, Not In System PCP - General 11/23/17
--- OUTSIDE RECORDS SUMMARY | 2025-04-10 15:33 | XMS_ITS | Encounter Summary ---
Author Organization [employer] Address [address] [facility] 7t [place] [address] Care Team Providers Care Water Analyst Name Role Phone Name, Elijah FRAGA Primary Care Provider [phone] Ye Loera MD Primary Care Prov ider Encounter Details Date Type Department Care Team (Late Contact Info) Description 12/24/2022 Abstract [facility] MEDICINE [address] [place], [place] [phone] Name, MD Elijah [address] [place] [address] Social History Tobacco Use Types Packs/Day Years [...] Department Care Team (Late Contact Info) Description 04/26/2025 9:30 AM EDT Telemedicine [facility] CHC MED & PEDS [address] [place] [address] Ye Loera MD [address] [place] [address] documented as of this encounter Procedures Procedure [...] as of this encounter Care Teams Water Analyst Relationship Specialty Start Date End Date Name, MD Elijah [address] [place] [address] PCP - General Family Medicine 08/08/18 09/24/24 Ye Loera MD [address] [place] [address] PCP - General Internal Medicine 02/18/25 documented as of this encounter
--- OUTSIDE RECORDS SUMMARY | 2025-04-10 15:33 | XMS_ITS | Encounter Summary ---
Author Organization [employer] Address [address] [facility] 7t [place] [address] Care Team Providers Care Lawyers Name Role Phone Ye Loera MD Primary Care Prov ider Reason for Visit * Reason Onset Date Comments Durable Medical Equipment 02/27/2025 Encounter Details Date Type Department Care Team (Late st Contact Info) Description 02/27/2025 Telephone [facility] MEDICINE [address] [place] [address] Ye Loera MD [address] [place] [address] Durable Medical Equipment Social History Tobacco Use Types Packs/Day Years [...] encounter Miscellaneous Notes * Telephone Encounter - Anni Pringle - 02/27/2025 9:25 AM EDT Tc from pt requesting a new scrip for DME - Blood Pressure kit To be sent to: -[facility] #[id number] - [place], [place] - [address] [facility] [address] Pt stated her broke a couple day ago documented in this encounter Plan of Treatment Upcoming Encounters Date Type Department Care Team (Late st Contact Info) Description 04/26/2025 9:30 AM EDT Telemedicine [facility] MED & PEDS [address] [place] [address] Ye Loera MD [address] [place] [address] documented as of this encounter Visit Diagnoses Not on filedocumented in this encounter Additional Health Concerns Assessment Noted Time PHQ-9 Depression Total Score: 0 12/23/19 23 2:25 PM EDT documented as of this encounter Care Teams Lawyers Relationship Specialty Start Date End Date Ye Loera MD [address] [place] [address] PCP - General Internal Medicine 02/18/25 documented as of this encounter
--- OUTSIDE RECORDS SUMMARY | 2025-04-10 15:33 | XMS_ITS | Encounter Summary ---
Author Organization [employer] Address [address] [facility] 7t [place] [address] Care Team Providers Care Billing Clerk Name Role Phone Name, Elijah FRAGA Primary Care Provider [phone] Ye Loera MD Primary Care Prov ider Reason for Visit * Reason Onset Date Comments Appointment Request 03/31/2023 Encounter Details Date Type Department Care Team ([facility] st Contact Info) Description 03/31/2023 Telephone [facility] MEDICINE [address] [place], [place] [phone] Name, MD Elijah [address] [place] [address] Appointment Request Social History Tobacco Use Types [...] second half . Please contact pt at [phone] Kazakh Speaker documented in this encounter Plan of Treatment Upcoming Encounters Date Type Department Care Team ([facility] st Contact Info) Description 04/26/2025 9:30 AM EDT Telemedicine [facility] MED & PEDS [address] [place] [address] Ye Loera MD [address] [place] [address] documented as of this encounter Visit Diagnoses Not on filedocumented in this encounter Additional Health Concerns Assessment Noted Time PHQ-9 Depression Total Score: 0 12/23/19 23 2:25 PM EDT documented as of this encounter Care Teams Billing Clerk Relationship Specialty Start Date End Date Name, MD Elijah [address] [place] [address] PCP - General Family Medicine 08/08/18 09/24/24 Ye Loera MD [address] [place] [address] PCP - General Internal Medicine 02/18/25 documented as of this encounter
--- OUTSIDE RECORDS SUMMARY | 2025-04-10 15:33 | XMS_ITS | Encounter Summary ---
Author Organization [employer] Address [address] [facility] [address] 7t [place] [address] Care Team Providers Care Nuclear Medicine Tech Name Role Phone Name, Elijah FRAGA Primary Care Provider [phone] Ye Loera MD Primary Care Prov ider Reason for Visit * Reason Comments Med Refill Encounter Details Date Type Department Care Team (Late st Contact Info) Description 10/16/2023 Refill [facility] [address] [place] [address] Coty Santiago FNP Strain of left infraspinatus [...] the past 12 months, has t he [employer], gas, oil or water company threatened to [...] Info) Description 04/26/2025 9:30 AM EDT Telemedicine [facility] MED & PEDS [address] [place] [address] Ye Loera MD [address] [place] [address] documented as of this encounter Visit Diagnoses Diagnosis Strain of left infraspinatus muscle, initial encounter documented in this encounter Additional Health Concerns Assessment Noted Time PHQ-9 Depression Total Score: 0 12/23/19 23 2:25 PM EDT documented as of this encounter Care Teams Nuclear Medicine Tech Relationship Specialty Start Date End Date Name, MD Elijah [address] [place] [address] PCP - General Family Medicine 08/08/18 09/24/24 Ye Loera MD [address] [place] [address] PCP - General Internal Medicine 02/18/25 documented as of this encounter
--- OUTSIDE RECORDS SUMMARY | 2025-04-10 15:33 | XMS_ITS | Encounter Summary ---
Author Organization [employer] Address [address] [facility] [facility] [address] 7[address] [place] [address] Care Team Providers Care Tacking Stitch Remover Name Role Phone Ye Loera MD Primary Care Prov ider Reason for Visit * Reason Comments Med Refill Encounter Details Date Type Department Care Team ([facility] st Contact Info) Description 12/18/2024 Refill [facility] MEDICINE [address] [place], [place] [phone] Name, MD Elijah [address] [place] [address] Social History Tobacco Use Types Packs/Day Years Used Date Smoking Tobacco: Never Passive Smoke Exposure: Never Smokeless Tobacco: Never Alcohol Use Standard Drinks/Week Comments Never 0 (1 standard drink = 0.6 oz pur e alcohol) Depression Answer Date Recorded Patient Health Questionnaire-9 Score 0 12/22/2022 Housing Stability Answer Date Recorded What is your housing situation today? I have aristidesaubrey lopez 03/05/[address] you [...] the past 12 months, has t he [employer], [employer], oil or water company threatened to shut [...] Info) Description 04/26/2025 9:30 AM EDT Telemedicine [facility] MED & PEDS [address] [place] [address] Ye Loera MD 505 [place] [address] documented as of this encounter Visit Diagnoses Not on filedocumented in this encounter Additional Health Concerns Assessment Noted Time PHQ-9 Depression Total Score: 0 12/23/19 23 2:25 PM EDT documented as of this encounter Care Teams Tacking Stitch Remover Relationship Specialty Start Date End Date Ye Loera MD [address] [place] [address] PCP - General Internal Medicine 02/18/25 documented as of this encounter
--- OUTSIDE RECORDS SUMMARY | 2025-04-10 15:33 | XMS_ITS | Encounter Summary ---
Author Organization [employer] Address [address] [facility] 7t [place] [address] Care Team Providers Care Certified Forklift Operator Name Role Phone Name, Elijah FRAGA Primary Care Provider [phone] Ye Loera MD Primary Care Prov ider Reason for Visit * Reason Comments Med Refill Encounter Details Date Type Department Care Team ([facility] st Contact Info) Description 09/23/2022 Refill [facility] MEDICINE [address] [place], [place] [phone] Name, MD Elijah [address] [place], [place] [phone] Depressive disorder Social History Tobacco Use Types [...] Assessment Author Patient Health Questionnaire-2 Score 2 09/24/2022 11:38 AM EST Natalie Mancuso MA * If you checked off any problems on this questionnaire so far, Question Answer Date of Assessment Author How difficult have these problems made it for you to do your work, take care of things at home, or get along with other people? Somewhat difficult 09/24/2022 11:38 AM Erin Barney MA * Over the past 2 weeks, how often have you been bothered by any of the following problems? Question Answer Date of Assessment Author Little interest or pleasure in doing things Several days 09/24/2022 11:38 AM Erin Barney MA Feeling down, depressed, or hopeless Several days 09/24/2022 11:38 AM Erin Barney MA Trouble falling or staying asleep, or sleeping too much Several days 09/24/2022 11:38 AM Erin Branham MA Feeling tired or having little energy Several days 09/24/2022 11:38 AM Erin Barney MA Poor appetite or overeating Not at all 09/24/2022 11 :38 AM Erin Barney MA Feeling bad about yourself - or that you are a failure or have let yourself or your family down Several days 09/24/2022 11:38 AM Erin Barney MA Trouble concentrating on things, such as reading the newspaper or watching television Several days 09/24/2022 11:38 AM Erin Barney MA Moving or speaking so slowly that other people could have noticed? Or the opposite - being so fidgety or restless that you have been moving around a lot more than usual. Not at all 09/24/2022 11:38 AM Erin Barney MA Thoughts that you would be better off or hurting yourself in some way Not at all 09/24/2022 11:38 AM Erin Barney MA Patient Health Questionnaire-9 Score 6 09/24/2022 11:38 AM Erin Barney MA documented as of this encounter Plan of Treatment Upcoming Encounters Date Type Department Care Team (Late st Contact Info) Description 04/26/2025 9:30 AM EDT Telemedicine [facility] MED & PEDS [address] [place] [address] Ye Loera MD [address] [place] [address] documented as of this encounter Visit Diagnoses Diagnosis Depressive disorder Depressive disorder, not elsewhere classified documented in this encounter Care Teams Certified Forklift Operator Relationship Specialty Start Date End Date Name, MD Elijah [address] [place] [address] PCP - General Family Medicine 08/08/18 09/24/24 Ye Loera MD [address] [place] [address] PCP - General Internal Medicine 02/18/25 documented as of this encounter
--- OUTSIDE RECORDS SUMMARY | 2025-04-10 15:33 | XMS_ITS | Clinical Summary ---
Author Organization [employer] Address [address] [facility] 7[address] [place] [address] Care Team Providers Care Lung Splitter Name Role Phone Ye Loera MD Primary Care Prov ider Allergies Active Allergy Reactions Criticality Noted Date [...] all over vomiting dizziness, Itching, dizziness Medications ketorolac (Acular) 0.5 % ophthalmic solution 02/14/20 22 Active oxybutynin XL (Ditropan-XL) 15 MG 24 hr tablet Take 15 mg by mouth in the morning. 05/03/20 22 Active pantoprazole (ProtoNix) 20 MG EC tablet Take 20 mg by mouth in the morning. 03/28/20 22 Active Elastic Bandages & Supports (Medical Compression Stockings) miscIndications: Pain of left lower extremity,Venous insufficiency Use daily, 20-30 mmHg, waist high 2 each 1 09/08/19 23 Active linaCLOtide (Linzess) 145 MCG capsule Take 145 mcg by mouth before breakfast. Do not crush or chew. Active benazepril (Lotensin) 20 MG tablet Take 2 tablets (40 mg) by mouth Once per day. 180 tablet 3 02/19/20 Active buPROPion XL (Wellbutrin XL) 150 MG 24 hr tabletIndication s:Depressive disorder Take 1 tablet (150 mg) by mouth Once per day. Do not crush, chew, or split. 90 tablet 3 02/19/20 25 Active clotrimazole-bet amethasone (Lotrisone) creamIndications :Rash Apply topically 2 times daily. 90 g 02/19/20 25 Active Diclofenac Sodium 1 % gelIndications:P ain of left lower extremity Apply 2 g topically if needed in the morning and at bedtime (pain). 100 g 02/19/20 25 Active hydrocortisone (Anusol-HC) 2.5 % rectal creamIndications :Hemorrhoids, unspecified hemorrhoid type APPLY THIN LAYER TOPICALLY TO THE AFFECTED AREA 2 TO 4 TIMES EVERY DAY 28 g 02/19/20 25 Active methocarbamol (Robaxin) 500 MG tablet Take 1 tablet (500 mg) by mouth every 8 (eight) hours. 90 tablet 02/19/20 025 Active naproxen (Naprosyn) 500 MG tabletIndication s:Acute pain of right knee Take 1 tablet (500 mg) by mouth 2 times daily. 60 tablet 1 02/19/20 25 Active hydrocortisone 1 % ointment Apply topically 2 times daily. 56 g 02/19/20 25 Active Blood Pressure kitIndications:P rimary hypertension To check her blood pressure every other day 1 03/04/20 Active DULoxetine (Cymbalta) [address] capsule Take 1 capsule (30 mg) by mouth 2 times daily. Do not crush or chew. 60 capsule 03/29/20 026 Active gabapentin (Neurontin) 100 MG capsule Take 1 capsule (100 mg) by mouth 2 times daily. 60 capsule 03/29/20 026 Active amLODIPine (Norvasc) 5 MG tablet Take 1 tablet (5 mg) by mouth Once per day. 30 tablet 03/29/20 25 026 Active atorvastatin (Lipitor) 20 MG tablet Take 1 tablet (20 mg) by mouth Once per day. 90 tablet 03/29/20 026 Active Blood Pressure kit Use once a day 1 kit 01/19/20 23 025 Discontinued atorvastatin (Lipitor) 20 MG tablet Take 1 tablet (20 mg) by mouth Once per day. 90 tablet 3 02/19/20 25 025 Discontinued(R eorder (will not trigger notification to Pharmacy)) tiZANidine (Zanaflex) 4 MG tablet Take 1 tablet (4 mg) by mouth every 8 (eight) hours if needed for muscle spasms for up to 10 days. 30 tablet 02/20/20 25 025 Discontinued Active Problems Problem Noted Date Diagnosed Date Encounter for medical examination to establish c are 02/18/2025 Assessment & Plan (02/18/2025 11:18 AM EDT): Last pcp visit July 2024 ER: - Hospitalization: 2007 due to chest pain (negative testing) PMHx: htn, hyperlipidemia, diverticulosis, right knee pain, MDD/Anxiety( followed by therapist), fibromyalgia Pshx: NAWAF/BSO 2000, varicose vein 2013 All: percocet/tramadol (itchiness) Meds: as above Class 2 severe obesity due t o excess calories with serious comorbidity and body mass index (BMI) of 37.0 to 37.9 in adult 02/18/2025 High cholesterol 10/25/2023 VIVI (obstructive sleep apnea) 10/24/2023 Essential hypertension 10/24/2023 Assessment & Plan (04/01/2025 9:50 AM EDT): Uncontrolled, last 10 days as follow: 144/88-142/85-147/86-145/84-137/83-135/90-144/80-153/94-144/82-135/90-121/83 Will add amlodipine, continue low sodium diet and exercise as tolerated, keep bp log, follow up in 1 month Assessment & Plan (02/18/2025 1:41 PM EDT): Elevated, will follow up in 1 month, told to keep bp log, keep low sodium diet and exercise as tolerated Lipoma 06/07/2023 06/07/2023 Spondylosis of cervical riky [...] Endometriosis 07/21/2022 Overview (07/21/2022): s/p hysterectomy in [place] in 2000 Irritable bowel syndrome 07/21/2022 Hemorrhoids [...] Encounters Date Type Department Care Team Description 04/10/2025 3:15 PM EDT Office Visit [facility] [address] [place] [phone] Mel Guido MD Arrived 04/10/2025 Travel 03/29/2025 9:30 AM EDT Telemedicine [facility] [address] [place] [address] Ye Loera MD Essential hypertension (Primary Dx); Dietary counseling; Exercise counseling 03/29/2025 Telephone [facility] [address] [place] [address] Ye Loera MD Durable Medical Equipment 03/29/2025 Travel 03/28/2025 Telephone [facility] [address] [place] [address] Ye Loera MD chart prep 02/28/2025 Orders Only [facility] [address] [place] [address] Aviva Barlow MD Primary hypertension (Primary Dx) 02/27/[address] [address] Ye Loera MD Durable Medical Equipment 02/19/2025 Orders Only [facility] [address] [place] [address] Ye Loera MD 02/18/2025 10:45 AM EDT Office Visit [facility] [address] [place] [address] Ye Loera MD Encounter for medical examination to establish care (Primary Dx); Menopause; Class 2 severe obesity due to excess calories with serious comorbidity and body mass index (BMI) of 37.0 to 37.9 in adult ([facility]); Depressive disorder; Rash; Pain of left lower extremity; Hemorrhoids, unspecified hemorrhoid type; Acute pain of right knee; Primary hypertension; Essential hypertension 02/18/2025 Results Follow-Up [facility] [address] [place] [address] Ye Loera MD CBC auto differential, Comprehensive Metabolic Panel, Lipid Panel, Standard, Additional followed-up results: 3 02/18/2025 Travel 02/11/2025 Patient Outreach [facility] [address] [place] [address] El Araujo MD Pre-visit Planning (SDOH screening negative and Tobacco screening negative) from Last 3 Months Immunizations Immunization Administration Dates Next Due INFLUENZA INJECTABLE QUADRIV ALANT CCIIV4 MDCK Multi-dose vial 04/08/2021 Influenza injectable quadriv alent IIV4 with preservative 07/06/2019,04/26/2018,05/29/2016 Influenza injectable quadriv alent preservative free 05/21/2022,05/20/2020 Influenza, IIV3, injectable 05/24/2016,1 ,08/06/2014,2012,05/25/2012,10/19/2011,08/26/2009 Influenza, seasonal, injecta ble, preservative free 04/21/2017 Novel [id number], preservative-free 08/26/2009 Tdap 08/23/2013 Family History Medical History Relation Name Comments Diabetes Father Hypertension Father Asthma Mother Hypertension Mother Kidney cancer Sister Relation Name Status Comments Father Mother Sister Social History Tobacco Use Types Packs/Day Years [...] Mass Index 34.77 04/10/2025 2:46 PM EDT Plan of Treatment Upcoming Encounters Date Type Department Care Team (Late st Contact Info) Description 04/26/2025 9:30 AM EDT Telemedicine [facility] [address] [place], [place] [phone] Ye Loera MD [address] [place], [place] [phone] Health Maintenance Due Date Last Done Comments CT Colonography 1960 FIT DNA/Cologuard 1960 FIT 1960 FOBT 1960 Sigmoidoscopy 1960 Alcohol/Substance Use Screening 1970 Zoster Vaccines (1 of 2) 2008 DTaP/Tdap/Td Vaccines (2 - Td or Tdap) 08/23/2023 08/23/2013 COVID-19 Vaccine (3 - season) 2025 08/05/2021, 07/15/2021 Influenza Vaccine (#1) 2025 , 04/08/2021, 05/20/2020, Additional history exists Mammogram 01/05/2026 01/06/2024, 10/06, 10/15/2022, Additional history exists SDOH Screening 02/11/2026 02/11/2025 Colonoscopy 02/22/2026 02/22/2023, 02/05, 05/15/2019 Colorectal Cancer Screening 02/22/2026 Depression Screening 03/29/2026 03/29/2025, 03/29/20 25 Tobacco Screening 04/10/2026 04/10/2025 Lipid Panel 02/18/2030 02/18/2025, 10/06, 09/09/2022, Additional history exists RSV Patients and Patients Aged 60 years or older (1 - 1-dose 75+ series) 2033 Hepatitis C Screening 07/23/2034 Pneumococcal Vaccine: 50+ Years Completed 09/19/2024 HIB [...] Procedure Name Priority Date/Time Associated Diagnosis Comments XR CHEST 2 VIEWS Routine 03/25/2025 12:1 0 PM EDT CBC WITH AUTO DIFFERENTIAL Routine 02/18/2025 11:48 AM EDT Primary hypertension VITAMIN D,25-OH,TOTAL,IA Routine 02/18/2025 12:00 AM EDT Primary hypertension HEMOGLOBIN A1C Routine 02/18/2025 12:00 AM EDT Primary hypertension TSH W/REFLEX TO FT4 Routine 02/18/2025 1 2:00 AM EDT Primary hypertension LIPID PANEL, STANDARD Routine 02/18/2025 12:00 AM EDT Primary hypertension COMPREHENSIVE METABOLIC PANEL Routine 02/18/2025 12:00 AM EDT Primary hypertension BI MAMMOGRAM SCREENING TOMOSYNTHESIS BILATERAL Routine 01/06/2024 2:43 PM EDT HM COLONOSCOPY Routine 02/22/2023 from Last 3 Months or Most Recently Relevant to Health Maintenance Results * XR Chest 2 Views (03/25/2025 12:10 PM EDT) Anatomical Region Laterality Modality Chest Radiographic Barbara ging 03/25/2025 12:1 0 PM EDT Narrative 03/25/2025 12:23 PM EDT [address] [address] XRay Report Signed Patient: Diana Chapman MR#: [id number] : 1960 Acct:[id number] Age/Sex: 64 / F ADM Date: 03/25/25 Loc: [facility] Attending Dr: Osiris Ware [facility] Ordering Physician: Osiris Ware [facility]-BC Date of Service: 03/25/25 Procedure(s): XR chest 2V Accession Number(s): [id number] cc: Ye Loera MD; Osiris Ware [facility]-BC EXAMINATION: XR CHEST 2 VIEWS HISTORY: Z87.01 - Personal history of pneumonia (recurrent) COMPARISON: Comparison is made with the prior examination dated 05/30/2018. FINDINGS: PA and lateral views of the chest are submitted. The lungs are expanded and clear. There is no pleural effusion, pneumothorax, or pulmonary vascular congestion. The heart is normal in size. The bones are intact. XR/XR chest 2V IMPRESSION: No acute cardiopulmonary abnormality. Electronically signed by: Ruddy Medrano MD 03/25/2025 12:21 PM EDT RP Dictated By: Ruddy Medrano MD Signed By: <Electronically signed by Ruddy Medrano MD in OV> 03/25/25 1221 DD/ 1210 TD/TT: 03/25/25 1215 Disposal Operator: Procedure Note Donotuseinterpreter, Image - 03/25/2025 [place] [address] XRay Report Signed Patient: Shabana Chapman#: [id number] : 9Acct:[id number] Age/Sex: 64 / FADM Date: 03/25/25 Loc: KYLIE Attending Dr: Osiris Ware [facility] OUTSIDE- Ordering Physician: Osiris Ware [facility] OUTSIDE-BC Date of Service: 03/25/25 Procedure(s): XR chest 2V Accession Number(s): [id number] cc: Ye Loera MD; Osiris Ware [facility]- EXAMINATION: XR CHEST 2 VIEWS HISTORY: Z87.01 - Personal history of pneumonia (recurrent) COMPARISON: Comparison is made with the prior examination dated 05/30/2018. FINDINGS: PA and lateral views of the chest are submitted. The lungs are expanded and clear. There is no pleural effusion, pneumothorax, or pulmonary vascular congestion. The heart is normal in size. The bones are intact. XR/XR chest 2V IMPRESSION: No acute cardiopulmonary abnormality. Electronically signed by: Ruddy Medrano MD 03/25/2025 12:21 PM EDT RP Dictated By: Ruddy Medrano MD Signed By: <Electronically signed by Ruddy Medrano MD in OV> 03/25/25 1221 DD/ 1210 TD/TT: 03/25/25 1215 Disposal Operator: [facility] External Provider IMG XR PROCEDURES Final Result * (ABNORMAL) CBC auto differential (02/18/2025 11:48 AM EDT) White Blood Count 5.8 4.8 - 10.8 X10*3/uL [facility] Red Blood Count 4.15(L) 4.20 - 5.50 X10*6/uL [facility] Hemoglobin 12.4 12.0 - 16.0 g/dl [facility] Hematocrit 39.5 37.0 - 47.0 % [facility] Mean Corpuscular Volume 95.2 80.0 - 98.0 fL [facility] Mean Corpuscular Hemoglobin 29.9 27.0 - 33.0 pg [facility] Mean Corpuscular HGB Conc 31.4 31.0 - 35.0 g/dl [facility] Red Cell Distribution Width 13.3 11.0 - 16.0 % [facility] Platelet Count 244 160 - 400 X10*3/uL [facility] Mean Platelet Volume 10.6 9.4 - 12.3 fL [facility] Neutrophils Percent Auto 58.2 45 - 73 % [facility] Imm Gran Pct Auto 0.3 0.0 - 0.4 % [facility] Lymphocytes Percent Auto 30.9 20 - 40 % [facility] Monocytes Percent Auto 5.8 2 - 11 % [facility] Eosinophils Percent Auto 4.3(H) 0 - 4 % [facility] Basophils Percent Auto 0.5 0 - 2 % [facility] NRBC Pct Auto 0.0 0.0 - 0.2 /100WBC [facility] Neutrophils Absolute Auto 3.4 2.0 - 8.3 x10*3/uL [facility] Imm Gran Abs Auto 0.02 0.00 - 0.03 X10*3/uL [facility] Lymphocytes Absolute Auto 1.8 1.2 - 4.9 X10*3/uL [facility] Monocytes Absolute Auto 0.3 0.1 - 1.2 X10*3/uL [facility] Eosinophils Absolute Auto 0.3 0.0 - 0.4 X10*3/uL [facility] Basophils Absolute Auto 0.0 0.0 - 0.2 X10*3/uL [facility] NRBC Abs Auto 0.000 0.0 - 0.012 X10*3/uL [facility] Blood Venous blood specimen / Unknown 02/18/2025 11:48 AM EDT 02/18/2025 3:47 PM EDT Ye Winn MD LAB BLOOD ORDERABL ES Final Result [facility] [address] [place] [phone] * Vitamin D, 25-Hydroxy, Total, Immunoassay (02/18/2025 12:00 AM EDT) Vitamin D 25-OH Total 38.3 >30 ng/mL [facility] Comment: Health Based Reference Values*< 20 ng/mL Chdjttbsa04-38 ng/mL Insufficient> 30 ng/mL Sufficient*Ame CARABALLO. N Engl J Med. 2007;357:266-280There is no well-established upper level of normal vitamin Dlevels. Some laboratories use 50 ng/mL as an upper limit ofnormal. However, toxicity is patient-dependent and may occurat any level. Careful correlation with the patient'spresentation is necessary and, if there is concern forvitamin D toxicity, treatment should be consideredirrespective of the serum level.Care must be taken in interpreting Vitamin D results fromdifferent laboratories and methodologies. Published datademonstrated that results from patients undergoinghemodialysis may show a negative bias when tested withvarious automated 25-OH vitamin D assays when compared toLC-MS/MS.When testing samples from patients whose predominant form ofVitamin D is Vitamin D2, such as patients receiving VitaminD2 supplementation, results that are subtherapeutic shouldbe confirmed with another method such as LC-MS/MS. Blood Venous blood specimen / Unknown 02/18/2025 02/18/2025 Ye Winn MD LAB BLOOD ORDERABL ES Final Result Performing Organization Address [facility]/ZIP Co de Phone Number [facility] [address] [place] [phone] * TSH W/Reflex to FT4 (02/18/2025 12:00 AM EDT) TSH reflex Free T4 1.95 0.32 - 4.0 uIU/mL [facility] Blood Venous blood specimen / Unknown 02/18/2025 02/18/2025 Ye Winn MD LAB BLOOD ORDERABL ES Final Result Performing Organization Address [facility] Co de Phone Number [facility] [address] [place] [phone] * Hemoglobin A1c (02/18/2025 12:00 AM EDT) Hemoglobin A1c 5.2 <6.0 % [facility] Comment:Hemoglobin A1C Refer ence Range Adults: 4.8 - 6.0 % Non diabetic: < 6.0 % Goal: < 7.0 %Additional Action Suggested: > 8.0 %Note: Hemoglobin A1c results are invalid for patients with abnormal amounts of HbF. Blood transfusions may impact the HbA1c concentration in the patient sample. Estimated Average Glucose 103 mg/dL [facility] Comment:eAG = Estimated ave rage glucose which is %A1C expressed asaverage glucose, using the formula of the U6I-CswwhohTarfkjh Glucose study (ADAG), Diabetes Care, Vol.31,#8,2007 Blood Venous blood specimen / Unknown 02/18/2025 02/18/2025 us Ye Winn MD LAB BLOOD ORDERABL ES Final Result Performing Organization Address [facility]/ZIP Co de Phone Number [facility] [address] [place] [phone] * (ABNORMAL) Lipid Panel, Standard (02/18/2025 12:00 AM EDT) Triglycerides 97 <150 mg/dL [facility] Comment:Desirable Triglyceri de: less than 150 mg/dLBorderline High Triglyceride 150-199 mg/dLHigh Triglyceride: 200-499 mg/dLVery High Triglyceride: greater than or equal to 5OO mg/dL Cholesterol 215(H) <200 mg/dL [facility] Comment:Desirable Cholestero l: less than 200 mg/dLBorderline High Cholesterol: 200-239 mg/dLHigh Cholesterol: greater than 239 mg/dL LDL Cholesterol Calculated 138(H) <100 mg/dL [facility] Comment:Desirable LDL: less than 100 mg/dLNear Optimal/Above Optimal LDL: 110- 129 mg/dLBorderline High LDL: 130-159 mg/dLHigh LDL: 160-189 mg/dLVery High LDL: greater than or equal to 190 mg/dL HDL Cholesterol 58 >40 mg/dL [facility] Comment:Desirable HDL: great er than 40 mg/dL Note: This HDL assay may give artificially low results in patients with liver disease. Blood Venous blood specimen / Unknown 02/18/2025 02/18/2025 us Ye Winn MD LAB BLOOD ORDERABL ES Final Result Performing Organization Address [facility]/ZIP Co de Phone Number [facility] [address] [place] [phone] * (ABNORMAL) Comprehensive Metabolic Panel (02/18/2025 12:00 AM EDT) Sodium 144 135 - 145 mmol/L [facility] Potassium 4.2 3.3 - 5.1 mmol/L [facility] Chloride 110(H) 96 - 108 mmol/L [facility] Carbon Dioxide 28 22 - 29 mmol/L [facility] Anion Gap 10(L) 12 - 20 [facility] Urea Nitrogen (BUN) 18(H) 9 - 16 mg/dL [facility] Creatinine, Serum 0.70 0.5 - 1.4 mg/dL [facility] Estimated Glomerular Filt Rate >60 [facility] Comment:Chronic Kidney Disea se: Estimated GFR < 60 mL/min/1.29y1Hlnqaq Kidney Disease: Estimated GFR < 15 mL/min/1.73m2 Glucose 92 60 - 115 mg/dL [facility] Calcium 9.3 8.4 - 10.2 mg/dL [facility] Bilirubin, Total 0.3 0.0 - 1.0 mg/dL [facility] Aspartate Amino Transferase 26 5 - 31 U/L [facility] Alanine Aminotransferase 17 0 - 31 U/L [facility] Total Protein 6.7 6.5 - 8.0 g/dL [facility] Albumin Level 4.3 3.5 - 5.0 g/dL [facility] Alkaline Phosphatase 67 39 - 117 U/L [facility] Blood Venous blood specimen / Unknown 02/18/2025 02/18/2025 us Ye Winn MD LAB BLOOD ORDERABL ES Final Result [facility] [address] [place] [phone] * BI Mammogram Screening Tomosynthesis Bilateral (01/06/2024 2:43 PM EDT) Anatomical Region Laterality Modality Breast Bilateral Mammography 01/06/2024 2:43 PM EDT Narrative 01/24/2024 1:57 PM EDT [address] [place] [address] Mammography Report Signed Patient: Diana Chapman MR#: [id number] : 1960 Acct:[id number] Age/Sex: 63 / F ADM Date: 01/06/24 Loc: KUSH Attending Dr: Elijah Mendoza MD Ordering Physician: Elijah Mendoza MD Results: 1Negative Date of Service: 01/06/24 Follow Up: 1 Year From Orig inal Mammogram Procedure(s): MM tomosynthesis screening BI Accession Number(s): [id number] cc: Elijah Mendoza MD EXAMINATION: MM SCREENING [...] in OV> 01/24/24 1353 DD/ 1443 TD/TT: Disposal Operator: Procedure Note Donotuseinterpreter, Image - 01/24/[address] [place] [address] Mammography Report Signed Patient: Floyd ChapmanR#: [id number] : 9Acct:[id number] Age/Sex: 63 / FADM Date: 01/06/24 Loc: HO.MAMMO Attending Dr: Elijah Mendoza MD Ordering Physician: Elijah Mendoza MDResults: 1Negative Date of Service: 01/06/24Follow Up: 1 Year From Orig inal Mammogram Procedure(s): MM tomosynthesis screening BI Accession Number(s): [id number] cc: Elijah Mendoza MD EXAMINATION: MM SCREENING [...] in OV> 01/24/24 1353 DD/ 1443 TD/TT: Disposal Operator: us Elijah Mendoza MD IMG BI PROCEDURES Final Result * (ABNORMAL) Colonoscopy (02/22/2023) Colonoscopy Abnormal( A) Normal Comment:Tubular adenoma us Elijah Mendoza MD HEALTH MAINTENANCE Final Result from Last 3 Months or Most Recently Relevant to Health Maintenance Insurance [facility] [employer] (O D-SNP) GEOVANNY MCCARTHY [id number] Care Teams Lung Splitter Relationship Specialty Start Date End Date Ye Loera MD [address] [place] [phone] PCP - General Internal Medicine 02/18/25
--- OUTSIDE RECORDS SUMMARY | 2025-04-10 15:33 | XMS_ITS | Encounter Summary ---
Author Organization [employer] Address [address] [facility] [address] [place] [address] Care Team Providers Care Respiratory Clinician Name Role Phone Ye Loera MD Primary Care Prov ider Encounter Details Date Type Department Care Team (Latest Contact Info) Description 02/18/2025 Results Follow-Up [facility] [address] [place], [place] [phone] Ye Loera MD [address] [place] [address] CBC auto differential, Comprehensive Metabolic Panel, Lipid Panel, Standard, Additional followed-up results: 3 Social History Tobacco Use Types Packs/Day Years [...] Info) Description 04/26/2025 9:30 AM EDT Telemedicine [facility] [address] [place] [address] Ye Loera MD [address] [place] [address] documented as of this encounter Visit Diagnoses Not on filedocumented in this encounter Additional Health Concerns Assessment Noted Time PHQ-9 Depression Total Score: 0 12/23/19 23 2:25 PM EDT documented as of this encounter Care Teams Respiratory Clinician Relationship Specialty Start Date End Date Ye Loera MD [address] [place] [address] PCP - General Internal Medicine 02/18/25 documented as of this encounter
--- OUTSIDE RECORDS SUMMARY | 2025-04-10 15:33 | XMS_ITS | Encounter Summary ---
Author Organization [employer] Address [address] [facility] 7t [place] [address] Care Team Providers Care Nursing Assoc Name Role Phone Ye Loera MD Primary Care Prov ider Encounter Details Date Type Department Care Team (Late st Contact Info) Description 02/28/2025 Orders Only [facility] MED & PEDS [address], [place] [phone] Aviva Barlow MD [address] [place] [address] Primary hypertension (Primary Dx) Social History Tobacco Use Types Packs/Day Years Used Date Smoking Tobacco: Never Passive Smoke Exposure: Never Smokeless Tobacco: Never Alcohol Use Standard Drinks/Week Comments Never 0 (1 standard drink = 0.6 oz pur e alcohol) Depression Answer Date Recorded Patient Health Questionnaire-9 Score 0 12/22/2022 Housing Stability Answer Date Recorded What is your housing situation today? I have aristides jessica 03/05/[address] you li [...] Description 04/26/2025 9:30 AM EDT Telemedicine [facility] [address], [place] [phone] Ye Loera MD [address] [place], [place] [phone] documented as of this encounter Procedures Procedure Name Priority Date/Time Associated Diagnosis Comments XR CHEST 2 VIEWS Routine 03/25/2025 12:1 0 PM EDT documented in this encounter Results * XR Chest 2 Views (03/25/2025 12:10 PM EDT) Anatomical Region Laterality Modality Chest Radiographic Barbara ging 03/25/2025 12:1 0 PM EDT Narrative 03/25/2025 12:23 PM EDT [address] [address] XRay Report Signed Patient: Diana Chapman MR#: [id number] : 1960 Acct:[id number] Age/Sex: 64 / F ADM Date: 03/25/25 Loc: KYLIE Attending Dr: Osiris Ware MANAGER INSTALLATION-BC Ordering Physician: Osiris Ware-BC Date of Service: 03/25/25 Procedure(s): XR chest 2V Accession Number(s): [id number] cc: Ye Loera MD; Osiris WareP- EXAMINATION: XR CHEST 2 VIEWS HISTORY: Z87.01 [...] 03/25/25 1221 DD/ 1210 TD/TT: 03/25/25 1215 Piece Presser: Procedure Note Donotuseinterpreter, Image - 03/25/2025 [place] [address] XRay Report Signed Patient: Shabana Chapman#: [id number] : 9Acct:[id number] Age/Sex: 64 / FADM Date: 03/25/25 Loc: KYLIE Attending Dr: Osiris Ware [facility] Ordering Physician: Osiris Ware [facility] Date of Service: 03/25/25 Procedure(s): XR chest 2V Accession Number(s): [id number] cc: Ye Loera MD; Osiris Ware [facility] EXAMINATION: XR CHEST 2 VIEWS HISTORY: Z87.01 [...] 03/25/25 1221 DD/ 1210 TD/TT: 03/25/25 1215 Piece Presser: [facility] External Provider IMG XR PROCEDURES Final Result documented in this encounter Visit Diagnoses Diagnosis Primary hypertension- Primary Unspecified essential hypertension documented in this encounter Additional Health Concerns Assessment Noted Time PHQ-9 Depression Total Score: 0 12/23/19 23 2:25 PM EDT documented as of this encounter Care Teams Nursing Assoc Relationship Specialty Start Date End Date IsaacsYe Law MD [address] [place] [address] PCP - General Internal Medicine 02/18/25 documented as of this encounter
--- OUTSIDE RECORDS SUMMARY | 2025-04-10 15:33 | XMS_ITS | Encounter Summary ---
Author Organization [employer] Address [address] [facility] [address] 7t [place] [address] Care Team Providers Care Enamel Buffer Name Role Phone Ye Loera MD Primary Care Prov ider Encounter Details Date Type Department Care Team (Latest Contact Info) Description 04/10/2025 Travel Social History Tobacco Use Types Packs/Day Years [...] Description 04/26/2025 9:30 AM EDT Telemedicine [facility] PEDS 505 [place] [address] Ye Loera MD 505 [place] [address] documented as of this encounter Visit Diagnoses Not on filedocumented in this encounter Additional Health Concerns Assessment Noted Time PHQ-9 Depression Total Score: 5 03/29/20 9:11 AM EDT documented as of this encounter Care Teams Enamel Buffer Relationship Specialty Start Date End Date Ye Loera MD 505 [place] [address] PCP - General Internal Medicine 02/18/25 documented as of this encounter
--- OUTSIDE RECORDS SUMMARY | 2025-04-10 15:33 | XMS_ITS | Encounter Summary ---
Author Organization [facility] Address [address] [place] [address] Care Team Providers Care Gear Milling Machine Set Up Operator Name Role Phone Name, Elijah FRAGA Primary Care Provider [phone] Encounter Details Date Type Department Care Team (Late st Contact Info) Description 07/20/2024 Lab Requisition [facility] Main Lab [address] [facility] [place] [address] Shawnee Friedman MD [address] [place] [address] Functional dyspepsia Social History Tobacco Use Types [...] LAB CHEMISTRY METHOD 07/21/2024 7:24 AM EST [facility] Breath Oral cavity structure / Unknown 07/20/2024 07/20/2024 6:14 PM EST us Shawnee Friedman MD LAB BODY FLUIDS AND STOOL S ORDERABLES Final Result [facility] [address] [place] [address], documented in this encounter Visit Diagnoses Diagnosis Functional dyspepsia Dyspepsia and other specified disorders of function of stomach documented in this encounter Additional Health Concerns Infection Onset Date Last Indicated Resolved Time Herpes simplex 07/23/2024 07/23/2024 documented as of this encounter Care Teams Gear Milling Machine Set Up Operator Relationship Specialty Start Date End Date Name, MD Elijah [address] [place], [place] PCP - General 08/23/08 documented as of this encounter
--- OUTSIDE RECORDS SUMMARY | 2025-04-10 15:33 | XMS_ITS | Encounter Summary ---
Author Organization [employer] Address 75 [facility] 7t [place] [address] Care Team Providers Care Rivet Heater Name Role Phone Ye Loera MD Primary Care Prov ider Reason for Visit * Reason Comments Med Refill Encounter Details Date Type Department Care Team ([facility] st Contact Info) Description 11/13/2024 Refill [facility] MEDICINE [address] [place], [place] [phone] [facility] 230 [place] [address] Social History Tobacco Use Types Packs/Day Years [...] t he electric, gas, oil or water [employer] threatened to shut off services in your [...] [facility] [address] [place] [address] Ye Loera MD [address] [place] [address] documented as of this encounter Visit Diagnoses Not on filedocumented in this encounter Additional Health Concerns Assessment Noted Time PHQ-9 Depression Total Score: 0 12/23/19 23 2:25 PM EDT documented as of this encounter Care Teams Rivet Heater Relationship Specialty Start Date End Date Ye Loera MD [address] [place] [address] PCP - General Internal Medicine 02/18/25 documented as of this encounter
--- OUTSIDE RECORDS SUMMARY | 2025-04-10 15:33 | XMS_ITS | Encounter Summary ---
Author Organization [employer] Address [address] [facility] [address] 7t [place] [address] Care Team Providers Care Pie Icer Machine Name Role Phone Name, Elijah FRAGA Primary Care Provider [phone] Ye Loera MD Primary Care Prov ider Reason for Visit * Reason Onset Date Comments Reschedule 01/19/2024 Encounter Details Date Type Department Care Team ([facility] st Contact Info) Description 01/19/2024 Telephone [facility] MEDICINE [address] [place], [place] [phone] Name, MD Elijah [address] [place] [address] Reschedule Social History Tobacco Use Types Packs/Day [...] Info) Description 04/26/2025 9:30 AM EDT Telemedicine [facility] MED & PEDS 505 [place] [address] Ye Loera MD 505 [place] [address] documented as of this encounter Visit Diagnoses Not on filedocumented in this encounter Additional Health Concerns Assessment Noted Time PHQ-9 Depression Total Score: 0 12/23/19 23 2:25 PM EDT documented as of this encounter Care Teams Pie Icer Machine Relationship Specialty Start Date End Date Name, MD Elijah [address] [place] [address] PCP - General Family Medicine 08/08/18 09/24/24 Ye Loera MD [address] [place] [address] PCP - General Internal Medicine 02/18/25 documented as of this encounter
--- OUTSIDE RECORDS SUMMARY | 2025-04-10 15:33 | XMS_ITS | Encounter Summary ---
Author Organization [employer] Address 75 [facility] 7 [place] [address] Care Team Providers Care Organic Preparation Analyst Name Role Phone Ye Loera MD Primary Care Prov ider Reason for Visit * Reason Onset Date Comments Durable Medical Equipment 03/29/2025 Encounter Details Date Type Department Care Team (Late st Contact Info) Description 03/29/2025 Telephone [facility] MED & PEDS [address] [place], [place] [phone] Ye Loera MD [address] [place] [address] Durable Medical Equipment Social History Tobacco Use [...] AM EDT documented as of this encounter Functional Status * Over the past 2 weeks, how often have you been bothered by any of the following problems? Question Answer Date of Assessment Author Patient Health Questionnaire-2 Score 2 03/09 9:11 AM Rabia Langford [place] * Little interest or pleasure in doing things Answer Date of Assessment Author Several days 03/29/2025 9:11 AM Fela Langford [place] * Feeling down, depressed, or hopeless Answer Date of Assessment Author Several days 03/29/2025 9:11 AM Fela Langford [place] * Trouble falling or staying asleep, or sleeping too much Answer Date of Assessment Author Several days 03/29/2025 9:11 AM Fela Langford [place] * Feeling tired or having little energy Answer Date of Assessment Author Several days 03/29/2025 9:11 AM Fela Langford [place] * Poor appetite or overeating Answer Date of Assessment Author Several days 03/29/2025 9:11 AM Fela Langford [place] * Feeling bad about yourself - or that you are a failure or have let yourself or your family down Answer Date of Assessment Author Not at all 03/29/2025 9:11 AM Fela Langford [place] * Trouble concentrating on things, such as reading the newspaper or watching television Answer Date of Assessment Author Not at all 03/29/2025 9:11 AM Fela Langford [place] * Moving or speaking so slowly that other people could have noticed? Or the opposite - being so fidgety or restless that you have been moving around a lot more than usual. Answer Date of Assessment Author Not at all 03/29/2025 9:11 AM Fela Langford [place] * Thoughts that you would be better off or hurting yourself in some way Answer Date of Assessment Author Not at all 03/29/2025 9:11 AM Fela Langford [place] * Patient Health Questionnaire-9 Score Answer Date of Assessment Author 5 03/29/2025 9:11 AM Fela Langford [place] * How difficult have these problems made it for you to do your work, take care of things at home, or get along with other people? Answer Date of Assessment Author Somewhat difficult 03/29/2025 9:11 AM Rabia Langford [place] documented as of this encounter Miscellaneous Notes * Telephone Encounter - Jodi Bone LPN - 04/02/2025 10:30 AM EDT Please review message below and advise If agreed please provide Dx to support this DME need , Tc from pt requesting DME order for Pads Night long pads Wipes Gloves sz M Contact pt at [phone] (english) * Telephone Encounter - Dariel Sebastian - 03/29/2025 2:43 PM EDT Tc from pt requesting DME order for Pads Night long pads Wipes Gloves sz M Contact pt at [phone] (english) documented in this encounter Plan of Treatment Upcoming Encounters Date Type Department Care Team ([facility] st Contact Info) Description 04/26/2025 9:30 AM EDT Telemedicine [facility] MED & PEDS [address] [place] [address] Ye Loera MD [address] [place] [address] documented as of this encounter Visit Diagnoses Not on filedocumented in this encounter Additional Health Concerns Assessment Noted Time PHQ-9 Depression Total Score: 5 03/29/20 25 9:11 AM EDT documented as of this encounter Care Teams Organic Preparation Analyst Relationship Specialty Start Date End Date Ye Loera MD [address] [place] [address] PCP - General Internal Medicine 02/18/25 documented as of this encounter
--- OUTSIDE RECORDS SUMMARY | 2025-04-10 15:33 | XMS_ITS | Encounter Summary ---
Author Organization [employer] Address [address] [facility] [address] 7t [place] [address] Care Team Providers Care Laborer Syrup Machine Name Role Phone Name, Elijah FRAGA Primary Care Provider [phone] Ye Loera MD Primary Care Prov ider Reason for Visit * Reason Onset Date Comments Nurse Triage 12/05/2023 Encounter Details Date Type Department Care Team ([facility] st Contact Info) Description 12/05/2023 Telephone [facility] MEDICINE [address] [place], [place] [phone] Name, MD Elijah [address] [place] [address] Nurse Triage Social History Tobacco Use Types [...] painful. Pt is offered WIC today at [facility] but, declines to go today due tofamily member doing poorly. Pt requests provider for RF MICROWAVE ENGINEER to see Pt. Apt with JUJU Romero 12/06/23 @ 330pm at [facility] facility. Pt reports has been to [facility] before. Pt agrees with disposition. Advised [...] Info) Description 04/26/2025 9:30 AM EDT Telemedicine [facility] MED & PEDS [address] [place] [address] Ye Loera MD 505 [place] [address] documented as of this encounter Visit Diagnoses Not on filedocumented in this encounter Additional Health Concerns Assessment Noted Time PHQ-9 Depression Total Score: 0 12/23/19 23 2:25 PM EDT documented as of this encounter Care Teams Laborer Syrup Machine Relationship Specialty Start Date End Date Name, MD Elijah [address] [place] [address] PCP - General Family Medicine 08/08/18 09/24/24 Ye Loera MD [address] [place] [address] PCP - General Internal Medicine 02/18/25 documented as of this encounter
--- OUTSIDE RECORDS SUMMARY | 2025-04-10 15:33 | XMS_ITS | Encounter Summary ---
Author Organization [employer] Address [address] [facility] [address] 7t [place] [address] Care Team Providers Care Case Manager Specialist Name Role Phone Ye Loera MD Primary Care Prov ider Reason for Visit * Reason Comments Med Refill Encounter Details Date Type Department Care Team ([facility] st Contact Info) Description 12/10/2024 Refill [facility] MEDICINE [address] [place], [place] [phone] Name, MD Elijah [address] [place] [address] Rash Social History Tobacco Use Types Packs/Day [...] the past 12 months, has t he [employer], gas, oil or water company threatened to [...] 04/26/2025 9:30 AM EDT Telemedicine [facility] MED & PEDS [address] [place] [address] Ye Loera MD 505 [place] [address] documented as of this encounter Visit Diagnoses Diagnosis Rash Rash and other nonspecific skin eruption documented in this encounter Additional Health Concerns Assessment Noted Time PHQ-9 Depression Total Score: 0 12/23/19 23 2:25 PM EDT documented as of this encounter Care Teams Case Manager Specialist Relationship Specialty Start Date End Date Ye Loera MD [address] [place] [address] PCP - General Internal Medicine 02/18/25 documented as of this encounter
--- OUTSIDE RECORDS SUMMARY | 2025-04-10 15:33 | XMS_ITS | Clinical Summary ---
Author Organization [address] Address [address] [place] [address] Phone Care Team Providers Care Learning Coordinator Name Role Phone Name, Elijah FRAGA Primary Care Provider [phone] Surgical History Surgery Date Site/Laterality Comments HYSTERECTOMY PROCEDURE: HISTORICAL HYSTERECTOMY; COMMENT: and BSO COLONOSCOPY 01/13/09 PROCEDURE: AL COLONOSCOPY STOMA DX INCLUDING COLLJ SPEC SPX; COMMENT: Up to cecum, good preparation, rectal polyp removed:Tubular adenoma. Repeat 01/2014 ESOPHAGOGASTRODUODENOSCOPY 05/20/09 PROCEDURE: AL EGD TRANSORAL BIOPSY SINGLE/MULTIPLE; COMMENT: Normal esophagus, [...] series) 2018 Colorectal Cancer Screening: Colonoscopy 07/11/2022 Osteoporosis Screening (Bone Density Screening) 07/11/2022 Social Influencers of Health Screening 07/11/2022 DTaP,Tdap,and Td Vaccines (2 - Td or Tdap) 08/23/2023 08/23/2013 Falls Risk Assessment 11/28/2023 Depression Screening 08/08/2024 COVID-19 Vaccine (3 - season) 2025 08/05/2021, 07/15/2021 Influenza Vaccine (#1) 2025 , 04/08/2021, 05/20/2020, Additional history exists Hypertension/CHF/CAD [...] Procedure Name Priority Date/Time Associated Diagnosis Comments COMPREHENSIVE METABOLIC PANEL Routine 09/27/2024 10:28 AM [...] mg/dL LAB CHEMISTRY METHOD 09/27/2024 12:24 PM EST [facility] Triglycerides 43 0 - 150 mg/dL LAB CHEMISTRY METHOD 09/27/2024 12:24 PM EST [facility] HDL 61 >=40 mg/dL LAB CHEMISTRY METHOD 09/27/2024 12:24 PM EST [facility] LDL Calculated 118(H) 0 - 100 mg/dL LAB CHEMISTRY METHOD 09/27/2024 12:24 PM EST [facility] VLDL Cholesterol Carlo 8.6 mg/dL LAB CHEMISTRY METHOD 09/27/2024 12:24 PM EST [facility] Non HDL Chol. (LDL+VLDL) 127 <145 mg/dL LAB CHEMISTRY METHOD 09/27/2024 12:24 PM EST [facility] Chol/HDL Ratio 3.1 0.0 - 4.4 LAB CHEMISTRY METHOD 09/27/2024 12:24 PM EST [facility] Blood Venous blood specimen / Unknown Venipuncture / Unknown 09/27/2024 10:28 AM EST 09/27/2024 11:24 AM EST us Mary Jo Vargas MD LAB BLOOD ORDERABLES Final Resul t [facility] [address] [place] [address], * (ABNORMAL) Comprehensive metabolic panel (09/27/2024 10:28 AM EST) Sodium 141 133 - 145 mmol/L LAB CHEMISTRY METHOD 09/27/2024 12:24 PM EST [facility] Potassium 4.2 3.5 - 5.5 mmol/L LAB CHEMISTRY METHOD 09/27/2024 12:24 PM [facility] Chloride 108 96 - 110 mmol/L LAB CHEMISTRY METHOD 09/27/2024 12:24 PM [facility] CO2 31 21 - 32 mmol/L LAB CHEMISTRY METHOD 09/27/2024 12:24 PM [facility] Anion Gap 2(L) 3 - 11 LAB CHEMISTRY METHOD 09/27/2024 12:24 PM [facility] Glucose 95 70 - 100 mg/dL LAB CHEMISTRY METHOD 09/27/2024 12:24 PM [facility] BUN 16 5 - 25 mg/dL LAB CHEMISTRY METHOD 09/27/2024 12:24 PM [facility] Creatinine 0.72 0.50 - 1.10 mg/dL LAB CHEMISTRY METHOD 09/27/2024 12:24 PM [facility] eGFR 93 >=60 mL/min/1. 73m2 LAB CHEMISTRY METHOD 09/27/2024 12:24 PM [facility] Comment:Calculation based on the Chronic Kidney Disease Epidemiology Collaboration (CKD-EPI) equation refit without adjustment for race. BUN/Creatinine Ratio 22.2 LAB CHEMISTRY METHOD 09/27/2024 12:24 PM [facility] Calcium 9.1 8.5 - 10.5 mg/dL LAB CHEMISTRY METHOD 09/27/2024 12:24 PM [facility] AST (SGOT) 17 10 - 42 unit/L LAB CHEMISTRY METHOD 09/27/2024 12:24 PM [facility] ALT (SGPT) 19 10 - 60 unit/L LAB CHEMISTRY METHOD 09/27/2024 12:24 PM [facility] Alkaline Phosphatase 74 42 - 121 unit/L LAB CHEMISTRY METHOD 09/27/2024 12:24 PM [facility] Total Protein 6.4 6.0 - 8.0 g/dL LAB CHEMISTRY METHOD 09/27/2024 12:24 PM EST [facility] Albumin 3.6 3.2 - 5.0 g/dL LAB CHEMISTRY METHOD 09/27/2024 12:24 PM EST [facility] Total Bilirubin 0.2 0.0 - 1.4 mg/dL LAB CHEMISTRY METHOD 09/27/2024 12:24 PM EST [facility] Blood Venous blood specimen / Unknown Venipuncture / Unknown 09/27/2024 10:28 AM EST 09/27/2024 11:24 AM EST us Mary Jo Vargas MD LAB BLOOD ORDERABLES Final Resul t Performing Organization Address City/[facility]/ZIP Co de Phone Number [facility] [address] [place] [address], [place] [phone] * Hepatitis C antibody (07/23/2024 11:59 AM EST) [facility] Hepatitis C Antibody Negative Negative LAB CHEMISTRY METHOD 07/23/2024 7:04 PM EST [facility] Blood Venous blood specimen / Unknown Venipuncture / Unknown 07/23/2024 11:59 AM EST 07/23/2024 12:33 PM EST us Shawnee Friedman MD LAB BLOOD ORDERABLES January l Result [facility] [address] [place] [address], [place] [phone] from Last 3 Months or Most Recently Relevant to Health Maintenance Additional Health Concerns Infection Onset Date Last Indicated Herpes simplex 07/23/2024 07/23/[address] [facility] [place] Member Subscriber Plan / Payer (Ef fective 2024-Present) Name:DIANA CHAPMAN Relation to Subscriber:Self Name:Diana Chapman Payer ID:[id number] Group ID:[id number] Type:Not on file Address: [facility] [address] [address] Care Teams Learning Coordinator Relationship Specialty Start Date End Date Name, MD Elijah 4 [facility] [place] PCP - General 08/23/08
--- OUTSIDE RECORDS SUMMARY | 2025-04-10 15:33 | XMS_ITS | Encounter Summary ---
Author Organization [employer] Address 75 [facility] 7 [place] [address] Care Team Providers Care 911 Telecommunicator Name Role Phone Name, Elijah FRAGA Primary Care Provider [phone] Ye Loera MD Primary Care Prov ider Reason for Visit * Reason Comments Med Refill Encounter Details Date Type Department Care Team ([facility] Contact Info) Description 07/23/2022 Refill [facility]IC[facility] [address] [place], [place] [phone] Name, MD Elijah [address] [place] [address] Social History Tobacco Use Types Packs/Day Years [...] Info) Description 04/26/2025 9:30 AM EDT Telemedicine [facility] MED & PEDS [address] [place], [place] [phone] Ye Loera MD [address] [place], [place] [phone] documented as of this encounter Visit Diagnoses Not on filedocumented in this encounter Care Teams 911 Telecommunicator Relationship Specialty Start Date End Date Name, MD Elijah [address] [place] [address] PCP - General Family Medicine 08/08/18 09/24/24 Ye Loera MD [address] [place] [address] LISSETH Joyce [address] PCP - General Internal Medicine 02/18/25 documented as of this encounter
== END 2025-04-10 13:15 | disposition home or self-care (01) ==
LOC: HO.MAMMO 13:14
PROVIDERS: PCP Internal Medicine; Visit Provider Internal Medicine
DX: Z13.820 Encounter for screening for osteoporosis (principal); Z78.0 Asymptomatic menopausal state
CPT/HCPCS: 77080

== ENCOUNTER 2025-06-03 12:56 | Outpatient (AMB) | payer OTHER, SELFPAY ==
--- OUTSIDE RECORDS SUMMARY | 2025-05-30 11:30 | XMS_ITS | Encounter Summary ---
Author Organization [employer] Address [address] [facility] [address] [place] [address] Care Team Providers Care Collection Teller Name Role Phone Ye Loera MD Primary Care Prov ider Encounter Details Date Type Department Care Team (Latest Contact Info) Description 05/30/2025 11:30 AM EDT Office Visit [facility] [address] [place], [place] [phone] Ye Loera MD [address] [place], [place] [phone] Diverticulitis (Primary Dx) Social History Tobacco Use Types [...] Sign Reading Time Taken Comments Blood Pressure 132/70 05/30/2025 11:42 AM EDT Pulse 68 05/30/2025 11:42 AM EDT Temperature 36.6 C (97.8 F) 05/30/2025 11:42 AM EDT Respiratory Rate 20 05/30/2025 11:42 AM EDT Oxygen Saturation - - Inhaled Oxygen Concentration - - Weight 81.6 kg (180 lb) 05/30/2025 11:42 AM EDT Height 154.9 cm (5' 1 ) 05/30/2025 11:42 AM EDT Body Mass Index 34.01 05/30/2025 11:42 AM EDT documented in this encounter Progress Notes * Ye Winn MD - 05/30/2025 11:30 AM EDT Subjective Patient ID: Diana Chapman is a 64 y.o. female who presents for No chief complaint on file.. HPI Patient seen on office for follow up recent er visit. She was found with diverticulitis and was discharged to continue augmentin. Review of Systems Constitutional: Negative for chills, fatigue and fever. Respiratory: Negative for cough and shortness of breath. Cardiovascular: Negative for chest pain and palpitations. Gastrointestinal: Negative for abdominal distention, abdominal pain, blood in stool and diarrhea. Objective Physical Exam Constitutional: Appearance: Normal appearance. Cardiovascular: Rate and Rhythm: Normal rate. Abdominal: General: Abdomen is flat. There is no distension. Palpations: There is no mass. Tenderness: There is no abdominal tenderness. There is no guarding or rebound. Hernia: No hernia is present. Neurological: General: No focal deficit present. Mental Status: She is alert and oriented to person, place, and time. Psychiatric: Mood and Affect: Mood normal. Behavior: Behavior normal. Assessment/Plan Problem List Items Addressed This Visit Diverticulitis - Primary Seen at er, wa given augmentin, refers feeling better, no fever/chills, nausea/vomiting, diarrhea, told to follow up with GI, er precautions reviewed documented in this encounter Miscellaneous Notes * Assessment & Plan Note - Ye Winn MD - 05/30/2025 6:00 PM EDTAssociated Problem(s): Diverticulitis Seen at er, wa given augmentin, refers feeling better, no fever/chills, nausea/vomiting, diarrhea, told to follow up with GI, er precautions reviewed documented in this encounter Plan of Treatment Not on file documented as of this encounter Visit Diagnoses Diagnosis Diverticulitis- Primary Diverticulitis of colon (without mention of hemorrhage) documented in this encounter Additional Health Concerns Assessment Noted Time PHQ-9 Depression Total Score: 5 03/29/20 9:11 AM EDT documented as of this encounter Care Teams Collection Teller Relationship Specialty Start Date End Date Ye Loera MD [address] [place] [id number] PCP - General Internal Medicine 02/18/25 documented as of this encounter
--- NOTE | 2025-06-03 12:59 | A.OFFVIS_ITS ---
Vital Signs 06/03/25 13:00 06/03/25 13:27 Height 5 ft 1 in 5 ft 1 in Weight 180 lb BMI 34.0 BP 140/86 H Blood Pressure Location Rt brachial Position Sitting Pulse 72 Pulse Source Pulse Oximeter Pulse Oximetry (%) 99 Oxygen Delivery Method Room Air Intake Visit Reasons: pt seen in er Intake Note: ESTABLISHED PATIENT for CIC + Abd pain mgmt. Recent ED visit. CC: C.O. difficulty with constipation despite current therapy. Pt reports being seen recently at [facility] ED. Notes obtained. Pt states that the 145 mcg of linzess had previously been too much for her and had adverse side effects; however, she states that the 72 mcg is not enough. 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 Avoid dietary triggers and late night snacking. Staying upright for minimum 3 hours after meals discussed with patient. Change Linzess to 72 mcg daily. Increase fluid intake and activity to promote better bowel motility. Patient was encouraged to take [id number] fiber supplements with pre and probiotics. Follow-up in 3 months, sooner on as needed basis. Patient is agreeable to this plan and verbalizes understanding of instructions. She was given the opportunity to ask questions and all questions answered. ? Thank you for allowing me to participate in her care Orders XR chest 2V Today Z87.01 New linaclotide (Linzess) 72 mcg PO DAILY 30 caps 4RF Discontinued linaclotide (Linzess) Discontinued Reason: Doctor's Order 145 mcg PO DAILY 30 caps 4RF K59.04 TODAY'S VISIT Patient is here today for follow-up. Patient was seen in the ER last week and diagnosed with diverticulitis. Patient is on Augmentin. Patient reports with symptoms of left lower quadrant pain prior to ED visit. Patient admits to constipation. Now that she is taking Linzess 72 mcg daily she is having more constipation. Patient previously was on Linzess 145 mcg and she reported having loose stools so we decreased the dose. However patient now reports left lower quadrant pain and constipation. Patient reports that she is drinking lots of water. Few episodes of left lower quadrant pain. Patient also reports right upper quadrant pain postprandially. Patient reports frequent abdominal bloating. Frequent referred to pass gas. Patient denies any nausea or vomi ting. Denies any dyspepsia, dysphagia or odynophagia. Patient is taking Nexium in the morning and reports that her symptoms are suppressed for the most part. [facility] Medical History Hepatomegaly Postprandial abdominal bloating Cataract (~11/2021) Surgical History History of esophagogastroduodenoscopy (EGD) Hx of colonoscopy H/O: hysterectomy History of bladder surgery H/O prior ablation treatment Family History Father Diabetes HTN (hypertension) Sister FH: kidney cancer HTN (hypertension) Mother HTN (hypertension) Sister HTN (hypertension) Sister HTN (hypertension) Sister HTN (hypertension) Sister HTN (hypertension) Brother HTN (hypertension) Social History Housing: Apartment Alcohol intake: never Patient Tobacco Use Status: Never used Tobacco e-Cigarette/Vaping Use: Never Used Second Hand Smoke Exposure: No service: No Current occupational status: unemployed Cognitive needs: No Hearing needs: No Vision needs: No Review of Systems Const Denies weight gain and Denies weight loss ENT Reports no additional complaints, Denies dysphagia and Denies odynophagia Card Reports no additional complaints Resp Reports no additional complaints GI Reports abdominal pain, Denies belching, Denies melena, Reports bloating, Denies change in bowel habits, Reports constipation, Denies dysphagia, Denies excessive flatus, Denies dyspepsia, Denies heartburn, Denies diarrhea, Denies loose stools, Denies nausea, Denies odynophagia and Denies vomiting Reports no additional complaints Musc Reports no additional complaints Neuro Reports no additional complaints Psych Reports no additional complaints Endo Reports no additional complaints Physical Exam Vital Signs: Last Vital Signs Pulse 72 06/03/25 13:00 BP 140/86 H 06/03/25 13:00 Pulse Ox 99 06/03/25 13:00 Oxygen Delivery Method Room Air 06/03/25 13:00 BMI result Body Mass Index 34.0 Const General: healthy appearing, no acute distress and well developed Nutritional Appearance: well nourished and obese Orientation/consciousness: patient oriented x3 Resp Effort & Inspection: normal respiratory effort, able to speak in complete sentences, no tracheal deviation and symmetric chest movement Auscultation: clear to auscultation bilaterally Cardio Rate: regular rate Heart sounds: S1 normal heart sound present and S2 normal heart sound present GI Inspection: Yes normal to inspection, No distended and Yes obesity Palpation (GI): Soft to palpation, not firm, nontender and No hepatosplenomegaly present Auscultation: normal bowel sounds General: Yes no CVA tenderness Back/Spine/Pelvis Back: no CVA tenderness Skin General skin exam: elasticity normal, turgor normal and dry skin Neuro General: patient oriented x3 Psych Appearance: grossly normal Mental Status: mental status grossly normal Assessment & Plan Assessment & Plan (1) Chronic GERD: Code(s): K21.9 - Gastro-esophageal reflux disease without esophagitis Category: Medical (2) Dyspepsia: Code(s): R10.13 - Epigastric pain Category: Medical (3) Hepatomegaly: Code(s): R16.0 - Hepatomegaly, not elsewhere classified Category: Medical (4) Postprandial abdominal bloating: Code(s): R14.0 - Abdominal distension (gaseous) Category: Medical (5) Constipation: Code(s): K59.00 - Constipation, unspecified Qualifiers: Constipation type: slow transit constipation Qualified Code(s): K59.01 - Slow transit constipation Plan Patient will continue taking Nexium. Reports occasional postprandial right upper quadrant pain, will send patient for ultrasound. Will increase Linzess back to 145 mcg daily. Patient was encouraged to continue increasing water throughout the day. Continue taking Metamucil. Referral to General surgery. Patient had several episodes or diverticulitis in the past few months. She will follow-up with us in 2-3 months. Patient was encouraged to call us if she will have any GI concerning symptoms. She is agreeable to this plan and verbalizes understanding of instructions. She was given the opportunity to ask questions and all questions answered. Thank you for allowing me to participate in her care E Orders: Orders US abdomen complete 06/03/25 R10.9 - Unspecified abdominal pain Referrals General Surgery Referral K57.92 - Diverticulitis of intestine, part unspecified, without perforation or abscess without bleeding Medications: New linaclotide (Linzess) 145 mcg PO DAILY 30 caps 2RF Changed From psyllium husk PO To psyllium husk (Metamucil Sugar-Free (aspartame)) 2.5 grams PO DAILY 425 grams 2RF Discontinued linaclotide Discontinued Reason: Doctor's Order 72 mcg PO DAILY 30 caps 4RF Coding Level of Care Code Est Pt Level 4 (64777) Complex visit Add On G2211 Diagnoses Chronic GERD K21.9 Dyspepsia R10.13 Hepatomegaly R16.0 Postprandial abdominal bloating R14.0 Slow transit constipation K59.01 Constipation type: slow transit constipation Time Spent (min) 40 Comment 25 minutes spent with patient and additional 15 minutes spent reviewing her records
[2025-06-03 13:00] VITALS: BP 140/86; PULSE 72; O2SAT 99; BMI 34.0
--- OUTSIDE RECORDS SUMMARY | 2025-06-03 16:26 | XMS_ITS | Clinical Summary ---
Author Organization [address] [facility] Address [address] [place] [address] Phone Care Team Providers Care Director Of Research Name Role Phone Unavailable Primary Care Provider Unavailabl e Allergies Active Allergy Reactions Criticality Noted Date Comments Oxycodone-Acetaminophen Itching,Nausea And Vomiting 05/25/2025 Tramadol Itching,Nausea And Vomiting 05/25/20 25 Medications amoxicillin-clav ulanate (AUGMENTIN) 875-125 mg per tablet Take 1 tablet by mouth every 12 (twelve) hours for 10 days. 20 each 05/25/2025 Active Encounters Date Type Department Care Team Description 05/25/2025 11:21 AM EDT - 05/25/2025 1:58 PM EDT Emergency [facility] Emergency [address] [place] [address] Kaylin Villasenor MD Diverticulitis (Primary Dx); Enteritis; Left lower quadrant abdominal pain Discharge Disposition: Home or Self Care from Last 3 Months Surgical History Surgery Date Site/Laterality Comments HYSTERECTOMY PROCEDURE: HISTORICAL HYSTERECTOMY; COMMENT: and BSO COLONOSCOPY 01/13/09 PROCEDURE: LA COLONOSCOPY STOMA DX INCLUDING COLLJ SPEC SPX; COMMENT: Up to cecum, good preparation, rectal polyp removed:Tubular adenoma. Repeat 01/2014 ESOPHAGOGASTRODUODENOSCOPY 05/20/09 PROCEDURE: LA EGD TRANSORAL BIOPSY SINGLE/MULTIPLE; COMMENT: Normal esophagus, [...] Sexual Orientation Not on file Obstetrics History Last Filed Vital Signs Vital Sign Reading Time Taken Comments Blood Pressure 152/91 05/25/2025 10:42 AM EDT Pulse 75 05/25/2025 10:42 AM EDT Temperature 36.5 C (97.7 F) 05/25/2025 10:42 AM EDT Respiratory Rate 16 05/25/2025 10:42 AM EDT Oxygen Saturation 99% 05/25/2025 10:42 AM EDT Inhaled Oxygen Concentration - - Weight 83 kg (183 lb) 05/25/2025 10:42 AM EDT Height 154.9 cm (5' 1 ) 05/25/2025 10:42 AM EDT Body Mass Index 34.58 05/25/2025 10:42 AM EDT Plan of Treatment Health Maintenance Due Date Last Done Comments Breast Cancer Screening 1960 Colorectal Cancer Screening: Colonoscopy 1960 Hepatitis A Vaccines (1 of 2 - Risk 2-dose series) 1977 RSV Immunization Adult Patients (1 - Risk 50-74 years 1-dose series) 2008 Zoster Vaccines (1 of 2) 2008 Hepatitis B Vaccines (1 of 3 - Risk 3-dose series) 2018 Social Influencers of Health Screening 07/11/2022 DTaP,Tdap,and Td Vaccines (2 - Td or Tdap) 08/23/2023 08/23/2013 Falls Risk Assessment 11/28/2023 Depression Screening 08/08/2024 COVID-19 Vaccine (3 - season) 2025 08/05/2021, 07/15/2021 Influenza Vaccine (#1) 2025 2, 04/08/2021, 05/20/2020, Additional history exists Hypertension/CHF/CAD Annual BMP Blood Test 05/25/2026 05/25/2025, 09/27/2024, 07/23/2024 Cholesterol Screening (Lipid Panel) 02/18/2030 02/18/2025, 09/27/2024, 07/23/2024, Additional history exists Osteoporosis Screening (Bone Density Screening) 04/10/2035 04/10/2025 Hepatitis C Screening Completed 07/23/2024 Pneumococcal Vaccine: [...] Procedure Name Priority Date/Time Associated Diagnosis Comments CT ABDOMEN PELVIS W CONTRAST STAT 05/25/2025 11:52 AM EDT HUNTER URINE CULTURE TUBE STAT 05/25/2025 10:57 AM EDT URINALYSIS WITH REFLEX MICROSCOPIC AND CULTURE STAT 05/25/2025 10:57 AM EDT URINALYSIS WITH REFLEX MICROSCOPIC AND CULTURE STAT 05/25/2025 10:57 AM EDT CULTURE URINE STAT 05/25/2025 10:57 AM EDT CBC WITH AUTO DIFFERENTIAL STAT 05/25/2025 10:49 AM EDT LIPASE STAT 05/25/2025 10:49 AM EDT COMPREHENSIVE METABOLIC PANEL STAT 05/25/2025 10:49 AM EDT CBC AND DIFFERENTIAL STAT 05/25/2025 10:49 AM EDT LIPID PANEL WITH REFLEX TO DIRECT LDL Routine 09/27/2024 10:28 AM EST Gastric tympany HEPATITIS C ANTIBODY Routine 07/23/2024 11:59 AM EST Steatosis of liver from Last 3 Months or Most Recently Relevant to Health Maintenance Results * CT Abdomen Pelvis w Contrast (05/25/2025 11:52 AM EDT) Anatomical Region Laterality Modality Body Computed Tomogra phy 05/25/2025 12:0 4 PM EDT Impressions 05/25/2025 12:09 PM EDT 1. Acute uncomplicated sigmoid diverticulitis. 2. Findings of mild chronic mesenteritis. -------- FINAL REPORT -------- Dictated By: Adam Watkins Dictated Date: 05/25/2025 12:04 ET Assigned Physician: Adam Watkins Reviewed and Electronically Signed By: Adam Watkins Signed Date: 05/25/2025 12:09 ET Workstation ID: [id number] Transcribed By: Self Edit Transcribed Date: 05/25/2025 12:04 ET Narrative 05/25/2025 12:09 PM EDT PROCEDURE: Contrast enhanced CT of the abdomen and pelvis. HISTORY: LLQ, hx diverticulitis. COMPARISON: 05/26/2013. TECHNIQUE: Contrast-enhanced CT of the abdomen and pelvis with coronal and sagittal reformats. IV contrast dose: 90 mL ISOVUE-370. Dose length product: 1075 mGy-cm. FINDINGS: Lung bases: Mild dependent atelectasis on the left. Cardiac: Normal heart size. No coronary artery calcification. Liver: Small area of focal fatty infiltration along the intersegmental fissure. There are 2 small low-attenuation lesions in the right lobe. These are probably cysts but too small for definitive characterization. Portal veins are patent. Biliary: Normal gallbladder and biliary tree. Pancreas: Normal. Spleen: Normal. Adrenal glands: Normal. Kidneys: Normal. Normal appearance of the ureters. Retroperitoneum: No mass or adenopathy. Abdominal vasculature: Normal. Bowel/mesentery: No obstruction or adenopathy. No mass. Trace free fluid in the pelvis. Sigmoid diverticulosis. Inflammatory fat stranding adjacent to the sigmoid in the left anterior pelvis consistent with acute diverticulitis. No perforation or abscess. There are a few other scattered colonic diverticula. Normal appendix. Mildly increased attenuation and small lymph nodes in the central small bowel mesentery, suggesting mild chronic mesenteritis. Abdominal wall: Normal. Pelvic nodes: No adenopathy. Pelvic organs: Hysterectomy. Bones: Mild degenerative changes of the spine. Procedure Note Adam Watkins MD - 05/25/2025 PROCEDURE: Contrast enhanced CT of the abdomen and pelvis. HISTORY: LLQ, hx diverticulitis. COMPARISON: 05/26/2013. TECHNIQUE: Contrast-enhanced CT of the abdomen and pelvis with coronal andsagittal reformats. IV contrast dose: 90 mL ISOVUE-370. Dose length product: 1075 mGy-cm. FINDINGS: Lung bases: Mild dependent atelectasis on the left. Cardiac: Normal heart size. No coronary artery calcification. Liver: Small area of focal fatty infiltration along the intersegmentalfissure. There are 2 small low-attenuation lesions in the right lobe.These are probably cysts but too small for definitive characterization.Portal veins are patent. Biliary: Normal gallbladder and biliary tree. Pancreas: Normal. Spleen: Normal. Adrenal glands: Normal. Kidneys: Normal. Normal appearance of the ureters. Retroperitoneum: No mass or adenopathy. Abdominal vasculature: Normal. Bowel/mesentery: No obstruction or adenopathy. No mass. Trace free fluidin the pelvis. Sigmoid diverticulosis. Inflammatory fat strandingadjacent to the sigmoid in the left anterior pelvis consistent with acutediverticulitis. No perforation or abscess. There are a few otherscattered colonic diverticula. Normal appendix. Mildly increasedattenuation and small lymph nodes in the central small bowel mesentery,suggesting mild chronic mesenteritis. Abdominal wall: Normal. Pelvic nodes: No adenopathy. Pelvic organs: Hysterectomy. Bones: Mild degenerative changes of the spine. IMPRESSION: 1. Acute uncomplicated sigmoid diverticulitis. 2. Findings of mild chronic mesenteritis. -------- FINAL REPORT -------- Dictated By: Adam Watkins Dictated Date: 05/25/2025 12:04 ET Assigned Physician: Adam Watkins Reviewed and Electronically Signed By: Adam Watkins Signed Date: 05/25/2025 12:09 ET Workstation ID: [id number] Transcribed By: Self Edit Transcribed Date: 05/25/2025 12:04 ET Kaylin Villasenor MD IM CT PROCEDURES Final Result * (ABNORMAL) Urinalysis with reflex microscopic and culture (05/25/2025 10:57 AM EDT) Specific Perrin Urine 1.016 1.003 - 1.030 LAB URINALYSIS - AUTOMATED METHOD 05/25/2025 11:09 AM [facility] pH, Urine 6.0 5.0 - 8.0 pH LAB URINALYSIS - AUTOMATED METHOD 05/25/2025 11:09 AM [facility] Leukocytes, Urine Small(A) Negative LAB URINALYSIS - AUTOMATED METHOD 05/25/2025 11:09 AM [facility] Nitrite, Urine Negative Negative LAB URINALYSIS - AUTOMATED METHOD 05/25/2025 11:09 AM [facility] Protein, Urine Negative <=Trace mg/dL LAB URINALYSIS - AUTOMATED METHOD 05/25/2025 11:09 AM [facility] Glucose, Urine Negative Negative mg/dL LAB URINALYSIS - AUTOMATED METHOD 05/25/2025 11:09 AM [facility] Ketones, Urine Negative Negative mg/dL LAB URINALYSIS - AUTOMATED METHOD 05/25/2025 11:09 AM [facility] Urobilinogen, Urine 0.2 0.2 - 1.0 mg/dL LAB URINALYSIS - AUTOMATED METHOD 05/25/2025 11:09 AM [facility] Bilirubin, Urine Negative Negative LAB URINALYSIS - AUTOMATED METHOD 05/25/2025 11:09 AM EDT [facility] Blood, Urine Negative Negative LAB URINALYSIS - AUTOMATED METHOD 05/25/2025 11:09 AM T [facility] RBC, Urine 1.4 0 - 4 /HPF LAB URINALYSIS - AUTOMATED METHOD 05/25/2025 11:09 AM EDT [facility] WBC, Urine 0.7 0 - 4 /HPF LAB URINALYSIS - AUTOMATED METHOD 05/25/2025 11:09 AM EDT [facility] Squamous Epithelial, Urine 4 0 - 60 /LPF LAB URINALYSIS - AUTOMATED METHOD 05/25/2025 11:09 AM [facility] Bacteria, Urine Negative Negative /HPF LAB URINALYSIS - AUTOMATED METHOD 05/25/2025 11:09 AM [facility] Hyaline Casts, Urine 0.8 0 - 3 /LPF LAB URINALYSIS - AUTOMATED METHOD 05/25/2025 11:09 AM [facility] Urine Urine specimen obtained by clean catch procedure / Unknown Non-blood Collection / Unknown 05/25/2025 10:57 AM EDT 05/25/2025 11:01 AM EDT Robert Thompson MD LAB URINE ORDERABLES Final Resul t [facility] [address] [place] [address], * Hunter urine culture tube (05/25/2025 10:57 AM EDT) Extra Tube Hold for add-ons. 05/25/2025 1:01 PM EDT [facility] Comment:Auto resulted. Urine Urine specimen obtained by clean catch procedure / Unknown Non-blood Collection / Unknown 05/25/2025 10:57 AM EDT 05/25/2025 11:01 AM EDT us Robert Thompson MD LAB URINE ORDERABLES Final Resul t [facility] [address] [place] [address], [place] [phone] * Culture urine (05/25/2025 10:57 AM EDT) Pathologist [facility] Culture, Urine No growth 05/26/2025 10:23 AM EDT [facility] Urine Urine specimen obtained by clean catch procedure / Unknown Non-blood Collection / Unknown 05/25/2025 10:57 AM EDT 05/25/2025 11:09 AM EDT Robert Thompson MD LAB MICROBIOLOGY - GENERAL ORDER BETTY Final Result Performing Organization Address City/[facility]/ZIP Co de Phone Number [facility] [address] [place] [address], [place] [phone] * CBC auto differential (05/25/2025 10:49 AM EDT) [facility] WBC 7.3 4.8 - 10.8 K/mcL LAB HEMETOLOGY METHOD 05/25/2025 11:11 AM EDT [facility] RBC 4.20 3.80 - 4.80 M/mcL LAB HEMETOLOGY METHOD 05/25/2025 11:11 AM EDT [facility] Hemoglobin 12.6 11.5 - 16.0 g/dL LAB HEMETOLOGY METHOD 05/25/2025 11:11 AM EDT [facility] Hematocrit 39.4 35.0 - 47.0 % LAB HEMETOLOGY METHOD 05/25/2025 11:11 AM EDT [facility] MCV 94.5 79.0 - 98.0 FL LAB HEMETOLOGY METHOD 05/25/2025 11:11 AM EDT [facility] MCH 30.2 27.0 - 32.0 pcg LAB HEMETOLOGY METHOD 05/25/2025 11:11 AM [facility] MCHC 32.0 32.0 - 37.0 g/dL LAB HEMETOLOGY METHOD 05/25/2025 11:11 AM [facility] RDW 13.3 11.0 - 15.0 % LAB HEMETOLOGY METHOD 05/25/2025 11:11 AM [facility] Platelets 267 130 - 400 K/mcL LAB HEMETOLOGY METHOD 05/25/2025 11:11 AM [facility] MPV 10.0 7.0 - 11.0 FL LAB HEMETOLOGY METHOD 05/25/2025 11:11 AM [facility] NRBC 0.0 <1.0 % LAB HEMETOLOGY METHOD 05/25/2025 11:11 AM [facility] NRBC Absolute 0.00 <0.10 K/mcL LAB HEMETOLOGY METHOD 05/25/2025 11:11 AM [facility] Neutrophils Relative 67.5 % LAB HEMETOLOGY METHOD 05/25/2025 11:11 AM [facility] Lymphocytes Relative 23.5 % LAB HEMETOLOGY METHOD 05/25/2025 11:11 AM [facility] Monocytes Relative 6.0 % LAB HEMETOLOGY METHOD 05/25/2025 11:11 AM [facility] Eosinophils Relative 2.2 % LAB HEMETOLOGY METHOD 05/25/2025 11:11 AM [facility] Basophils Relative 0.4 % LAB HEMETOLOGY METHOD 05/25/2025 11:11 AM [facility] Immature Granulocytes Relative 0.4 % LAB HEMETOLOGY METHOD 05/25/2025 11:11 AM [facility] Neutrophils Absolute 4.91 1.50 - 7.00 K/mcL LAB HEMETOLOGY METHOD 05/25/2025 11:11 AM EDT [facility] Lymphocytes Absolute 1.71 1.00 - 5.00 K/mcL LAB HEMETOLOGY METHOD 05/25/2025 11:11 AM EDT [facility] Monocytes Absolute 0.44 0.20 - 1.00 K/mcL LAB HEMETOLOGY METHOD 05/25/2025 11:11 AM EDT [facility] Eosinophils Absolute 0.16 0.00 - 0.50 K/[facility] LAB HEMETOLOGY METHOD 05/25/2025 11:11 AM EDT [facility] Basophils Absolute 0.03 0.00 - 0.20 K/mcL LAB HEMETOLOGY METHOD 05/25/2025 11:11 AM EDT [facility] Immature Granulocytes Absolute 0.03 0.00 - 0.03 K/mcL LAB HEMETOLOGY METHOD 05/25/2025 11:11 AM EDT [facility] Blood Venous blood specimen / Unknown Venipuncture / Unknown 05/25/2025 10:49 AM EDT 05/25/2025 11:01 AM EDT us Robert Thompson MD LAB BLOOD ORDERABLES Final Resul t [facility] [address] [place] [address], * Lipase (05/25/2025 10:49 AM EDT) Lipase 19 13 - 75 unit/L LAB CHEMISTRY METHOD 05/25/2025 11:34 AM EDT [facility] Blood Venous blood specimen / Unknown Venipuncture / Unknown 05/25/2025 10:49 AM EDT 05/25/2025 11:01 AM EDT us Robert Thompson MD LAB BLOOD ORDERABLES Final Resul t [facility] [address] [place] [address], * Comprehensive metabolic panel (05/25/2025 10:49 AM EDT) Sodium 140 133 - 145 mmol/L LAB CHEMISTRY METHOD 05/25/2025 11:35 AM [facility] Potassium 3.9 3.5 - 5.5 mmol/L LAB CHEMISTRY METHOD 05/25/2025 11:35 AM [facility] Chloride 107 96 - 110 mmol/L LAB CHEMISTRY METHOD 05/25/2025 11:35 AM [facility] CO2 27 21 - 32 mmol/L LAB CHEMISTRY METHOD 05/25/2025 11:35 AM [facility] Anion Gap 6 3 - 11 LAB CHEMISTRY METHOD 05/25/2025 11:35 AM [facility] Glucose 100 70 - 100 mg/dL LAB CHEMISTRY METHOD 05/25/2025 11:35 AM [facility] BUN 13 5 - 25 mg/dL LAB CHEMISTRY METHOD 05/25/2025 11:35 AM [facility] Creatinine 0.66 0.50 - 1.10 mg/dL LAB CHEMISTRY METHOD 05/25/2025 11:35 AM [facility] eGFR 97 >=60 mL/min/1. 73m2 LAB CHEMISTRY METHOD 05/25/2025 11:35 AM [facility] Comment:Calculation based on the Chronic Kidney Disease Epidemiology Collaboration (CKD-EPI) equation refit without adjustment for race. BUN/Creatinine Ratio 19.7 LAB CHEMISTRY METHOD 05/25/2025 11:35 AM [facility] Calcium 9.2 8.5 - 10.5 mg/dL LAB CHEMISTRY METHOD 05/25/2025 11:35 AM [facility] AST (SGOT) 16 10 - 42 unit/L LAB CHEMISTRY METHOD 05/25/2025 11:35 AM EDT [facility] ALT (SGPT) 18 10 - 60 unit/L LAB CHEMISTRY METHOD 05/25/2025 11:35 AM EDT [facility] Alkaline Phosphatase 81 42 - 121 unit/L LAB CHEMISTRY METHOD 05/25/2025 11:35 AM EDT [facility] Total Protein 6.3 6.0 - 8.0 g/dL LAB CHEMISTRY METHOD 05/25/2025 11:35 AM EDT [facility] Albumin 3.7 3.2 - 5.0 g/dL LAB CHEMISTRY METHOD 05/25/2025 11:35 AM [facility] Total Bilirubin 0.5 0.0 - 1.4 mg/dL LAB CHEMISTRY METHOD 05/25/2025 11:35 AM [facility] Blood Venous blood specimen / Unknown Venipuncture / Unknown 05/25/2025 10:49 AM EDT 05/25/2025 11:01 AM EDT us Robert Thompson MD LAB BLOOD ORDERABLES Final Resul t [facility] [address] [place] [address], * (ABNORMAL) Lipid panel with reflex to direct LDL (09/27/2024 10:28 AM EST) Cholesterol 188 0 - 200 mg/dL LAB CHEMISTRY METHOD 09/27/2024 12:24 PM EST [facility] Triglycerides 43 0 - 150 mg/dL LAB CHEMISTRY METHOD 09/27/2024 12:24 PM EST [facility] HDL 61 >=40 mg/dL LAB CHEMISTRY METHOD 09/27/2024 12:24 PM EST [facility] LDL Calculated 118(H) 0 - 100 mg/dL LAB CHEMISTRY METHOD 09/27/2024 12:24 PM EST [facility] VLDL Cholesterol Carlo 8.6 mg/dL LAB CHEMISTRY METHOD 09/27/2024 12:24 PM EST [facility] Non HDL Chol. (LDL+VLDL) 127 <145 mg/dL LAB CHEMISTRY METHOD 09/27/2024 12:24 PM EST [facility] Chol/HDL Ratio 3.1 0.0 - 4.4 LAB CHEMISTRY METHOD 09/27/2024 12:24 PM EST [facility] Blood Venous blood specimen / Unknown Venipuncture / Unknown 09/27/2024 10:28 AM EST 09/27/2024 11:24 AM EST us Mary Jo Vargas MD LAB BLOOD ORDERABLES Final Resul t Performing Organization Address City/[facility]/ZIP Co de Phone Number [facility] [address] [place] [address], * Hepatitis C antibody (07/23/2024 11:59 AM EST) [facility] Signature Hepatitis C Antibody Negative Negative LAB CHEMISTRY METHOD 07/23/2024 7:04 PM EST [facility] Blood Venous blood specimen / Unknown Venipuncture / Unknown 07/23/2024 11:59 AM EST 07/23/2024 12:33 PM EST us Shawnee Friedman MD LAB BLOOD ORDERABLES January l Result [facility] [address] [place] [address], [place] [phone] from Last 3 Months or Most Recently Relevant to Health Maintenance Additional Health Concerns Infection Onset Date Last Indicated Herpes simplex 07/23/2024 07/23/2024 Insurance [facility] Member Subscriber Plan / Payer (Ef fective 2024-Present) Name:DIANA CHAPMAN Relation to Subscriber:Self Name:Diana Chapman Payer ID:[id number] Group ID:[id number] Type:Not on file Address: [address] [place] [address]
--- OUTSIDE RECORDS SUMMARY | 2025-06-03 16:26 | XMS_ITS | Encounter Summary ---
Author Organization [employer] Address [address] [facility] [address] [place] [address] Care Team Providers Care Plumbing Contractor Name Role Phone Ye Loera MD Primary Care Prov ider Reason for Visit * Reason Onset Date Comments Durable Medical Equipment 02/27/2025 Encounter Details Date Type Department Care Team (Late st Contact Info) Description 02/27/2025 Telephone [facility] [address] [place] [address] Ye Loera MD [address] [place] [phone] Durable Medical Equipment Social History Tobacco Use [...] Blood Pressure kit To be sent to: -[facility][id number] - [place], [place] - [address] Pt stated her broke a couple day ago documented in this encounter Plan of Treatment Not on file documented as of this encounter Visit Diagnoses Not on filedocumented in this encounter Additional Health Concerns Assessment Noted Time PHQ-9 Depression Total Score: 0 12/23/19 2:25 PM EDT documented as of this encounter Care Teams Plumbing Contractor Relationship Specialty Start Date End Date Ye Loera MD [address] [place] [phone] PCP - General Internal Medicine 02/18/25 documented as of this encounter
--- OUTSIDE RECORDS SUMMARY | 2025-06-03 16:26 | XMS_ITS | Encounter Summary ---
Author Organization [employer] Address [address] [facility] 7[address] [place] [address] Care Team Providers Care Toll Line Mechanic Name Role Phone Ye Loera MD Primary Care Prov ider Reason for Visit * Reason Onset Date Comments Durable Medical Equipment 05/21/2025 Encounter Details Date Type Department Care Team (Late st Contact Info) Description 05/21/2025 Telephone [facility] [address] [place] [address] Ye Loera MD [address] [place] [address] Durable Medical Equipment Social History Tobacco Use [...] encounter Miscellaneous Notes * Telephone Encounter - Matt Thomas - 05/21/2025 12:06 PM EDT Tc from [facility] with [facility] requesting DME for pt to be sent. She has received her shower chair but shewill also need a stepping stool and bed rails. If any questions you can contact Kodi at [phone] ext [phone]. documented in this encounter Plan of Treatment Not on file documented as of this encounter Visit Diagnoses Not on filedocumented in this encounter Additional Health Concerns Assessment Noted Time PHQ-9 Depression Total Score: 5 03/29/20 25 9:11 AM EDT documented as of this encounter Care Teams Toll Line Mechanic Relationship Specialty Start Date End Date Ye Loera MD [address] [place] [phone] PCP - General Internal Medicine 02/18/25 documented as of this encounter
--- OUTSIDE RECORDS SUMMARY | 2025-06-03 16:26 | XMS_ITS | Encounter Summary ---
Author Organization [employer] Address [address] [facility] 7[address] [place] [address] Care Team Providers Care Director Mba Name Role Phone Ye Loera MD Primary Care Prov ider Reason for Visit * Reason Comments Med Refill Encounter Details Date Type Department Care Team ([facility] st Contact Info) Description 11/13/2024 Refill [facility] [address] [place], [place] [phone] [facility] [address] [place], [place] [phone] Social History Tobacco Use Types Packs/Day Years [...] t he electric, gas, oil or water [employer] threatened to shut off services in your [...] documented as of this encounter Care Teams Director Mba Relationship Specialty Start Date End Date Ye Loera MD [address] [place] [phone] PCP - General Internal Medicine 02/18/25 documented as of this encounter
--- OUTSIDE RECORDS SUMMARY | 2025-06-03 16:26 | XMS_ITS | Encounter Summary ---
Author Organization [employer] Address [address] [facility] 7t [place] [address] Care Team Providers Care Appliances Sample Maker Name Role Phone Ye Loera MD Primary Care Prov ider Reason for Visit * Reason Onset Date Comments ER Follow-up 05/27/2025 Encounter Details Date Type Department Care Team (Late st Contact Info) Description 05/27/2025 Telephone [facility] MEDICINE [address] [place] [address] Ye Loera MD [address] [place] [address] ER Follow-up Social History Tobacco Use Types Packs/Day Years [...] encounter Miscellaneous Notes * Telephone Encounter - Natasha Salinas RN - 05/29/2025 2:42 PM EDT Telephone call returned to pt who went to [facility] 05/25/25 for left abdominal pain. Today she reports pain is less but still there a little. Reports little appetite, confirms eating soup and drinking water, confirms taking Augmentin x10 days prescribed at [facility], encouraged her to take full course. She confirms moving her bowels with medication assistance and urinating without difficulty. Scheduled ER follow up with PCP tomorrow 05/30/25. Advised her to call [facility] for follow up appointment - pt reports she called 05/27/25 but they have not called her back yet, encouraged her to call again today. Reviewed ER instructions: work to prevent constipation with can aggravate diverticulosis by increasingfiber in diet, water, exercise. Reviewed reasons to call back and red flags, pt verbalized understanding. * Telephone Encounter - Regina Damon - 05/27/2025 12:00 PM EDT Patient calling to report ED visit on : Date: 05/25 Hospital: [facility] Seen for: abdominal pain Symptomatic no *if yes message should go to Triage Patient advised will forward to team nurse for follow up SCOTTISH SPEAKER documented in this encounter Plan of Treatment Not on file documented as of this encounter Visit Diagnoses Not on filedocumented in this encounter Additional Health Concerns Assessment Noted Time PHQ-9 Depression Total Score: 5 03/29/20 9:11 AM EDT documented as of this encounter Care Teams Appliances Sample Maker Relationship Specialty Start Date End Date Ye Loera MD [address] [place] [id number] PCP - General Internal Medicine 02/18/25 documented as of this encounter
--- OUTSIDE RECORDS SUMMARY | 2025-06-03 16:26 | XMS_ITS | Encounter Summary ---
Author Organization [employer] Address [address] [facility] 7t [place] [address] Care Team Providers Care Stripper Preliminary Name Role Phone Name, Elijah FRAGA Primary Care Provider [phone] Ye Loera MD Primary Care Prov ider Reason for Visit * Reason Onset Date Comments Appointment Request 03/31/2023 Encounter Details Date Type Department Care Team ([facility] st Contact Info) Description 03/31/2023 Telephone [facility] MEDICINE [address] [place], [place] [phone] Name, MD Elijah [address] [place] [address] Appointment Request Social History Tobacco Use Types [...] second half . Please contact pt at [phone] Vietnamese Speaker documented in this encounter Plan of Treatment Not on file documented as of this encounter Visit Diagnoses Not on filedocumented in this encounter Additional Health Concerns Assessment Noted Time PHQ-9 Depression Total Score: 0 12/23/19 23 2:25 PM EDT documented as of this encounter Care Teams Stripper Preliminary Relationship Specialty Start Date End Date Name, MD Elijah [address] [place] [address] PCP - General Family Medicine 08/08/18 09/24/24 Ye Loera MD [address] [place] [address] PCP - General Internal Medicine 02/18/25 documented as of this encounter
--- OUTSIDE RECORDS SUMMARY | 2025-06-03 16:26 | XMS_ITS | Encounter Summary ---
Author Organization [employer] Address [address] [facility] [address] 7t [place] [address] Care Team Providers Care Staff Nurse Icu Resource Team Name Role Phone Name, Elijah FRAGA Primary Care Provider [phone] Ye Loera MD Primary Care Prov ider Reason for Visit * Reason Onset Date Comments Reschedule 01/19/2024 Encounter Details Date Type Department Care Team ([facility] st Contact Info) Description 01/19/[address] [facility] MEDICINE [address] [place], [place] [phone] Name, MD Elijah [address] [place] [address] Reschedule Social History Tobacco Use Types Packs/Day [...] documented as of this encounter Care Teams Staff Nurse Icu Resource Team Relationship Specialty Start Date End Date Name, MD Elijah [address] [place] [address] PCP - General Family Medicine 08/08/18 09/24/24 Ye Loera MD [address] [place] [address] PCP - General Internal Medicine 02/18/25 documented as of this encounter
--- OUTSIDE RECORDS SUMMARY | 2025-06-03 16:26 | XMS_ITS | Encounter Summary ---
Author Organization [employer] Address 75 [facility] 7t [place] [address] Care Team Providers Care Mast Maker Name Role Phone Name, Elijah FRAGA Primary Care Provider [phone] Ye Loera MD Primary Care Prov ider Encounter Details Date Type Department Care Team (Late st Contact Info) Description 12/24/2022 Abstract [facility] MEDICINE [address] [place], [place] [phone] Name, MD Elijah [address] [place] [address] Social History Tobacco Use Types Packs/Day Years [...] documented as of this encounter Care Teams Mast Maker Relationship Specialty Start Date End Date Name, MD Elijah [address] [place] [address] PCP - General Family Medicine 08/08/18 09/24/24 Ye Loera MD [address] [place] [address] PCP - General Internal Medicine 02/18/25 documented as of this encounter
--- OUTSIDE RECORDS SUMMARY | 2025-06-03 16:26 | XMS_ITS | Encounter Summary ---
Author Organization [facility] Address [address] [place] [address] Care Team Providers Care Absorption Plant Operator Helper Name Role Phone Name, Elijah FRAGA Primary Care Provider Encounter Details Date Type Department Care Team (Late st Contact Info) Description 07/20/2024 Lab Requisition [facility] [address] [facility] [place] [address] Shawnee Friedman MD [address] [place] [address] Functional dyspepsia Social History Tobacco Use Types [...] LAB CHEMISTRY METHOD 07/21/2024 7:24 AM EST [facility] Breath Oral cavity structure / Unknown 07/20/2024 07/20/2024 6:14 PM EST us Shawnee Friedman MD LAB BODY FLUIDS AND STOOL S ORDERABLES Final Result [facility] [address] [place] [address], documented in this encounter Visit Diagnoses Diagnosis Functional dyspepsia Dyspepsia and other specified disorders of function of stomach documented in this encounter Additional Health Concerns Infection Onset Date Last Indicated Resolved Time Herpes simplex 07/23/2024 07/23/2024 documented as of this encounter Care Teams Absorption Plant Operator Helper Relationship Specialty Start Date End Date Name, MD Elijah [address] [place], [place] PCP - General 08/23/08 05/28/25 documented as of this encounter
--- OUTSIDE RECORDS SUMMARY | 2025-06-03 16:26 | XMS_ITS | Encounter Summary ---
Author Organization [employer] Address [address] [facility] [address] 7t [place] [address] Care Team Providers Care Gis Physical Scientist Name Role Phone Ye Loera MD Primary Care Prov ider Reason for Visit * Reason Comments Med Refill Encounter Details Date Type Department Care Team ([facility] st Contact Info) Description 12/10/2024 Refill [facility] MEDICINE [address] [place], [place] [phone] Name, MD Elijah [address] [place] [address] Rash Social History Tobacco Use Types Packs/Day [...] the past 12 months, has t he [employer] gas, oil or water company threatened to [...] documented as of this encounter Care Teams Gis Physical Scientist Relationship Specialty Start Date End Date Ye Loera MD [address] [place] [address] PCP - General Internal Medicine 02/18/25 documented as of this encounter
--- OUTSIDE RECORDS SUMMARY | 2025-06-03 16:26 | XMS_ITS | Encounter Summary ---
Author Organization [employer] Address [address] [facility] [address] 7[address] [place] [address] Care Team Providers Care Dispatch Specialist Name Role Phone Name, Elijah FRAGA Primary Care Provider [phone] Ye Loera MD Primary Care Prov ider Reason for Visit * Reason Comments Med Refill Encounter Details Date Type Department Care Team (Late st Contact Info) Description 10/16/2023 Refill [facility] [address] [place], [place] [phone] Coty Santiago FNP Strain of left infraspinatus [...] the past 12 months, has t he [employer], gas, oil or water company threatened to [...] documented as of this encounter Care Teams Dispatch Specialist Relationship Specialty Start Date End Date Name, MD Elijah [address] [place] [address] PCP - General Family Medicine 08/08/18 09/24/24 Ye Loera MD [address] [place] [address] PCP - General Internal Medicine 02/18/25 documented as of this encounter
--- OUTSIDE RECORDS SUMMARY | 2025-06-03 16:26 | XMS_ITS | Encounter Summary ---
Author Organization [email or web address] Address [address] [facility] 7t [place] [address] Care Team Providers Care Lead Tinner Name Role Phone Ye Loera MD Primary Care Prov ider Reason for Visit * Reason Onset Date Comments chart prep 05/29/2025 Encounter Details Date Type Department Care Team ([facility] st Contact Info) Description 05/29/2025 Telephone [facility] [address] [place], [place] [phone] Ye Loera MD [address] [place] [address] chart prep Social History Tobacco Use Types Packs/Day Years [...] encounter Miscellaneous Notes * Telephone Encounter - Beata Jimenez [place] - 05/29/2025 3:32 PM EDT Chart Prep Labs: done Images: done Referrals: complete Vaccines due: Covid, Flu, Tdap, and Zoster Screenings: Overdue care gaps: sbirt documented in this encounter Plan of Treatment Not on file documented as of this encounter Visit Diagnoses Not on filedocumented in this encounter Additional Health Concerns Assessment Noted Time PHQ-9 Depression Total Score: 5 03/29/20 25 9:11 AM EDT documented as of this encounter Care Teams Lead Tinner Relationship Specialty Start Date End Date Ye Loera MD [address] [place] [address] PCP - General Internal Medicine 02/18/25 documented as of this encounter
--- OUTSIDE RECORDS SUMMARY | 2025-06-03 16:26 | XMS_ITS | Encounter Summary ---
Author Organization [employer] Address [address] [facility] 7t [place] [address] Care Team Providers Care Fleshing Machine Operator Name Role Phone Name, Elijah FRAGA Primary Care Provider Ye Loera MD Primary Care Prov ider Reason for Visit * Reason Comments Med Refill Encounter Details Date Type Department Care Team ([facility] st Contact Info) Description 09/23/2022 Refill [facility] MEDICINE [address] [place], [place] [phone] Name, MD Elijah [address] [place], [place] [phone] Depressive disorder Social History Tobacco Use Types [...] classified documented in this encounter Care Teams Fleshing Machine Operator Relationship Specialty Start Date End Date Name, MD Elijah [address] [place] [address] [place] [address] PCP - General Family Medicine 08/08/18 09/24/24 Ye Loera MD [address] [place] [address] PCP - General Internal Medicine 02/18/25 documented as of this encounter
--- OUTSIDE RECORDS SUMMARY | 2025-06-03 16:26 | XMS_ITS | Encounter Summary ---
Author Organization [employer] Address [address] [facility] [address] 7[address] [place] [address] Care Team Providers Care Bill Peddler Name Role Phone Name, Elijah FRAGA Primary Care Provider [phone] Ye Loera MD Primary Care Prov ider Reason for Visit * Reason Onset Date Comments Nurse Triage 12/05/2023 Encounter Details Date Type Department Care Team ([facility] st Contact Info) Description 12/05/[address] [facility] MEDICINE [address] [place], [place] [phone] Name, MD Elijah [address] [place] [address] Nurse Triage Social History Tobacco Use Types [...] Pt is offered WIC today at [facility] but, declines to go today due tofamily member doing poorly. Pt requests provider for [employer]UFFER to see Pt. Apt with JUJU Romero 12/06/23 @ 330pm at [facility] facility. Pt reports has been to [facility] before. Pt agrees with disposition. Advised to [...] documented as of this encounter Care Teams Bill Peddler Relationship Specialty Start Date End Date Name, MD Elijah [address] [place] [address] PCP - General Family Medicine 08/08/18 09/24/24 Ye Loera MD [address] [place] [address] PCP - General Internal Medicine 02/18/25 documented as of this encounter
--- OUTSIDE RECORDS SUMMARY | 2025-06-03 16:26 | XMS_ITS | Encounter Summary ---
Author Organization [employer] Address [address] [facility] [address] 7[address] [place] [address] Care Team Providers Care Pulp Bleacher Name Role Phone Ye Loera MD Primary Care Prov ider Encounter Details Date Type Department Care Team (Latest Contact Info) Description 05/30/2025 Travel Social History Tobacco Use Types Packs/Day [...] documented as of this encounter Care Teams Pulp Bleacher Relationship Specialty Start Date End Date Ye Loera MD [address] [place] [address] PCP - General Internal Medicine 02/18/25 documented as of this encounter
--- OUTSIDE RECORDS SUMMARY | 2025-06-03 16:26 | XMS_ITS | Clinical Summary ---
Author Organization [employer] Address 75 [facility] 7t [place] [address] Care Team Providers Care Computer Programmer Analyst Name Role Phone Ye Loera MD [...] Medications ketorolac (Acular) 0.5 % ophthalmic solution 2 [...] waist high 2 each 1 3 Active linaCLOtide (Linzess) 145 MCG capsule Take 145 mcg by mouth before breakfast. Do not crush or chew. Active benazepril (Lotensin) 20 MG tablet Take 2 tablets (40 mg) by mouth Once per day. 180 tablet 3 5 Active buPROPion XL (Wellbutrin XL) 150 MG 24 hr tabletIndications: Depressive disorder Take 1 tablet (150 mg) by mouth Once per day. Do not crush, chew, or split. 90 tablet 3 5 02/19/20 26 Active clotrimazole-betam ethasone (Lotrisone) creamIndications:R sharda Apply topically 2 times daily. 90 g 5 02/19/20 26 Active Diclofenac Sodium 1 % gelIndications:Mariola n of left lower extremity Apply 2 g topically if needed in the morning and at bedtime (pain). 100 g 5 Active hydrocortisone (Anusol-HC) 2.5 % rectal creamIndications:H emorrhoids, unspecified hemorrhoid type APPLY THIN LAYER TOPICALLY TO THE AFFECTED AREA 2 TO 4 TIMES EVERY DAY 28 g 5 Active methocarbamol (Robaxin) 500 MG tablet Take 1 tablet (500 mg) by mouth every 8 (eight) hours. 90 tablet 5 06/18/20 25 Active hydrocortisone 1 % ointment Apply topically 2 times daily. 56 g 5 Active Blood Pressure kitIndications:Lubna rivas hypertension To check her blood pressure every other day 1 5 Active DULoxetine (Cymbalta) [address] capsule Take 1 capsule (30 mg) by mouth 2 times daily. Do not crush or chew. 60 capsule 5 03/29/20 26 Active gabapentin (Neurontin) 100 MG capsule Take 1 capsule (100 mg) by mouth 2 times daily. 60 capsule 5 03/29/20 26 Active amLODIPine (Norvasc) 5 MG tablet Take 1 tablet (5 mg) by mouth Once per day. 30 tablet 5 03/29/20 26 Active atorvastatin (Lipitor) 20 MG tablet Take 1 tablet (20 mg) by mouth Once per day. 90 tablet 5 03/29/20 26 Active dicyclomine (Bentyl) 20 MG tabletIndications: Diverticulitis Take 1 tablet (20 mg) by mouth if needed in the morning, at noon, in the evening, and at bedtime (take it as needed). 30 tablet 5 04/10/20 26 Active naproxen (Naprosyn) 500 MG tabletIndications: Acute pain of right knee TAKE 1 TABLET(500 MG) BY MOUTH TWICE DAILY 60 tablet 1 5 Active Calcium Carb-Cholecalcifer ol (Calcium + Vitamin D3) 600-10 MG-MCG tablet Take 1 tablet by mouth 2 times daily. 60 tablet 3 5 Active Active Problems Problem Noted Date Diagnosed [...] 10/24/2023 Essential hypertension 10/24/2023 Assessment & Plan (04/26/2025 9:45 AM EDT): Controlled, keep low sodium diet and exercise as tolerated, keep bp log, target <140/90 Assessment & Plan (04/01/2025 9:50 AM EDT): [...] Endometriosis 07/21/2022 Overview (07/21/2022): [place] in [place] in 2000 Irritable bowel syndrome 07/21/2022 Hemorrhoids 07/21/2022 Urinary incontinence 12/26/2017 Assessment & Plan (04/26/2025 9:46 AM EDT): On oral treatment, will order DME as requested, Rectal prolapse 12/26/2017 Diverticulitis 09/20/2017 Assessment & Plan (05/30/2025 6:00 PM EDT): Seen at er, wa given augmentin, refers feeling better, no fever/chills, nausea/vomiting, diarrhea, told to follow up with GI, er precautions reviewed Assessment & Plan (04/10/2025 4:44 PM EDT): Extensive counseling done, avoid heavy/spicy food continue drinking plenty of water I will prescribe for patient metronidazole 500 mg every 8 hours for 7 days together with ciprofloxacin 500 mg every 12 hours for 7 days I also prescribed for her Bentyl every 6 hours as needed extensive ED precautions were reviewed with her if she does not improve in the next 2 days or if symptoms are worse before that she will have to go to the emergency room Assessment & Plan (09/24/2022 2:16 PM EST): [...] Encounters Date Type Department Care Team Description 05/30/2025 11:30 AM EDT Office Visit [facility] [address] [place] [address] Ye Loera MD Diverticulitis (Primary Dx) 05/30/2025 Travel 05/29/2025 Telephone [facility] [address] [place] [address] Ye Loera MD chart prep 05/27/2025 Telephone [facility] [address] [place] [address] Ye Loera MD ER Follow-up 05/21/2025 Telephone [facility] [address] [place] [address] Ye Loera MD Durable Medical Equipment 04/26/2025 9:30 AM EDT Telemedicine [facility] [address] [place] [address] Ye Loera MD Mixed stress and urge urinary incontinence (Primary Dx); Essential hypertension 04/26/2025 Travel 04/25/2025 Telephone [facility] [address] [place] [address] Ye Loera MD chart prep 04/22/2025 Refill [facility] [address] [place] [address] Ye Loera MD Acute pain of right knee 04/10/2025 3:15 PM EDT Office Visit [facility] [address] [place] [address] Mel Guido MD Diverticulitis 04/10/2025 Travel 03/29/2025 9:30 AM EDT Telemedicine [facility] [address] [place] [address] Ye Loera MD Essential hypertension (Primary Dx); Dietary counseling; Exercise counseling 03/29/2025 Telephone [facility] [address] [place] [address] Ye Loera MD Durable Medical Equipment 03/29/2025 Travel 03/28/2025 Telephone [facility] [address] [place] [address] Ye Loera MD chart prep from Last 3 Months Immunizations Immunization Administration Dates Next Due INFLUENZA INJECTABLE QUADRIV ALANT CCIIV4 MDCK Multi-dose vial 04/08/2021 Influenza injectable quadriv alent IIV4 with preservative 07/06/2019,04/26/2018,05/29/2016 Influenza injectable quadriv alent preservative free 05/21/2022,05/20/2020 Influenza, IIV3, injectable 05/24/2016,1 ,08/06/2014,2012,05/25/2012,10/19/2011,08/26/2009 Influenza, seasonal, injecta ble, preservative free 04/21/2017 Novel [id number], preservative-free 08/26/2009 Tdap 08/23/2013 Family History Medical [...] 20 05/30/2025 11:42 AM EDT Oxygen Saturation 98% 04/10/2025 2:46 PM EDT Inhaled Oxygen Concentration - - Weight 81.6 kg (180 lb) 05/30/2025 11:42 AM EDT Height 154.9 cm (5' 1 ) 05/30/2025 11:42 AM EDT Body Mass Index 34.01 05/30/2025 11:42 AM EDT Plan of Treatment Health Maintenance Due Date Last Done Comments CT Colonography 1960 FIT DNA/Cologuard 1960 FIT 1960 FOBT 1960 Sigmoidoscopy 1960 Zoster Vaccines (1 of 2) 2008 DTaP/Tdap/Td Vaccines (2 - Td or Tdap) 08/23/2023 08/23/2013 COVID-19 Vaccine (3 - season) 2025 08/05/2021, 07/15/2021 Influenza Vaccine (#1) 2025 , 04/08/2021, 05/20/2020, Additional history exists Mammogram 01/05/2026 01/06/2024, 10/06, 10/15/2022, Additional history exists SDOH Screening 02/11/2026 02/11/2025 Colonoscopy 02/22/2026 02/22/2023, 02/05, 05/15/2019 Colorectal Cancer Screening 02/22/2026 Depression Screening 03/29/2026 03/29/2025, 03/29/20 25 Tobacco Screening 04/26/2026 04/26/2025 Alcohol/Substance Use Screening 05/30/2026 05/30/2025 Lipid Panel 02/18/2030 02/18/2025, 10/06, 09/09/2022, Additional [...] Procedure Name Priority Date/Time Associated Diagnosis Comments BD DEXA AXIAL Routine 04/10/2025 1:20 PM EDT Menopause XR CHEST 2 VIEWS Routine 03/25/2025 12:1 0 PM EDT LIPID PANEL, STANDARD Routine 02/18/2025 12:00 AM EDT Primary hypertension BI MAMMOGRAM SCREENING TOMOSYNTHESIS BILATERAL Routine 01/06/2024 2:43 PM EDT HM COLONOSCOPY Routine 02/22/2023 from Last 3 Months or Most Recently Relevant to Health Maintenance Results * BD DEXA Axial (04/10/2025 1:20 PM EDT) Anatomical Region Laterality Modality Body Radiographic Barbara ging 04/10/2025 1:20 PM EDT Narrative 04/11/2025 11:20 AM EDT [place] [facility] [address] [place], [place] [id number] Mammography Report Signed Patient: Diana Chapman MR#: [id number] : 1960 Acct:[id number] Age/Sex: 64 / F ADM Date: 04/10/25 Loc: HO.MAMMO Attending Dr: Ye Winn MD Ordering Physician: Ye Loera MD Res ults: Date of Service: 04/10/25 Follow Up: Procedure(s): XR DEXA axial skeleton Accession Number(s): [id number] cc: Ye Loera MD STUDY: DUAL ENERGY X-RAY ABSORPTIOMETRY / DXA REASON FOR EXAM: Female, 64 years old screening osteoporosis TECHNIQUE: Bone Mineral Density (BMD) measurements of the lumbar spine and left hip were obtained using [employer] COMPARISON: March 18, 2022 FINDINGS: L1-L4 BMD: 0.892 g/cm2 L1-L4 T score: -2.4. This corresponds to osteopenia. This represents a -1.7 % decrease in bone density compared with prior exam from March 18, 2022. Left femoral neck BMD: 0.935 g/cm2 Left femoral neck T score: -0.7. This corresponds to Normal bone density. Left total hip BMD: 0.999 g/cm2 Left total hip T score: -0.1. This corresponds to Normal bone density. This represents a 1.5 % increased in bone density compared with prior exam from March 18, 2022. * - Indicates a statistically significant change. FRAX score: 10 year risk of major osteoporotic fracture 4.0%, 10 year risk of hip fracture 0.2% MM/XR DEXA axial skeleton IMPRESSION: Osteopenia Reference Information: The T-score is the number of standard deviations above or below the standard which is normal for young adults at their peak bone mineral density. The World Health Organization (WHO) interprets the T-scores as follows: At or above -1 SD Normal bone density Between -1 and -2.5 SD Osteopenia At or below -2.5 SD Osteoporosis Electronically signed by: Lizeth Lopez MD 04/11/2025 11:17 AM EDT Dictated By: Lizeth Lopez MD Signed By: <Electronically signed by Lizeth Lopez MD in OV> 04/11/25 1117 DD/ 1320 TD/TT: 04/10/25 1340 Porter Marina: Procedure Note Donvickyinterpreter, Image - 04/11/2025 [place] [facility] [address] [place], [place] [address] Mammography Report Signed Patient: Shabaan Chapman#: [id number] : 9Acct:[id number] Age/Sex: 64 / FADM Date: 04/10/25 Loc: HO.MAMMO Attending Dr: Ye Winn MD Ordering Physician: Ye Loera ults: Date of Service: 04/10/25Follow Up: Procedure(s): XR DEXA axial skeleton Accession Number(s): [id number] cc: Ye Loera MD STUDY: DUAL ENERGY X-RAY ABSORPTIOMETRY / DXA REASON FOR EXAM: Female, 64 years old screening osteoporosis TECHNIQUE: Bone Mineral Density (BMD) measurements of the lumbar spine and left hip were obtained using [employer] COMPARISON: March 18, 2022 FINDINGS: L1-L4 BMD: 0.892 g/cm2 L1-L4 T score: -2.4. This corresponds to osteopenia. This represents a -1.7 % decrease in bone density compared with prior exam from March 18, 2022. Left femoral neck BMD: 0.935 g/cm2 Left femoral neck T score: -0.7. This corresponds to Normal bone density. Left total hip BMD: 0.999 g/cm2 Left total hip T score: -0.1. This corresponds to Normal bone density. This represents a 1.5 % increased in bone density compared with prior exam from March 18, 2022. * - Indicates a statistically significant change. FRAX score: 10 year risk of major osteoporotic fracture 4.0%, 10 year risk of hip fracture 0.2% MM/XR DEXA axial skeleton IMPRESSION: Osteopenia Reference Information: The T-score is the number of standard deviations above or below the standard which is normal for young adults at their peak bone mineral density. The World Health Organization (WHO) interprets the T-scores as follows: At or above -1 SD Normal bone density Between -1 and -2.5 SD Osteopenia At or below -2.5 SD Osteoporosis Electronically signed by: Lizeth Lopez MD 04/11/2025 11:17 AM EDT RP Dictated By: Lizeth Lopez MD Signed By: <Electronically signed by Lizeth Lopez MD in OV> 04/11/25 1117 DD/ 1320 TD/TT: 04/10/25 1340 Porter Marina: Ye Winn MD IMG DXA PROCEDURES Final Result * XR Chest 2 Views (03/25/2025 12:10 PM EDT) Anatomical Region Laterality Modality Chest Radiographic Barbara ging 03/25/2025 12:1 0 PM EDT Narrative 03/25/2025 12:23 PM EDT [place] [address] XRay Report Signed Patient: Diana Chapman MR#: [id number] : 1960 Acct:[id number] Age/Sex: 64 / F ADM Date: 03/25/25 Loc: KYLIE Attending Dr: Osiris Ware ASSESSMENT EXPERT-BC Ordering Physician: Osiris Ware ASSESSMENT EXPERT-BC Date of Service: 03/25/25 Procedure(s): XR chest 2V Accession Number(s): [id number] cc: Ye Loera MD; Osiris Ware ASSESSMENT EXPERT-BC EXAMINATION: XR CHEST 2 VIEWS HISTORY: Z87.01 [...] 03/25/25 1221 DD/ 1210 TD/TT: 03/25/25 1215 Porter Marina: Procedure Note Donotuseinterpreter, Image - 03/25/[address] [address] XRay Report Signed Patient: Shabana Chapman#: [id number] : 9Acct:[id number] Age/Sex: 64 / FADM Date: 03/25/25 Loc: KYLIE Attending Dr: Osiris Ware ASSESSMENT EXPERT- Ordering Physician: Osiris Ware ASSESSMENT EXPERT-SAMPSON Date of Service: 03/25/25 Procedure(s): XR chest 2V Accession Number(s): [id number] cc: Ye Loera MD; Osiris Ware ASSESSMENT EXPERT-SAMPSON EXAMINATION: XR CHEST 2 VIEWS HISTORY: Z87.01 [...] 03/25/25 1221 DD/ 1210 TD/TT: 03/25/25 1215 Porter Marina: [facility] External Provider IMG XR PROCEDURES Final Result * (ABNORMAL) Lipid Panel, Standard (02/18/2025 12:00 AM EDT) Triglycerides 97 <150 mg/dL [facility] Comment:Desirable Triglyceri de: less than 150 mg/dLBorderline High Triglyceride 150-199 mg/dLHigh Triglyceride: 200-499 mg/dLVery High Triglyceride: greater than or equal to 5OO mg/dL Cholesterol 215(H) <200 mg/dL [facility] Comment:Desirable Cholestero l: less than 200 mg/dLBorderline High Cholesterol: 200-239 mg/dLHigh Cholesterol: greater than 239 mg/dL LDL Cholesterol Calculated 138(H) <100 mg/dL [facility] Comment:Desirable LDL: less than 100 mg/dLNear Optimal/Above Optimal LDL: 110- 129 mg/dLBorderline High LDL: 130-159 mg/dLHigh LDL: 160-189 mg/dLVery High LDL: greater than or equal to 190 mg/dL HDL Cholesterol 58 >40 mg/dL [facility] Comment:Desirable HDL: great er than 40 mg/dL Note: This HDL assay may give artificially low results in patients with liver disease. Blood Venous blood specimen / Unknown 02/18/2025 02/18/2025 Ye Winn MD LAB BLOOD ORDERABL ES Final Result [facility] [address] [place] [phone] * BI Mammogram Screening Tomosynthesis Bilateral (01/06/2024 2:43 PM EDT) Anatomical Region Laterality Modality Breast Bilateral Mammography 01/06/2024 2:43 PM EDT Narrative 01/24/2024 1:57 PM EDT [facility] [address] [place] [address] Mammography Report Signed Patient: Diana Chapman MR#: [id number] : 1960 Acct:[id number] Age/Sex: 63 / F ADM Date: 01/06/24 Loc: KUSH Attending Dr: Elijah Mendoza MD Ordering Physician: Elijah Mendoza MD Results: 1Negative Date of Service: 01/06/24 Follow Up: 1 Year From Orig inal Mammogram Procedure(s): MM tomosynthesis screening BI Accession Number(s): [id number] cc: Elijah Mendoza MD EXAMINATION: MM SCREENING [...] in OV> 01/24/24 1353 DD/ 1443 TD/TT: Porter Marina: Procedure Note Donotuseinterpreter, Image - 01/24/2024 [place] [facility] [address] [place], [place] [address] Mammography Report Signed Patient: Floyd ChapmanR#: [id number] : 9Acct:[id number] Age/Sex: 63 / FADM Date: 01/06/24 Loc: KUSH Attending Dr: Elijah Mendoza MD Ordering Physician: Elijah Mendozaesults: 1Negative Date of Service: 01/06/24Follow Up: 1 Year From Orig inal Mammogram Procedure(s): MM tomosynthesis screening BI Accession Number(s): [id number] cc: Elijah Mendoza MD EXAMINATION: MM SCREENING [...] in OV> 01/24/24 1353 DD/ 1443 TD/TT: Porter Marina: us Elijah Mendoza MD IM BI PROCEDURES Final Result * (ABNORMAL) Colonoscopy (02/22/2023) Colonoscopy Abnormal( A) Normal Comment:Tubular adenoma us Elijah Mendoza MD HEALTH MAINTENANCE Final Result from Last 3 Months or Most Recently Relevant to Health Maintenance Insurance [facility] (O D-SNP) GEOVANNY MCCARTH[place] [id number] Care Teams Computer Programmer Analyst Relationship Specialty Start Date End Date IsaacsYe Law MD [address] [place] [address] PCP - General Internal Medicine 02/18/25
--- OUTSIDE RECORDS SUMMARY | 2025-06-03 16:26 | XMS_ITS | Encounter Summary ---
Author Organization [employer] Address [address] [facility] [address] 7t [place] [address] Care Team Providers Care Public Transit Specialist Name Role Phone Ye Loera MD Primary Care Prov ider Reason for Visit * Reason Comments Med Refill Encounter Details Date Type Department Care Team ([facility] st Contact Info) Description 12/18/2024 Refill [facility] [address] [place], [place] [phone] Name, MD Elijah [address] [place] [address] Social History Tobacco Use Types Packs/Day Years [...] the past 12 months, has t he [employer], oil or water company threatened to shut [...] documented as of this encounter Care Teams Public Transit Specialist Relationship Specialty Start Date End Date Ye Loera MD [address] [place] [address] PCP - General Internal Medicine 02/18/25 documented as of this encounter
--- OUTSIDE RECORDS SUMMARY | 2025-06-03 16:26 | XMS_ITS | Encounter Summary ---
Author Organization [employer] Address 75 [facility] [address]t [place] [address] Care Team Providers Care Cap Sewer Name Role Phone Ye Loera MD Primary Care Prov ider Encounter Details Date Type Department Care Team (Late st Contact Info) Description 02/28/2025 Orders Only [facility] [address] [place], [place] [phone] Aviva Barlow MD [address] [place] [address] Primary hypertension (Primary Dx) Social History Tobacco [...] PM EDT Narrative 03/25/2025 12:23 PM EDT [place] [address] XRay Report Signed Patient: Diana Chapman MR#: [id number] : 1960 Acct:[id number] Age/Sex: 64 / F ADM Date: 03/25/25 Loc: HO.ERVIN Attending Dr: Osiris LUND Ordering Physician: Osiris Ware Date of Service: 03/25/25 Procedure(s): XR chest 2V Accession Number(s): [id number] cc: Ye Loera MD; Osiris Ware EXAMINATION: XR CHEST 2 VIEWS HISTORY: Z87.01 [...] in OV> 03/25/25 1221 DD/ 1210 TD/TT: 03/25/255 [employer] Press Operator: Procedure Note Donotuseinterpreter, Image - 03/25/2025 [place] [address] XRay Report Signed Patient: Shabana Chapman#: [id number] : 9Acct:[id number] Age/Sex: 64 / FADM Date: 03/25/25 Loc: HOMARKAY Attending Dr: Osiris PIMENTELP-SAMPSON Ordering Physician: Osiris Ware Date of Service: 03/25/25 Procedure(s): XR chest 2V Accession Number(s): [id number] cc: Ye Loera MD; Osiris WareP-SAMPSON EXAMINATION: XR CHEST 2 VIEWS HISTORY: Z87.01 [...] 03/25/25 1221 DD/ 1210 TD/TT: 03/25/25 1215 [employer] Press Operator: [facility] External Provider IMG XR PROCEDURES Final Result documented in this encounter Visit Diagnoses Diagnosis Primary hypertension- Primary Unspecified essential hypertension documented in this encounter Additional Health Concerns Assessment Noted Time PHQ-9 Depression Total Score: 0 12/23/19 23 2:25 PM EDT documented as of this encounter Care Teams Cap Sewer Relationship Specialty Start Date End Date Ye Loera MD [address] [place] [address] PCP - General Internal Medicine 02/18/25 documented as of this encounter
--- OUTSIDE RECORDS SUMMARY | 2025-06-03 16:26 | XMS_ITS | Encounter Summary ---
Author Organization [employer] Address 75 [facility] 7 [place] [address] Care Team Providers Care Lens Finisher Name Role Phone Name, Elijah FRAGA Primary Care Provider [phone] Ye Loera MD Primary Care Prov ider Reason for Visit * Reason Comments Med Refill Encounter Details Date Type Department Care Team ([facility] st Contact Info) Description 07/23/2022 Refill [facility] [address] [place], [place] [phone] Name, MD Elijah [address] [place] [address] Social History Tobacco Use Types Packs/Day Years [...] on filedocumented in this encounter Care Teams Lens Finisher Relationship Specialty Start Date End Date Name, MD Elijah [address] [place], [place] [phone] PCP - General Family Medicine 08/08/18 09/24/24 Ye Loera MD [address] [place] [address] PCP - General Internal Medicine 02/18/25 documented as of this encounter
--- OUTSIDE RECORDS SUMMARY | 2025-06-03 16:26 | XMS_ITS | Clinical Summary ---
Author Organization [facility] Address [address] [place] [address] Care Team Providers Care Business Analyst Ecommerce Name Role Phone Provider, Not In System [...] age to complete this topic Care Teams Business Analyst Ecommerce Relationship Specialty Start Date End Date Provider, Not In System PCP - General 11/23/17
--- OUTSIDE RECORDS SUMMARY | 2025-06-03 16:28 | XMS_ITS | Data Portability ---
Author Organization [facility] [place] [facility] Medical [facility] Address [address] [place] [address] Care Team Providers Care Supervisor Lending Activities Name Role Phone NAME, DORYS Primary Care Provider HIM RYANNE OTHER Assessment Encounter Date Assessment Date Assessment LastModified by Organization Details LastModified Time 07/30/2024 07/30/2024 Impression: 63yo/f with hx of HTN, DM, anxiety, referred to Critical access hospital for dizziness and elevated BP. Patient is [...] having episodes of more lightheadedness. Referred to Critical access hospital for evaluation. For medic in home patient [...] of any new or worsening serious symptoms [email or web address] Not available 07/30/2024 14:01:43 Plan of Treatment Reminders Order Date Submit Date Provider Last Modified By Organization Details Last Modified Time Details Appointments None recorded. Lab BMP, serum or plasma [address] [address], [address] 5 21:01:44 BMP, serum or plasma 2023 [email or web address], [address] 4 14:03:08 Referral None recorded. Procedures None recorded. Surgeries None recorded. Imaging electroca rdiogram 2023 [email or web address], [address] 4 09:47:43 Medication Orders Valtrex 1 gram tablet 2024 025 [id number], [address] [place], [place], [phone], 19:13:21 Patient TargetsNo targets recorded. Patient InstructionsNo instructions recorded. Reason for Referral None Reported. Results Created Date Observation Date Name Description Value Unit Range Abnormal Flag Note LastModifiedBy Organization Detail LastModifiedTime 07/30/20 24 07/30/2024 johnnie perez am No observ ation record ed. [email or web address] [facility] [address] [place] [address], [phone] 07/30/2024 14:29:25 Result Notes None recorded. Medical Equipment None Reported. Allergies Allergen ID Allergen Name Allergen Category Reaction Reaction Severity Criticality Documentation Date Start Date Code Code System Note Provider Name and Address Organization Details Recorded Time 77778 tramadol medicatio n Not available Not available Not available 07/30/2024 67602 RxNorm Not Available [facility] - production 4 11:14:18 09673 acetamino phen / oxycodone medicatio n Not available Not available Not available 07/30/2024 81259 3 RxNorm Not Available [facility] - production [...] cm 100 % 100 % 98.5 [degF] 19754.4 8 g 16 /min 70 /min 148/92 mm[Hg] Not Available [facility] 4 13:23:53 Social History None recorded. Functional Status None recorded. Mental Status None recorded. Family History Nothing Reported. Medical History No medical history recorded. Gynecological HistoryNo gynecological history recorded. Obstetrics History GPAL:G 0 P 0 0 0 0 Past Encounters Encounter ID Performer Location Encounter Start Date Encounter Closed Date Diagnosis/Indication Diagnosis SNOMED-CT Code Diagnosis ICD10 Code Diagnosis IMO Codes Diagnosis Note [id number] Donnie Alvarez MD [facility] [address] [place] [phone] 07/30/2024 13:23:50 07/30/2024 23:46:13 Dizziness [id number] R42 [id number] JENNIFER SANDOVAL MD [facility] [address] [place] [phone] 11/24/2024 18:46:57 11/26/2024 14:11:01 Herpes zoster 7644794 B02.9 [id number] Evaluation in the field was performed by my chairman & co founder colleague, as noted above, I provided real-time [...] Saeed Member ID Guarantor Name 11/24/2024 1 [facility] - DOS ON OR AFTER 2022 - DUAL ELIGIBLE - JAIL OPTIONS AND ONE CARE (MEDICARE REPLACEMENT/ADV ANTAGE - HMO) Diana Ari [id number] Diana I Ari Notes Date Note Type Note Provider Name and Address Organization Details Recorded Time 07/30/2024 text/html ROS as noted in the [facility] Nurse Triage Notes (Charles Astorga - RN): Denies: Worst Headache of life New onset of vision loss Sudden onset -unilateral weakness/gait disturbance Fall with head strike and altered LOC New onset of Slurred speech or difficulty finding words Sudden Mental status changes Head pain with fever chills and neck pain Seizure activity Chief Complaints: Hypertension, DizzinessPMH: HypertensionComments: Test Carrier verified the patient's name//address and phone number. [...] emergency treatment if needed -Pauline Astorga RN Insurance Sales Agent Organization Information for Ravindra Zhang Legal Name: [employer]. Address: [address] [place] [address], Salesperson Flying Squad: Michael Soto MD CLIA No.: [id number] Insurance Sales Agent POC Test Results from Ravindra Zhang [...] ..................... ..................... ..................... ..................... ..................... ..................... ............... Insurance Sales Agent Note From Ravindra Zhang: [facility] makes pt contact with a 63 yo F CC of dizziness, Consent obtained and uploaded. [facility] obtains vitals, PT explains 5 months [...] of and monitored by her eye doctor. [facility] contacts [facility], [facility] requests an istat for labs and ekg to rule out anything cardiac. I state is obtained via left ac 21 g butterfly needle and bandaged appropriately, i stat results uploaded and confirmed with [facility]> EKG obtained and showed NSR non diagnostic. [facility] advises pt that he will flag her PCP to adjust or change her bp medication since she is not tolerating the side effects very well. [facility] explains that if she develops chest pain, sob, headache, or feels as if she is going to faint that she should call 911 or be seen in person. PT understands. [facility] clears. ..................... ..................... ..................... ..................... ..................... ..................... ............... [facility] Consulted: Donnie Alvarez ..................... ..................... ..................... ..................... ..................... ..................... ............... Disposition: Fulfilled Donnie Alvarez MD [address] [place] [address],[address], [place], [phone], [employer] 07/30/2024 14:37:29 11/24/2024 text/html ROS as noted in the [facility] Nurse Triage Notes (Charles Astorga): Reason [...] the patient's name//address and phone number. Pt Liberian speaking primarily, pt reports she is having [...] emergency treatment if needed -Pauline Astorga RN Insurance Sales Agent Organization Information for Adam Valentin Legal Name: [facility] [employer] Address: [address] [place] [address], [place] [address], Salesperson Flying Squad: David Dixon MD CLIA No.: [id number] Insurance Sales Agent POC Test Results from Adam Valentin [facility] (19:03:49) pH: 7.399 pH units pCO2: 35.4 mmHg pO2: 77.7 mmHg Na: 145 mmol/L K: 3.8 mmol/L iCa: 1.17 mmol/L Cl: 111 mmol/L TCO2: 21.1 mEq/L Hct: 36 % Hb: 12.3 g/dL Glu: 103 mg/dL Lac: 0.81 mmol/L Cr: 0.61 mg/dL BUN: 28.1 mg/dL A mmol/L HCO3: 21.9 mmol/L ..................... ..................... ..................... ..................... ..................... ..................... ............... Insurance Sales Agent Note From Adam Valentin: Arrived to [...] morning. Concerning for shingles. No shingles vaccine. [facility] contacted in agreement for shingles. EPOC used for BMP which was unremarkable. [facility] to prescribe Po antiviral for infection. Advised patient of possible symptoms that can develop and informed patient that she is very contagious. Patient understood and in agreement. [facility] Lab Orders: BMP, serum or plasma: Performed ..................... ..................... ..................... ..................... ..................... ..................... ............... [facility] Consulted: Jennifer Sandoval ..................... ..................... ..................... ..................... ..................... ..................... ............... Disposition: Fulfilled JENNIFER SANDOVAL MD [address] [place] [address],[address], [place], [address], [employer] 11/24/2024 19:31:41 OBGyn Episode No OBEpisode recorded.
== END 2025-06-03 13:27 | disposition home or self-care (01) ==
LOC: HO.HGI 12:57
PROVIDERS: PCP Internal Medicine; Visit Provider Nurse Practitioner Family
DX: K21.9 Gastro-esophageal reflux disease without esophagitis (principal); R10.13 Epigastric pain; R16.0 Hepatomegaly, not elsewhere classified; R14.0 Abdominal distension (gaseous); K59.01 Slow transit constipation
CPT/HCPCS: 99214; G2211

== ENCOUNTER → 2025-06-03 12:56 | Outpatient (BNVA) | payer OTHER, SELFPAY | PROVIDERS: PCP Internal Medicine; Visit Provider Nurse Practitioner Family | DX: K21.9 Gastro-esophageal reflux disease without esophagitis (principal); R10.13 Epigastric pain; R16.0 Hepatomegaly, not elsewhere classified; R14.0 Abdominal distension (gaseous); K59.04 Chronic idiopathic constipation | CPT/HCPCS: 99212 ==

== ENCOUNTER 2025-06-21 10:27 | Outpatient (REF) | payer OTHER, SELFPAY ==
--- NOTE | ~2025-06-21 | US_ITS ---
EXAMINATION: US ABDOMEN COMPLETE CLINICAL INFORMATION: R10.9.. COMPARISON: Ultrasound limited liver elastography dated January 31, 2025. Correlated to CT dated December 13, 2024. TECHNIQUE: Real-time ultrasound of the abdomen using grayscale and color Doppler technique. FINDINGS: PANCREAS: No peripancreatic fluid collections. ABDOMINAL AORTA: The proximal, mid, and distal segments are normal in caliber. INFERIOR VENA CAVA: Visualized portions are normal. LIVER: Liver measures 12 cm by technologist recent CT measures 16 cm. Normal echotexture. No nodular surface. 8 mm hyperechoic lesion, right hepatic lobe. There is a 11 mm anechoic lesion, right hepatic lobe. Main portal vein is patent with normal hepatopedal flow direction. No intrahepatic biliary ductal dilatation. GALLBLADDER: Fluid-filled nondistended. No pericholecystic fluid collection or gallbladder wall thickening. COMMON BILE DUCT: 3 mm.. RIGHT KIDNEY: 10 cm. Normal echotexture. Renal cortical thickness is normal. No hydronephrosis. No solid or cystic lesion.. LEFT KIDNEY: 11 cm. Normal echotexture. Renal cortical thickness is normal. No hydronephrosis. Millimeter anechoic lesion at the corticomedullary junction midportion without septations or nodular components. No solid lesion.. SPLEEN: 10 cm. No solid or cystic lesion.. FREE FLUID: None. US/US abdomen complete IMPRESSION: Probable hemangioma, right hepatic lobe. Probable cyst, right hepatic lobe. No cholelithiasis or choledocholithiasis. No hydronephrosis. Simple cyst, left kidney. No ascites. Electronically signed by: Bruno Rothman MD 06/21/2025 11:50 AM EST
== END 2025-06-21 10:28 | disposition home or self-care (01) ==
LOC: HO.US 10:27
PROVIDERS: PCP Internal Medicine; Visit Provider Nurse Practitioner Family
DX: R10.9 Unspecified abdominal pain (principal)
CPT/HCPCS: 76700

== ENCOUNTER → 2025-06-21 10:29 | Outpatient (BNV) | payer OTHER, SELFPAY | PROVIDERS: PCP Internal Medicine; Visit Provider Radiology Diagnostic Radiology | DX: N28.1 Cyst of kidney, acquired (principal) | CPT/HCPCS: 76700 ==

== ENCOUNTER 2025-07-01 12:14 | Outpatient (AMB) | payer OTHER, SELFPAY ==
--- NOTE | 2025-07-01 12:17 | A.OFFVIS_ITS ---
Vital Signs 07/01/25 12:20 Height 5 ft 1 in Weight 178 lb BMI 33.6 BP 144/82 H Blood Pressure Location Rt brachial Position Sitting Pulse 64 Pulse Source Pulse Oximeter Pulse Oximetry (%) 99 Oxygen Delivery Method Room Air Intake Visit Reasons: 3m Intake Note: ESTABLISHED PATIENT for CIC + GERD w/ chronic abd pain mgmt. CC: C.O. post prandial abd pain persistence despite current therapies. Pt states that her pain is typically either epigastric in nature, or is generalized to both lower quadrants. No additional sx to report at this time. 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 Reports occasional postprandial right upper quadrant pain, will send patient for ultrasound. Will increase Linzess back to 145 mcg daily. Patient was encouraged to continue increasing water throughout the day. Continue taking Metamucil. Referral to General surgery. Patient had several episodes or diverticulitis in the past few months. She will follow-up with us in 2-3 months. Patient was encouraged to call us if she will have any GI concerning symptoms. She is agreeable to this plan and verbalizes understanding of instructions. She was given the opportunity to ask questions and all questions answered. ? Thank you for allowing me to participate in her care E Orders US abdomen complete 06/03/25 R10.9 Referrals General Surgery Referral K57.92 New linaclotide (Linzess) 145 mcg PO DAILY 30 caps 2RF Changed Changed From psyllium husk PO Changed To psyllium husk (Metamucil Sugar-Free (aspartame)) 2.5 grams PO DAILY 425 grams 2RF Discontinued linaclotide Discontinued Reason: Doctor's Order 72 mcg PO DAILY 30 caps 4RF TODAY'S VISIT Patient is here today for follow-up and to discuss ultrasound results. Patient's ultrasound was normal, no acute findings. Patient still has occasional left lower quadrant pain. Patient reports that she has to sometimes take two capsules of Linzess total of 290 mcg. Patient reports that she took that yesterday and only had small bowel movement. Patient reports she continues to have a pain in the left lower quadrant pain depending on what she eats. She reports that pain is better after she has a good bowel movement. Patient has appointment with General surgery next month to discuss possible colectomy. Patient denies any mucus in her stool. Denies melena, hematochezia. Patient denies any fever or chills. [facility] Medical History Hepatomegaly Postprandial abdominal bloating Cataract (~11/2021) Surgical History History of esophagogastroduodenoscopy (EGD) Hx of colonoscopy H/O: hysterectomy History of bladder surgery H/O prior ablation treatment Family History Father Diabetes HTN (hypertension) Sister FH: kidney cancer HTN (hypertension) Mother HTN (hypertension) Sister HTN (hypertension) Sister HTN (hypertension) Sister HTN (hypertension) Sister HTN (hypertension) Brother HTN (hypertension) Social History Housing: Apartment Alcohol intake: never Patient Tobacco Use Status: Never used Tobacco e-Cigarette/Vaping Use: Never Used Second Hand Smoke Exposure: No service: No Current occupational status: unemployed Cognitive needs: No Hearing needs: No Vision needs: No Review of Systems Const Denies weight gain and Denies weight loss ENT Reports no additional complaints, Denies dysphagia and Denies odynophagia Card Reports no additional complaints Resp Reports no additional complaints GI Reports abdominal pain, Denies belching, Denies melena, Reports bloating, Denies change in bowel habits, Reports constipation, Denies dysphagia, Denies excessive flatus, Denies dyspepsia, Denies heartburn, Denies diarrhea, Denies loose stools, Denies nausea, Denies odynophagia and Denies vomiting Reports no additional complaints Musc Reports no additional complaints Neuro Reports no additional complaints Psych Reports no additional complaints Endo Reports no additional complaints Physical Exam Vital Signs: Last Vital Signs Pulse 64 07/01/25 12:20 BP 144/82 H 07/01/25 12:20 Pulse Ox 99 07/01/25 12:20 Oxygen Delivery Method Room Air 07/01/25 12:20 BMI result Body Mass Index 33.6 Const General: healthy appearing, no acute distress and well developed Nutritional Appearance: well nourished and obese Orientation/consciousness: patient oriented x3 Resp Effort & Inspection: normal respiratory effort, able to speak in complete sentences, no tracheal deviation and symmetric chest movement Auscultation: clear to auscultation bilaterally Cardio Rate: regular rate Heart sounds: S1 normal heart sound present and S2 normal heart sound present GI Inspection: Yes normal to inspection, No distended and Yes obesity Palpation (GI): Soft to palpation, not firm, nontender and No hepatosplenomegaly present Auscultation: normal bowel sounds General: Yes no CVA tenderness Back/Spine/Pelvis Back: no CVA tenderness Skin General skin exam: elasticity normal, turgor normal and dry skin Neuro General: patient oriented x3 Psych Appearance: grossly normal Mental Status: mental status grossly normal Results Reviewed Results Reviewed: ABDOMINAL ULTRASOUND 06/21/2025 FINDINGS: PANCREAS: No peripancreatic fluid collections. ABDOMINAL AORTA: The proximal, mid, and distal segments are normal in caliber. INFERIOR VENA CAVA: Visualized portions are normal. LIVER: Liver measures 12 cm by technologist recent CT measures 16 cm. Normal echotexture. No nodular surface. 8 mm hyperechoic lesion, right hepatic lobe. There is a 11 mm anechoic lesion, right hepatic lobe. Main portal vein is patent with normal hepatopedal flow direction. No intrahepatic biliary ductal dilatation. GALLBLADDER: Fluid-filled nondistended. No pericholecystic fluid collection or gallbladder wall thickening. COMMON BILE DUCT: 3 mm.. RIGHT KIDNEY: 10 cm. Normal echotexture. Renal cortical thickness is normal. No hydronephrosis. No solid or cystic lesion.. LEFT KIDNEY: 11 cm. Normal echotexture. Renal cortical thickness is normal. No hydronephrosis. Millimeter anechoic lesion at the corticomedullary junction midportion without septations or nodular components. No solid lesion.. SPLEEN: 10 cm. No solid or cystic lesion.. FREE FLUID: None. US/US abdomen complete IMPRESSION: Probable hemangioma, right hepatic lobe. Probable cyst, right hepatic lobe. No cholelithiasis or choledocholithiasis. No hydronephrosis. Simple cyst, left kidney. No ascites. Assessment & Plan Assessment & Plan (1) Chronic GERD: Code(s): K21.9 - Gastro-esophageal reflux disease without esophagitis Category: Medical (2) Dyspepsia: Code(s): R10.13 - Epigastric pain Category: Medical (3) Hepatomegaly: Code(s): R16.0 - Hepatomegaly, not elsewhere classified Category: Medical (4) Postprandial abdominal bloating: Code(s): R14.0 - Abdominal distension (gaseous) Category: Medical (5) Constipation: Code(s): K59.00 - Constipation, unspecified Qualifiers: Constipation type: slow transit constipation Qualified Code(s): K59.01 - Slow transit constipation Plan Will increase Linzess to 290 mcg daily. Patient will also take stool softener 2 capsules every evening. Increased fluid intake and activity to promote bowel motility. Keep appointment with General surgery. Patient will return to our office in 2 months. Continue Nexium daily. Avoid dietary triggers only time snacking. Staying upright for minimum 3 hours after meals discussed with patient. Patient is agreeable to current plan of care and verbalizes understanding of instructions. She was given the opportunity to ask questions and all questions answered. Thank you for allowing me to participate in her care Medications: New linaclotide (Linzess) 290 mcg PO QAM 30 caps 4RF K59.00 - Constipation, unspecified docusate sodium 200 mg (2 x 100 mg) PO BEDTIME 180 caps 3RF K59.00 - Constipation, unspecified Discontinued linaclotide (Linzess) Discontinued Reason: Doctor's Order 145 mcg PO DAILY 30 caps 2RF Coding Level of Care Code Est Pt Level 4 (39530) Complex visit Add On G2211 Diagnoses Chronic GERD K21.9 Dyspepsia R10.13 Hepatomegaly R16.0 Postprandial abdominal bloating R14.0 Slow transit constipation K59.01 Constipation type: slow transit constipation Time Spent (min) 40 Comment 25 minutes spent with patient and additional 15 minutes spent reviewing her records
[2025-07-01 12:20] VITALS: BP 144/82; PULSE 64; O2SAT 99; BMI 33.6
--- OUTSIDE RECORDS SUMMARY | 2025-07-01 16:15 | XMS_ITS | Clinical Summary ---
Author Organization [employer] [facility] Address [address] [place] [address] Care Team Providers Care Rn Vascular Name Role Phone Provider, Not In System [...] age to complete this topic Care Teams Rn Vascular Relationship Specialty Start Date End Date Provider, Not In System PCP - General 11/23/17
--- OUTSIDE RECORDS SUMMARY | 2025-07-01 16:15 | XMS_ITS | Encounter Summary ---
Author Organization [employer] Address [address] [facility] 7 [place] [address] Care Team Providers Care Office Manager Executive Assistant Name Role Phone Ye Loera MD Primary Care Prov ider Reason for Visit * Reason Onset Date Comments Durable Medical Equipment 06/24/2025 Encounter Details Date Type Department Care Team (Late st Contact Info) Description 06/24/2025 Telephone [facility] [address] [place], [place] [phone] Ye Loera MD [address] [place] [address] Durable Medical Equipment Social History Tobacco Use [...] Telephone Encounter - Jodi Bone LPN - 06/24/2025 12:28 PM EST Sent to PCP regarding scanned DME;.?? documented in this encounter Plan of Treatment Not on file documented as of this encounter Visit Diagnoses Not on filedocumented in this encounter Additional Health Concerns Assessment Noted Time PHQ-9 Depression Total Score: 5 03/29/20 25 9:11 AM EDT documented as of this encounter Care Teams Office Manager Executive Assistant Relationship Specialty Start Date End Date Ye Loera MD [address] [place] [address] PCP - General Internal Medicine 02/18/25 documented as of this encounter
--- OUTSIDE RECORDS SUMMARY | 2025-07-01 16:15 | XMS_ITS | Encounter Summary ---
Author Organization [employer] Address [address] [facility] [address] [place] [address] Care Team Providers Care Cocoa Mill Operator Name Role Phone Ye Loera MD Primary Care Prov ider Encounter Details Date Type Department Care Team (Late st Contact Info) Description 02/28/2025 Orders Only [facility] [address] [place], [place] [phone] Aviva Barlow MD [address] [place] [address] Primary hypertension (Primary Dx) Social History Tobacco [...] PM EDT Narrative 03/25/2025 12:23 PM EDT [place] [address] XRay Report Signed Patient: Diana Chapman MR#: [id number] : 1960 Acct:[id number] Age/Sex: 64 / F ADM Date: 03/25/25 Loc: [facility] Attending Dr: Osiris LUND Ordering Physician: Osiris Ware Date of Service: 03/25/25 Procedure(s): XR chest 2V Accession Number(s): [id number] cc: Ye Loera MD; Osiris Ware EXAMINATION: [...] OV> 03/25/25 1221 DD/ 1210 TD/TT: 03/25/255 Density Control Puncher: Procedure Note Donotuseinterpreter, Image - 03/25/2025 [place] [address] XRay Report Signed Patient: Shabana Chapman#: [id number] : 9Acct:[id number] Age/Sex: 64 / FADM Date: 03/25/25 Loc: [facility] Attending Dr: Osiris PIMENTELP-SAMPSON Ordering Physician: Osiris Ware Date of Service: 03/25/25 Procedure(s): XR chest 2V Accession Number(s): [id number] cc: Ye Loera MD; Osiris WareP-SAMPSON EXAMINATION: [...] 03/25/25 1221 DD/ 1210 TD/TT: 03/25/25 1215 Density Control Puncher: [facility] External Provider IMG XR PROCEDURES Final Result documented in this encounter Visit Diagnoses Diagnosis Primary hypertension- Primary Unspecified essential hypertension documented in this encounter Additional Health Concerns Assessment Noted Time PHQ-9 Depression Total Score: 0 12/23/19 23 2:25 PM EDT documented as of this encounter Care Teams Cocoa Mill Operator Relationship Specialty Start Date End Date Ye Loera MD [address] [place] [address] PCP - General Internal Medicine 02/18/25 documented as of this encounter
--- OUTSIDE RECORDS SUMMARY | 2025-07-01 16:15 | XMS_ITS | Encounter Summary ---
Author Organization [facility] Address [address] [place] [address] Care Team Providers Care Nurse Infection Control Name Role Phone Taj Davison MD Primary Care Provider [phone] Encounter Details Date Type Department Care Team ([facility] Contact Info) Description 06/07/2025 Telephone Internal Medicine - [place] [address] [facility] [address] [place] [phone] Taj Davison MD 175 [facility] [address] [place] [address] Social History Tobacco Use Types Packs/Day Years [...] Upcoming Encounters Date Type Department Care Team ([facility] Contact Info) Description 07/16/2025 10:00 AM EST Office Visit Internal Medicine - [place] [address] [facility] [address] [place] [phone] Taj Davison MD 175 [facility] [address] [place] [address] documented as of this encounter Visit Diagnoses Not on filedocumented in this encounter Additional Health Concerns Infection Onset Date Last Indicated Resolved Time Herpes simplex 07/23/2024 07/23/2024 documented as of this encounter Care Teams Nurse Infection Control Relationship Specialty Start Date End Date Taj Davison MD [address] [address] PCP - General Internal Medicine 06/07/25 documented as of this encounter
--- OUTSIDE RECORDS SUMMARY | 2025-07-01 16:15 | XMS_ITS | Encounter Summary ---
Author Organization [employer] Address [address] [facility] 7t [place] [address] Care Team Providers Care Residential Caregiver Name Role Phone Ye Loera MD Primary Care Prov ider Reason for Visit * Reason Onset Date Comments Durable Medical Equipment 02/27/2025 Encounter Details Date Type Department Care Team (Late st Contact Info) Description 02/27/2025 Telephone [facility] MEDICINE [address] [place] [address] Ye Loera MD [address] [place] [phone] Durable Medical Equipment Social History Tobacco Use [...] Blood Pressure kit To be sent to: -[id number] - [place], [place] - [address] [...] documented as of this encounter Care Teams Residential Caregiver Relationship Specialty Start Date End Date Ye Loera MD [address] [place] [address] PCP - General Internal Medicine 02/18/25 documented as of this encounter
--- OUTSIDE RECORDS SUMMARY | 2025-07-01 16:15 | XMS_ITS | Encounter Summary ---
Author Organization [employer] Address [address] [facility] [address] 7t [place] [address] Care Team Providers Care Opto Mechanical Technician Name Role Phone Name, Elijah FRAGA Primary Care Provider [phone] Ye Loera MD Primary Care Prov ider Reason for Visit * Reason Comments Med Refill Encounter Details Date Type Department Care Team (Late st Contact Info) Description 10/16/2023 Refill [facility] 230 [place] [address] Coty Santiago FNP Strain of left infraspinatus [...] the past 12 months, has t he [employer] gas, oil or water company threatened to [...] documented as of this encounter Care Teams Opto Mechanical Technician Relationship Specialty Start Date End Date Name, MD Elijah 230 [place] [address] PCP - General Family Medicine 08/08/18 09/24/24 Ye Loera MD [address] [place] [address] PCP - General Internal Medicine 02/18/25 documented as of this encounter
--- OUTSIDE RECORDS SUMMARY | 2025-07-01 16:15 | XMS_ITS | Encounter Summary ---
Author Organization [employer] Address [address] [facility] [address] 7t [place] [address] Care Team Providers Care Forestry Laborer Name Role Phone Ye Loera MD Primary Care Prov ider Reason for Visit * Reason Comments Med Refill Encounter Details Date Type Department Care Team ([facility] st Contact Info) Description 12/10/[address] [facility] MEDICINE [address] [place], [place] [phone] Name, MD Elijah 230 [place] [address] Rash Social History Tobacco Use Types Packs/Day [...] the past 12 months, has t he [employer] gas, oil or water company threatened to [...] documented as of this encounter Care Teams Forestry Laborer Relationship Specialty Start Date End Date Ye Loera MD [address] [place] [address] PCP - General Internal Medicine 02/18/25 documented as of this encounter
--- OUTSIDE RECORDS SUMMARY | 2025-07-01 16:15 | XMS_ITS | Encounter Summary ---
Author Organization [employer] Address [address] [facility] [address] 7t [place] [address] Care Team Providers Care Mold Injector Name Role Phone Name, Elijah FRAGA Primary Care Provider [phone] Ye Loera MD Primary Care Prov ider Reason for Visit * Reason Onset Date Comments Nurse Triage 12/05/2023 Encounter Details Date Type Department Care Team ([facility] st Contact Info) Description 12/05/2023 Telephone [facility] MEDICINE 230 [place], [place] [phone] Name, MD Elijah 230 [place] [address] Nurse Triage Social History Tobacco Use Types [...] painful. Pt is offered WIC today at [facility] but, declines to go today due tofamily member doing poorly. Pt requests provider for NON DESTRUCTIVE TESTING ENGINEER to see Pt. Apt with JUJU Romero 12/06/23 @ 330pm at [facility] facility. Pt reports has been to [facility] before. Pt agrees with disposition. Advised [...] documented as of this encounter Care Teams Mold Injector Relationship Specialty Start Date End Date Name, MD Elijah 230 [place] [address] PCP - General Family Medicine 08/08/18 09/24/24 Ye Loera MD [address] [place] [address] PCP - General Internal Medicine 02/18/25 documented as of this encounter
--- OUTSIDE RECORDS SUMMARY | 2025-07-01 16:15 | XMS_ITS | Encounter Summary ---
Author Organization [employer] Address [address] [facility] 7t [place] [address] Care Team Providers Care Postpartum Rn Name Role Phone Ye Loera MD Primary Care Prov ider Reason for Visit * Reason Comments Med Refill Encounter Details Date Type Department Care Team ([facility] st Contact Info) Description 11/13/2024 Refill [facility] MEDICINE 230 [place], [place] [phone] [facility] 230 [place] [address] Social History Tobacco Use Types Packs/Day Years [...] t he electric, gas, oil or water [employer] threatened to shut off services in your [...] documented as of this encounter Care Teams Postpartum Rn Relationship Specialty Start Date End Date Ye Loera MD [address] [place] [address] PCP - General Internal Medicine 02/18/25 documented as of this encounter
--- OUTSIDE RECORDS SUMMARY | 2025-07-01 16:15 | XMS_ITS | Encounter Summary ---
Author Organization [employer] Address [address] [facility] 7t [place] [address] Care Team Providers Care Care Trainer Name Role Phone Name, Elijah FRAGA Primary Care Provider [phone] Ye Loera MD Primary Care Prov ider Encounter Details Date Type Department Care Team (Late st Contact Info) Description 12/24/2022 Abstract [facility] MEDICINE 230 [place], [place] [phone] Name, MD Elijah 230 [place] [address] Social History Tobacco Use Types Packs/Day Years [...] documented as of this encounter Care Teams Care Trainer Relationship Specialty Start Date End Date Name, MD Elijah 230 [place] [address] PCP - General Family Medicine 08/08/18 09/24/24 Ye Loera MD [address] [place] [address] PCP - General Internal Medicine 02/18/25 documented as of this encounter
--- OUTSIDE RECORDS SUMMARY | 2025-07-01 16:15 | XMS_ITS | Encounter Summary ---
Author Organization [employer] Address [address] [facility] 7t [place] [address] Care Team Providers Care Spooler Name Role Phone Name, Elijah FRAGA Primary Care Provider [phone] Ye Loera MD Primary Care Prov ider Reason for Visit * Reason Onset Date Comments Appointment Request 03/31/2023 Encounter Details Date Type Department Care Team ([facility] st Contact Info) Description 03/31/2023 Telephone [facility] MEDICINE 230 [place], [place] [phone] Name, MD Elijah 230 [place] [address] Appointment Request Social History Tobacco Use Types [...] second half . Please contact pt at [phone] Belarusian Speaker documented in this encounter Plan of Treatment Not on file documented as of this encounter Visit Diagnoses Not on filedocumented in this encounter Additional Health Concerns Assessment Noted Time PHQ-9 Depression Total Score: 0 12/23/19 23 2:25 PM EDT documented as of this encounter Care Teams Spooler Relationship Specialty Start Date End Date Name, MD Elijah 230 [place] [address] PCP - General Family Medicine 08/08/18 09/24/24 Ye Loera MD 505 [place] [address] PCP - General Internal Medicine 02/18/25 documented as of this encounter
--- OUTSIDE RECORDS SUMMARY | 2025-07-01 16:16 | XMS_ITS | Clinical Summary ---
Author Organization [address] [facility] Address [address] [place] [address] Phone Care Team Providers Care Buckle Sorter Name Role Phone Taj Davison MD Primary Care Provider [phone] Allergies Active Allergy Reactions Criticality Noted Date Comments Oxycodone-Acetaminophen Itching,Nausea And Vomiting 05/25/2025 Tramadol Itching,Nausea And Vomiting 05/25/20 25 Medications amoxicillin-cla vulanate (AUGMENTIN) 875-125 mg per tablet Take 1 tablet by mouth every 12 (twelve) hours for 10 days. 20 each 05/25/2025 Encounters Date Type Department Care Team Description 06/07/2025 Telephone Internal Medicine - [place] [address] [facility] [address] [place] [address] Taj Davison MD 05/25/2025 11:21 AM EDT - 05/25/2025 1:58 PM EDT Emergency [facility] Emergency [address] [place] [address] Kaylin Villasenor MD Diverticulitis (Primary Dx); Enteritis; Left lower quadrant abdominal pain Discharge Disposition: Home or Self Care from Last 3 Months Surgical History Surgery Date Site/Laterality Comments HYSTERECTOMY PROCEDURE: HISTORICAL HYSTERECTOMY; COMMENT: and BSO COLONOSCOPY 01/13/09 PROCEDURE: PA COLONOSCOPY STOMA DX INCLUDING COLLJ SPEC SPX; COMMENT: Up to cecum, good preparation, rectal polyp removed:Tubular adenoma. Repeat 01/2014 ESOPHAGOGASTRODUODENOSCOPY 05/20/09 PROCEDURE: PA EGD TRANSORAL BIOPSY SINGLE/MULTIPLE; COMMENT: Normal esophagus, [...] 05/25/2025 10:42 AM EDT Plan of Treatment Upcoming Encounters Date Type Department Care Team (Late st Contact Info) Description 07/16/2025 10:00 AM EST Office Visit Internal Medicine - [place] 175 [facility] 200 [place] [phone] Taj Davison MD 175 [facility] 200 [place] [address] Health Maintenance Due Date Last Done Comments [...] Signed Date: 05/25/2025 12:09 ET Workstation ID: [id number] Transcribed By: Self Edit Transcribed Date: 05/25/2025 [...] Signed Date: 05/25/2025 12:09 ET Workstation ID: [id number] Transcribed By: Self Edit Transcribed Date: 05/25/2025 12:04 ET Kaylin Villasenor MD [facility] CT PROCEDURES Final Result * (ABNORMAL) Urinalysis with reflex microscopic and culture (05/25/2025 10:57 AM EDT) Pathologist [facility] [place] Urine 1.016 1.003 - 1.030 LAB URINALYSIS - AUTOMATED METHOD 05/25/2025 11:09 AM [facility] pH, Urine 6.0 5.0 - 8.0 pH LAB URINALYSIS - AUTOMATED METHOD 05/25/2025 11:09 AM [facility] Leukocytes, Urine Small(A) Negative LAB URINALYSIS - AUTOMATED METHOD 05/25/2025 11:09 AM [facility] Nitrite, Urine Negative Negative LAB URINALYSIS - AUTOMATED METHOD 05/25/2025 11:09 AM [facility] Protein, Urine Negative <=Trace mg/dL LAB URINALYSIS - AUTOMATED METHOD 05/25/2025 11:09 AM [facility] Glucose, Urine Negative Negative mg/dL LAB URINALYSIS - AUTOMATED METHOD 05/25/2025 11:09 AM [facility] Ketones, Urine Negative Negative mg/dL LAB URINALYSIS - AUTOMATED METHOD 05/25/2025 11:09 AM [facility] Urobilinogen, Urine 0.2 0.2 - 1.0 mg/dL LAB URINALYSIS - AUTOMATED METHOD 05/25/2025 11:09 AM [facility] Bilirubin, Urine Negative Negative LAB URINALYSIS - AUTOMATED METHOD 05/25/2025 11:09 AM [facility] Blood, Urine Negative Negative LAB URINALYSIS - AUTOMATED METHOD 05/25/2025 11:09 AM [facility] RBC, Urine 1.4 0 - 4 /HPF LAB URINALYSIS - AUTOMATED METHOD 05/25/2025 11:09 AM [facility] WBC, Urine 0.7 0 - 4 /HPF LAB URINALYSIS - AUTOMATED METHOD 05/25/2025 11:09 AM [facility] Squamous Epithelial, Urine 4 0 - 60 /LPF LAB URINALYSIS - AUTOMATED METHOD 05/25/2025 11:09 AM [facility] Bacteria, Urine Negative Negative /HPF LAB URINALYSIS - AUTOMATED METHOD 05/25/2025 11:09 AM [facility] Hyaline Casts, Urine 0.8 0 - 3 /LPF LAB URINALYSIS - AUTOMATED METHOD 05/25/2025 11:09 AM [facility] Urine Urine specimen obtained by clean catch procedure / Unknown Non-blood Collection / Unknown 05/25/2025 10:57 AM EDT 05/25/2025 11:01 AM EDT Robert Thompson MD LAB URINE ORDERABLES Final Resul t Performing Organization Address [facility] de Phone Number [facility] [address] [place] [address], * Hunter urine culture tube (05/25/2025 10:57 AM EDT) Extra Tube Hold for add-ons. 05/25/2025 1:01 PM EDT [facility] Comment:Auto resulted. Urine Urine specimen obtained by clean catch procedure / Unknown Non-blood Collection / Unknown 05/25/2025 10:57 AM EDT 05/25/2025 11:01 AM EDT us Robert Thompson MD LAB URINE ORDERABLES Final Resul t Performing Organization Address [facility] de Phone Number [facility] [address] [place] [address], * Culture urine (05/25/2025 10:57 AM EDT) Culture, Urine No growth 05/26/2025 10:23 AM EDT [facility] Urine Urine specimen obtained by clean catch procedure / Unknown Non-blood Collection / Unknown 05/25/2025 10:57 AM EDT 05/25/2025 11:09 AM EDT us Robert Thompson MD LAB MICROBIOLOGY - GENERAL ORDER BETTY Final Result Performing Organization Address City/[facility]/ZIP Co de Phone Number [facility] [address] [place] [address], [place] [phone] * CBC auto differential (05/25/2025 10:49 AM EDT) WBC 7.3 4.8 - 10.8 K/[facility] LAB HEMETOLOGY METHOD 05/25/2025 11:11 AM EDT [facility] RBC 4.20 3.80 - 4.80 M/mcL LAB HEMETOLOGY METHOD 05/25/2025 11:11 AM [facility] Hemoglobin 12.6 11.5 - 16.0 g/dL LAB HEMETOLOGY METHOD 05/25/2025 11:11 AM [facility] Hematocrit 39.4 35.0 - 47.0 % LAB HEMETOLOGY METHOD 05/25/2025 11:11 AM [facility] MCV 94.5 79.0 - 98.0 FL LAB HEMETOLOGY METHOD 05/25/2025 11:11 AM [facility] MCH 30.2 27.0 - 32.0 pcg LAB HEMETOLOGY METHOD 05/25/2025 11:11 AM [facility] MCHC 32.0 32.0 - 37.0 g/dL LAB HEMETOLOGY METHOD 05/25/2025 11:11 AM [facility] RDW 13.3 11.0 - 15.0 % LAB HEMETOLOGY METHOD 05/25/2025 11:11 AM [facility] Platelets 267 130 - 400 K/mcL LAB HEMETOLOGY METHOD 05/25/2025 11:11 AM [facility] MPV 10.0 7.0 - 11.0 FL LAB HEMETOLOGY METHOD 05/25/2025 11:11 AM [facility] NRBC 0.0 <1.0 % LAB HEMETOLOGY METHOD 05/25/2025 11:11 AM [facility] NRBC Absolute 0.00 <0.10 K/mcL LAB HEMETOLOGY METHOD 05/25/2025 11:11 AM [facility] Neutrophils Relative 67.5 % LAB HEMETOLOGY METHOD 05/25/2025 11:11 AM [facility] Lymphocytes Relative 23.5 % LAB HEMETOLOGY METHOD 05/25/2025 11:11 AM EDT [facility] Monocytes Relative 6.0 % LAB HEMETOLOGY METHOD 05/25/2025 11:11 AM EDT [facility] Eosinophils Relative 2.2 % LAB HEMETOLOGY METHOD 05/25/2025 11:11 AM [facility] Basophils Relative 0.4 % LAB HEMETOLOGY METHOD 05/25/2025 11:11 AM EDT [facility] Immature Granulocytes Relative 0.4 % LAB HEMETOLOGY METHOD 05/25/2025 11:11 AM [facility] Neutrophils Absolute 4.91 1.50 - 7.00 K/mcL LAB HEMETOLOGY METHOD 05/25/2025 11:11 AM [facility] Lymphocytes Absolute 1.71 1.00 - 5.00 K/mcL LAB HEMETOLOGY METHOD 05/25/2025 11:11 AM [facility] Monocytes Absolute 0.44 0.20 - 1.00 K/mcL LAB HEMETOLOGY METHOD 05/25/2025 11:11 AM [facility] Eosinophils Absolute 0.16 0.00 - 0.50 K/mcL LAB HEMETOLOGY METHOD 05/25/2025 11:11 AM [facility] Basophils Absolute 0.03 0.00 - 0.20 K/mcL LAB HEMETOLOGY METHOD 05/25/2025 11:11 AM [facility] Immature Granulocytes Absolute 0.03 0.00 - 0.03 K/mcL LAB HEMETOLOGY METHOD 05/25/2025 11:11 AM [facility] Blood Venous blood specimen / Unknown Venipuncture / Unknown 05/25/2025 10:49 AM EDT 05/25/2025 11:01 AM EDT Robert Thompson MD LAB BLOOD ORDERABLES Final Resul t [facility] [address] [place] [address], [place] [phone] * Lipase (05/25/2025 10:49 AM EDT) [facility] Lipase 19 13 - 75 unit/L LAB CHEMISTRY METHOD 05/25/2025 11:34 AM EDT [facility] Blood Venous blood specimen / Unknown Venipuncture / Unknown 05/25/2025 10:49 AM EDT 05/25/2025 11:01 AM EDT Robert Thompson MD LAB BLOOD ORDERABLES Final Resul t [facility] [address] [place] [address], [place] [phone] * Comprehensive metabolic panel (05/25/2025 10:49 AM EDT) [facility] Sodium 140 133 - 145 mmol/L LAB CHEMISTRY METHOD 05/25/2025 11:35 AM [facility] Potassium 3.9 3.5 - 5.5 mmol/L LAB CHEMISTRY METHOD 05/25/2025 11:35 AM [facility] Chloride 107 96 - 110 mmol/L LAB CHEMISTRY METHOD 05/25/2025 11:35 AM [facility] CO2 27 21 - 32 mmol/L LAB CHEMISTRY METHOD 05/25/2025 11:35 AM [facility] Anion Gap 6 3 - 11 LAB CHEMISTRY METHOD 05/25/2025 11:35 AM [facility] Glucose 100 70 - 100 mg/dL LAB CHEMISTRY METHOD 05/25/2025 11:35 AM [facility] BUN 13 5 - 25 mg/dL LAB CHEMISTRY METHOD 05/25/2025 11:35 AM [facility] Creatinine 0.66 0.50 - 1.10 mg/dL LAB CHEMISTRY METHOD 05/25/2025 11:35 AM [facility] eGFR 97 >=60 mL/min/1. 73m2 LAB CHEMISTRY METHOD 05/25/2025 11:35 AM [facility] Comment:Calculation based on the Chronic Kidney Disease Epidemiology Collaboration (CKD-EPI) equation refit without adjustment for race. BUN/Creatinine Ratio 19.7 LAB CHEMISTRY METHOD 05/25/2025 11:35 AM [facility] Calcium 9.2 8.5 - 10.5 mg/dL LAB CHEMISTRY METHOD 05/25/2025 11:35 AM [facility] AST (SGOT) 16 10 - 42 unit/L LAB CHEMISTRY METHOD 05/25/2025 11:35 AM [facility] ALT (SGPT) 18 10 - 60 unit/L LAB CHEMISTRY METHOD 05/25/2025 11:35 AM [facility] Alkaline Phosphatase 81 42 - 121 unit/L LAB CHEMISTRY METHOD 05/25/2025 11:35 AM [facility] Total Protein 6.3 6.0 - 8.0 g/dL LAB CHEMISTRY METHOD 05/25/2025 11:35 AM [facility] Albumin 3.7 3.2 - 5.0 g/dL LAB CHEMISTRY METHOD 05/25/2025 11:35 AM [facility] Total Bilirubin 0.5 0.0 - 1.4 mg/dL LAB CHEMISTRY METHOD 05/25/2025 11:35 AM [facility] Blood Venous blood specimen / Unknown Venipuncture / Unknown 05/25/2025 10:49 AM EDT 05/25/2025 11:01 AM EDT us Robert Thompson MD LAB BLOOD ORDERABLES Final Resul t [facility] [address] [place] [address], * (ABNORMAL) Lipid panel with reflex to direct LDL (09/27/2024 10:28 AM EST) Cholesterol 188 0 - 200 mg/dL LAB CHEMISTRY METHOD 09/27/2024 12:24 PM [facility] Triglycerides 43 0 - 150 mg/dL LAB CHEMISTRY METHOD 09/27/2024 12:24 PM [facility] HDL 61 >=40 mg/dL LAB CHEMISTRY METHOD 09/27/2024 12:24 PM [facility] LDL Calculated 118(H) 0 - 100 mg/dL LAB CHEMISTRY METHOD 09/27/2024 12:24 PM [facility] VLDL Cholesterol Carlo 8.6 mg/dL LAB CHEMISTRY METHOD 09/27/2024 12:24 PM [facility] Non HDL Chol. (LDL+VLDL) 127 <145 mg/dL LAB CHEMISTRY METHOD 09/27/2024 12:24 PM [facility] Chol/HDL Ratio 3.1 0.0 - 4.4 LAB CHEMISTRY METHOD 09/27/2024 12:24 PM [facility] Blood Venous blood specimen / Unknown Venipuncture / Unknown 09/27/2024 10:28 AM EST 09/27/2024 11:24 AM EST Mary Jo Vargas MD LAB BLOOD ORDERABLES Final Resul t [facility] [address] [place] [address], * Hepatitis C antibody (07/23/2024 11:59 AM EST) Hepatitis C Antibody Negative Negative LAB CHEMISTRY METHOD 07/23/2024 7:04 PM [facility] Blood Venous blood specimen / Unknown Venipuncture / Unknown 07/23/2024 11:59 AM EST 07/23/2024 12:33 PM EST us Shawnee Friedman MD LAB BLOOD ORDERABLES January duran Result [facility] [address] [place] [address], from Last 3 Months or Most Recently Relevant to Health Maintenance Additional Health Concerns Infection Onset Date Last Indicated Herpes simplex 07/23/2024 07/23/2024 Insurance [facility] Member Subscriber Plan / Payer (Ef fective 2024-Present) Name:DIANA CHAPMAN Relation to Subscriber:Self Name:Diana Chapman Payer ID:[id number] Group ID:[id number] Type:Not on file Address: [facility] [address] [id number] Care Teams Buckle Sorter Relationship Specialty Start Date End Date Taj Davison MD [address] [facility] 200 [place] [address] PCP - General Internal Medicine 06/07/25
--- OUTSIDE RECORDS SUMMARY | 2025-07-01 16:16 | XMS_ITS | Encounter Summary ---
Author Organization [employer] Address [address] [place] [address] Care Team Providers Care Broker Agricultural Produce Name Role Phone Name, Elijah FRAGA Primary Care Provider [phone] Ye Loera MD Primary Care Prov ider Reason for Visit * Reason Onset Date Comments Reschedule 01/19/2024 Encounter Details Date Type Department Care Team ([facility] st Contact Info) Description 01/19/2024 Telephone [facility] MEDICINE [address] [place], [place] [phone] Name, MD Elijah [address] [place] [address] Reschedule Social History Tobacco Use Types Packs/Day [...] documented as of this encounter Care Teams Broker Agricultural Produce Relationship Specialty Start Date End Date Name, MD Elijah [address] [place] [address] PCP - General Family Medicine 08/08/18 09/24/24 Ye Loera MD [address] [place] [address] PCP - General Internal Medicine 02/18/25 documented as of this encounter
--- OUTSIDE RECORDS SUMMARY | 2025-07-01 16:16 | XMS_ITS | Encounter Summary ---
Author Organization [facility] Address [address] [place] [address] Care Team Providers Care Locomotive Operator Name Role Phone Taj Davison MD Primary Care Provider [phone] Encounter Details Date Type Department Care Team ([facility] Contact Info) Description 07/20/2024 Lab Requisition [facility] - Main Lab [address] [facility] [place] [address] Shawnee Friedman MD [address] [place] [address] Functional dyspepsia Social History Tobacco Use Types [...] Department Care Team (Late Contact Info) Description 07/16/2025 10:00 AM EST Office Visit Internal Medicine - [place] 175 [facility] 200 [place] [phone] Taj Davison MD 175 [facility] 200 [place] [address] documented as of this encounter Procedures Procedure Name Priority Date/Time Associated Diagnosis Comments HELICOBACTER PYLORI BREATH TEST Routine 07/20/2024 12:00 AM EST Functional dyspepsia documented in this encounter Results * Helicobacter pylori breath test (07/20/2024 12:00 AM EST) H Pylori Breath Test Negative Negative LAB CHEMISTRY METHOD 07/21/2024 7:24 AM EST [facility] Breath Oral cavity structure / Unknown 07/20/2024 07/20/2024 6:14 PM EST us Shawnee Friedman MD LAB BODY FLUIDS AND STOOL S ORDERABLES Final Result [facility] [address] [place] [address], documented in this encounter Visit Diagnoses Diagnosis Functional dyspepsia Dyspepsia and other specified disorders of function of stomach documented in this encounter Additional Health Concerns Infection Onset Date Last Indicated Resolved Time Herpes simplex 07/23/2024 07/23/2024 documented as of this encounter Care Teams Locomotive Operator Relationship Specialty Start Date End Date Taj Davison MD [address] [address] PCP - General Internal Medicine 06/07/25 documented as of this encounter
--- OUTSIDE RECORDS SUMMARY | 2025-07-01 16:16 | XMS_ITS | Encounter Summary ---
Author Organization [employer] Address [address] [facility] 7t [place] [address] Care Team Providers Care Tack Puller Name Role Phone Name, Elijah FRAGA Primary Care Provider [phone] Ye Loera MD Primary Care Prov ider Reason for Visit * Reason Comments Med Refill Encounter Details Date Type Department Care Team ([facility] st Contact Info) Description 09/23/2022 Refill [facility] [address] [place], [place] [phone] Name, MD Elijah [address] [place], [place] [phone] Depressive disorder Social History Tobacco Use Types [...] 11:38 AM EST Natalie Mancuso MA * How difficult have these problems made it for you to do your work, take care of things at home, or get along with other people? Answer Date of Assessment Author Somewhat difficult 09/24/2022 11:38 AM Erin Barney [...] classified documented in this encounter Care Teams Tack Puller Relationship Specialty Start Date End Date Name, MD Elijah [address] [place] [phone] PCP - General Family Medicine 08/08/18 09/24/24 Ye Loera MD [address] [place] [phone] PCP - General Internal Medicine 02/18/25 documented as of this encounter
--- OUTSIDE RECORDS SUMMARY | 2025-07-01 16:16 | XMS_ITS | Encounter Summary ---
Author Organization [employer] Address [address] [facility] [address] 7[address] [place] [address] Care Team Providers Care Curb Setter Name Role Phone Ye Loera MD Primary Care Prov ider Reason for Visit * Reason Comments Med Refill Encounter Details Date Type Department Care Team ([facility] st Contact Info) Description 12/18/2024 Refill [facility] [address] [place], [place] [phone] Name, MD Elijah [address] [place] [address] Social History Tobacco Use Types Packs/Day Years [...] the past 12 months, has t he [employer] oil or water company threatened to shut [...] documented as of this encounter Care Teams Curb Setter Relationship Specialty Start Date End Date Ye Loera MD [address] [place] [phone] PCP - General Internal Medicine 02/18/25 documented as of this encounter
--- OUTSIDE RECORDS SUMMARY | 2025-07-01 16:16 | XMS_ITS | Encounter Summary ---
Author Organization [employer] Address [address] [facility] 7t [place] [address] Care Team Providers Care Assembler Knife Name Role Phone Ye Loera MD Primary Care Prov ider Reason for Visit * Reason Onset Date Comments Durable Medical Equipment 05/21/2025 Encounter Details Date Type Department Care Team (Late st Contact Info) Description 05/21/2025 Telephone [facility] [address] [place] [address] Ye Loera MD [address] [place] [address] Durable Medical Equipment Social History Tobacco Use [...] - 05/21/2025 12:06 PM EDT T[facility] from [facility] with [facility] requesting DME for pt to be sent. She has received her shower chair but shewill also need a stepping stool and bed rails. If any questions you can contact Kodi at [phone] ext [phone]. documented in this encounter Plan of Treatment Not on file documented as of this encounter Visit Diagnoses Not on filedocumented in this encounter Additional Health Concerns Assessment Noted Time PHQ-9 Depression Total Score: 5 03/29/20 25 9:11 AM EDT documented as of this encounter Care Teams Assembler Knife Relationship Specialty Start Date End Date Ye Loera MD [address] [place] [phone] PCP - General Internal Medicine 02/18/25 documented as of this encounter
--- OUTSIDE RECORDS SUMMARY | 2025-07-01 16:16 | XMS_ITS | Encounter Summary ---
Author Organization [employer] Address [address] [facility] 7 [place] [address] Care Team Providers Care Golf Cart Mechanic Name Role Phone Name, Elijah FRAGA Primary Care Provider [phone] Ye Loera MD Primary Care Prov ider Reason for Visit * Reason Comments Med Refill Encounter Details Date Type Department Care Team ([facility] st Contact Info) Description 07/23/2022 Refill [facility] [address] [place], [place] [phone] Name, MD Elijah [address] [place] [address] Social History Tobacco Use Types Packs/Day Years [...] on filedocumented in this encounter Care Teams Golf Cart Mechanic Relationship Specialty Start Date End Date Name, MD Elijah [address] [place], [place] [phone] PCP - General Family Medicine 08/08/18 09/24/24 Ye Loera MD [address] [place] [address] PCP - General Internal Medicine 02/18/25 documented as of this encounter
--- OUTSIDE RECORDS SUMMARY | 2025-07-01 16:16 | XMS_ITS | Clinical Summary ---
Author Organization [employer] Address [address] [facility] 7t [place] [address] Care Team Providers Care Office Receptionist Name Role Phone Ye Loera MD Primary [...] Elastic Bandages & Supports (Medical Compression Stockings) miscIndications:P ain of left lower extremity,Venous insufficiency Use daily, 20-30 mmHg, waist high 2 each 1 09/08/19 23 Active linaCLOtide (Linzess) 145 MCG capsule Take 145 mcg by mouth before breakfast. Do not crush or chew. Active benazepril (Lotensin) 20 MG tablet Take 2 tablets (40 mg) by mouth Once per day. 180 tablet 02/19/20 Active buPROPion XL (Wellbutrin XL) 150 MG 24 hr tabletIndications :Depressive disorder Take 1 tablet (150 mg) by mouth Once per day. Do not crush, chew, or split. 90 tablet 02/19/20 25 Active clotrimazole-beta methasone (Lotrisone) creamIndications: Rash Apply topically 2 times daily. 90 g 02/19/20 25 Active Diclofenac Sodium 1 % gelIndications:Pa in of left lower extremity Apply 2 g topically if needed in the morning and at bedtime (pain). 100 g 02/19/20 Active hydrocortisone (Anusol-HC) 2.5 % rectal creamIndications: Hemorrhoids, unspecified hemorrhoid type APPLY THIN LAYER TOPICALLY TO THE AFFECTED AREA 2 TO 4 TIMES EVERY DAY 28 g 02/19/20 Active methocarbamol (Robaxin) 500 MG tablet Take 1 tablet (500 mg) by mouth every 8 (eight) hours. 90 tablet 02/19/20 Active hydrocortisone 1 % ointment Apply topically 2 times daily. 56 g 02/19/20 25 Active Blood Pressure kitIndications:Pr imary hypertension To check her blood pressure every other day 1 03/04/20 Active DULoxetine (Cymbalta) [address] capsule Take 1 capsule (30 mg) by mouth 2 times daily. Do not crush or chew. 60 capsule 03/29/20 Active gabapentin (Neurontin) 100 MG capsule Take 1 capsule (100 mg) by mouth 2 times daily. 60 capsule 03/29/20 Active amLODIPine (Norvasc) 5 MG tablet Take 1 tablet (5 mg) by mouth Once per day. 30 tablet 03/29/20 Active atorvastatin (Lipitor) 20 MG tablet Take 1 tablet (20 mg) by mouth Once per day. 90 tablet 03/29/20 Active dicyclomine (Bentyl) 20 MG tabletIndications :Diverticulitis Take 1 tablet (20 mg) by mouth if needed in the morning, at noon, in the evening, and at bedtime (take it as needed). 30 tablet 04/10/20 25 026 Active Calcium Carb-Cholecalcife rol (Calcium + Vitamin D3) 600-10 MG-MCG tablet Take 1 tablet by mouth 2 times daily. 60 tablet 3 04/26/20 25 Active naproxen (Naprosyn) 500 MG tabletIndications :Acute pain of right knee TAKE 1 TABLET(500 MG) BY MOUTH TWICE DAILY 60 tablet 1 06/25/20 25 Active naproxen (Naprosyn) 500 MG tabletIndications :Acute pain of right knee TAKE 1 TABLET(500 MG) BY MOUTH TWICE DAILY 60 tablet 1 04/23/20 25 025 Discontinued Active Problems Problem Noted [...] Endometriosis 07/21/2022 Overview (07/21/2022): s/p hysterectomy in [place] in 2000 Irritable bowel syndrome 07/21/2022 Hemorrhoids [...] Encounters Date Type Department Care Team Description 06/25/2025 Refill [facility] [address] [place] [address] Ye Loera MD Acute pain of right knee 06/24/2025 Telephone [facility] [address] [place] [address] Ye Loera MD Durable Medical Equipment 06/21/2025 Orders Only [facility] External Provider, [facility] 05/30/2025 11:30 AM EDT Office Visit [facility] [address] [place] [address] Ye Loera MD Diverticulitis (Primary Dx) 05/30/2025 Travel 05/29/2025 Telephone [facility] [address] [place] [address] Ye Loera MD chart prep 05/27/2025 Telephone [facility] [address] [place] [address] Ye Loera MD ER Follow-up 05/21/2025 Telephone [facility] [address] [place] [address] Ye Loera MD Durable Medical Equipment 04/26/2025 9:30 AM EDT Telemedicine [facility] [address] [place] [address] Ye Loera MD Mixed stress and urge urinary incontinence (Primary Dx); Essential hypertension 04/26/2025 Travel 04/25/2025 Telephone [facility] [address] [place] [address] Ye Loera MD chart prep 04/22/2025 Refill [facility] [address] [place] [address] Ye Loera MD Acute pain of right knee 04/10/2025 3:15 PM EDT Office Visit [address] [address] Mel Guido MD Diverticulitis 04/10/2025 Travel from Last 3 Months Immunizations Immunization Administration Dates Next Due INFLUENZA INJECTABLE QUADRIV ALANT CCIIV4 MDCK Multi-dose vial 04/08/2021 Influenza injectable quadriv alent IIV4 with preservative 07/06/2019,04/26/2018,05/29/2016 Influenza injectable quadriv alent preservative free 05/21/2022,05/20/2020 Influenza, IIV3, injectable 05/24/2016,1 ,08/06/2014,2012,05/25/2012,10/19/2011,08/26/2009 Influenza, seasonal, injecta ble, preservative free 04/21/2017 Novel [id number], preservative-free 08/26/2009 Tdap 08/23/2013 Family History Medical [...] Procedure Name Priority Date/Time Associated Diagnosis Comments US ABDOMEN COMPLETE Routine 06/21/2025 1 1:05 AM EST BD DEXA AXIAL Routine 04/10/2025 1:20 PM EDT Menopause LIPID PANEL, STANDARD Routine 02/18/2025 12:00 AM EDT Primary hypertension BI MAMMOGRAM SCREENING TOMOSYNTHESIS BILATERAL Routine 01/06/2024 2:43 PM EDT HM COLONOSCOPY Routine 02/22/2023 from Last 3 Months or Most Recently Relevant to Health Maintenance Results * US Abdomen Complete (06/21/2025 11:05 AM EST) Anatomical Region Laterality Modality Abdomen Ultrasound 06/21/2025 11:0 5 AM EST Narrative 06/21/2025 11:53 AM EST [address] [address] Ultrasound Report Signed Patient: Diana Chapman MR#: [id number] : 1960 Acct:[id number] Age/Sex: 64 / F ADM Date: 06/21/25 Loc: HO.US Attending Dr: Osiris LUND Ordering Physician: Osiris Ware Date of Service: 06/21/25 Procedure(s): US abdomen complete Accession Number(s): [id number] cc: Ye Loera MD; Osiris Ware [facility] Reason for Exam: R10.9 - Unspecified abdominal pain EXAMINATION: US ABDOMEN COMPLETE CLINICAL INFORMATION: R10.9.. COMPARISON: Ultrasound limited liver elastography dated January 31, 2025. Correlated to CT dated December 13, 2024. TECHNIQUE: Real-time ultrasound of the abdomen using grayscale and color Doppler technique. FINDINGS: PANCREAS: No peripancreatic fluid collections. ABDOMINAL AORTA: The proximal, mid, and distal segments are normal in caliber. INFERIOR VENA CAVA: Visualized portions are normal. LIVER: Liver measures 12 cm by technologist recent CT measures 16 cm. Normal echotexture. No nodular surface. 8 mm hyperechoic lesion, right hepatic lobe. There is a 11 mm anechoic lesion, right hepatic lobe. Main portal vein is patent with normal hepatopedal flow direction. No intrahepatic biliary ductal dilatation. GALLBLADDER: Fluid-filled nondistended. No pericholecystic fluid collection or gallbladder wall thickening. COMMON BILE DUCT: 3 mm.. RIGHT KIDNEY: 10 cm. Normal echotexture. Renal cortical thickness is normal. No hydronephrosis. No solid or cystic lesion.. LEFT KIDNEY: 11 cm. Normal echotexture. Renal cortical thickness is normal. No hydronephrosis. Millimeter anechoic lesion at the corticomedullary junction midportion without septations or nodular components. No solid lesion.. SPLEEN: 10 cm. No solid or cystic lesion.. FREE FLUID: None. US/US abdomen complete IMPRESSION: Probable hemangioma, right hepatic lobe. Probable cyst, right hepatic lobe. No cholelithiasis or choledocholithiasis. No hydronephrosis. Simple cyst, left kidney. No ascites. Electronically signed by: Bruno Rothman MD 06/21/2025 11:50 AM EST Dictated By: Bruno Marlow MD Signed By: <Electronically signed by Bruno Chapman MD in OV> 06/21/25 1150 DD/ 1105 TD/TT: 06/21/25 1127 Shoe Maker: Procedure Note Donotuseinterpreter, Image - 06/21/2025 [place] [address] Ultrasound Report Signed Patient: Shabana Chapman#: [id number] : 9Acct:[id number] Age/Sex: 64 / FADM Date: 06/21/25 Loc: HO.US Attending Dr: Osiris Ware [facility]- Ordering Physician: Osiris Ware Date of Service: 06/21/25 Procedure(s): US abdomen complete Accession Number(s): [id number] cc: Ye Loera MD; [facility]iris Ware [facility] Reason for Exam: R10.9 - Unspecified abdominal pain EXAMINATION: US ABDOMEN COMPLETE CLINICAL INFORMATION: R10.9.. COMPARISON: Ultrasound limited liver elastography dated January 31, 2025. Correlated to CT dated December 13, 2024. TECHNIQUE: Real-time ultrasound of the abdomen using grayscale and color Doppler technique. FINDINGS: PANCREAS: No peripancreatic fluid collections. ABDOMINAL AORTA: The proximal, mid, and distal segments are normal in caliber. INFERIOR VENA CAVA: Visualized portions are normal. LIVER: Liver measures 12 cm by technologist recent CT measures 16 cm. Normal echotexture. No nodular surface. 8 mm hyperechoic lesion, right hepatic lobe. There is a 11 mm anechoic lesion, right hepatic lobe. Main portal vein is patent with normal hepatopedal flow direction. No intrahepatic biliary ductal dilatation. GALLBLADDER: Fluid-filled nondistended. No pericholecystic fluid collection or gallbladder wall thickening. COMMON BILE DUCT: 3 mm.. RIGHT KIDNEY: 10 cm. Normal echotexture. Renal cortical thickness is normal. No hydronephrosis. No solid or cystic lesion.. LEFT KIDNEY: 11 cm. Normal echotexture. Renal cortical thickness is normal. No hydronephrosis. Millimeter anechoic lesion at the corticomedullary junction midportion without septations or nodular components. No solid lesion.. SPLEEN: 10 cm. No solid or cystic lesion.. FREE FLUID: None. US/US abdomen complete IMPRESSION: Probable hemangioma, right hepatic lobe. Probable cyst, right hepatic lobe. No cholelithiasis or choledocholithiasis. No hydronephrosis. Simple cyst, left kidney. No ascites. Electronically signed by: Bruno Rothman MD 06/21/2025 11:50 AM EST RP Dictated By: Bruno Marlow MD Signed By: <Electronically signed by Bruno Chapman MDin OV> 06/21/25 1150 DD/ 1105 TD/TT: 06/21/25 1127 Shoe Maker: us [facility] External Provider IMG US PROCEDURES Final Result * BD DEXA Axial (04/10/2025 1:20 PM EDT) Anatomical Region Laterality Modality Body Radiographic Barbara ging 04/10/2025 1:20 PM EDT Narrative 04/11/2025 11:20 AM EDT [facility] [address] [place] [address] Mammography Report Signed Patient: Diana Chapman MR#: [id number] : 1960 Acct:[id number] Age/Sex: 64 / F ADM Date: 04/10/25 Loc: HO.MAMMO Attending Dr: Ye Winn MD Ordering Physician: Ye Loera MD Res ults: Date of Service: 04/10/25 Follow Up: Procedure(s): XR DEXA axial skeleton Accession Number(s): [id number] cc: Ye Loera MD STUDY: DUAL ENERGY X-RAY ABSORPTIOMETRY / DXA REASON FOR EXAM: Female, 64 years old screening osteoporosis TECHNIQUE: Bone Mineral Density (BMD) measurements of the lumbar spine and left hip were obtained using [employer] COMPARISON: March 18, 2022 FINDINGS: L1-L4 BMD: [...] 04/11/25 1117 DD/ 1320 TD/TT: 04/10/25 1340 Shoe Maker: Procedure Note Donotuseinterpreter, Image - 04/11/2025 [place] [facility] [address] [place], [place] [address] Mammography Report Signed Patient: Shabana Chapman#: [id number] : 9Acct:[id number] Age/Sex: 64 / FADM Date: 04/10/25 Loc: HODEONO Attending Dr: Ye Winn MD Ordering Physician: Ye Loera ults: Date of Service: 04/10/25Follow Up: Procedure(s): XR DEXA axial skeleton Accession Number(s): [id number] cc: Ye Loera MD STUDY: DUAL ENERGY X-RAY ABSORPTIOMETRY / DXA REASON FOR EXAM: Female, 64 years old screening osteoporosis TECHNIQUE: Bone Mineral Density (BMD) measurements of the lumbar spine and left hip were obtained using [employer] COMPARISON: March 18, 2022 FINDINGS: L1-L4 BMD: [...] 04/11/2025 11:17 AM EDT Dictated By: Lizeth oLpez MD Signed By: <Electronically signed by Lizeth Lopez MD in OV> 04/11/25 1117 DD/ 1320 TD/TT: 04/10/25 1340 Shoe Maker: Ye Winn MD IMG DXA PROCEDURES Final Result * (ABNORMAL) Lipid Panel, Standard (02/18/2025 12:00 AM EDT) Triglycerides 97 <150 mg/dL [facility] Comment:Desirable Triglyceri de: less than 150 mg/dLBorderline High Triglyceride 150-199 mg/dLHigh Triglyceride: 200-499 mg/dLVery High Triglyceride: greater than or equal to 5OO mg/dL Cholesterol 215(H) <200 mg/dL [facility] Comment:Desirable Cholestero l: less than 200 mg/dLBorderline High Cholesterol: 200-239 mg/dLHigh Cholesterol: greater than 239 mg/dL LDL Cholesterol Calculated 138(H) <100 mg/dL [facility] Comment:Desirable LDL: less than 100 mg/dLNear Optimal/Above Optimal LDL: 110- 129 mg/dLBorderline High LDL: 130-159 mg/dLHigh LDL: 160-189 mg/dLVery High LDL: greater than or equal to 190 mg/dL HDL Cholesterol 58 >40 mg/dL [facility] Comment:Desirable HDL: great er than 40 mg/dL Note: This HDL assay may give artificially low results in patients with liver disease. Blood Venous blood specimen / Unknown 02/18/2025 02/18/2025 us Ye Winn MD LAB BLOOD ORDERABL ES Final Result [facility] [address] [facility] [place] [address] [phone] * BI Mammogram Screening Tomosynthesis Bilateral (01/06/2024 2:43 PM EDT) Anatomical Region Laterality Modality Breast Bilateral Mammography 01/06/2024 2:43 PM EDT Narrative 01/24/2024 1:57 PM EDT [facility] [address] [place] [address] Mammography Report Signed Patient: Diana Chapman MR#: [id number] : 1960 Acct:[id number] Age/Sex: 63 / F ADM Date: 01/06/24 Loc: ALONZOO Attending Dr: Elijah Mendoza MD Ordering Physician: Elijah Mendoza MD Results: 1Negative Date of Service: 01/06/24 Follow Up: 1 Year From Orig inal Mammogram Procedure(s): MM tomosynthesis screening BI Accession Number(s): [id number] cc: Elijah Mendoza MD EXAMINATION: MM SCREENING [...] in OV> 01/24/24 1353 DD/ 1443 TD/TT: Shoe Maker: Procedure Note Donotuseinterpreter, Image - 01/24/2024 [facility] [address] [place] [address] Mammography Report Signed Patient: Floyd ChapmanR#: [id number] : 9Acct:[id number] Age/Sex: 63 / FADM Date: 01/06/24 Loc: KUSH Attending Dr: Elijah Mendoza MD Ordering Physician: Name,Elijah MDResults: 1Negative Date of Service: 01/06/24Follow Up: 1 Year From Orig inal Mammogram Procedure(s): MM tomosynthesis screening BI Accession Number(s): [id number] cc: Elijah Mendoza MD EXAMINATION: MM SCREENING [...] in OV> 01/24/24 1353 DD/ 1443 TD/TT: Shoe Maker: us Elijah Mendoza MD IMG BI PROCEDURES Final Result * (ABNORMAL) Colonoscopy (02/22/2023) Colonoscopy Abnormal( A) Normal Comment:Tubular adenoma us Elijah Mendoza MD HEALTH MAINTENANCE Final Result from Last 3 Months or Most Recently Relevant to Health Maintenance Insurance [facility] [employer] (O D-SNP) Care Teams Office Receptionist Relationship Specialty Start Date End Date IsaacsYe Law MD [address] [place] [phone] PCP - General Internal Medicine 02/18/25
== END 2025-07-01 13:17 | disposition home or self-care (01) ==
PROVIDERS: PCP Internal Medicine; Visit Provider Nurse Practitioner Family
DX: K21.9 Gastro-esophageal reflux disease without esophagitis (principal); R10.13 Epigastric pain; R16.0 Hepatomegaly, not elsewhere classified; R14.0 Abdominal distension (gaseous); K59.01 Slow transit constipation
CPT/HCPCS: 99214; G2211

== ENCOUNTER → 2025-07-01 12:14 | Outpatient (BNVA) | payer OTHER, SELFPAY | PROVIDERS: PCP Internal Medicine; Visit Provider Nurse Practitioner Family | DX: K21.9 Gastro-esophageal reflux disease without esophagitis (principal); R10.13 Epigastric pain; R16.0 Hepatomegaly, not elsewhere classified; R14.0 Abdominal distension (gaseous); K59.01 Slow transit constipation | CPT/HCPCS: 99212 ==

== ENCOUNTER 2025-07-29 12:47 | Outpatient (AMB) | payer OTHER, SELFPAY ==
[2025-07-29 12:53] VITALS: BP 153/81; PULSE 72; BMI 33.3
--- NOTE | 2025-07-29 12:53 | MHC.OFFVIS ---
Vital Signs 07/29/25 12:53 Height 5 ft 1 in Weight 176 lb BMI 33.3 BP 153/81 H Blood Pressure Location Rt brachial Position Sitting Pulse 72 Intake Visit Reasons: Diverticulitis Intake Note: Patient was referred by Osiris Ware CNP, for an assessment for diverticulitis. Pt c/o; having abdominal pain flare up since 2016. Was treated with abx in the past. Awaiting colonoscopy (to be scheduled). Hx of polyps. 06/21/25: Abd US 02/22/2023: Colonoscopy- Dr. Munoz 12/23/2024: Abd/pelvis CT Medical Assistant Float Required: Yes Medical Assistant Float Language: Melter Supervisor Oxygen Furnace Name: [facility] [place] cold roll inspector Accompanied by: Self / Same As Patient Allergies acetaminophen (Percocet) Allergy (Unknown, Verified 07/29/25 13:01) itching oxycodone (Percocet) Allergy (Unknown, Verified 07/29/25 13:01) itching tramadol Allergy (Unknown, Verified 07/29/25 13:01) itching amlodipine Adverse Reaction (Intermediate, Verified 07/29/25 13:01) leg edema Medication List - Last Reconciled 07/29/25 by Brian Webster MD atorvastatin 20 mg PO DAILY 90 days benazepril 40 mg PO DAILY 90 days bupropion HCl XL 150 mg PO QAM 90 days clotrimazole-betamethasone 1-0.05 % appl topical BID docusate sodium 200 mg (2 x 100 mg) PO BEDTIME esomeprazole magnesium (Nexium) 40 mg PO DAILY estradiol 0.01%(0.1mg/gram) 1 g vaginal hydrocortisone 1% topical BID incontinence pad, liner, disp (Affirm Pads) As directed linaclotide (Linzess) 290 mcg PO QAM oxybutynin chloride ER 15 mg PO DAILY psyllium husk (Metamucil Sugar-Free (aspartame)) 2.5 grams PO DAILY valacyclovir (Valtrex) 500 mg PO BID HPI HPI Diverticulitis: Details: [age] year old female referred for history of diverticulitis. She says that in 2015, she was admitted to the hospital in [place] for 1 day because of what she was told was acute diverticulitis. She was describing lower abdominal pain at that time She has had mild episodes since then. Her last episode appeared to be sometime in April/May of this year. She CAT scan in [facility] showing inflammatory fat stranding adjacent to the sigmoid in the left anterior pelvis consistent with the acute diverticulitis. She says she was not admitted to the hospital then. She says she has had no further episodes since that time She currently denies any abdominal pain. She denies any significant GI complaints. She also says that she had a colonoscopy in 2022 and was told to have another 1 in 2025. She says she had polyps at that time. [facility] Medical History (Updated 07/29/25 @ 13:25 by Brian Webster MD) History of diverticulitis Hepatomegaly Postprandial abdominal bloating Cataract (~11/2021) Surgical History History of esophagogastroduodenoscopy (EGD) Hx of colonoscopy H/O: hysterectomy History of bladder surgery H/O prior ablation treatment Family History Father Diabetes HTN (hypertension) Sister FH: kidney cancer HTN (hypertension) Mother HTN (hypertension) Sister HTN (hypertension) Sister HTN (hypertension) Sister HTN (hypertension) Sister HTN (hypertension) Brother HTN (hypertension) Social History Housing: Apartment Alcohol intake: never Patient Tobacco Use Status: Never used Tobacco e-Cigarette/Vaping Use: Never Used Second Hand Smoke Exposure: No service: No Current occupational status: unemployed Cognitive needs: No Hearing needs: No Vision needs: No Review of Systems Const Denies chills and Denies fever(s) Card Denies chest pain, Denies dyspnea and Denies dyspnea on exertion Resp Denies cough, Denies dyspnea and Denies dyspnea on exertion GI Denies hematochezia and Denies change in bowel habits Denies hematuria Musc Denies back pain and Denies limited range of motion Neuro Denies focal weakness and Denies convulsions Psych Denies depression and Denies mood swings Physical Exam Vital Signs: Last Vital Signs Pulse 72 07/29/25 12:53 BP 153/81 H 07/29/25 12:53 BMI result Body Mass Index 33.3 Const General: comfortable and no acute distress Nutritional Appearance: obese Orientation/consciousness: patient oriented x3 Neck Neck: Yes no lymphadenopathy Resp Auscultation: clear to auscultation bilaterally Cardio Rhythm: regular rhythm GI Palpation (GI): Soft to palpation, nontender and no guarding Neuro General: patient oriented x3 Assessment & Plan Assessment & Plan (1) History of diverticulitis: Code(s): Z87.19 - Personal history of other diseases of the digestive system Category: Medical Plan: She has had history of acute diverticulitis. She says she was admitted to the [facility] in 2015. She has had no further inpatient admissions. Her last episode of left lower quadrant pain was in April,. She had a CAT scan showing inflammatory stranding in the sigmoid around that time She feels well currently. She denies any abdominal pain. He does state that she is due for a colonoscopy in 2025. I told her that it does not appear that she needs any urgent surgical intervention . She really has had no frequent inpatient admissions for acute diverticulitis and it appears that her episodes have been mild over the years I told her that I will see her again in the office after her colonoscopy so we can review has the rest of her of care She has was comfortable with the plan above. She states he was hoping that she will not require any surgical intervention. I did tell her that she may benefit from resection if she has repeated severe episodes. I did advise her to continue with a high-fiber diet for now. Coding Level of Care Code New Pt Level 3 (18224) Diagnoses History of diverticulitis Z87.19
--- OUTSIDE RECORDS SUMMARY | 2025-07-29 15:55 | XMS_ITS | Encounter Summary ---
Author Organization [employer] Address [address] 7t [place] [address] Care Team Providers Care Laser Machine Operator Name Role Phone Name, Elijah FRAGA Primary Care Provider [phone] Ye Loera MD Primary Care Prov ider Reason for Visit * Reason Onset Date Comments Nurse Triage 12/05/2023 Encounter Details Date Type Department Care Team ([facility] st Contact Info) Description 12/05/2023 Telephone [facility] MEDICINE [address] [place], [place] [phone] Name, MD Elijah [address] [place] [address] Nurse Triage Social History Tobacco Use Types [...] is offered WIC today at [facility] but, declines to go today due tofamily member doing poorly. Pt requests provider for GOVERNMENT AFFAIRS MANAGER to see Pt. Apt with JUJU Romero 12/06/23 @ 330pm at [facility] facility. Pt reports has been to [facility] before. Pt agrees with disposition. Advised [...] documented as of this encounter Care Teams Laser Machine Operator Relationship Specialty Start Date End Date Name, MD Elijah [address] [place] [address] PCP - General Family Medicine 08/08/18 09/24/24 Ye Loera MD [address] [place] [address] PCP - General Internal Medicine 02/18/25 documented as of this encounter
--- OUTSIDE RECORDS SUMMARY | 2025-07-29 15:55 | XMS_ITS | Encounter Summary ---
Author Organization [employer] Address [address]t [place] [address] Care Team Providers Care Shipping Room Supervisor Name Role Phone Ye Loera MD Primary Care Prov ider Reason for Visit * Reason Comments Med Refill Encounter Details Date Type Department Care Team ([facility] st Contact Info) Description 12/10/2024 Refill [facility] MEDICINE [address] [place], [place] [phone] Name, MD Elijah [address] [place] [address] Rash Social History Tobacco Use Types Packs/Day [...] the past 12 months, has t he [employer], gas, oil or water company threatened to [...] documented as of this encounter Care Teams Shipping Room Supervisor Relationship Specialty Start Date End Date Ye Loera MD [address] [place] [address] PCP - General Internal Medicine 02/18/25 documented as of this encounter
--- OUTSIDE RECORDS SUMMARY | 2025-07-29 15:55 | XMS_ITS | Clinical Summary ---
Author Organization [email or web address] [facility] Prior to 01/05/25 Address [address] [place] [address] Care Team Providers Care Machine Plaster Mixer Name Role Phone Provider, Not In System [...] age to complete this topic Care Teams Machine Plaster Mixer Relationship Specialty Start Date End Date Provider, Not In System PCP - General 11/23/17
--- OUTSIDE RECORDS SUMMARY | 2025-07-29 15:55 | XMS_ITS | Encounter Summary ---
Author Organization [employer] Address [address] [facility] 7t [place] [address] Care Team Providers Care Electrical Maintenance Engineer Name Role Phone Ye Loera MD Primary Care Prov ider Reason for Visit * Reason Comments Med Refill Encounter Details Date Type Department Care Team ([facility] st Contact Info) Description 11/13/2024 Refill [facility] MEDICINE [address] [place], [place] [phone] [facility] [address] [place], [place] [phone] Social History Tobacco Use Types Packs/Day Years [...] t he electric, gas, oil or water [employer] threatened to shut off services in your [...] documented as of this encounter Care Teams Electrical Maintenance Engineer Relationship Specialty Start Date End Date Ye Loera MD [address] [place] [address] PCP - General Internal Medicine 02/18/25 documented as of this encounter
--- OUTSIDE RECORDS SUMMARY | 2025-07-29 15:55 | XMS_ITS | Encounter Summary ---
Author Organization [employer] Address [address] 7t [place] [address] Care Team Providers Care Instructor Of Sociology Name Role Phone Name, Elijah FRAGA Primary Care Provider [phone] Ye Loera MD Primary Care Prov ider Reason for Visit * Reason Comments Med Refill Encounter Details Date Type Department Care Team ([facility] st Contact Info) Description 10/16/2023 Refill [facility] [address] [place], [place] [phone] Coty Santiago FNP Strain of left infraspinatus [...] your housing situation today? I have aristides olpez 05/23/[address] you li [...] the past 12 months, has t he [employer], gas, oil or water company threatened to [...] documented as of this encounter Care Teams Instructor Of Sociology Relationship Specialty Start Date End Date Name, MD Elijah [address] [place] [address] PCP - General Family Medicine 08/08/18 09/24/24 Ye Loera MD [address] [place] [address] PCP - General Internal Medicine 02/18/25 documented as of this encounter
--- OUTSIDE RECORDS SUMMARY | 2025-07-29 15:55 | XMS_ITS | Encounter Summary ---
Author Organization [facility] Address [address] [place] [address] Care Team Providers Care Surgical Consultant Name Role Phone Taj Davison MD Primary Care Provider [phone] Encounter Details Date Type Department Care Team (Late st Contact Info) Description 07/20/2024 Lab Requisition [facility] - Main Lab [address] [facility] [place] [address] Shawnee Friedman MD [address] [place] [address] Functional dyspepsia Social History Tobacco Use Types [...] LAB CHEMISTRY METHOD 07/21/2024 7:24 AM EST [facility] Breath Oral cavity structure / Unknown 07/20/2024 07/20/2024 6:14 PM EST us Shawnee Friedman MD LAB BODY FLUIDS AND STOOL S ORDERABLES Final Result [facility] [address] [place] [address], documented in this encounter Visit Diagnoses Diagnosis Functional dyspepsia Dyspepsia and other specified disorders of function of stomach documented in this encounter Additional Health Concerns Infection Onset Date Last Indicated Resolved Time Herpes simplex 07/23/2024 07/23/2024 documented as of this encounter Care Teams Surgical Consultant Relationship Specialty Start Date End Date Taj Davison MD [address] [facility] [address] [place] [address] PCP - General Internal Medicine 06/07/25 documented as of this encounter
--- OUTSIDE RECORDS SUMMARY | 2025-07-29 15:55 | XMS_ITS | Encounter Summary ---
Author Organization [employer] Address [address] [facility] 7t [place] [address] Care Team Providers Care Creative Services Designer Name Role Phone Ye Loera MD Primary Care Prov ider Encounter Details Date Type Department Care Team (Late st Contact Info) Description 02/28/2025 Orders Only [facility] PEDS [address] [place], [place] [phone] Aviva Barlow MD [address] [place] [address] Primary hypertension (Primary Dx) Social History Tobacco [...] PM EDT Narrative 03/25/2025 12:23 PM EDT [place] [address] XRay Report Signed Patient: Diana Chapman MR#: [id number] : 1960 Acct:[id number] Age/Sex: 64 / F ADM Date: 03/25/25 Loc: HO.[facility] Attending Dr: Osiris LUND Ordering Physician: Osiris Ware Date of Service: 03/25/25 Procedure(s): XR chest 2V Accession Number(s): [id number] cc: Ye Loera MD; Osiris Ware EXAMINATION: [...] OV> 03/25/25 1221 DD/ 1210 TD/TT: 03/25/255 Toll Ticket Clerk: Procedure Note Donotuseinterpreter, Image - 03/25/2025 [place] [address] XRay Report Signed Patient: Shabana Chapman#: [id number] : 9Acct:[id number] Age/Sex: 64 / FADM Date: 03/25/25 Loc: [facility] Attending Dr: Osiris PIMENTELP-SAMPSON Ordering Physician: Osiris Ware Date of Service: 03/25/25 Procedure(s): XR chest 2V Accession Number(s): [id number] cc: Ye Loera MD; Osiris WareP-SAMPSON EXAMINATION: [...] 03/25/25 1221 DD/ 1210 TD/TT: 03/25/25 1215 Toll Ticket Clerk: [facility] External Provider IMG XR PROCEDURES Final Result documented in this encounter Visit Diagnoses Diagnosis Primary hypertension- Primary Unspecified essential hypertension documented in this encounter Additional Health Concerns Assessment Noted Time PHQ-9 Depression Total Score: 0 12/23/19 23 2:25 PM EDT documented as of this encounter Care Teams Creative Services Designer Relationship Specialty Start Date End Date Ye Loera MD [address] [place] [address] PCP - General Internal Medicine 02/18/25 documented as of this encounter
--- OUTSIDE RECORDS SUMMARY | 2025-07-29 15:55 | XMS_ITS | Encounter Summary ---
Author Organization [employer] Address [address] [facility] 7t [place] [address] Care Team Providers Care Casket Assembler Name Role Phone Name, Elijah FRAGA Primary Care Provider [phone] Ye Loera MD Primary Care Prov ider Encounter Details Date Type Department Care Team (Late st Contact Info) Description 12/24/2022 Abstract [facility] MEDICINE [address] [place], [place] [phone] Name, MD Elijah [address] [place] [address] Social History Tobacco Use Types Packs/Day Years [...] documented as of this encounter Care Teams Casket Assembler Relationship Specialty Start Date End Date Name, MD Elijah [address] [place] [address] PCP - General Family Medicine 08/08/18 09/24/24 Ye Loera MD [address] [place] [address] PCP - General Internal Medicine 02/18/25 documented as of this encounter
--- OUTSIDE RECORDS SUMMARY | 2025-07-29 15:55 | XMS_ITS | Encounter Summary ---
Author Organization [employer] Address [address] 7t [place] [address] Care Team Providers Care Artist Suspect Name Role Phone Ye Loera MD Primary Care Prov ider Reason for Visit * Reason Comments Med Refill Encounter Details Date Type Department Care Team ([facility] st Contact Info) Description 12/18/2024 Refill [facility] MEDICINE [address] [place], [place] [phone] Name, MD Elijah [address] [place] [address] Social History Tobacco Use Types Packs/Day Years [...] the past 12 months, has t he [employer], [employer], oil or water company threatened to shut [...] as of this encounter Care Teams Artist Suspect Relationship Specialty Start Date End Date Ye Loera MD [address] [place] [address] PCP - General Internal Medicine 02/18/25 documented as of this encounter
--- OUTSIDE RECORDS SUMMARY | 2025-07-29 15:55 | XMS_ITS | Encounter Summary ---
Author Organization [employer] Address [address] 7t [place] [address] Care Team Providers Care Pipe Production Worker Name Role Phone Name, Elijah FRAGA Primary Care Provider [phone] Ye Loera MD Primary Care Prov ider Reason for Visit * Reason Onset Date Comments Reschedule 01/19/2024 Encounter Details Date Type Department Care Team ([facility] st Contact Info) Description 01/19/2024 Telephone [facility] MEDICINE [address] [place], [place] [phone] Name, MD Elijah [address] [place] [address] Reschedule Social History Tobacco Use Types Packs/Day [...] documented as of this encounter Care Teams Pipe Production Worker Relationship Specialty Start Date End Date Name, MD Elijah [address] [place] [address] PCP - General Family Medicine 08/08/18 09/24/24 Ye Loera MD [address] [place] [address] PCP - General Internal Medicine 02/18/25 documented as of this encounter
--- OUTSIDE RECORDS SUMMARY | 2025-07-29 15:55 | XMS_ITS | Encounter Summary ---
Author Organization [employer] Address [address] [facility] 7t [place] [address] Care Team Providers Care Residential Field Manager Name Role Phone Ye Loera MD Primary Care Prov ider Reason for Visit * Reason Onset Date Comments Durable Medical Equipment 02/27/2025 Encounter Details Date Type Department Care Team (Late st Contact Info) Description 02/27/2025 Telephone [facility] MEDICINE [address] [place] [address] Ye Loera MD [address] [place] [address] Durable Medical Equipment Social History Tobacco Use [...] Blood Pressure kit To be sent to: -[facility] #[id number] - [place], [place] - [address] [...] as of this encounter Care Teams Residential Field Manager Relationship Specialty Start Date End Date Ye Loera MD [address] [place] [address] PCP - General Internal Medicine 02/18/25 documented as of this encounter
--- OUTSIDE RECORDS SUMMARY | 2025-07-29 15:55 | XMS_ITS | Encounter Summary ---
Author Organization [facility] Address [address] [place] [address] Encounters * CPT with Medical instED at [employer] on 2025-07-22 { reasonForRequest : High blood pressure. , patientReports : Palpitations, feeling dizzy; Chest pain, increased fatigue; Weakness/tachycardia , denies&quot ;:[ History of Heart Attack, in the setting of active chest pain , Active Chest pain, radiates to neck jaw and or arm , Diaphoretic/Sweating , Describes as crushing , Sudden onset of nausea/Vomiting and shortness of breath. , Shortness of Breath , Unable to speak in full sentences without distress , CHF history, incre ased swelling and edema ], chiefComplaints : High Blood Pressure , pmh : Hypertension, Fibromyalgia , allergies : Tramadol, Percocet ,& quot;otherAllergies :null, painAssessment : , visitOutcome :&quo t; , additionalComments : 64 y.o female complains of High Blood Pressure'\n\nSel f-referring via slubber runner. Reporting hypertension. Most recently 149/101. On two different antihypertensives - benazepril 20mg BID and nifedipine 30mg in the AM. Nifedipine started last week. Reporting dizziness for the entire day - slightly worse tonight. Reports chest pain on the left side. Denies radiation to arm/neck/jaw. Reports chest pain since last night. Describes as feeling heart beat as very strong with radiation to the breast. Has had similar chest pain prior - MDs attribute to fibromyalgia. Denies vision changes or headache. Informed of inability to provide visit due to staffing and weather conditions. Urged to go to the ED, patient reports that she will wait for the vi sit in the AM. Patient reports that if symptoms worsen she will call 911. Reviewed RED flags. Not on AC. \n\nI provided information on the mobile health provider response time and advised the patientand/or caregiver to monitor reported signs and symptoms. I discussed the warning signs of when to seek emergency care. } Encountered patient seated upright and conscious with family present. Patient reports experiencing left sided chest ???pressure??? that radiates from the left pectoral plate, to the left mid-axillaryregion. Patient also states she is concerned with her blood pressure reading of 149/101 mmHg. Patient reports the pain as initially presenting as 10/10 on 07/20/25 but is currently at a ???more manageable?? 11/15. Patient reports having experienced dizziness during the onset of symptoms but is currently not dizzy and has not been today. Patient presents with clear speech, equal route delivery driver strength and a steady non-ataxic gait. Patient does not exhibit unilateral weakness, slurred speech or facial droop. 12 lead EKG exhibits a normal sinus rhythm, non-diagnostic for acute STEMI. Skin warm, dry and of appropriate color for ethnicity. Head and neck, free of trauma and edema. -JVD. Breath sounds present, clear and equal bilaterally. Abdomen is soft, non-tender and non-distended. Extremities free of trauma and edema. [facility] [place]: reassure patient that they???re 12 lead is not concerning at this time. [facility] encourages patient to follow up with primary care in order to establish a baseline blood pressure as patientis currently presenting within therapeutic range. Patient was additionally advised to monitor herself for worsening chest, pain, and shortness of breath or fevers and was encouraged to seek further medical attention and including 911 if said symptoms were to develop. Patient verbalizes understanding of the plan and state she is comfortable remaining home today. IV_(FLUIDS_AND/OR_MEDICATION), MEDICATION_IM, ORAL_MEDICATION, EKG, ORTHOSTATIC_VITAL_SIGNS Written by [facility] 2025-07-22
--- OUTSIDE RECORDS SUMMARY | 2025-07-29 15:55 | XMS_ITS | Encounter Summary ---
Author Organization [employer] Address [address] [facility] 7t [place] [address] Care Team Providers Care Neurophysiological Technician Name Role Phone Name, Elijah FRAGA Primary Care Provider [phone] Ye Loera MD Primary Care Prov ider Reason for Visit * Reason Onset Date Comments Appointment Request 03/31/2023 Encounter Details Date Type Department Care Team ([facility] st Contact Info) Description 03/31/2023 Telephone [facility] MEDICINE [address] [place], [place] [phone] Name, MD Elijah [address] [place] [address] Appointment Request Social History Tobacco Use Types [...] second half . Please contact pt at [phone] Kiswahili Speaker documented in this encounter Plan of Treatment Not on file documented as of this encounter Visit Diagnoses Not on filedocumented in this encounter Additional Health Concerns Assessment Noted Time PHQ-9 Depression Total Score: 0 12/23/19 23 2:25 PM EDT documented as of this encounter Care Teams Neurophysiological Technician Relationship Specialty Start Date End Date Name, MD Elijah [address] [place] [address] PCP - General Family Medicine 08/08/18 09/24/24 Ye Loera MD [address] [place] [address] PCP - General Internal Medicine 02/18/25 documented as of this encounter
--- OUTSIDE RECORDS SUMMARY | 2025-07-29 15:56 | XMS_ITS | Continuity of Care Document ---
Author Name instED, Medical Address [address] [place] [id number] Organization Unknown Address [address] [place] [address] Medications No known medications Problems No known problems
--- OUTSIDE RECORDS SUMMARY | 2025-07-29 15:56 | XMS_ITS | Clinical Summary ---
Author Organization [employer] Address [address] [facility] 7[address] [place] [address] Care Team Providers Care Tank Car Loader Name Role Phone Ye Loera MD Primary [...] 25 Active hydrocortisone (Anusol-HC) 2.5 % rectal creamIndications: Hemorrhoids, unspecified hemorrhoid type APPLY THIN LAYER TOPICALLY TO THE AFFECTED AREA 2 TO 4 TIMES EVERY DAY 28 g 02/19/20 25 Active methocarbamol (Robaxin) 500 MG tablet Take 1 tablet (500 mg) by mouth every 8 (eight) hours. 90 tablet 02/19/20 25 Active hydrocortisone 1 % ointment Apply topically 2 times daily. 56 g 02/19/20 25 Active Blood Pressure kitIndications:Pr imary hypertension To check her blood pressure every other day 1 kit 03/04/20 Active DULoxetine (Cymbalta) [address] capsule Take 1 capsule (30 mg) by mouth 2 times daily. Do not crush or chew. 60 capsule 03/29/20 Active gabapentin (Neurontin) 100 MG capsule Take 1 capsule (100 mg) by mouth 2 times daily. 60 capsule 03/29/20 25 Active atorvastatin (Lipitor) 20 MG tablet Take [...] DAILY 60 tablet 1 06/25/20 25 Active NIFEdipine XL (Procardia XL) 30 MG 24 hr tablet Take 1 tablet (30 mg) by mouth Once per day. Do not crush, chew, or split. 30 tablet 11 07/15/20 25 026 Active amLODIPine (Norvasc) 5 MG tablet Take 1 tablet (5 mg) by mouth Once per day. 30 tablet 11 03/29/20 025 Discontinued Active Problems Problem Noted Date [...] Encounters Date Type Department Care Team Description 07/15/2025 11:15 AM EST Telemedicine [facility] [address] [place] [address] Ye Loera MD Snoring (Primary Dx); Memory loss 07/15/2025 Travel 06/25/2025 Refill [facility] [address] [place] [address] Ye Loera MD Acute pain of right knee 06/24/2025 Telephone [facility] [address] [place] [address] Ye Loera MD Durable Medical Equipment 06/21/2025 Orders Only [facility] External Provider, [facility] 05/30/2025 11:30 AM EDT Office Visit [facility] [address] [place] [address] Ye Loera MD Diverticulitis (Primary Dx) 05/30/2025 Travel 05/29/2025 Telephone [facility] [address] [place] [address] Ye Loera MD chart prep 05/27/2025 Telephone [facility] [address] [place] [address] Ye Loera MD ER Follow-up 05/21/2025 Telephone [facility] [address] [place], [place] [phone] Ye Loera MD Durable Medical Equipment from Last 3 Months Immunizations Immunization Administration Dates Next Due INFLUENZA INJECTABLE QUADRIV ALANT CCIIV4 MDCK Multi-dose vial 04/08/2021 Influenza injectable quadriv alent IIV4 with preservative 07/06/2019,04/26/2018,05/29/2016 Influenza injectable quadriv alent preservative free 05/21/2022,05/20/2020 Influenza, IIV3, injectable 05/24/2016,1 ,08/06/2014,2012,05/25/2012,10/19/2011,08/26/2009 Influenza, seasonal, injecta ble, preservative free 04/21/2017 Novel [id number], preservative-free 08/26/2009 Tdap 08/23/2013 Family History Medical [...] Sign Reading Time Taken Comments Blood Pressure 137/88 07/15/2025 11:29 AM EST Pulse 68 05/30/2025 11:42 AM EDT Temperature [...] Procedure Name Priority Date/Time Associated Diagnosis Comments AMB REFERRAL TO SLEEP MEDICINE Routine 07/23/2025 Snoring US ABDOMEN COMPLETE Routine 06/21/2025 1 1:05 AM EST LIPID PANEL, STANDARD Routine 02/18/2025 12:00 AM EDT Primary hypertension BI MAMMOGRAM SCREENING TOMOSYNTHESIS BILATERAL Routine 01/06/2024 2:43 PM EDT HM COLONOSCOPY Routine 02/22/2023 from Last 3 Months or Most Recently Relevant to Health Maintenance Results * Referral to Sleep Medicine (07/23/2025) us Ye Winn MD OUTPATIENT REFERRA L ORDERABLES Final Result * US Abdomen Complete (06/21/2025 11:05 AM EST) Anatomical Region Laterality Modality Abdomen Ultrasound 06/21/2025 11:0 5 AM EST Narrative 06/21/2025 11:53 AM EST [place] [address] Ultrasound Report Signed Patient: Diana Chapman MR#: [id number] : 1960 Acct:[id number] Age/Sex: 64 / F ADM Date: 06/21/25 Loc: HO.US Attending Dr: Osiris Ware CLOTH WEIGHER- Ordering Physician: Osiris Ware [facility]OTH WEIGHER-SAMPSON Date of Service: 06/21/25 Procedure(s): US abdomen complete Accession Number(s): [id number] cc: Ye Loera MD; Osiris Ware [facility]- Reason for Exam: R10.9 - Unspecified abdominal [...] 06/21/25 1150 DD/ 1105 TD/TT: 06/21/25 1127 Anchor Tacker: Procedure Note Donotuseinterpreter, Image - 06/21/[address] [address] Ultrasound Report Signed Patient: Shabana Chapman#: [id number] : 9Acct:[id number] Age/Sex: 64 / FADM Date: 06/21/25 Loc: HO.US Attending Dr: Osiris Ware [facility]- Ordering Physician: Osiris Ware [facility] Date of Service: 06/21/25 Procedure(s): US abdomen complete Accession Number(s): [id number] cc: Ye Loera MD; Osiris Ware [facility]- Reason for Exam: R10.9 - Unspecified abdominal [...] 06/21/25 1150 DD/ 1105 TD/TT: 06/21/25 1127 Anchor Tacker: [facility] External Provider IMG US PROCEDURES Final Result * (ABNORMAL) Lipid Panel, Standard (02/18/2025 12:00 AM EDT) Triglycerides 97 <150 mg/dL [facility] Comment:Desirable Triglyceri de: less than 150 mg/dLBorderline High Triglyceride 150-199 mg/dLHigh Triglyceride: 200-499 mg/dLVery High Triglyceride: greater than or equal to 5OO mg/dL Cholesterol 215(H) <200 mg/dL [facility] Comment:Desirable Cholestero l: less than 200 mg/dLBorderline High Cholesterol: 200-239 mg/dLHigh Cholesterol: greater than 239 mg/dL LDL Cholesterol Calculated 138(H) <100 mg/dL [facility] Comment:Desirable LDL: less than 100 mg/dLNear Optimal/Above Optimal LDL: 110- 129 mg/dLBorderline High LDL: 130-159 mg/dLHigh LDL: 160-189 mg/dLVery High LDL: greater than or equal to 190 mg/dL HDL Cholesterol 58 >40 mg/dL [facility] Comment:Desirable HDL: great er than 40 mg/dL Note: This HDL assay may give artificially low results in patients with liver disease. Blood Venous blood specimen / Unknown 02/18/2025 02/18/2025 Ye Winn MD LAB BLOOD ORDERABL ES Final Result [facility] [address] [facility] [place] [address] [phone] * BI Mammogram Screening Tomosynthesis Bilateral (01/06/2024 2:43 PM EDT) Anatomical Region Laterality Modality Breast Bilateral Mammography 01/06/2024 2:43 PM EDT Narrative 01/24/2024 1:57 PM EDT [facility] [address] [place] [address] Mammography Report Signed Patient: Diana Chapman MR#: [id number] : 1960 Acct:[id number] Age/Sex: 63 / F ADM Date: 01/06/24 Loc: ALONZOO Attending Dr: Elijah Mendoza MD Ordering Physician: Elijah Mendoza MD Results: 1Negative Date of Service: 01/06/24 Follow Up: 1 Year From Orig inal Mammogram Procedure(s): MM tomosynthesis screening BI Accession Number(s): [id number] cc: Elijah Mendoza MD EXAMINATION: MM SCREENING [...] in OV> 01/24/24 1353 DD/ 1443 TD/TT: Anchor Tacker: Procedure Note Donotuseinterpreter, Image - 01/24/2024 [facility] [address] [place] [address] Mammography Report Signed Patient: Floyd ChapmanR#: [id number] : 9Acct:[id number] Age/Sex: 63 / FADM Date: 01/06/24 Loc: ALONZOO Attending Dr: Elijah Mendoza MD Ordering Physician: Elijah Mendozaesults: 1Negative Date of Service: 01/06/24Follow Up: 1 Year From Orig ina Mammogram Procedure(s): MM tomosynthesis screening BI Accession Number(s): [id number] cc: Elijah Mendoza MD EXAMINATION: MM SCREENING [...] in OV> 01/24/24 1353 DD/ 1443 TD/TT: Anchor Tacker: us Elijah Mendoza MD IMG BI PROCEDURES Final Result * (ABNORMAL) Colonoscopy (02/22/2023) Colonoscopy Abnormal( A) Normal Comment:Tubular adenoma us Elijah Mendoza MD HEALTH MAINTENANCE Final Result from Last 3 Months or Most Recently Relevant to Health Maintenance Insurance [facility] [employer] (O D-SNP) [address] [id number] Care Teams Tank Car Loader Relationship Specialty Start Date End Date IsaacsYe Law MD [address] [place] [id number] PCP - General Internal Medicine 02/18/25
--- OUTSIDE RECORDS SUMMARY | 2025-07-29 15:56 | XMS_ITS | Clinical Summary ---
Author Organization [address] [facility] Address [address] [place] [address] Phone Care Team Providers Care Signal Intelligence Analyst Name Role Phone Taj Davison MD Primary Care Provider [phone] Allergies Active Allergy Reactions Criticality Noted Date Comments Oxycodone-Acetaminophen Itching,Nausea And Vomiting 05/25/2025 Tramadol Itching,Nausea And Vomiting 05/25/20 25 Encounters Date Type Department Care Team Description 06/07/2025 Telephone Internal Medicine [facility] [address] [place] [phone] Taj Davison MD 05/25/2025 11:21 AM EDT - 05/25/2025 1:58 PM EDT Emergency [facility] Emergency [address] [place] [address] Kaylin Villasenor MD Diverticulitis (Primary Dx); Enteritis; Left lower quadrant abdominal pain Discharge Disposition: Home or Self Care from Last 3 Months Surgical History Surgery Date Site/Laterality Comments HYSTERECTOMY PROCEDURE: HISTORICAL HYSTERECTOMY; COMMENT: and BSO COLONOSCOPY 01/13/09 PROCEDURE: ID COLONOSCOPY STOMA DX INCLUDING COLLJ SPEC SPX; COMMENT: Up to cecum, good preparation, rectal polyp removed:Tubular adenoma. Repeat 01/2014 ESOPHAGOGASTRODUODENOSCOPY 05/20/09 PROCEDURE: ID EGD TRANSORAL BIOPSY SINGLE/MULTIPLE; COMMENT: Normal esophagus, [...] Signed Date: 05/25/2025 12:09 ET Workstation ID: [id number] Transcribed By: Self Edit Transcribed Date: 05/25/2025 [...] Signed Date: 05/25/2025 12:09 ET Workstation ID: [id number] Transcribed By: Self Edit Transcribed Date: 05/25/2025 12:04 ET Kaylin Villasenor MD IM CT PROCEDURES Final Result * (ABNORMAL) Urinalysis with reflex microscopic and culture (05/25/2025 10:57 AM EDT) Specific [place] Urine 1.016 1.003 - 1.030 LAB URINALYSIS [...] - AUTOMATED METHOD 05/25/2025 11:09 AM EDT [facility] Blood, Urine Negative Negative LAB [...] MD LAB URINE ORDERABLES Final Resul t [facility] [address] [place] [address], * Hunter urine culture tube (05/25/2025 10:57 AM EDT) Extra Tube Hold for add-ons. 05/25/2025 1:01 PM T [facility] Comment:Auto resulted. Urine Urine specimen obtained by clean catch procedure / Unknown Non-blood Collection / Unknown 05/25/2025 10:57 AM EDT 05/25/2025 11:01 AM EDT Robert Thompson MD LAB URINE ORDERABLES Final Resul t [facility] [address] [place] [address], * Culture urine (05/25/2025 10:57 AM EDT) Pathologist [facility] Culture, Urine No growth 05/26/2025 10:23 AM EDT [facility] Urine Urine specimen obtained by clean catch procedure / Unknown Non-blood Collection / Unknown 05/25/2025 10:57 AM EDT 05/25/2025 11:09 AM EDT Robert Thompson MD LAB MICROBIOLOGY - GENERAL ORDER BETTY Final Result Performing Organization Address City/[facility]/ZIP Co de Phone Number [facility] [address] [place] [address], [place] [phone] * CBC auto differential (05/25/2025 10:49 AM EDT) WBC 7.3 4.8 - 10.8 K/mcL LAB HEMETOLOGY METHOD [facility]/25[facility]2025 [facility] RBC 4.20 3.80 - 4.80 M/mcL LAB HEMETOLOGY METHOD 05/25/2025 11:11 [facility] Hemoglobin 12.6 11.5 - 16.0 g/dL LAB HEMETOLOGY METHOD 05/25/2025 11:11 [facility] Hematocrit 39.4 35.0 - 47.0 % LAB HEMETOLOGY METHOD 05/25/2025 11:11 AM [facility] MCV 94.5 79.0 - 98.0 FL LAB HEMETOLOGY METHOD 05/25/2025 11:11 AM EDT [facility] MCH 30.2 27.0 - 32.0 [...] 05/25/2025 11:11 AM [facility] Monocytes Relative 6.0 % LAB HEMETOLOGY METHOD 05/25/2025 11:11 AM [facility] Eosinophils Relative 2.2 % LAB HEMETOLOGY METHOD 05/25/2025 11:11 AM [facility] Basophils Relative 0.4 % LAB HEMETOLOGY METHOD 05/25/2025 11:11 AM [facility] Immature Granulocytes Relative 0.4 % LAB HEMETOLOGY METHOD 05/25/2025 11:11 AM [facility] Neutrophils Absolute 4.91 1.50 - 7.00 K/mcL LAB HEMETOLOGY METHOD 05/25/2025 11:11 AM EDT [facility] Lymphocytes Absolute 1.71 1.00 - 5.00 K/mcL LAB HEMETOLOGY METHOD 05/25/2025 11:11 AM EDT [facility] Monocytes Absolute 0.44 0.20 - 1.00 K/mcL LAB HEMETOLOGY METHOD 05/25/2025 11:11 AM EDT [facility] Eosinophils Absolute 0.16 0.00 - 0.50 K/[facility] HEMETOLOGY METHOD 05/25/2025 11:11 AM EDT [facility] Basophils Absolute 0.03 0.00 - 0.20 K/[facility] HEMETOLOGY METHOD 05/25/2025 11:11 AM EDT [facility] Immature Granulocytes Absolute 0.03 0.00 - 0.03 K/[facility] HEMETOLOGY METHOD 05/25/2025 11:11 AM EDT [facility] Blood Venous blood specimen / Unknown Venipuncture / Unknown 05/25/2025 10:49 AM EDT 05/25/2025 11:01 AM EDT Robert Thompson MD LAB BLOOD ORDERABLES Final Resul t [facility] [address] [place] [address], * Lipase (05/25/2025 10:49 AM EDT) Lipase 19 13 - 75 unit/L LAB CHEMISTRY METHOD 05/25/2025 11:34 AM EDT [facility] Blood Venous blood specimen / Unknown Venipuncture / Unknown 05/25/2025 10:49 AM EDT 05/25/2025 11:01 AM EDT us Robert Thompson MD LAB BLOOD ORDERABLES Final Resul t [facility] [address] [place] [address], * Comprehensive metabolic panel (05/25/2025 10:49 AM [...] t [facility] [address] [place] [address], * (ABNORMAL) Lipid panel with reflex to direct LDL (09/27/2024 10:28 AM EST) Cholesterol 188 0 - 200 mg/dL LAB CHEMISTRY METHOD 09/27/2024 12:24 PM EST [facility] Triglycerides 43 0 - 150 mg/dL LAB CHEMISTRY METHOD 09/27/2024 12:24 PM EST [facility] HDL 61 >=40 mg/dL LAB CHEMISTRY METHOD 09/27/2024 12:24 PM EST [facility] LDL Calculated 118(H) 0 - 100 mg/dL LAB CHEMISTRY METHOD 09/27/2024 12:24 PM EST [facility] VLDL Cholesterol Carlo 8.6 mg/dL LAB CHEMISTRY METHOD 09/27/2024 12:24 PM EST [facility] Non HDL Chol. (LDL+VLDL) 127 <145 mg/dL LAB CHEMISTRY METHOD 09/27/2024 12:24 PM EST [facility] Chol/HDL Ratio 3.1 0.0 - 4.4 LAB CHEMISTRY METHOD 09/27/2024 12:24 PM EST [facility] Blood Venous blood specimen / Unknown Venipuncture / Unknown 09/27/2024 10:28 AM EST 09/27/2024 11:24 AM EST us Mary Jo Vargas MD LAB BLOOD ORDERABLES Final Resul t Performing Organization Address City/[facility]/ZIP Co de Phone Number [facility] [address] [place] [address], [place] [phone] * Hepatitis C antibody (07/23/2024 11:59 AM EST) [facility] Hepatitis C Antibody Negative Negative LAB CHEMISTRY METHOD 07/23/2024 7:04 PM EST [facility] Blood Venous blood specimen / Unknown Venipuncture / Unknown 07/23/2024 11:59 AM EST 07/23/2024 12:33 PM EST us Shawnee Friedman MD LAB BLOOD ORDERABLES January l Result [facility] [address] [place] [address], [place] [phone] from Last 3 Months or Most Recently Relevant to Health Maintenance Additional Health Concerns Infection Onset Date Last Indicated Herpes simplex 07/23/2024 07/23/2024 Insurance [facility] Member Subscriber Plan / Payer (Ef fective 2024-Present) Name:DIANA CHAPMAN Relation to Subscriber:Self Name:Diana Chapman Payer ID:[id number] Group ID:[id number] Type:Not on file Address: [facility] [address] [phone] Care Teams Signal Intelligence Analyst Relationship Specialty Start Date End Date Taj Davison MD [address] [facility] [address] [place] [address] PCP - General Internal Medicine 06/07/25
--- OUTSIDE RECORDS SUMMARY | 2025-07-29 15:56 | XMS_ITS | Encounter Summary ---
Author Organization [employer] Address [address] [facility] [address]t [place] [address] Care Team Providers Care Crew Dispatcher Name Role Phone Ye Loera MD Primary Care Prov ider Reason for Visit * Reason Onset Date Comments Durable Medical Equipment 05/21/2025 Encounter Details Date Type Department Care Team (Late st Contact Info) Description 05/21/2025 Telephone [facility] [address] [place] [address] Ye Loera MD [address] [place] [address] Durable Medical Equipment Social History Tobacco Use [...] - 05/21/2025 12:06 PM EDT Tc from [facility] with [facility] requesting DME for pt to be sent. She has received her shower chair but shewill also need a stepping stool and bed rails. If any questions you can contact Kodi at [phone] ext [phone]. documented in this encounter Plan of Treatment Not on file documented as of this encounter Visit Diagnoses Not on filedocumented in this encounter Additional Health Concerns Assessment Noted Time PHQ-9 Depression Total Score: 5 03/29/20 25 9:11 AM EDT documented as of this encounter Care Teams Crew Dispatcher Relationship Specialty Start Date End Date Ye Loera MD [address] [place] [id number] PCP - General Internal Medicine 02/18/25 documented as of this encounter
--- OUTSIDE RECORDS SUMMARY | 2025-07-29 15:56 | XMS_ITS | Encounter Summary ---
Author Organization [email or web address] Address [address] [facility] 7t [place] [address] Care Team Providers Care Ldr Nurse Name Role Phone Name, Elijah FRAGA Primary Care Provider [phone] Ye Loera MD Primary Care Prov ider Reason for Visit * Reason Comments Med Refill Encounter Details Date Type Department Care Team ([facility] st Contact Info) Description 09/23/2022 Refill [facility] [address] [place], [place] [phone] Name, MD Elijah [address] [place] [address] Depressive disorder Social History Tobacco Use Types [...] classified documented in this encounter Care Teams Ldr Nurse Relationship Specialty Start Date End Date NameElijah MD [address] [place] [phone] PCP - General Family Medicine 08/08/18 09/24/24 Ye Loera MD [address] [place] [phone] PCP - General Internal Medicine 02/18/25 documented as of this encounter
--- OUTSIDE RECORDS SUMMARY | 2025-07-29 15:56 | XMS_ITS | Encounter Summary ---
Author Organization [employer] Address [address] [facility] 7t [place] [address] Care Team Providers Care Paper Machine Tender Name Role Phone Name, Elijah FRAGA Primary Care Provider [phone] Ye Loera MD Primary Care Prov ider Reason for Visit * Reason Comments Med Refill Encounter Details Date Type Department Care Team ([facility] st Contact Info) Description 07/23/2022 Refill [facility] MED[facility]INE [address] [place], [place] [phone] Name, MD Elijah [address] [place] [address] Social History Tobacco Use Types Packs/Day Years [...] on filedocumented in this encounter Care Teams Paper Machine Tender Relationship Specialty Start Date End Date Name, MD Elijah [address] [place], [place] [phone] PCP - General Family Medicine 08/08/18 09/24/24 Ye Loera MD [address] [place] [address] PCP - General Internal Medicine 02/18/25 documented as of this encounter
== END 2025-07-29 13:23 | disposition home or self-care (01) ==
LOC: HO.HGS 12:48
PROVIDERS: PCP Internal Medicine; Referring Provider Nurse Practitioner Family; Visit Provider Surgery
DX: Z87.19 Personal history of other diseases of the digestive system (principal)
CPT/HCPCS: 99203

== ENCOUNTER → 2025-07-29 12:47 | Outpatient (BNVA) | payer OTHER, SELFPAY | PROVIDERS: PCP Internal Medicine; Referring Provider Nurse Practitioner Family; Visit Provider Surgery | DX: Z87.19 Personal history of other diseases of the digestive system (principal) | CPT/HCPCS: 99202 ==